=== PATIENT | male | born 1965 | race Caucasian/White ===

== ENCOUNTER → 2017-11-05 11:00 | Outpatient (CLI) | payer MEDICARE ==
[2014-05-14 07:51] VITALS: BMI 33.5
[~2017-11-05 11:00] MED LIST: ACETAMINOPHEN325 MG NG; ACETAMINOPHEN325 MG PO; ADIPEX-P37.5 MG PO; AMITRIPTYLINE100 MG PO; ASPIRIN325 MG PO; BAYER CHEWABLE81 MG PO; BENADRYL25 MG PO; CALAN120 MG PO; CELEXA20 MG PO; COLACE100 MG PO; DULCOLAX10 MG/SUPP RC; ELIQUIS2.5 MG PO; HYDROCODONE-APA1 TAB PO; K-TAB10 MEQ PO; LASIX40 MG PO; LOTENSIN20 MG PO; MIRALAX17 GM PO; NEURONTIN 300300 MG PO; NITROQUICK0.4 MG SL; NORVASC10 MG PO; OXYCONTIN10 MG PO; PERCOCET 10/3251 TA1 PO; PLAVIX75 MG PO; PRINIVIL20 MG PO; SENOKOT-S TABLE1 TAB PO; SEROQUEL200 MG PO; VALIUM5 MG PO; ZOFRAN4 MG PO; ZYPREXA20 MG PO
== END | disposition home or self-care (01) ==
LOC: D.US 11-01 11:30
DX: R10.9 Unspecified abdominal pain (principal)

== ENCOUNTER 2018-10-14 09:47 | Outpatient (CLI) | payer MEDICARE ==
[2014-05-14 07:51] VITALS: BMI 33.5
[2018-10-14] MEDS ORDERED: XARELTO10 MG PO (10:26)
[2018-10-14] MEDS ORDERED: BETAPACE 80 MG80 MG PO (10:26)
[2018-10-14] MEDS ORDERED: HYDROCHLOROTH12.5 M1 PO (10:26)
--- NOTE | 2018-10-14 10:33 | NUR ---
EKG SHOWS NORMAL SINUS RHYTHM. NOTIFIED DR. PHELPS. WANTS TO SEE HIM BACK IN THE OFFICE IN 1 MONTH. PATIENT AWARE. SAID HE WOULD CALL THE OFFICE TO SCHEDULE APPOINTMENT. PATIENT DRESSED. AMBULATED TO VEHICLE AND LEFT FACILITY WITH ALL PERSONAL BELONGINGS.
== END 2018-10-14 10:33 | disposition home or self-care (01) ==
LOC: D.CATH 09:47
PROVIDERS: ATTEND Internal Medicine Interventional Cardiology
DX: I48.91 Unspecified atrial fibrillation (principal)

== ENCOUNTER 2019-02-19 17:12 | Inpatient (IN) | payer MEDICARE ==
[~2019-02-19] VITALS: Ht 182.9 cm; Wt 89.1 kg
[~2019-02-19 17:12] MED LIST changes: +BETAPACE 80 MG80 MG PO; +HYDROCHLOROTH12.5 M1 PO; +XARELTO10 MG PO
--- NOTE | 2019-02-19 17:58 | NUR ---
SPOKE WITH MARIA DEL CARMEN @ [facility]ISON CONTR[facility], INFORMED TO GET ABG'S, 12 LOEAD, ASA AND TYLENOL LEVELS, WATCH FOR RESPATORY DEPRESSION MAY NEED TO INTUBATE, CAN CAUSE SEIZURES,PROLONG QRS,HTN, ARRYTHMIAS.
[2019-02-19 17:59] LABS: BASOPHILS 0.7 % (0-2); EOSINOPHILS 1.6 % (0-7); HEMOGLOBIN 16.9 g/dL (13.5-17.5); IMMATURE GRANULOCYTES 0.1 % (0-5); LYMPHOCYTES 24.8 % (15-50); MCH 34.3 pg (26.0-34.0); MCHC 35.2 g/dL (31.0-37.0); MCV 97.6 fL (80.0-100.0); MEAN PLATELET VOLUME 9.6 fL (7.4-10.4); MONOCYTES 13.9 % (2-11); NEUTROPHILS 58.9 % (40-80); PLATELET COUNT 203 10x3/uL (130-400); RBC 4.92 10x6/uL (4.20-6.10); RDW 12.5 % (11.5-14.5); WBC 8.2 10x3/uL (4.8-10.8)
[2019-02-19 18:10] LABS: ANION GAP 16.7 mmol/L (8-16); CALCIUM 9.1 mg/dL (8.5-10.1); CREATININE - SERUM 1.1 mg/dL (0.6-1.3); POTASSIUM - SERUM 3.7 mmol/L (3.5-5.1)
[2019-02-19 18:16] LABS: ALBUMIN 4.2 g/dL (3.4-5.0); BILIRUBIN - TOTAL 0.6 mg/dL (0.2-1.3); MAGNESIUM - SERUM 2.4 mg/dL (1.8-2.4); PROTEIN - SERUM 8.7 g/dL (6.4-8.2)
[2019-02-19 18:32] VITALS: BP 137/84
--- NOTE | 2019-02-19 19:10 | NUR ---
184 PT RESP LABORING, ANXIOUS, DR MEDELLIN HERE, RESP THERAPIST HERE 1848 ATIVAN 1 MG IV,SEE MAR, PER DIMPLE CAREY 1849 ETOMIDATE 20 MG 1849 IV SEE MAR PER RADHA CAREY 1850 SUCCINYLCHOLINE 100MG IV PER RADHA CAREY 1851 INTUBATED WUTH 7.5 TUBE , 25@ LOWER LIP, SECURED, PER DR MEDELLIN 1853 18F NGT TO RIGHT NARE PER RADHA CAREY, CLAMPED
[2019-02-19 19:18] VITALS: BP 152/94
--- NOTE | 2019-02-19 19:18 | NUR ---
REPORT GIVEN TO ANGELA CAREY TO ASSUME CARE
--- NOTE | 2019-02-19 19:22 | NUR ---
UNABLE TO PERFORM SUICIDE RISK ASSESSMENT DUE TO PT BEING INTUBATED. WILL CONTINUE TO MONITOR.
[2019-02-19 20:00] LABS: APPEARANCE CLEAR (CLEAR); BILIRUBIN NEGATIVE (NEGATIVE); COLOR STRAW (YELLOW); GLUCOSE NEGATIVE (NEGATIVE); KETONE NEGATIVE (NEGATIVE); NITRITE NEGATIVE (NEGATIVE); PROTEIN NEGATIVE (NEGATIVE); SPECIFIC GRAVITY 1.005 (1.005-1.020)
[2019-02-19 20:01] LABS: UDS - AMPHET NEGATIVE QUAL (NEGATIVE); UDS - BARB NEGATIVE QUAL (NEGATIVE); UDS - BENZO NEGATIVE QUAL (NEGATIVE); UDS - COCAINE NEGATIVE QUAL (NEGATIVE); UDS - OPIATE POSITIVE QUAL (NEGATIVE); UDS - PCP NEGATIVE QUAL (NEGATIVE); UDS - THC NEGATIVE QUAL (NEGATIVE)
--- NOTE | 2019-02-19 20:50 | NUR ---
PT ARRIVED TO ICU ACCOMPANIED BY ER STAFF. REPORT RECEIVED, PT SEDATED AND ON VENT. NGT IN PLACE, 7.5 ETT TO 26CM LIP LINE RIGHT. LITTLEJOHN IN PLACE DRAINING YELLOW URINE. PIV IN RIGHT WRIST INFUSING, PIV IN LEFT AC INFUSING, SEE IV FLOWSHEET. ASSESSMENT COMPLETED, SEE FLOWSHEET. WILL CONTINUE TO MONITOR.
[2019-02-19 21:00] VITALS: BP 173/101
--- NOTE | 2019-02-19 21:30 | NUR ---
PIV STARTED IN LEFT HAND, 20G TO SL.
--- NOTE | 2019-02-19 21:45 | NUR ---
PT FAMILY AT BEDSIDE, UPDATED ON STATUS. NO FURTHER QUESTIONS AT THIS TIME.
[2019-02-19 21:56] LABS: APPEARANCE CLEAR (CLEAR); BILIRUBIN NEGATIVE (NEGATIVE); COLOR YELLOW (YELLOW); GLUCOSE NEGATIVE (NEGATIVE); KETONE NEGATIVE (NEGATIVE); NITRITE NEGATIVE (NEGATIVE); PROTEIN TRACE mg/dL (NEGATIVE); SPECIFIC GRAVITY 1.005 (1.005-1.020); UROBILINOGEN NORMAL (NORMAL)
[2019-02-19 22:00] VITALS: BP 173/105
--- NOTE | 2019-02-19 22:00 | NUR ---
SOLOMON DANIELS APN UPDATED ON STATUS, NEW ORDERS RECEIVED.
[2019-02-19 22:01] LABS: BACTERIA FEW /hpf (NEGATIVE); EPITHELIAL CELLS NSEEN /hpf (0-5); RED CELLS - URINE 0-5 /hpf (0-5); WHITE CELLS - URINE 0-5 /hpf (NEGATIVE)
[2019-02-19 22:04] VITALS: BP 132/115; BMI 29.8
[2019-02-19 23:00] VITALS: BP 117/78
--- NOTE | 2019-02-19 23:00 | NUR ---
PT SEDATED, RESPONDS TO PAINFUL STIMULI. PT HAVING VERY FREQUENT DECORTICATE POSTURING SPASMOTIC EPISODES. WILL CONTINUE TO MONITOR.
[2019-02-20] VITALS (42 sets, daily range): BP systolic 112–210; BP diastolic 72–142; BMI 29.7
--- NOTE | 2019-02-20 01:00 | NUR ---
PT SEDATED, AROUSES TO PAINFUL STIMULI. PT MILDLY AGITATED, GIVEN ATIVAN PRN.
--- NOTE | 2019-02-20 03:00 | NUR ---
PT SEDATED, AROUSES TO PAINFUL STIMULI. PT STILL AGITATED, PRM MEDS ADMINISTERED
[2019-02-20 04:06] LABS: BASOPHILS 0.2 % (0-2); EOSINOPHILS 1.2 % (0-7); HEMATOCRIT 39.9 % (42.0-54.0); IMMATURE GRANULOCYTES 0.1 % (0-5); LYMPHOCYTES 17.3 % (15-50); MCH 34.6 pg (26.0-34.0); MCHC 35.1 g/dL (31.0-37.0); MCV 98.5 fL (80.0-100.0); MONOCYTES 9.4 % (2-11); NEUTROPHILS 71.8 % (40-80); RBC 4.05 10x6/uL (4.20-6.10); RDW 12.4 % (11.5-14.5); WBC 8.3 10x3/uL (4.8-10.8)
[2019-02-20 04:11] LABS: PLATELET COUNT 133 10x3/uL (130-400)
[2019-02-20 04:17] LABS: INR 1.36 (0.85-1.17); PROTIME 16.3 SECONDS (11.6-15.0)
[2019-02-20 04:40] LABS: ALKALINE PHOSPHATASE 82 U/L (46-116); BILIRUBIN - TOTAL 0.45 mg/dL (0.2-1.3); CALCIUM 7.5 mg/dL (8.5-10.1); CARBON DIOXIDE 32.7 mmol/L (21.0-32.0); CHLORIDE - SERUM 112 mmol/L (98-107); GLUCOSE 125 mg/dL (74-106); MAGNESIUM - SERUM 2.5 mg/dL (1.8-2.4); PRO BNP 374 pg/mL (0-125); SODIUM 152 mmol/L (136-145)
[2019-02-20 05:00] LABS: APTT < 20.0 SECONDS (22.8-39.4)
--- NOTE | 2019-02-20 05:00 | NUR ---
PT SEDATED, AROUSES TO PAINFUL STIMULI. FAMILY AT BEDSIDE, WILL CONTINUE TO MONITOR.
[2019-02-20 05:01] LABS: ALBUMIN 3.1 g/dL (3.4-5.0); ALT (SGPT) 70 U/L (10-68); CALC OSMOLALITY 300 mosm/kg (275-300); CREATININE - SERUM 0.8 mg/dL (0.6-1.3); POTASSIUM - SERUM 2.8 mmol/L (3.5-5.1); PROTEIN - SERUM 6.1 g/dL (6.4-8.2); UREA NITROGEN 7 mg/dL (7-18); eGFR NON AFRICAN AMERICAN > 90 mL/min (90-120)
[2019-02-20 05:02] LABS: PHOSPHOROUS 1.4 mg/dL (2.5-4.9)
--- NOTE | 2019-02-20 08:22 | NUR ---
PT SEDATED, INTUBATED, 40% FIO2, PEEP 5. VSS. ECHO IN PROGRESS. FAMILYT AT .
--- NOTE | 2019-02-20 08:23 | NUR ---
KCL AND PHOS REPLACEMENT PER ELECTROLYTE PROTOCOL.
--- NOTE | 2019-02-20 09:37 | NUR ---
PT MOVING ARMS AND LEGS AROUND CONTINUALLY. ATIVAN GIVEN.
--- NOTE | 2019-02-20 12:30 | NUR ---
PT REPORT RECEIVED FROM PURA CAREY. TAKING OVER CARE FOR PT. WILL CONTINUE TO MONITOR
--- NOTE | 2019-02-20 13:30 | NUR ---
STARTED CARDIZEM DRIP ON PT. WILL CONTINUE TO MONITOR BP AND HR.
--- NOTE | 2019-02-20 15:15 | NUR ---
[facility] CALLED WANTING UPDATE ON PT. UPDATE GIVEN. WANTED UPDATE ON EKG. TOLD TO CALL BACK IN 10 MINUTES.
--- NOTE | 2019-02-20 15:22 | NUR ---
JUSTINE FROM LAB CALLED ABOUT A CRITICAL LAB VALUE. POTASSIUM OF 2.9. RESULTS READ BACK AND DR FARIAS NOTIFIED.
--- NOTE | 2019-02-20 15:28 | NUR ---
ALLAN AT [facility] CALLED BACK REGARDING EKG. UPDATE GIVEN. DR FARIAS WANTED EKG RAN FOR PT. WILL CONTINUE TO MONITOR
--- NOTE | 2019-02-20 17:26 | NUR ---
SOLOMON CONNER CALLED ABOUT UA COLLECTION. WILL COLLECT URINE SPECIMINE AND TAKE TO LAB SOON POSSIBLE
--- NOTE | 2019-02-20 17:38 | NUR ---
URINE SPECIMEN OBTAINED. TAKEN OVER TO LAB
[2019-02-20 18:54] LABS: APPEARANCE CLEAR (CLEAR); BILIRUBIN NEGATIVE (NEGATIVE); COLOR YELLOW (YELLOW); GLUCOSE NEGATIVE (NEGATIVE); KETONE NEGATIVE (NEGATIVE); NITRITE NEGATIVE (NEGATIVE); PROTEIN NEGATIVE (NEGATIVE); UROBILINOGEN NORMAL (NORMAL)
--- NOTE | 2019-02-20 19:30 | NUR ---
PT SEDATED, ETT IN PLACE AND PATENT TO VENT, BILAT CRACKLES NOTED, PIV X3 INTACT WITH MULTI IVF INFUSING, NGT TO LIWS WITH BLACK OUTPUT NOTED, BILAT SWR IN USE, LITTLEJOHN PATENT TO BSD WITH STRAW URINE, SCD'S TO BILAT LOWER LEGS, VITALS STABLE, WILL CONT TO MONITOR
--- NOTE | 2019-02-20 21:15 | NUR ---
PT REMAINS SEDATED, RESTLESS AT TIMES, ATTEMPTS TO PULL AT TUBES, RESTRAINTS IN PLACE, WILL CONT TO MONITOR
[2019-02-20 23:09] LABS: CALC OSMOLALITY 276 mosm/kg (275-300); CALCIUM 7.6 mg/dL (8.5-10.1); CARBON DIOXIDE 24.8 mmol/L (21.0-32.0); CHLORIDE - SERUM 105 mmol/L (98-107); CREATININE - SERUM 0.7 mg/dL (0.6-1.3); GLUCOSE 119 mg/dL (74-106); POTASSIUM - SERUM 3.1 mmol/L (3.5-5.1); SODIUM 140 mmol/L (136-145); eGFR NON AFRICAN AMERICAN > 90 mL/min (90-120)
[2019-02-20 23:11] LABS: UREA NITROGEN 4 mg/dL (7-18)
--- NOTE | 2019-02-20 23:28 | NUR ---
PT RESTING QUIETLY AT THIS TIME, NGT REMAINS TO LIWS WITH DARK OUTPUT,NO DISTRESS NOTED
--- NOTE | 2019-02-20 23:45 | NUR ---
Received Pt from CHERRY Valdez. No acute changes noted at this time. No s/s of distress. Will continue to monitor.
[2019-02-21] VITALS (66 sets, daily range): BP systolic 99–231; BP diastolic 47–200
--- NOTE | 2019-02-21 01:00 | NUR ---
Pt is resting in bed intubated and sedated. Ocassionally pt will awaken and pull at anything he can reach. Pt also seen kicking legs in the air. No s/s of distress noted. Will continue to monitor.
--- NOTE | 2019-02-21 03:00 | NUR ---
Reassessment completed, see flowsheet for details. Pt is laying in bed with eyes closed at this time. Occassionally Pt will start pulling at lines or cords or anything within reach. Pt does have bilateral wrist restraints on at this time. No s/s of distress noted. Will continue to monitor.
[2019-02-21 04:35] LABS: ALKALINE PHOSPHATASE 80 U/L (46-116); ALT (SGPT) 59 U/L (10-68); CALC OSMOLALITY 273 mosm/kg (275-300); CALCIUM 7.6 mg/dL (8.5-10.1); CARBON DIOXIDE 22.8 mmol/L (21.0-32.0); CHLORIDE - SERUM 104 mmol/L (98-107); CREATININE - SERUM 0.5 mg/dL (0.6-1.3); GLUCOSE 121 mg/dL (74-106); MAGNESIUM - SERUM 2.6 mg/dL (1.8-2.4); PHOSPHOROUS 2.7 mg/dL (2.5-4.9); POTASSIUM - SERUM 4.2 mmol/L (3.5-5.1); SODIUM 138 mmol/L (136-145); UREA NITROGEN 3 mg/dL (7-18); eGFR NON AFRICAN AMERICAN > 90 mL/min (90-120)
--- NOTE | 2019-02-21 05:00 | NUR ---
Pt is laying in bed with eyes closed at this time. Pt is being calm and cooperative currently. No s/s of distress noted. Will continue to monitor.
[2019-02-21 06:57] LABS: BASOPHILS 0.1 % (0-2); EOSINOPHILS 0.1 % (0-7); HEMATOCRIT 41.4 % (42.0-54.0); HEMOGLOBIN 14.9 g/dL (13.5-17.5); IMMATURE GRANULOCYTES 0.2 % (0-5); LYMPHOCYTES 9.6 % (15-50); MCH 34.7 pg (26.0-34.0); MEAN PLATELET VOLUME 9.3 fL (7.4-10.4); MONOCYTES 10.3 % (2-11); NEUTROPHILS 79.7 % (40-80); PLATELET COUNT 135 10x3/uL (130-400); RBC 4.29 10x6/uL (4.20-6.10); RDW 12.5 % (11.5-14.5)
--- NOTE | 2019-02-21 07:00 | NUR ---
RECEIVED BEDSIDE REPORT ON PATIENT AND ASSUMED CARE. PATIENT RESTLESS, SIDEWAYS IN BED. DOES FOLLOW COMMANDS. PATIENT LINENS CHANGED AND REPOSITIONED IN BED. VSS. NG TUBE TO RIGHT NARE WITH GREEN BILIOUS DRAINAGE, NOTED, PLACEMENT CHECKED VIA ASCULTATION. IV 18 GA TO RIGHT WRIST WITH CARDENE INFUSING AT 7.5 MG/HR (37.5 CC/HR), IV 18 GA TO LEFT AC, NSL, IV 20 GA TO LEFT HAND INFUSING NS AT 100 CC/HR AND VERSED AT 7 MG/HR (7 CC/HR). NO S/S OF INFILTRATION. BBS - COARSE SPO2 94% ON VENTILATOR. VENT SETTINGS ARE TV 550, AC 16, PEEP 5, FIO2 - 40%. CM - SR RATE OF 90, NO ECTOPY NOTED. SCD'S IN PLACE. HEAD TO TOE ASSESSMENT COMPLETED.
[2019-02-21 07:01] LABS: MCV 96.5 fL (80.0-100.0); WBC 11.6 10x3/uL (4.8-10.8)
--- NOTE | 2019-02-21 08:13 | NUR ---
PATEINT SPO2 DECREASED TO 87%, BBS DIMINISHED ON THE RIGHT COMPARED TO LEFT AND EARLIER ASCULATION. ETT SUCTIONED WITH NO RESULTS. RESPIRATORY AT ROOM AND INCREASED FIO2 TO 60% WITH SPO2 - 94%.
--- NOTE | 2019-02-21 08:15 | NUR ---
PATIENTS MOTHER IN ROOM UPDATED AND QUESTIONS ANSWERED.
--- NOTE | 2019-02-21 09:00 | NUR ---
PATIENT TURNED AND REPOSITIONED IN BED. VSS.
--- NOTE | 2019-02-21 09:02 | NUR ---
DR. FARIAS AT ROOM AND EXAMINES PATIENT.
--- NOTE | 2019-02-21 09:31 | NUR ---
CARDENE GTT INCREASED TO 10 MG/HR BP 149/93 (104).
--- NOTE | 2019-02-21 09:56 | NUR ---
12 LEAD ECG COMPLETED. NSR, QT/QTc 374/482 MS.
--- NOTE | 2019-02-21 10:48 | NUR ---
REASSESSMENT COMPLETED. PATIENT WITH TEMP OF 102.4. RR - 30 BREATHING OVER THE VENT. RT AT ROOM. DR. FARIAS NOTIFIED. PATIENT TURNED AND REPOSITIONED.
--- NOTE | 2019-02-21 11:05 | NUR ---
SPOKE TO DR. FARIAS REGARDING PATIENT CONDITION, TEMP, ORDERS FENTANYL GTT, MAX RATE OF 100 MCG/H, ALSO TO OBTAIN SPUTUM CULTURE AND GRAM STAIN.
--- NOTE | 2019-02-21 11:11 | NUR ---
DR. ROACH AT ROOM UPDATED AND EXAMINES PATIENT.
--- NOTE | 2019-02-21 11:20 | NUR ---
DR. ROACH AT ROOM REFERENCE PATIENTS HR 114, RR 46, ORDERS ATIVAN 2 MG EVERY 15 MIN PRN. RT AT ROOM.
--- NOTE | 2019-02-21 11:47 | NUR ---
LAB AT ROOM TO DRAW BC.
--- NOTE | 2019-02-21 12:11 | NUR ---
SPOKE TO DR. ROACH REGARDING PATIENT HR BEING 122, STATES TO SWITCH FROM CARDENE GTT TO CARIZEM GTT AT 15 MG/HR. ORDER PLACED.
--- NOTE | 2019-02-21 12:50 | NUR ---
PATIENT TURNED AND REPOSITONED IN BED.
--- NOTE | 2019-02-21 13:11 | NUR ---
SPOKE TO DR. ROACH REGARDING PATIENTS TEMP 103.3, ADVISED TO GIVE ACETEMINOPHEN IV Q8H PRN FOR TEMP >102. ORDER PLACED.
--- NOTE | 2019-02-21 13:43 | NUR ---
NGT PLACEMENT CHECKED VIA ASCULTATION, PRN TYLENOL GIVEN FOR TEMP 13.3 AND NGT CLAMPED FOR 30 MINUTES.
--- NOTE | 2019-02-21 13:49 | NUR ---
PATIENT RESTING QUIETLY, HR - 102, RR - 21, SEDATED ON VENT. VSS. BP 139/75 (93).
--- NOTE | 2019-02-21 14:08 | NUR ---
TEMP POST TYLENOL IS 103.1, NGT UNCLAMPED AND TO LIWS.
--- NOTE | 2019-02-21 14:44 | NUR ---
DR. FARIAS AT ROOM UPDATED ON PATIENTS CONDITION.
--- NOTE | 2019-02-21 14:46 | NUR ---
PATEINTS TEMP 103.O ICE PACKS PLACED TO GROIN, ARM PITS AND NECK. TURNED AND REPOSITIONED IN BED.
--- NOTE | 2019-02-21 14:56 | NUR ---
REASSESSMENT COMPLETE. PATIENT TURNED AND REPOSITONED IN BED. TEMP 102.9, ICE PACKS TO GROIN, ARM PITS AND NECK. VSS. IVS INFUSING W/O DIFFICULTY OR S/S OF INFILTRATION. FENTANYL AT 100 MCG/HR, VERSED AT 7 MG/HR, NS AT 100 CC/HR AND CARDIZEM AT 10 MG/HR.
--- NOTE | 2019-02-21 15:53 | NUR ---
PATIENT RESTING QUIETLY, SEDATED ON VENT. VSS.
--- NOTE | 2019-02-21 16:15 | NUR ---
PATIENTS MOM AT ROOM UPDATED AND QUESTIONS ANSWERED. STATES SHE FOUND APPROXIMATELY 12-13 OF THE AMITRIPTYLIN PILLS IN THE DRIVE WAY.
--- NOTE | 2019-02-21 16:28 | NUR ---
PATIENTS SON'S AT BEDSIDE UPDATED AND QUESTIONS ANSWERED.
--- NOTE | 2019-02-21 17:47 | NUR ---
ICE PACKS PLACED BACK TO GROIN, ARMPITS AND NECK.
--- NOTE | 2019-02-21 19:32 | NUR ---
PT COUGHING AND AGITATED, ORAL CARE AND SUCTIONING PROVIDED. PT CONTINUES TO GAG AND ATTEMPT TO SIT UP. PRN ATIVAN 2MG ADMINISTERED VIA SIVP PER MD ORDER, WILL MONITOR FOR DESIRED EFFECT.
--- NOTE | 2019-02-21 21:12 | NUR ---
[facility] POISON CONTROL CALLED REGARDING PT, UPDATED, NOTHING FURTHER AT THIS TIME.
--- NOTE | 2019-02-21 23:40 | NUR ---
PT REPOSITIONED FOR COMFORT, ORAL CARE AND SUCTIONING PROVIDED, HR SR ON CM, CONT POC.
[2019-02-22] VITALS (23 sets, daily range): BP systolic 93–150; BP diastolic 54–97
--- NOTE | 2019-02-22 01:00 | NUR ---
RT AT BEDSIDE, SUCTIONING AND ORAL CARE PROVIDED, CONT TO MONITOR.
--- NOTE | 2019-02-22 03:10 | NUR ---
SHAFTING CLEANER AT BEDSIDE TO DRAW AM LAB, PT TOLERATED WITHOUT DIFFICULTY. VSS.
[2019-02-22 03:53] LABS: BASOPHILS 0.1 % (0-2); EOSINOPHILS 0.1 % (0-7); HEMATOCRIT 39.4 % (42.0-54.0); HEMOGLOBIN 13.9 g/dL (13.5-17.5); IMMATURE GRANULOCYTES 0.2 % (0-5); LYMPHOCYTES 13.2 % (15-50); MCH 34.3 pg (26.0-34.0); MCHC 35.3 g/dL (31.0-37.0); MCV 97.3 fL (80.0-100.0); MONOCYTES 6.4 % (2-11); PLATELET COUNT 128 10x3/uL (130-400); RBC 4.05 10x6/uL (4.20-6.10); RDW 12.3 % (11.5-14.5); WBC 8.9 10x3/uL (4.8-10.8)
[2019-02-22 04:17] LABS: ALBUMIN 2.4 g/dL (3.4-5.0); ALKALINE PHOSPHATASE 62 U/L (46-116); ALT (SGPT) 35 U/L (10-68); BILIRUBIN - TOTAL 1.64 mg/dL (0.2-1.3); CALC OSMOLALITY 275 mosm/kg (275-300); CALCIUM 7.7 mg/dL (8.5-10.1); CARBON DIOXIDE 23.1 mmol/L (21.0-32.0); CHLORIDE - SERUM 106 mmol/L (98-107); CREATININE - SERUM 0.7 mg/dL (0.6-1.3); GLUCOSE 97 mg/dL (74-106); MAGNESIUM - SERUM 2.4 mg/dL (1.8-2.4); POTASSIUM - SERUM 3.1 mmol/L (3.5-5.1); PROTEIN - SERUM 6.3 g/dL (6.4-8.2); SODIUM 139 mmol/L (136-145); UREA NITROGEN 7 mg/dL (7-18); eGFR NON AFRICAN AMERICAN > 90 mL/min (90-120)
--- NOTE | 2019-02-22 04:50 | NUR ---
ABG'S REVIEWED, PO2 NOTED, FIO2 INCREASED TO 100% PEEP OF 7.
--- NOTE | 2019-02-22 05:10 | NUR ---
ABG'S RESULTED FROM RE-CHECK, VENT SETTINGS REMAIN AT 100% AND PEEP 0F 7 PER RT. WILL MONITOR.
--- NOTE | 2019-02-22 07:15 | NUR ---
LYING IN BED ON VENT AT THIS TIME. VSS. NOTED PER DR FARIAS ORDER, CONSENTS OBTAINED FROM PTS FOR BRONCHOSCOPY. ALL QUESTIONS AND CONCERNS ADDRESSED. WILL CONTINUE PLAN OF CARE.
--- NOTE | 2019-02-22 08:06 | NUR ---
BRONCHOSCOPY COMPLETE, DR FARIAS HAS SPOKEN WITH PTS AND UPDATES PROVIDED. NO ACUTE DISTRESS NOTED. VSS. WILL CONTINUE PLAN OF CARE.
--- NOTE | 2019-02-22 10:32 | NUR ---
LYING IN BED ON VENT AT THIS TIME. VSS. NO ACUTE DISTRESS NOTED. TURNED Q2H. ORAL CARE PROVIDED Q2H. WILL CONTINUE PLAN OF CARE.
--- NOTE | 2019-02-22 12:11 | NUR ---
NO ACUTE DISTRESS NOTED. NO CHANGE. VSS. TURNED Q2H. ORAL CARE PROVIDED Q2H. WILL CONTINUE PLAN OF CARE.
[2019-02-22 13:02] LABS: MACROPHAGES BF 1 %; NEUT - BF 82 %
--- NOTE | 2019-02-22 14:41 | NUR ---
FAMILY AT BEDSIDE AT THIS TIME. VSS. NO ACUTE DISTRESS NOTED. PT TURNED Q2H. ORAL CARE PROVIDED Q2H. WILL CONTINUE PLAN OF CARE.
--- NOTE | 2019-02-22 15:35 | NUR ---
TEMP NOTED AT 102.6. ICE PACKS PLACED TO BILATERAL AXILLARIES AND GROIN. PHYSICIANS HAVE BEEN MADE AWARE OF ELEVATED TEMPERATURE, NO NEW ORDERS SUCH CULTURES NOTED. NO ACUTE DISTRESS NOTED. WILL CONTINUE PLAN OF CARE.
--- NOTE | 2019-02-22 17:52 | NUR ---
CHG BATH PROVIDED AT THIS TIME ALONG WITH TOTAL LINEN CHANGE. VSS. NO ACUTE DISTRESS NOTED. WILL CONTINUE PLAN OF CARE.
--- NOTE | 2019-02-22 19:00 | NUR ---
REPORT RECEIVED, SHIFT ASSESSMENT COMPLETE, PT IS SEDATED ON VENT, AROUSES TO VOICE, ALL PPP, VSS, WILL CON'T TO MONITOR
--- NOTE | 2019-02-22 20:55 | NUR ---
FAMILY AT BEDSIDE, UPDATE GIVEN
--- NOTE | 2019-02-22 23:22 | NUR ---
REASSESSMENT COMPLETE, NO CHANGES NOTED, PT REPOSITIONED FOR COMFORT, ORAL CARE PROVIDED
[2019-02-23] VITALS (25 sets, daily range): BP systolic 86–136; BP diastolic 59–89; Ht 182.9 cm; Wt 89.1 kg
--- NOTE | 2019-02-23 01:00 | NUR ---
REPOSITIONED FOR COMFORT, ORAL CARE PROVIDED
--- NOTE | 2019-02-23 03:15 | NUR ---
REASSESSMENT COMPLETE, NO CHANGES NOTED,
[2019-02-23 04:19] LABS: BASOPHILS 0.1 % (0-2); EOSINOPHILS 2.4 % (0-7); HEMATOCRIT 37.2 % (42.0-54.0); HEMOGLOBIN 12.9 g/dL (13.5-17.5); IMMATURE GRANULOCYTES 0.2 % (0-5); LYMPHOCYTES 8.3 % (15-50); MCH 34.5 pg (26.0-34.0); MCHC 34.7 g/dL (31.0-37.0); MEAN PLATELET VOLUME 10.3 fL (7.4-10.4); MONOCYTES 6.6 % (2-11); NEUTROPHILS 82.4 % (40-80); PLATELET COUNT 134 10x3/uL (130-400); RBC 3.74 10x6/uL (4.20-6.10); WBC 8.3 10x3/uL (4.8-10.8)
[2019-02-23 04:32] LABS: MCV 99.5 fL (80.0-100.0)
[2019-02-23 04:44] LABS: ALBUMIN 2.1 g/dL (3.4-5.0); ALKALINE PHOSPHATASE 64 U/L (46-116); BILIRUBIN - TOTAL 1.97 mg/dL (0.2-1.3); CALCIUM 7.8 mg/dL (8.5-10.1); CHLORIDE - SERUM 106 mmol/L (98-107); CREATININE - SERUM 0.8 mg/dL (0.6-1.3); GLUCOSE 87 mg/dL (74-106); MAGNESIUM - SERUM 2.7 mg/dL (1.8-2.4); PHOSPHOROUS 1.9 mg/dL (2.5-4.9); POTASSIUM - SERUM 3.6 mmol/L (3.5-5.1); PROTEIN - SERUM 6.1 g/dL (6.4-8.2); SODIUM 139 mmol/L (136-145); eGFR NON AFRICAN AMERICAN > 90 mL/min (90-120)
[2019-02-23 04:53] LABS: ALT (SGPT) 25 U/L (10-68); CALC OSMOLALITY 275 mosm/kg (275-300); UREA NITROGEN 9 mg/dL (7-18)
--- NOTE | 2019-02-23 05:15 | NUR ---
REPOSITIONED FOR COMFORT, ORAL CARE PROVIDED
--- NOTE | 2019-02-23 07:30 | NUR ---
patient report recieved. see assessment. see adl.
--- NOTE | 2019-02-23 09:22 | NUR ---
Nutrition follow-up: Intubated, sedated; ETOH withdrawals Labs reviewed Pt remains NPO Recommend starting Pulmocare @ 25 ml/hr with increase to goal rate of 60 ml/hr with 100 ml H2O flush Q 4 hours RDN following.
--- NOTE | 2019-02-23 11:06 | NUR ---
DR LOPEZ AT BEDSIDE. UPDATE GIVEN. CARDENE DRIP STILL INFUSING FROM BEFORE SHIFT AT 15 PER ORDER.
--- NOTE | 2019-02-23 12:03 | NUR ---
DR LENIN LARSON.
--- NOTE | 2019-02-23 12:26 | NUR ---
per linda give sotolal down ng tube then titrate diltiazam down as needed.
--- NOTE | 2019-02-23 13:00 | NUR ---
chest x ray at this time
--- NOTE | 2019-02-23 15:00 | NUR ---
ICE PACKS IN PLACE. LOW GRADE FEVER DURING THIS TIME.
--- NOTE | 2019-02-23 17:30 | NUR ---
FAMILY AT BEDSIDE. NO ACUTE DISTRESS. UPDATE GIVEN ON CHEST XRAY FROM THIS MORNING SEDATION CONTINUED FROM WHAT WAS GIVEN IN REPORT THIS MORNING.
--- NOTE | 2019-02-23 19:20 | NUR ---
REPORT RECEIVED, SHIFT ASSESMENT COMPLETE, PT IS SEDATED ON VENT, ALL PPP, VSS, WILL CON'T TO MONITOR
--- NOTE | 2019-02-23 21:10 | NUR ---
FAMILY AT BEDSIDE, UPDATE GIVEN
--- NOTE | 2019-02-23 23:14 | NUR ---
REASSESSMENT COMPLETE, NO CHANGES NOTED, WILL CON'T TO MONITOR
[2019-02-24] VITALS (24 sets, daily range): BP systolic 118–158; BP diastolic 80–109
--- NOTE | 2019-02-24 01:14 | NUR ---
COMPLETE BATH AND LINEN CHANGE, PT TOLERATED WELL
--- NOTE | 2019-02-24 03:09 | NUR ---
REASSESSMENT COMPLETE, NO CHANGES NOTED, VSS, CALL LIGHT IN REACH
[2019-02-24 03:56] LABS: BASOPHILS 0.1 % (0-2); EOSINOPHILS 1.7 % (0-7); HEMOGLOBIN 12.5 g/dL (13.5-17.5); IMMATURE GRANULOCYTES 0.5 % (0-5); LYMPHOCYTES 6.7 % (15-50); MCH 34.3 pg (26.0-34.0); MCHC 34.7 g/dL (31.0-37.0); MCV 98.9 fL (80.0-100.0); MEAN PLATELET VOLUME 10.4 fL (7.4-10.4); MONOCYTES 8.7 % (2-11); NEUTROPHILS 82.3 % (40-80); PLATELET COUNT 143 10x3/uL (130-400); RBC 3.64 10x6/uL (4.20-6.10); RDW 12.9 % (11.5-14.5); WBC 8.8 10x3/uL (4.8-10.8)
[2019-02-24 04:23] LABS: ALBUMIN 1.8 g/dL (3.4-5.0); ALKALINE PHOSPHATASE 70 U/L (46-116); ALT (SGPT) 22 U/L (10-68); BILIRUBIN - TOTAL 1.55 mg/dL (0.2-1.3); CALC OSMOLALITY 278 mosm/kg (275-300); CARBON DIOXIDE 25.3 mmol/L (21.0-32.0); CHLORIDE - SERUM 107 mmol/L (98-107); CREATININE - SERUM 0.7 mg/dL (0.6-1.3); GLUCOSE 92 mg/dL (74-106); MAGNESIUM - SERUM 2.5 mg/dL (1.8-2.4); POTASSIUM - SERUM 3.7 mmol/L (3.5-5.1); PROTEIN - SERUM 6.1 g/dL (6.4-8.2); SODIUM 141 mmol/L (136-145); UREA NITROGEN 8 mg/dL (7-18); eGFR NON AFRICAN AMERICAN > 90 mL/min (90-120)
--- NOTE | 2019-02-24 05:21 | NUR ---
REPOSITIONED FOR COMFORT, ORAL CARE PROVIDED
--- NOTE | 2019-02-24 07:30 | NUR ---
report recieved. see assessment. see adl's. no acute distress. will continue to monitor
--- NOTE | 2019-02-24 09:00 | NUR ---
no acute dsitress. vss. see assessment. see adl's. discussed with family regarding smell.
--- NOTE | 2019-02-24 11:00 | NUR ---
see reassessment. see adl's. no acute distress. meds given per mar. monitoring blood pressue. will continue to monitor
[2019-02-24 14:08] LABS: ACID FAST SMEAR Negative (()); AFB SPECIMEN PROCESSING Concentration (())
--- NOTE | 2019-02-24 15:30 | NUR ---
SEE ADL'S. SEE ASSESSMENT. LINES CHANGED PER STICKERS. ALL LINES AND CAPPED. NO ACUTE DISTRESS. WILL CONTINUE TO MONITOR
--- NOTE | 2019-02-24 16:27 | NUR ---
PATIENT NOW ON DROPLET PRECAUTIONS. KRISTINA BIGGS FOUND AND RULING OUR MRSA
--- NOTE | 2019-02-24 19:20 | NUR ---
REPORT RECIEVED, SHIFT ASSESSMENT COMPLETE, PT IS SEDATED ON VENT, ALL PPP, VSS, CALL LIGHT IN REACH
--- NOTE | 2019-02-24 21:00 | NUR ---
FAMILY AT BEDSIDE, UPDATE GIVEN
--- NOTE | 2019-02-24 23:00 | NUR ---
REASSESSMENT COMPLETE, NO CHANGES NOTED, PT RESTING AT THIS TIME, WILL CON'T TO MONITOR
[2019-02-25] VITALS (24 sets, daily range): BP systolic 125–154; BP diastolic 82–114
--- NOTE | 2019-02-25 01:16 | NUR ---
REPOSITIONED FOR COMFORT, ORAL CARE PROVIDED
--- NOTE | 2019-02-25 03:00 | NUR ---
REASSESSMENT COMPLETE, NO CHANGES NOTED, PT RESTING AT THIS TIME, VSS, CALL LIGHT IN REACH
[2019-02-25 04:46] LABS: CALC OSMOLALITY 282 mosm/kg (275-300); CARBON DIOXIDE 21.9 mmol/L (21.0-32.0); CHLORIDE - SERUM 110 mmol/L (98-107); CREATININE - SERUM 0.6 mg/dL (0.6-1.3); GLUCOSE 92 mg/dL (74-106); PHOSPHOROUS 1.8 mg/dL (2.5-4.9); POTASSIUM - SERUM 3.1 mmol/L (3.5-5.1); SODIUM 143 mmol/L (136-145); UREA NITROGEN 8 mg/dL (7-18); eGFR NON AFRICAN AMERICAN > 90 mL/min (90-120)
[2019-02-25 04:47] LABS: CALCIUM 6.5 mg/dL (8.5-10.1); MAGNESIUM - SERUM 4.4 mg/dL (1.8-2.4)
--- NOTE | 2019-02-25 05:11 | NUR ---
REPOSITIONED FOR COMFORT, ORAL CARE PROVIDED
--- NOTE | 2019-02-25 07:05 | NUR ---
PT TEMP 102.1 ICE PACKS PUT IN PLACE AND FA TURNED ON. PT POSITIONED FOR COMFORT WILL CONTINUE TO MONITOR.
--- NOTE | 2019-02-25 19:30 | NUR ---
SHIFT ASSESSMENT COMPLETED PT AFEBRILE AT THIS TIME SEE FLOWSHEET
--- NOTE | 2019-02-25 20:30 | NUR ---
HS MEDICATIONS RECEIVED
--- NOTE | 2019-02-25 23:15 | NUR ---
REASSESSMENT COMPLETED SEE FLOWSHEET
[2019-02-26] VITALS (24 sets, daily range): BP systolic 102–160; BP diastolic 59–106
--- NOTE | 2019-02-26 03:49 | NUR ---
REASSESSMENT COMPLETED SEE FLOWSHEET
--- NOTE | 2019-02-26 03:58 | NUR ---
PT ELEVATED TEMP AT THIS TIME REASSESSMENT COMPLETED SEE FLOWSHEET
--- NOTE | 2019-02-26 05:30 | NUR ---
PT RESTING COMFORTABLY
[2019-02-26 05:37] LABS: PHOSPHOROUS 2.2 mg/dL (2.5-4.9)
[2019-02-26 05:38] LABS: MAGNESIUM - SERUM 1.8 mg/dL (1.8-2.4)
--- NOTE | 2019-02-26 08:32 | NUR ---
Nutrition follow-up: Pt intubated, sedated Labs reviewed Pulmocare infusing @ 30 ml/hr with goal rate of 50 ml/hr 50 ml h2o flush q 2 hours Wt: 234# RDN following.
--- NOTE | 2019-02-26 18:49 | MORECARE ---
CASE MANAGEMENT DISCHARGE SUMMARY PATIENT: DIEGO LEON JR UNIT: [id number] ADM DATE: 02/19/19 AGE: 54 : 65 SEX: M ROOM/BED: D.2301 AUTHOR: MAC SOLIS PHYSICIAN: REFERRING PHYSICIAN: VLADIMIR ROACH MD DATE OF SERVICE: 02/26/19 Discharge Plan Patient Name: DIEGO LEON Facility: [facility]:[place] : 1965 Planned Disposition: Anticipated Discharge Date: Discharge Date: Expected LOS: Initial Reviewer: [email or web address] Initial Review Date: 02/23/2019 Generated: 02/26/19 7:49 pm Patient Name: DIEGO LEON Page [phone] at 1849 All edits/amendments must be made on the electronic document DICTATION DATE: 02/26/191848 FINISHED YARN EXAMINER: TAVIA 02/26/191848 RPT#: [id number] DC DATE: STATUS: ADM IN [facility] [address] [place] [address] END OF REPORT
--- NOTE | 2019-02-26 18:56 | MORECARE ---
CASE MANAGEMENT DISCHARGE SUMMARY PATIENT: DIEGO LEON JR UNIT: [id number] ADM DATE: 02/19/19 AGE: 54 : 65 SEX: M ROOM/BED: D.2301 AUTHOR: WILL,DOC PHYSICIAN: REFERRING PHYSICIAN: VLADIMIR ROACH MD DATE OF SERVICE: 02/26/19 Discharge Plan Patient Name: DIEGO LEON Facility: [facility]:[place] : 1965 Planned Disposition: Anticipated Discharge Date: Discharge Date: Expected LOS: Initial Reviewer: [email or web address] Initial Review Date: 02/23/2019 Generated: 02/26/19 7:55 pm Comments DCP- Discharge Planning Updated by [email or web address]: Altagracia Lou on 02/26/19 5:[address] LATE ENTRY 02/24/19 Patient Name: DIEGO LEON Admission Status: ER Accout number: [id number] Admission Date: 02-19-2019 : 1965 Admission Diagnosis: Attending: VLADIMIR ROACH Current LOS: 7 Anticipated DC Date: Planned Disposition: Primary Insurance: MEDICARE A & B Discharge Planning Comments: CM met with patient at bedside after explaining CM role and obtaining verbal consent. Patient lives at home with his mother where he is independent with his care and plans to return there upon discharge. Patient feels this would be a safe discharge. CM discussed availability / needs of home health and medical equipment. Patient denies any discharge needs at this time. Patient states he will have his family drive him home upon discharge. CM will continue to follow and assist as needed with discharge planning / needs. Golf Tournament Consultant: Altagracia Lou DCPIA - Discharge Planning Initial Assessment Updated by [email or web address]: Altagracia Lou on 02/26/19 6:50 pm * Is the patient Alert and Oriented? Yes * How many steps to enter\exit or inside your home? * PCP JAY JAY CHAN * Pharmacy [facility] * Preadmission Environment Home with Family * ADLs Independent * Equipment None * List name and contact numbers for known caregivers / representatives who currently or will assist patient after discharge: CHRIS LEON - MOTHER- [phone] * Verbal permission to speak to the caregivers and representatives has been obtained from the patient. Yes * Community resources currently utilized None * Additional services required to return to the preadmission environment? No * Can the patient safely return to the preadmission environment? Yes * Has this patient been hospitalized within the prior 30 days at any hospital? No Last DP export: 02/26/19 5:49 pm Patient Name: DIEGO LEON Page [phone] at 1856 All edits/amendments must be made on the electronic document DICTATION DATE: 02/26/191854 TREAD BUILDER: TAVIA 02/26/191854 RPT#: [id number] DC DATE: STATUS: ADM IN [facility] [address] [place] [address] END OF REPORT
[2019-02-27] VITALS (25 sets, daily range): BP systolic 111–156; BP diastolic 77–110
[2019-02-27 05:58] LABS: BASOPHILS 0.6 % (0-2); EOSINOPHILS 0.9 % (0-7); HEMATOCRIT 36.4 % (42.0-54.0); HEMOGLOBIN 12.3 g/dL (13.5-17.5); IMMATURE GRANULOCYTES 1.1 % (0-5); LYMPHOCYTES 11.4 % (15-50); MCH 33.3 pg (26.0-34.0); MCHC 33.8 g/dL (31.0-37.0); MCV 98.6 fL (80.0-100.0); MEAN PLATELET VOLUME 10.1 fL (7.4-10.4); MONOCYTES 6.8 % (2-11); NEUTROPHILS 79.2 % (40-80); PLATELET COUNT 238 10x3/uL (130-400); RBC 3.69 10x6/uL (4.20-6.10); RDW 13.1 % (11.5-14.5); WBC 10.5 10x3/uL (4.8-10.8)
[2019-02-27 06:38] LABS: ALBUMIN 1.5 g/dL (3.4-5.0); ALKALINE PHOSPHATASE 98 U/L (46-116); ALT (SGPT) 79 U/L (10-68); BILIRUBIN - TOTAL 1.01 mg/dL (0.2-1.3); CALC OSMOLALITY 275 mosm/kg (275-300); CALCIUM 7.9 mg/dL (8.5-10.1); CARBON DIOXIDE 24.6 mmol/L (21.0-32.0); CHLORIDE - SERUM 104 mmol/L (98-107); CREATININE - SERUM 0.5 mg/dL (0.6-1.3); GLUCOSE 114 mg/dL (74-106); LIPASE 495 U/L (73-393); MAGNESIUM - SERUM 2.2 mg/dL (1.8-2.4); POTASSIUM - SERUM 3.6 mmol/L (3.5-5.1); PROTEIN - SERUM 6.2 g/dL (6.4-8.2); SODIUM 138 mmol/L (136-145); UREA NITROGEN 9 mg/dL (7-18); VANCOMYCIN - TROUGH 15.5 ug/mL (10.0-20.0); eGFR NON AFRICAN AMERICAN > 90 mL/min (90-120)
--- NOTE | 2019-02-27 08:26 | NUR ---
Nutrition follow-up: chart reviewed Pt remains intubated, sedated Pulmocare infusing @ 30 ml/hr Dr. Aleman ordered goal rate of 45 ml/hr Nusing message for TF to increase 10 ml q 4 hours to goal rate of 45 ml/hr with 20 ml H2O flush q hour. RDN following.
[2019-02-27 11:09] LABS: FUNGUS STAIN Final report (())
[2019-02-27 14:09] LABS: ACID FAST SMEAR Negative (()); AFB SPECIMEN PROCESSING Concentration (())
--- NOTE | 2019-02-27 15:45 | NUR ---
PT BACK FROM CT UPON RETURN HAD A BM AND BATH WAS GIVEN WAS A TARRY BLACK STOOL SPECIMENT SENT TO LAB.
--- NOTE | 2019-02-27 19:15 | NUR ---
SHIFT ASSESSMENT COMPLETED, ORAL CARE PERFORMED REPOSITIONED FOR COMFORT AFIB RATE AT 128 NOTED AT THIS TIME, CARDIZEM GTT OFF. SEE FLOWSHEET FOR FULL ASSESSMENT
--- NOTE | 2019-02-27 20:40 | NUR ---
SPOKE WITH DR. LANGE AT THIS TIME REGARDING HIGH HEART RATE - NEW ORDERS RECEIVED
--- NOTE | 2019-02-27 23:00 | NUR ---
REASSESSMENT COMPLETED SEE FLOWSHEET
[2019-02-28] VITALS (22 sets, daily range): BP systolic 119–159; BP diastolic 77–115
--- NOTE | 2019-02-28 01:29 | NUR ---
PATIENT INTUBATED/SEDATED - ORAL CARE PERFORMED, REPOSITIONED FOR COMFORT VSS - CONTROLLED FIB HR 80-90 NOTED ON MONITOR, BP WNL CPOC
--- NOTE | 2019-02-28 03:00 | NUR ---
REASSESSMENT COMPLETED SEE FLOWSHEET
[2019-02-28 06:15] LABS: BASOPHILS 0.5 % (0-2); EOSINOPHILS 1.4 % (0-7); HEMOGLOBIN 14.5 g/dL (13.5-17.5); IMMATURE GRANULOCYTES 1.1 % (0-5); LYMPHOCYTES 10.1 % (15-50); MCH 33.6 pg (26.0-34.0); MCHC 33.7 g/dL (31.0-37.0); MCV 99.5 fL (80.0-100.0); MEAN PLATELET VOLUME 10.4 fL (7.4-10.4); MONOCYTES 4.9 % (2-11); PLATELET COUNT 206 10x3/uL (130-400); RBC 4.32 10x6/uL (4.20-6.10); WBC 9.2 10x3/uL (4.8-10.8)
[2019-02-28 06:29] LABS: ALBUMIN 1.5 g/dL (3.4-5.0); ALKALINE PHOSPHATASE 108 U/L (46-116); ALT (SGPT) 95 U/L (10-68); BILIRUBIN - TOTAL 0.73 mg/dL (0.2-1.3); CALC OSMOLALITY 278 mosm/kg (275-300); CALCIUM 7.7 mg/dL (8.5-10.1); CARBON DIOXIDE 26.6 mmol/L (21.0-32.0); CHLORIDE - SERUM 105 mmol/L (98-107); CREATININE - SERUM 0.5 mg/dL (0.6-1.3); GLUCOSE 123 mg/dL (74-106); MAGNESIUM - SERUM 2.2 mg/dL (1.8-2.4); PHOSPHOROUS 2.7 mg/dL (2.5-4.9); POTASSIUM - SERUM 3.4 mmol/L (3.5-5.1); SODIUM 140 mmol/L (136-145); UREA NITROGEN 10 mg/dL (7-18); eGFR NON AFRICAN AMERICAN > 90 mL/min (90-120)
[2019-02-28 06:34] LABS: LIPASE 758 U/L (73-393)
--- NOTE | 2019-02-28 07:00 | NUR ---
ETT SECURE TO VENT. HALF WAY OPENS EYES WHEN STIMULATED. MOVING EXTREMITITES SOME. DOES NOT OBEY COMMANDS. BILATERAL LUNG SOUNDS EQUAL. LEFT UPPER ARM PICC INFUSING WITH NS AT 100 ML HOUR, FENTANYL AT 75 MCG HOUR. PULMOCARE PER OG AT 45 ML HOUR WITH 20 ML FLUSH Q 1 HOUR. LITTLEJOHN CATH PATENT DRAINING MELO URINE. HEAD OF BED ELEVATED 30 DEGREES NO DISTRESS.
--- NOTE | 2019-02-28 09:00 | NUR ---
REPOSITIONED. OPENS EYES HALF WAY WHEN STIMULATED. NO DISTRESS. NO RESIDUAL FROM OG. CONTINUE AT 45 ML HOUR GOAL RATE. 1200 ML EMPTIED FROM LITTLEJOHN CATH. HAND ELEVATED ON PILLOW. HEELS BRIDGED ON PILLOW. SCD ON LOWER LEGS. ORAL CARE DONE. CLEAR SECRETIONS FROM MOUTH. SUCTION PER ETT SMALL AMOUNT WHITE SECRETIONS.
--- NOTE | 2019-02-28 11:00 | NUR ---
COMPLETED BED BATH GIVEN. DARK GREEN LIQUID STOOL. LEFT HEEL HAS LARGE FLAT BLISTER LOOKING AREA. SKIN INTACT.
--- NOTE | 2019-02-28 12:02 | NUR ---
PATIENT OPENED EYES DURING BATH FOLLOWED NURSE IN ROOM. GREAT COUGH REFLEX . NO SKIN BREAKDOWN NOTED. BRUSING ON ABD
--- NOTE | 2019-02-28 13:00 | NUR ---
DR. LOPEZ HERE TALKED WITH MOTHER OF PATIENT. PATINET WAKING UP EASIER, NODING HEAD TO YES AND NO QUESTIONS APPRIOPATELY. COUGHING AND GAGGING AT TIMES. FENTANYL AT 50 MCG
--- NOTE | 2019-02-28 14:25 | NUR ---
LARGE DARK GREEN LIQUID STOOL. RECTAL TUBE INSERTED TO MAINTAIN SKIN INTEGRITY. RASH NOTED ON BACK.
--- NOTE | 2019-02-28 14:39 | NUR ---
DR. LOPEZ NOTIFIED OF RASH ON BACK.
--- NOTE | 2019-02-28 20:38 | NUR ---
PT COUGHING AND GAGGING, PULLING AGAINST RESTRAINTS, ALL ATTEMPTS TO CALM ARE UNSUCCESSFUL. PRN ATIVAN 2MG ADMINISTERED VIA SIVP. WILL MONITOR.
--- NOTE | 2019-02-28 21:20 | NUR ---
PT MOTHER IN FOR VISITATION, UPDATE PROVIDED, ALL QUESTIONS ANSWERED.
[2019-03-01] VITALS (24 sets, daily range): BP systolic 109–159; BP diastolic 78–114
--- NOTE | 2019-03-01 01:20 | NUR ---
PT POSITIONED, ORAL CARE PROVIDED, CONT POC.
--- NOTE | 2019-03-01 02:19 | NUR ---
PT NOTED TO BE AGITATED, COUGHING AND GAGGING ON ETT. PRN ATIVAN 2MG ADMINISTERED PER MD ORDER.
[2019-03-01 04:58] LABS: ALBUMIN 1.5 g/dL (3.4-5.0); ALKALINE PHOSPHATASE 105 U/L (46-116); ALT (SGPT) 76 U/L (10-68); BILIRUBIN - TOTAL 0.59 mg/dL (0.2-1.3); CALC OSMOLALITY 279 mosm/kg (275-300); CALCIUM 7.9 mg/dL (8.5-10.1); CARBON DIOXIDE 27.9 mmol/L (21.0-32.0); CHLORIDE - SERUM 105 mmol/L (98-107); CREATININE - SERUM 0.6 mg/dL (0.6-1.3); GLUCOSE 124 mg/dL (74-106); LIPASE 592 U/L (73-393); MAGNESIUM - SERUM 2.2 mg/dL (1.8-2.4); PHOSPHOROUS 3.2 mg/dL (2.5-4.9); POTASSIUM - SERUM 3.4 mmol/L (3.5-5.1); PROTEIN - SERUM 6.4 g/dL (6.4-8.2); SODIUM 141 mmol/L (136-145); UREA NITROGEN 8 mg/dL (7-18); eGFR NON AFRICAN AMERICAN > 90 mL/min (90-120)
--- NOTE | 2019-03-01 05:40 | NUR ---
NO VISITORS PRESENT AT THIS TIME, VSS, CONT POC.
--- NOTE | 2019-03-01 07:00 | NUR ---
AWAKES EASILY TO VERBAL STIMULI, WITH REPEAT REQUEST PATIENT DID OBEY SOME COMMANDS. DOES MAKE EYE CONTACT AND FOLLOWS YOU WITH EYES. ETT SECURE TO VENT. NO DISTRESS. LEFT UPPER ARM PICC LINE INFUSING WITH FENTANYL AT 200 MCG/HOUR AND NS AT 100 ML HOUR. RECTAL TUBE IN PLACE DARK GREEN LIQUID. LITTLEJOHN CATH PATENT. MONITOR ATRIAL FIB. HEAD OF BED ELEVATED 30 DEGREE. BILATERAL LUNG SOUNDS EQUAL. RESTING COMFORTABLY
--- NOTE | 2019-03-01 09:00 | NUR ---
MOTHER HERE UPDATE GIVEN. PATIENT NODES HEAD TO YES AND NO QUESTIONS
--- NOTE | 2019-03-01 10:30 | NUR ---
FENTANYL TURNED DOWN TO 50 MCG/HOUR FOR CPAP TRAILS,
--- NOTE | 2019-03-01 12:00 | NUR ---
TOLERATING CPAP WELL. COOPERATIVE, BUT WILL REACH FOR ETT. MOTHER HERE UPDATE GIVEN. ALERT. REPOSITIONED. SUCTION WHITE SPUTUM FROM ETT SMALL AMOUNT. TOLERATING TUBE FEEDING 10 CC RESIDUAL.
--- NOTE | 2019-03-01 13:09 | NUR ---
DR. LOPEZ HERE TALKED WITH MOTHER AND PATIENT. ORDERS RECEIVED FOR BENADRYL FOR RASH WITH ITCHING. PATIENT RETURNED TO AC MODE ON VENT PER DR. LOPEZ.
--- NOTE | 2019-03-01 14:06 | NUR ---
FENTANYL TURNED UP TO 150 MCG/HOUR DUE TO RESP RATE UP IN 30'S. BENADRY GIVEN FOR ITCHING AND RASH
--- NOTE | 2019-03-01 15:00 | NUR ---
HIBCLENS BATH GIVEN WITH HAIR WASHING. PATIENT TOLERATED WELL. LEFT HEEL BRIDGE ON PILLOWS. BLISTER NOTED ON LEFT HEEL. NO SKIN BREAKDOWN NOTED. RECTAL TUBE DRAINING LIQUID DARK GREEN STOOL.
--- NOTE | 2019-03-01 16:00 | NUR ---
MOTHER HERE UPDATE GIVEN
[2019-03-01 16:08] LABS: AEROBE ID Final report (())
--- NOTE | 2019-03-01 18:00 | NUR ---
PATIENT GAGGING AND COUGHING FENTANYL TURNED UP TO 200 MCG/HOUR.
--- NOTE | 2019-03-01 19:00 | NUR ---
BEDSIDE REPORT AND SHIFT ASSESSMENT COMPLETE, SEE FLOWSHEET. VSS, NO SIGNS OF ACUTE DISTRESS NOTED. PT CALM AND COOPERATIVE, SEDATED AND FOLLOWS COMMANDS. UNCONTROLLED AFIB ON MONITOR, RATE OF 120'S. NGT WITH FEEDINGS @ 45. ORAL CARE AND SUCTIONING COMPLETE. WILL CONTINUE TO MONITOR.
--- NOTE | 2019-03-01 21:00 | NUR ---
MEDS GIVEN PER MAR. FAMILY AT BEDSIDE, UPDATE GIVEN.
--- NOTE | 2019-03-01 23:00 | NUR ---
REASSESSMENT COMPLETE, SEE FLOWSHEET. PT AGITATED, PULLING AT LINES AND TUBES. PRN ATIVAN GIVEN PER MAR. WILL CONTINUE TO MONITOR.
--- NOTE | 2019-03-01 23:30 | NUR ---
PT AGITATED, PULLING AT LINES. ORAL CARE AND SUCTIONING COMPLETE. PRN ATIVAN GIVEN PER APR. WILL CONTINUE TO MONITOR.
[2019-03-02] VITALS (24 sets, daily range): BP systolic 94–150; BP diastolic 55–114
--- NOTE | 2019-03-02 01:00 | NUR ---
FREQUENT PVC'S AND PAC'S NOTED ON MONITOR. MAG AND POTASSIUM LAB ORDERED.
[2019-03-02 01:42] LABS: MAGNESIUM - SERUM 2.2 mg/dL (1.8-2.4); POTASSIUM - SERUM 3.8 mmol/L (3.5-5.1)
--- NOTE | 2019-03-02 03:00 | NUR ---
REASSESSMENT COMPLETE, SEE FLOWSHEET. VSS, NO SIGNS OF ACUTE DISTRESS NOTED. WILL CONTINUE TO MONITOR.
--- NOTE | 2019-03-02 04:00 | NUR ---
AGITATED, PULLING AT LINES AND ATTEMPTING TO SIT UP IN BED. ATTEMPTED TO REORIENT. PRN ATIVAN GIVEN PER ORDERS.
[2019-03-02 04:31] LABS: BASOPHILS 0.2 % (0-2); EOSINOPHILS 2.3 % (0-7); HEMATOCRIT 36.7 % (42.0-54.0); HEMOGLOBIN 12.3 g/dL (13.5-17.5); IMMATURE GRANULOCYTES 0.4 % (0-5); LYMPHOCYTES 10.6 % (15-50); MCH 34.1 pg (26.0-34.0); MCHC 33.5 g/dL (31.0-37.0); MEAN PLATELET VOLUME 9.8 fL (7.4-10.4); MONOCYTES 4.3 % (2-11); NEUTROPHILS 82.2 % (40-80); RBC 3.61 10x6/uL (4.20-6.10); RDW 13.2 % (11.5-14.5); WBC 11.2 10x3/uL (4.8-10.8)
[2019-03-02 04:47] LABS: MCV 101.7 fL (80.0-100.0); PLATELET COUNT 377 10x3/uL (130-400)
[2019-03-02 04:58] LABS: ALBUMIN 1.8 g/dL (3.4-5.0); ALKALINE PHOSPHATASE 84 U/L (46-116); ALT (SGPT) 60 U/L (10-68); CALC OSMOLALITY 280 mosm/kg (275-300); CARBON DIOXIDE 29.9 mmol/L (21.0-32.0); CHLORIDE - SERUM 107 mmol/L (98-107); CREATININE - SERUM 0.6 mg/dL (0.6-1.3); GLUCOSE 108 mg/dL (74-106); POTASSIUM - SERUM 3.6 mmol/L (3.5-5.1); PROTEIN - SERUM 6.3 g/dL (6.4-8.2); SODIUM 141 mmol/L (136-145); UREA NITROGEN 9 mg/dL (7-18); eGFR NON AFRICAN AMERICAN > 90 mL/min (90-120)
--- NOTE | 2019-03-02 05:00 | NUR ---
PT SEDATED, OPENS EYES AND FOLLOWS COMMANDS. WILL CONTINUE TO MONITOR.
[2019-03-02 05:01] LABS: LIPASE 376 U/L (73-393)
--- NOTE | 2019-03-02 07:00 | NUR ---
PT RESTING IN BED, VSS AND WNL. PT SHAKES HEAD TO ANSWER YES AND NO QUESTIONS. ETT SECURED. PULMOCARE INFUSING AT 45ML/HR VIA NG TUBE. NO SIGNS OF DISTRESS NOTED AT THIS TIME, WILL CONT TO FOLLOW POC
--- NOTE | 2019-03-02 09:00 | NUR ---
HERE AND WANTS CAREDIZEM AT 30MG TID. ORDER CHANGED IN APR. HERE AND ORDERED NURSE TO CUT FENTANYL TO 100MCG/HR AND BEGIN TO WEAN FROM THERE. NO SIGN OF DISTRESS NOTED. WILL CONT TO FOLLOW POC
--- NOTE | 2019-03-02 09:40 | NUR ---
Nutrition follow-up: Remains intubated, sedated CPAP trials today Pulmocare infusing @ 45 ml/hr via OGT Labs reviewed Wt: 228# RDN following.
--- NOTE | 2019-03-02 11:00 | NUR ---
PT RESTING IN BED, ETT SECURED. PT TOLERATING CPAP TRIAL AT THIS TIME, BED ALARM ON. JASIEL WRIST RESTRAINTS IN PLACE. NO SIGNS OF DISTRESS NOTED. WILL CONT TO FOLLOW POC
--- NOTE | 2019-03-02 11:13 | EC ---
PATIENT:DIEGO LEON JR DATE OF SERVICE: 02/19/19 SEX: M MEDICAL RECORD: [id number] DATE OF : 65 LOCATION:[facility] AGE OF PATIENT: 54 ADMISSION DATE: 02/19/19 REFERRING PHYSICIAN: INTERPRETING PHYSICIAN: CORI RAY MD ECHOCARDIOGRAM REPORT ECHO CHARGES 4 ECHO COMPLETE Date: 02/20/19 CLINICAL DIAGNOSIS: HX OF CAD, EDEMA/ DRUG USE ASSESS FOR VEGATATION ECHOCARDIOGRAPHIC MEASUREMENTS (adult normal given) AC root (d.<3.7cm) 3.9 cm LV Septum d (<1.2 cm> 1.6 cm Valve Excursion 2.5 cm LV Septum (systole) 1.8 cm Left Atria (s.<4.0cm> 4.6 cm LVPW d(<1.2cm) 1.5 cm RV (d.<2.3cm) 3.8 cm LVPW (sytole) 1.8 cm LV diastole(<5.6CM) 5.9 cm MV E-F(>70mm/sec) cm LV systole 4.4 cm LVOT Diameter 2.0 cm MV exc.(>10mm) 2.4 cm Est.ejection fraction (50-75%) % DOPPLER: LVIT cm/sec A 107.0cm/sec E 83.0 cm/sec LA cm/sec RVSP 21 mmHg LVOT 93 cm/sec AOP1/2T m/s Asc. Ao 152 cm/sec RVOT 87 cm/sec RA cm/sec PA 132 cm/sec AV Gradient Peak 9.20 mmHg AV Mean 5.07 mmHg AV Area 1.9 cm MV Gradient Peak 3.59 mmHg MV Mean 1.67 mmHg MV Area cm COMMENTS: Home Restoration Service Cleaner: 2 BRANDY THOMPSON Patternmaker Helper: 1 Dr. Ray TAPE# PACS Pericardial Effusion N DATE OF SERVICE: FINDINGS: 1. Left ventricular chamber size is mildly dilated. Left ventricular systolic function is preserved at 55% to 60%. 2. Left atrium is enlarged at 4.6 cm. Right atrium and right ventricular chamber sizes are as well mildly dilated. 3. Valvular structures have normal structure and motion. 4. Doppler interrogation reveals [id number] mitral regurgitation, mild tricuspid regurgitation, no other valvular insufficiency or stenosis. Pulmonary ECHOCARDIOGRAM REPORT [id number] DIEGO LEON JR systolic pressure is estimated at 21 mmHg. 5. No evidence of pericardial effusion or left ventricular thrombus. TRANSINT:[id number] Voice Confirmation ID: [id number] DOCUMENT ID: [id number] CORI RAY MD at 1113 CC: [id number] DICTATION DATE: 02/23/19 1004 CUSTOMER SUPPORT ADVISOR: 02/23/19 1426 ADM IN [id number] [place] [address]
--- NOTE | 2019-03-02 12:45 | NUR ---
PT PULLED OUT NGT. PT IS ON CPAP MODE WITH VENT AND WILL POSSIBLY BE EXTUBATED TODAY, WILL WAIT TO PLACE ANOTHER NGT UNTIL THIS AFTERNOON
--- NOTE | 2019-03-02 13:31 | NUR ---
HERE AND TOLD NURSE TO STOP FENTANYL NOW AND POSSIBLE EXTUBATION IF PT TOLERATES. PT HAS BEEN ON CPAP AND IS DOING GOOD AT THIS TIME, VSS AND WNL. WILL CONT TO FOLLOW POC
--- NOTE | 2019-03-02 14:30 | NUR ---
PT EXTUBATED AND PLACED ON HIFLO NC. PT TOLERATING WELL. BED BATH AND FULL LINEN CHANGE PROVIDED. VSS AND WNL AT THIS TIME, NO SIGNS OF DISTRESS NOTED AT THIS TIME, WILL CONT TO FOLLOW POC
--- NOTE | 2019-03-02 15:00 | NUR ---
PT FECAL TUBE WAS SITTING IN HIS BED BETWEEN HIS LEGS. FULL LINEN CHANGE PROVIDED AND LUNA CARE PROVIDED. WILL CONT TO FOLLOW POC
--- NOTE | 2019-03-02 15:30 | NUR ---
PAGED AND LET HIM KNOW THAT PT IS NOT FOLLOWING COMMANDS, HE WILL NOT TAKE DEEP BREATHS AND COUGH. HE IS TACHYCARDIC AND NGT IS STILL OUT. NEW ORDER RECIEVED FOR METOPROLOL 2.5MG IVP NOW. SITTER AT BEDSIDE. BED ALARM ON. WILL CONT TO FOLLOW POC
--- NOTE | 2019-03-02 17:00 | NUR ---
MARCEL SOTO APRN HERE AND STATES TO HAVE SPEECH THERAPY EVAULUATE PT IN THE AM AND IF PT PASSES THEN START CLEAR LIQUID DIET. IF PT DOES NOT PASS THEN WILL RE-EVALUATE PUTTING NGT BACK DOWN AT THAT TIME.
--- NOTE | 2019-03-02 18:01 | NUR ---
HERE. NOTIFIED HIM OF PT ELEVATED BP. NEW ORDER RECIEVED FOR HYDRALAZINE 10MG NOW. IF BP DOES NOT COME DOWN AFTER 10-15MINS SECOND DOSE OF 10MG MAY BE GIVEN
--- NOTE | 2019-03-02 19:00 | NUR ---
BEDSIDE REPORT AND SHIFT ASSESSMENT COMPLETE, SEE FLOWSHEET. PT DISORIENTED TO PLACE, TIME AND SITUATION. CONFUSED AND AGITATED. SPEECH GARBLED AND SLURRED. REFUSED TO OPEN MOUTH TO LET ME CHECK HIS TEMP. T CHECKED AXILLARY, 99.9. FAN TURNED ON HIGH FACING PT. A FIB UNCONTROLLED ON MONITOR, RATE IN 140'S. CARDIZEM GTT @ 5. L UPPER ARM PICC PATENT, SEE IV FLOWSHEET. BILAT WRIST RESTRAINTS IN PLACE, SITTER AT BEDSIDE. WILL CONTINUE TO MONITOR.
--- NOTE | 2019-03-02 21:29 | NUR ---
UPDATE CALLED TO ALLYSON DANIELS APN, NO NEW ORDERS RECEIVED
--- NOTE | 2019-03-02 21:31 | NUR ---
UPDATE CALLED TO DR. GRIFFIN, NEW ORDERS RECEIVED,
--- NOTE | 2019-03-02 22:30 | NUR ---
PT VOMITED GREEN THIN BILE, PRN ZOFRAN ADMINISTERED. LARGE LIQUID BM NOTED. CHG BATH, LITTLEJOHN CARE AND LINEN CHANGE COMPLETE.
--- NOTE | 2019-03-02 23:00 | NUR ---
REASSESSMENT COMPLETE, SEE FLOWSHEET.
[2019-03-03] VITALS (25 sets, daily range): BP systolic 127–176; BP diastolic 69–111
--- NOTE | 2019-03-03 00:30 | NUR ---
LG LIQUID BM. CHG BATH AND PARTIAL LINEN CHANGE COMPLETE. RECTAL TUBE PLACED. REPOSITIONING COMPLETE.
--- NOTE | 2019-03-03 02:30 | NUR ---
PT VOMITING GREEN EMESIS. PRN ZOFRAN ADMINISTERED.
--- NOTE | 2019-03-03 03:00 | NUR ---
REASSESSMENT COMPLETE, SEE FLOWSHEET. VSS, NO SIGNS OF ACUTE DISTRESS NOTED. SITTER AT BEDSIDE. WILL CONTINUE TO MONITOR.
[2019-03-03 04:20] LABS: BASOPHILS 0.2 % (0-2); EOSINOPHILS 0.3 % (0-7); HEMATOCRIT 35.5 % (42.0-54.0); HEMOGLOBIN 11.9 g/dL (13.5-17.5); IMMATURE GRANULOCYTES 0.4 % (0-5); LYMPHOCYTES 10.6 % (15-50); MCH 33.7 pg (26.0-34.0); MCHC 33.5 g/dL (31.0-37.0); MCV 100.6 fL (80.0-100.0); MEAN PLATELET VOLUME 9.4 fL (7.4-10.4); MONOCYTES 4.8 % (2-11); NEUTROPHILS 83.7 % (40-80); RBC 3.53 10x6/uL (4.20-6.10); RDW 12.9 % (11.5-14.5); WBC 10.6 10x3/uL (4.8-10.8)
[2019-03-03 04:27] LABS: PLATELET COUNT 454 10x3/uL (130-400)
[2019-03-03 04:39] LABS: ALBUMIN 2.2 g/dL (3.4-5.0); ALKALINE PHOSPHATASE 87 U/L (46-116); ALT (SGPT) 65 U/L (10-68); BILIRUBIN - TOTAL 0.74 mg/dL (0.2-1.3); CALC OSMOLALITY 276 mosm/kg (275-300); CALCIUM 8.3 mg/dL (8.5-10.1); CARBON DIOXIDE 26.6 mmol/L (21.0-32.0); CHLORIDE - SERUM 105 mmol/L (98-107); CREATININE - SERUM 0.5 mg/dL (0.6-1.3); GLUCOSE 102 mg/dL (74-106); POTASSIUM - SERUM 3.5 mmol/L (3.5-5.1); SODIUM 140 mmol/L (136-145); UREA NITROGEN 7 mg/dL (7-18); eGFR NON AFRICAN AMERICAN > 90 mL/min (90-120)
--- NOTE | 2019-03-03 05:00 | NUR ---
PT SLEEPING. VSS, NO SIGNS OF ACUTE DISTRESS NOTED AT THIS TIME. SITTER AT BEDSIDE.
--- NOTE | 2019-03-03 07:00 | NUR ---
PT RESTING IN BED, VSS AND WNL. ETT SECURED. BED ALARM ON. NO SIGNS OF DISTRESS NOTED AT THIS TIME, WILL CONT TO FOLLOW POC
--- NOTE | 2019-03-03 07:20 | NUR ---
PT RESTING IN BED, SITTER AT BEDSIDE. VSS AND WNL. BED ALARM ON. DENIES ANY NEEDS AT THIS TIME, WILL CONT TO FOLLOW POC
--- NOTE | 2019-03-03 09:00 | NUR ---
PT RESTING IN BED, VSS AND WNL. ETT SECURED. LITTLEJOHN CATH DRAINING FREELY WITH NO LOOPS. BED ALARM ON. NO SIGNS OF DISTRESS NOTED AT THIS TIME, WILL CONT TO FOLLOW POC
--- NOTE | 2019-03-03 09:30 | NUR ---
PT RESTING IN BED, VSS AND WNL. SITTER AT DOORWAY. NO SIGNS OF DISTRESS NOTED. WILL CONT TO FOLLOW POC
--- NOTE | 2019-03-03 10:00 | NUR ---
NURSE IN PT ROOM PROVIDING PT CARE, PT LOOKED AT NURSE AND ASKED IF NURSE WOULD LIKE A KISS. DECLINED OFFER. NOTIFIED .
--- NOTE | 2019-03-03 10:26 | NUR ---
PT PASSED BEDSIDE SWALLOW EVAL. PER , GIVE PO MEDS THAT PT MISSED THIS AM. ONCE PT TAKES PO CARDIZEM, STOP CARDIZEM GTT 2 HRS AFTER PO CARDIZEM. VSS AND WNL, BED ALARM ON. WILL CONT TO FOLLOW POC
--- NOTE | 2019-03-03 11:00 | NUR ---
PT RESTING IN BED, VSS AND WNL, BED ALARM ON. ETT SECURED. NO SIGNS OF DISTRESS NOTED. WILL CONT TO FOLLOW POC
--- NOTE | 2019-03-03 11:30 | NUR ---
PT BEGAN THROWING UP. PRN ZOFRAN AND ATIVAN GIVEN. CHG BATH GIVEN AND FULL LINEN CHANGE PROVIDED. VSS AND WNL. MADE AWARE. WILL CONT TO FOLLOW POC
--- NOTE | 2019-03-03 12:30 | NUR ---
HERE, NOTIFIED OF ELEVATED BS. NEW ORDER RECIEVED TO ASK DIETARY TO ADD INSULIN TO TPN. PAGED BLACKING WHEEL TENDER.
--- NOTE | 2019-03-03 12:53 | NUR ---
HERE AND WANTS PT PLACED ON CPAP TRIAL AND WANTS FENTANYL MUD WORKER DROPPED TO 80MCG/HR. VSS AND WNL. BED ALARM ON, ETT SECURED. NO SIGNS OF DISTRESS NOTED AT THIS TIME, WILL CONT TO FOLLOW POC
--- NOTE | 2019-03-03 13:30 | NUR ---
PT RESTING IN BED, VSS AND WNL, BED ALARM ON. SITTER AT DOORWAY. NO SIGNS OF DISTRESS NOTED. WILL CONT TO FOLLOW POC
--- NOTE | 2019-03-03 15:43 | NUR ---
PAGED DUE TO PT BP RISING. NEW ORDER RECIEVED TO D/C NS AND START METOPROLOL 12.5MG BID. SITTER AT BEDSIDE, VSS. NO SIGNS OF DISTRESS NOTED. WILL CONT TO FOLLOW POC
[2019-03-03 15:57] LABS: APPEARANCE CLEAR (CLEAR); BILIRUBIN NEGATIVE (NEGATIVE); COLOR YELLOW (YELLOW); GLUCOSE NEGATIVE (NEGATIVE); KETONE MODERATE mg/dL (NEGATIVE); NITRITE NEGATIVE (NEGATIVE); PROTEIN NEGATIVE (NEGATIVE); RED CELLS - URINE 0-5 /hpf (0-5); UROBILINOGEN NORMAL (NORMAL); WHITE CELLS - URINE OCC /hpf (NEGATIVE)
--- NOTE | 2019-03-03 17:30 | NUR ---
PT RESTING IN BED, VSS AND WNL. BED ALARM ON. SITTER AT DOORWAY. NO SIGNS OF DISTRESS NOTED AT THIS TIME, WILL CONT TO FOLLOW POC
--- NOTE | 2019-03-03 19:00 | NUR ---
SHIFT ASSESSMENT COMPLETED. PT CARE ASSUMED. MONITORS ON AND WORKING, PT IN UNCONTROLLED A MD ALEXI AWARE, PT SPEECH IS GARBLED, PT CONFUSED AT THIS TIME, SITTER AT BEDSIDE, WILL CONTINUE TO OBSERVE.
--- NOTE | 2019-03-03 21:00 | NUR ---
PO MEDS GIVEN PER ORDERS, PT TOLERATED WELL. MONITORS ON AND WORKING, PT FACE FLUSHED, AFEBRILE. PT TURNED AND REPOSITIONED FOR COMFORT. WILL CONTINUE TO OBSERVE.
--- NOTE | 2019-03-03 23:00 | NUR ---
PT TURNED AND REPOSITIONED FOR COMFORT. MONITORS ON AND WORKING, PT LYING IN BED RESTING CALMLY. NO SIGNS/SYMPTOMS OF PAIN OR DISTRESS NOTED AT THIS TIME, SEE FLOW SHEET FOR FURTHER DETAILS. WILL CONTINUE TO OBSERVE.
[2019-03-04] VITALS (19 sets, daily range): BP systolic 130–158; BP diastolic 76–107
--- NOTE | 2019-03-04 01:00 | NUR ---
PT LYING IN BED RESTING. MONITORS ON AND WORKING, NO SIGNS/SYMPTOMS OF PAIN OR DISCOMFORT NOTED AT THIS TIME, WILL CONTINUE TO OBSERVE.
--- NOTE | 2019-03-04 03:00 | NUR ---
PT TURNED AND REPOSITIONED FOR COMFORT. MONITORS ON AND WORKING, VITALS STABLE, SEE FLOW SHEET FOR FURTHER DETAILS. WILL CONTINUE TO OBSERVE.
--- NOTE | 2019-03-04 05:00 | NUR ---
PT TURNED AND REPOSITIONED FOR COMFORT, MONITORS ON AND WORKING, PICC LINE DRESSING CHANGED, NO SIGNS/SYMPTOMS OF PAIN OR DISCOMFORT NOTED AT THIS TIME, WILL CONTINUE TO OBSERVE.
[2019-03-04 06:34] LABS: BASOPHILS 0.3 % (0-2); EOSINOPHILS 1.6 % (0-7); HEMATOCRIT 34.8 % (42.0-54.0); HEMOGLOBIN 11.5 g/dL (13.5-17.5); IMMATURE GRANULOCYTES 0.3 % (0-5); LYMPHOCYTES 10.2 % (15-50); MCH 33.5 pg (26.0-34.0); MCV 101.5 fL (80.0-100.0); MEAN PLATELET VOLUME 9.5 fL (7.4-10.4); MONOCYTES 8.4 % (2-11); NEUTROPHILS 79.2 % (40-80); PLATELET COUNT 502 10x3/uL (130-400); RBC 3.43 10x6/uL (4.20-6.10); WBC 8.8 10x3/uL (4.8-10.8)
[2019-03-04 06:58] LABS: ALBUMIN 2.4 g/dL (3.4-5.0); ALKALINE PHOSPHATASE 83 U/L (46-116); ALT (SGPT) 71 U/L (10-68); BILIRUBIN - TOTAL 0.63 mg/dL (0.2-1.3); CALC OSMOLALITY 284 mosm/kg (275-300); CALCIUM 8.5 mg/dL (8.5-10.1); CARBON DIOXIDE 26.5 mmol/L (21.0-32.0); CHLORIDE - SERUM 107 mmol/L (98-107); CREATININE - SERUM 0.5 mg/dL (0.6-1.3); GLUCOSE 111 mg/dL (74-106); LIPASE 715 U/L (73-393); POTASSIUM - SERUM 3.5 mmol/L (3.5-5.1); PROTEIN - SERUM 7.1 g/dL (6.4-8.2); SODIUM 143 mmol/L (136-145); eGFR NON AFRICAN AMERICAN > 90 mL/min (90-120)
--- NOTE | 2019-03-04 07:00 | NUR ---
PT RESTING IN BED. LITTLEJOHN CATHETER NOTED DRAINING MELO TINGED URINE FREELY VIA GRAVITY WITH NO LOOPS. RECTAL TUBE NOTED WITH LIQUID STOOL IN BAG. VSS. BED ALARM ON. SITTER AT DOORWAY. NO SIGNS OF DISTRESS NOTED AT THIS TIME, WILL CONT TO FOLLOW POC
[2019-03-04 07:01] LABS: UREA NITROGEN 11 mg/dL (7-18)
--- NOTE | 2019-03-04 08:00 | NUR ---
AM MEDICATIONS GIVEN ORDERED. PT IS CALM BUT CONFUSED. PT HANDS ARE WEAK AND CANNOT HOLD HIS DRINK. MEAL ASSISTANCE PROVIDED. PT ATE 100%. VSS AT THIS TIME, PAGED DUE TO ELEVATED BP. SITTER AT DOORWAY, BED ALARM ON. WILL CONT TO FOLLOW POC
--- NOTE | 2019-03-04 10:00 | NUR ---
AND BOTH OK WITH PT TRANSFERRING TO FLOOR. ORDERS ENTERED INTO COMP. PT RESTING IN BED. VSS AND WNL. SITTER AT DOORWAY. NO SIGNS OF DISTRESS NOTED. WILL CONT TO FOLLOW POC
--- NOTE | 2019-03-04 12:00 | NUR ---
PT ATE 100% OF LUNCH WITH ASSISTANCE FROM SITTER. VSS AND WNL. BED ALARM ON. LITTLEJOHN CATHETER DRAINING MELO TINGED URINE. NO SIGNS OF DISTRESS NOTED. WILL CONT TO FOLLOW POC
--- NOTE | 2019-03-04 12:56 | NUR ---
Nutrition follow-up: Diet advnaced to regular soft as tolerated per speech Labs reviewed Wt: 212# RDN following.
--- NOTE | 2019-03-04 14:14 | NUR ---
PT RESTING IN BED, VSS AND WNL. DENIES ANY NEEDS AT THIS TIME, SITTER AT BEDSIDE. WILL CONT TO FOLLOW POC
--- NOTE | 2019-03-04 15:38 | CN ---
PATIENT NAME:DIEGO LEON JR MEDICAL RECORD: [id number] : 65 LOCATION:[id number] ADMIT DATE: 02/19/19 ACCOUNT: [id number] CONSULTING PHYSICIAN: MOUSTAPHA JOHANSEN MD REFERRING PHYSICIAN: VLADIMIR ROACH MD DATE OF CONSULTATION: 03/03/2019 PSYCHIATRIC CONSULTATION IDENTIFYING DATA: The patient is 54 years old and he is admitted to the hospital secondary to an overdose. HISTORY OF PRESENT ILLNESS: The patient apparently quit drinking and subsequently took a full bottle of 100 mg amitriptyline tablets. The history is not entirely clear. The intent of the patient is unknown. Was he trying to kill himself or was he just simply confused and did not realize what he was doing because he had already started and alcohol withdrawal. At this point, it is unknown and currently although he is extubated, he is not able to provide me anything in the way of useful history. He is impaired seriously. ASSESSMENT: Delirium secondary to multiple factors. PLAN: The patient will be treated with scheduled dose of a benzodiazepine along with an antipsychotic. He is already receiving thiamine and folate. Long-term prognosis is guarded at this point and I would recommend he stay with a sitter until his intentions regarding the overdose can be reasonably established. TRANSINT:[id number] Voice Confirmation ID: [id number] DOCUMENT ID: [id number] MOUSTAPHA JOHANSEN MD at 1538 CC: [id number] DICTATION DATE: 03/03/19 1239 PAYROLL AND BENEFITS SPECIALIST: 03/03/19 1359 ADM IN [id number] [place] [address]
--- NOTE | 2019-03-04 16:00 | NUR ---
PT RESTING IN BED, VSS AND WNL, BED ALARM ON. LITTLEJOHN CATHETER AND RECTAL TUBE IN PLACE. SITTER AT BEDSIDE. WILL CONT TO FOLLOW POC
--- NOTE | 2019-03-04 16:13 | NUR ---
OT NOTE: PT COMPLETED BED MOB WITH MIN A. PT COMPLETED SIT TO STAND WITH MIN-MOD A. PT COMPLETED UE AROM AXS. PT COMPLETED FACE WASH WITH SET UP. PT TALKED ABOUT HIS SONS. PT UNABLE TO REMEMBER NAMES (SONS) AT THIS TIME. THANK YOU, YRN HERNANDEZ
--- NOTE | 2019-03-04 18:26 | NUR ---
PT RESTING IN BED, SITTER AT BEDSIDE, VSS. BED ALARM ON. DENIES ANY NEEDS AT THIS TIME, WILL CONT TO FOLLOW POC
--- NOTE | 2019-03-04 21:11 | NUR ---
PATIENT ARRIVED TO THE FLOOR VIA BED. THERE IS NO O2 NOTED. LEFT UPPER ARM PICC LINE IS CLEAN DRY AND INTACT. PATIENT IS PLACED WITH A SITTER. BED IS IN LOW POSITION AND CALL LIGHT IS IN REACH. PATIENT DENIES ANY PAIN OR ADDITIONAL NEEDS AT THIS TIME
[2019-03-05 04:00] VITALS: BP 155/72
--- NOTE | 2019-03-05 05:22 | NUR ---
STATE ARCHIVIST CAME OUT OF PATIENT'S ROOM AND STATED THAT THE PATIENT HAD DISCONNECTED PART OF HIS FOLLEY. ASSESED LITTLEJOHN AND FIX WHAT WAS NEED. NO OTHER NEEDS AT THIS TIME. CALL LIGHT WITHIN REACH AND SITTER IN DOORWAY.
--- NOTE | 2019-03-05 07:08 | NUR ---
REPORT RECEVIED FROM SOFT DRINK POWDER MIXER AND PATIENT CARE ASSUMED. PATIENT LAYING IN BED ON BACK WITH EYES CLOSED AND BREATHING EVENLY. WILL CONTINUE WITH PLAN OF CARE. SR UP X 2 BED IN LOW POSITION AND CALL LIGHT IN REACH.
[2019-03-05 08:27] VITALS: BP 147/86
--- NOTE | 2019-03-05 09:00 | NUR ---
RECEIVED VERBAL ORDER FROM UBALDO OLIVA TO DC LITTLEJOHN CATHETER AND RECTAL. BOTH DCDE WITHOUT DIFFICULTY AND PATIENT TOLERATED WELL. SR UP X 2 BED IN LOW POSITION AND CALL LIGHT INREACH.
--- NOTE | 2019-03-05 10:33 | NUR ---
PT SEEMS CONFUSED BUT HE DID DENY ANY SI. SITTER AT BEDSIDE.
[2019-03-05 11:11] VITALS: BP 135/84
--- NOTE | 2019-03-05 13:39 | NUR ---
PATIENT LAYING IN BED ON BACK AWAKE, ALERT AND ORIENTED X 4.N PATIENT DENIES ANY NEEDS OR PAIN. WILL CONTINUE TO MONITOR. SITTER IN ROOM FOR SUICIDE WATCH. WILL CONTINUE WITH PLAN OF CARE. SR UP X 2 BED IN LOW POSITION AND CALL LIGHT IN REACH.
[2019-03-05 15:06] VITALS: BP 155/102
--- NOTE | 2019-03-05 15:12 | PN ---
PATIENT:DIEGO LEON JR MEDICAL RECORD: [id number] [facility] ADMISSION DATE: 02/19/19 PROGRESS NOTE DATE OF SERVICE: 03/04/2019 SUBJECTIVE: The patient's case was discussed. He has no new complaint. OBJECTIVE: The patient is still confused and disorganized in a manner consistent with a delirium. He has tolerated the initial doses of Librium well. There is no evidence of objective alcohol withdrawal, so I am going to taper the dose slightly. He is also receiving antipsychotic medication. ASSESSMENT: Delirium. PLAN: Sitter is at the door and should remain there. At this point, is still not possible to determine the intention of his overdose given his current state. TRANSINT:[id number] Voice Confirmation ID: [id number] DOCUMENT ID: [id number] MOUSTAPHA JOHANSEN MD at 1512 CC: [id number] DICTATION DATE: 03/04/19 1602 EDITOR: 03/05/19 0147 ADM IN [id number] [place] [address]
--- NOTE | 2019-03-05 15:18 | NUR ---
OT NOTE: PT COMPLETED BED MOB WITH MOD A FOR SIDE ROLLING. PT COMPLETED UB HYGIENE TASKS WITH MOD A. . PT COMPLETED UE AROM AXS. [id number] THANK YOU, YRN HERNANDEZ
[2019-03-05 20:00] VITALS: BP 146/72
--- NOTE | 2019-03-05 22:48 | NUR ---
PT FELL WHILE TRYING TO GO TO THE RESTROOM. HE HAS A 1:1 SITTER, WHO STATES PT GOT UP AND SITTER REPORTS YELLING AT THE PT TO NOT GET UP BUT BEFORE SITTER COULD GET IN ROOM PT HAD ALREADY MADE IT OUT OF THE BED AND FELL ON HIS BOTTOM. EVERT MCGREGOR, EVERT PRINGLE AND MYSELF WERE IN THE ROOM ASSISTING PT AFTER THE FALL. ASSISTED HIM TO THE RESTROOM. HE HAD A BOWEL MOVEMENT. HE DENIES BEING INJURED, HITTING HIS HEAD OR ANY OTHER INJURIES OR PAIN. ASSISTED BACK TO BED. NO VISIBLE INJURIES NOTED. VSS. PUT A KALI BED ALARM UNDER PT AND PUT HIS BED ALARM ON. PUT A YELLOW GOWN ON PT AND A YELLOW STAR OUTSIDE OF HIS DOOR. SPOKE TO HIS MOTHER CHRIS AND INFORMED HER OF THE FALL. ALSO SPOKE TO SOLOMON MURILLO APN TO INFORM OF FALL. CHERRY GOYALFRAME AND SCRAP CRUSHER NURSE NOTIFIED CHERRY FRAUSTO SHIFT SUP. FALL DRILL DOWN AUDIT FORM TO BE COMPLETED. BED IS LOW. 2 BED RAILS UP AND CALL LIGHT WITHIN REACH.
[2019-03-05 23:00] VITALS: BP 148/73
[2019-03-06 04:00] VITALS: BP 133/68
--- NOTE | 2019-03-06 07:37 | NUR ---
REPORT RECEVED FROM EQUAL EMPLOYMENT OPPORTUNITY OFFICER AND PATIENT CARE ASSUMED. PATIENT LAYING IN BED ON BACK WITH EYES CLOSED AND BREATHING EVENLY. PATIENT IS STABLE AND VSS. PATIENT DENIES ANY NEEDS OR PAIN. WILL CONTINUE WITH PLAN OF CARE . SR UP X 2 BED IN LOW POSITION AND CALL LIGHT IN REACH.
[2019-03-06 11:55] LABS: BASOPHILS 0.9 % (0-2); EOSINOPHILS 0.9 % (0-7); HEMATOCRIT 38.6 % (42.0-54.0); HEMOGLOBIN 13.4 g/dL (13.5-17.5); IMMATURE GRANULOCYTES 1.1 % (0-5); LYMPHOCYTES 15.1 % (15-50); MCH 33.8 pg (26.0-34.0); MCHC 34.7 g/dL (31.0-37.0); MCV 97.2 fL (80.0-100.0); MEAN PLATELET VOLUME 9.6 fL (7.4-10.4); MONOCYTES 11.5 % (2-11); NEUTROPHILS 70.5 % (40-80); PLATELET COUNT 491 10x3/uL (130-400); RBC 3.97 10x6/uL (4.20-6.10); RDW 12.8 % (11.5-14.5); WBC 8.5 10x3/uL (4.8-10.8)
[2019-03-06 12:24] LABS: CALC OSMOLALITY 280 mosm/kg (275-300); CALCIUM 8.5 mg/dL (8.5-10.1); CARBON DIOXIDE 26.4 mmol/L (21.0-32.0); CHLORIDE - SERUM 106 mmol/L (98-107); CREATININE - SERUM 0.5 mg/dL (0.6-1.3); GLUCOSE 99 mg/dL (74-106); POTASSIUM - SERUM 3.9 mmol/L (3.5-5.1); SODIUM 142 mmol/L (136-145); UREA NITROGEN 8 mg/dL (7-18); eGFR NON AFRICAN AMERICAN > 90 mL/min (90-120)
--- NOTE | 2019-03-06 12:42 | NUR ---
OT NOTE: NURSING REPORTED THAT PT HAD A FALL LAST NIGHT.. WHEN ASKED, HE DID NOT KNOW WHAT HE WAS DOING WHEN HE FELL. PT DID REMEMBER THAT I WAS FROM THERAPY BUT UNABLE TO REMEMBER NAME, EVEN WITH EXTENSIVE CUES. (FOCUSED ON THIS DURING LAST TMT SESSION) . PHYSICALLY PT DOING BETTER.. BED MOB WITH MIN ASSIST; SIT TO STAND WITH USE OF WALKER AND MIN ASSIST; AMB APPROX 15 FT IN ROOM. EDUCATION ON WALKER MGMT. PT MUCH MORE SAFE WITH WALKER.. DISCUSSED THIS WITH PT ALSO. ABLE TO CRISSY GOWN WITH SET UP; MOD ASSIST WITH SOCKS; ABLE TO WASH FACE AND HANDS WITH CLOTH AND SET UP. CONT WITH MILD CONFUSION AND POOR INSIGHT INTO HIS DEFECITS, ALONG WITH DECREASED SAFETY AWARENESS. PT TOLERATING SITTING UP IN CHAIR. EDUCATION WITH PT AND HAIR BOILER REGARDING THE FACT THAT HE CAN AMBULATE WITH ASSIST AND WALKER MAY REMAIN IN ROOM. HE IS NOT TO ATTEMPT AMBULATION WITHOUT ASSIST. UNSURE IF PT WILL REMEMBER THIS, THEREFORE ALARM PAD PLACED IN CHAIR. [id number] ANSELMO WEISS, OTR/L
--- NOTE | 2019-03-06 13:05 | NUR ---
PATIENT SITTING UP IN BED WATCHING TV. PATIENT IS STABLE AND VSS. PATIENT DENIES ANY NEEDS OR PAIN. STEVE CONTINUE TO MONITOR. SR UP X 2 BED IN LOW POSITION AND CALL LIGHT IN REACH.
[2019-03-06 13:18] VITALS: BP 147/90
--- NOTE | 2019-03-06 14:24 | MORECARE ---
CASE MANAGEMENT DISCHARGE SUMMARY PATIENT: DIEGO LEON JR UNIT: [id number] ADM DATE: 02/19/19 AGE: 54 : 65 SEX: M ROOM/BED: D.2106 AUTHOR: WILL,DOC PHYSICIAN: REFERRING PHYSICIAN: VLADIMIR ROACH MD DATE OF SERVICE: 03/06/19 Discharge Plan Patient Name: DIEGO LEON [facility]:[place] : 1965 Planned Disposition: Anticipated Discharge Date: Discharge Date: Expected LOS: Initial Reviewer: [email or web address] Initial Review Date: 02/23/2019 Generated: 03/06/19 3:24 pm DCP- Discharge Planning Updated by [email or web address]: Altagracia Lou on 02/26/19 5:[address] LATE ENTRY 02/24/19 Patient Name: DIEGO LEON Admission Status: ER Accout number: [id number] Admission Date: 02-19-2019 : 1965 Admission Diagnosis: Attending: VLADIMIR ROACH Current LOS: 7 Anticipated DC Date: Planned Disposition: Primary Insurance: MEDICARE A & B Discharge Planning Comments: CM met with patient at bedside after explaining CM role and obtaining verbal consent. Patient lives at home with his mother where he is independent with his care and plans to return there upon discharge. Patient feels this would be a safe discharge. CM discussed availability / needs of home health and medical equipment. Patient denies any discharge needs at this time. Patient states he will have his family drive him home upon discharge. CM will continue to follow and assist as needed with discharge planning / needs. Radio Recorder: Altagracia Lou DCPIA - Discharge Planning Initial Assessment Updated by [email or web address]: Altagracia Lou on 02/26/19 6:50 pm * Is the patient Alert and Oriented? Yes * How many steps to enter\exit or inside your home? * PCP JAY JAY CHAN * Pharmacy [facility] * Preadmission Environment Home with Family * ADLs Independent * Equipment None * List name and contact numbers for known caregivers / representatives who currently or will assist patient after discharge: CHRIS LEON - MOTHER- [phone] * Verbal permission to speak to the caregivers and representatives has been obtained from the patient. Yes * Community resources currently utilized None * Additional services required to return to the preadmission environment? No * Can the patient safely return to the preadmission environment? Yes * Has this patient been hospitalized within the prior 30 days at any hospital? No External Providers External Provider: [facility] Next Contact Date: 03/06/2019 Service Request Date: Service Type: Resolution: Reviewer: Comments: Last DP export: 02/26/19 5:56 pm Patient Name: DIEGO LEON Page [phone] at 1424 All edits/amendments must be made on the electronic document DICTATION DATE: 03/06/19 142 [employer] COTTON MACHINE OPERATOR: TAVIA 03/06/19 1424 RPT#: [id number] DC DATE: STATUS: ADM IN [facility] [address] [place] [address] END OF REPORT
--- NOTE | 2019-03-06 14:33 | MORECARE ---
CASE MANAGEMENT DISCHARGE SUMMARY PATIENT: DIEGO LEON JR UNIT: [id number] ADM DATE: 02/19/19 AGE: 54 : 65 SEX: M ROOM/BED: D.2106 AUTHOR: WILL,DOC PHYSICIAN: REFERRING PHYSICIAN: VLADIMIR ROACH MD DATE OF SERVICE: 03/06/19 Discharge Plan Patient Name: DIEGO LEON Facility: [facility]:[place] : 1965 Planned Disposition: [facility] facility Anticipated Discharge Date: 03/06/19 Discharge Date: Expected LOS: 15 Initial Reviewer: [email or web address] Initial Review Date: 02/23/2019 Generated: 03/06/19 3:33 pm DCP- Discharge Planning Updated by [email or web address]: Altagracia Lou on 02/26/19 5:[address] LATE ENTRY 02/24/19 Patient Name: DIEGO LEON Admission Status: ER Accout number: [id number] Admission Date: 02-19-2019 : 1965 Admission Diagnosis: Attending: VLADIMIR ROACH Current LOS: 7 Anticipated DC Date: Planned Disposition: Primary Insurance: MEDICARE A & B Discharge Planning Comments: CM met with patient at bedside after explaining CM role and obtaining verbal consent. Patient lives at home with his mother where he is independent with his care and plans to return there upon discharge. Patient feels this would be a safe discharge. CM discussed availability / needs of home health and medical equipment. Patient denies any discharge needs at this time. Patient states he will have his family drive him home upon discharge. CM will continue to follow and assist as needed with discharge planning / needs. Measurement And Sensing Technician: Altagracia Lou DCPIA - Discharge Planning Initial Assessment Updated by [email or web address]: Altagracia Lou on 02/26/19 6:50 pm * Is the patient Alert and Oriented? Yes * How many steps to enter\exit or inside your home? * PCP JAY JAY CHAN * Pharmacy [facility] * Preadmission Environment Home with Family * ADLs Independent * Equipment None * List name and contact numbers for known caregivers / representatives who currently or will assist patient after discharge: CHRIS LEON - MOTHER- [phone] * Verbal permission to speak to the caregivers and representatives has been obtained from the patient. Yes * Community resources currently utilized None * Additional services required to return to the preadmission environment? No * Can the patient safely return to the preadmission environment? Yes * Has this patient been hospitalized within the prior 30 days at any hospital? No Last DP export: 03/06/19 1:24 p Patient Name: DIEGO LEON Page 34899 at 1433 All edits/amendments must be made on the electronic document DICTATION DATE: 03/06/19 143 ROAST MASTER: TAVIA 03/06/191432 RPT#: [id number] DC DATE: STATUS: ADM IN [facility] [address] [place] [address] END OF REPORT
--- NOTE | 2019-03-06 14:42 | MORECARE ---
CASE MANAGEMENT DISCHARGE SUMMARY PATIENT: DIEGO LEON JR UNIT: [id number] ADM DATE: 02/19/19 AGE: 54 : 65 SEX: M ROOM/BED: D.2106 AUTHOR: WILL,DOC PHYSICIAN: REFERRING PHYSICIAN: VLADIMIR ROACH MD DATE OF SERVICE: 03/06/19 Discharge Plan Patient Name: DIEGO LEON Facility: [facility]:[place] : 1965 Planned Disposition: Psych facility Anticipated Discharge Date: 03/06/19 Discharge Date: Expected LOS: 15 Initial Reviewer: [email or web address] Initial Review Date: 02/23/2019 Generated: 03/06/19 3:42 pm Comments DCP- Discharge Planning Updated by [email or web address]: Danilo Buck on 03/06/19 1:[address] Patient Name: DIEGO LEON Encounter No: [id number] : 1965 Primary Insurance: MEDICARE A & B Anticipated DC Date: 03-06-2019 Planned Disposition: Psych facility External Planned Provider: [facility] DCP follow-up note: CM MET WITH INTERDISCIPLINARY TEAM, NOTIFIED BY UBALDO GALARZA THAT PT IS STABLE FOR TRANSFER TO INPATIENT PSYCHIATRIC FACILITY. CM MET WITH PT WHO DOES NOT KNOW WHY HE TOOK DRUG OVERDOSE. PT'S MOTHER STATES THAT SHE FOUND THE EMPTY BOTTLE AND BROUGHT PT TO THE HOSPITAL AND REPORTS PT RECENTLY QUIT TAKING ALL OF HIS NARCOTIC MEDICATION PRIOR TO THE OVERDOSE. FAMILY AND PT IN AGREEMENT WITH TRANSFER TO PSYCHIATRIC FACILITY FOR EVALUATION. IMPORTANT MESSAGE FROM MED[employer] PROVIDED AND EXPLAINED. CM CALLED [facility], , SPOKE TO SHAMIKA AND PROVIDED REFERRAL INFORMATION. CM FAXED REFERRAL TO [facility] AT [phone]. CM WAITING TO SEE IF PT WILL BE ACCEPTED TO ANY INPATIENT PSYCHIATRIC FACILITY IN THE STATE. [facility] TO CONTACT MED 2 NURSE IF ONE IS FOUND. Danilo Buck CASE HENRY DCP- Discharge Planning Updated by [email or web address]: Altagracia Lou on 02/26/19 5:[address] LATE ENTRY 02/24/19 Patient Name: DIEGO LEON Admission Status: ER Accout number: [id number] Admission Date: 02-19-2019 : 1965 Admission Diagnosis: Attending: VLADIMIR ROACH Current LOS: 7 Anticipated DC Date: Planned Disposition: Primary Insurance: MEDICARE A & B Discharge Planning Comments: CM met with patient at bedside after explaining CM role and obtaining verbal consent. Patient lives at home with his mother where he is independent with his care and plans to return there upon discharge. Patient feels this would be a safe discharge. CM discussed availability / needs of home health and medical equipment. Patient denies any discharge needs at this time. Patient states he will have his family drive him home upon discharge. CM will continue to follow and assist as needed with discharge planning / needs. Construction Job Titles: Altagracia العراقيA - Discharge Planning Initial Assessment Updated by [email or web address]: Altagracia Lou on 02/26/19 6:50 pm * Is the patient Alert and Oriented? Yes * How many steps to enter\exit or inside your home? * PCP JAY JAY CHAN * Pharmacy [facility] * Preadmission Environment Home with Family * ADLs Independent * Equipment None * List name and contact numbers for known caregivers / representatives who currently or will assist patient after discharge: CHRIS LEON - MOTHER- [phone] * Verbal permission to speak to the caregivers and representatives has been obtained from the patient. Yes * Community resources currently utilized None * Additional services required to return to the preadmission environment? No * Can the patient safely return to the preadmission environment? Yes * Has this patient been hospitalized within the prior 30 days at any hospital? No Last DP export: 03/06/19 1:33 p Patient Name: DIEGO LEON Page 45987 at 1442 All edits/amendments must be made on the electronic document DICTATION DATE: 03/06/19 1442 BIAS MACHINE OPERATOR: TAVIA 03/06/19 1442 RPT#: [id number] DC DATE: STATUS: ADM IN [facility] [address] [place] [address] END OF REPORT
[2019-03-06 17:14] VITALS: BP 146/95
[2019-03-06 20:00] VITALS: BP 138/68
--- NOTE | 2019-03-06 20:44 | NUR ---
2ND PHONE CALL FROM KRISTIN AT [facility]. STATES THAT THE ONLY PLACE NOW PENDING REVIEW FOR POSSIBLE ADMIT IS [place]. ALL OTHER PLACES HAVE DENIED ADMIT.
--- NOTE | 2019-03-06 21:30 | NUR ---
LEEANNE FROM [facility] CALLED TO SAY THAT THEY WILL BE SIGNING OFF THE CASE AND NO LONGER FOLLOWING PATIENT SINCE HE IS NOW MEDICALLY STABLE. [facility] CAN BE RECALLED IF NEEDED.
[2019-03-07] VITALS (7 sets, daily range): BP systolic 120–171; BP diastolic 60–90
[2019-03-07 05:20] LABS: BASOPHILS 0.4 % (0-2); EOSINOPHILS 1.4 % (0-7); HEMOGLOBIN 13.3 g/dL (13.5-17.5); IMMATURE GRANULOCYTES 0.2 % (0-5); LYMPHOCYTES 15.4 % (15-50); MCH 33.6 pg (26.0-34.0); MCHC 34.1 g/dL (31.0-37.0); MCV 98.5 fL (80.0-100.0); MEAN PLATELET VOLUME 9.3 fL (7.4-10.4); MONOCYTES 10.1 % (2-11); NEUTROPHILS 72.5 % (40-80); PLATELET COUNT 421 10x3/uL (130-400); RBC 3.96 10x6/uL (4.20-6.10)
[2019-03-07 05:38] LABS: ALBUMIN 2.8 g/dL (3.4-5.0); ALKALINE PHOSPHATASE 181 U/L (46-116); ALT (SGPT) 257 U/L (10-68); BILIRUBIN - TOTAL 0.76 mg/dL (0.2-1.3); CALCIUM 8.6 mg/dL (8.5-10.1); CARBON DIOXIDE 25.8 mmol/L (21.0-32.0); CHLORIDE - SERUM 107 mmol/L (98-107); CREATININE - SERUM 0.5 mg/dL (0.6-1.3); GLUCOSE 104 mg/dL (74-106); PROTEIN - SERUM 7.2 g/dL (6.4-8.2); SODIUM 143 mmol/L (136-145); eGFR NON AFRICAN AMERICAN > 90 mL/min (90-120)
[2019-03-07 05:40] LABS: CALC OSMOLALITY 281 mosm/kg (275-300); POTASSIUM - SERUM 3.3 mmol/L (3.5-5.1); UREA NITROGEN 5 mg/dL (7-18)
--- NOTE | 2019-03-07 07:24 | NUR ---
REPORT RECEIVED FROM CLUB CAR ATTENDANT ANDPATIENT CARE ASSUMED. PATIENT LAYING IN BED ON BACK WITH EYES CLOSED AND BREATHING EVENLY. WILLL CONTINUE WITH PLAN OF CARE. SR UP X 2 BED IN LOW POSITION AND CALL LIGHT IN REACH.
--- NOTE | 2019-03-07 11:10 | NUR ---
PATIENT MOTHER CALLED. ANSWERED QUESTIONS TO SATISFACTION.
--- NOTE | 2019-03-07 11:12 | PN ---
PATIENT:DIEGO LEON JR MEDICAL RECORD: [id number] LOCATION:D.[facility].210 ADMISSION DATE: 02/19/19 PROGRESS NOTE DATE OF SERVICE: 03/06/2019 SUBJECTIVE: The patient's case was discussed with staff. OBJECTIVE: The patient is only partially oriented. He has evidence of significant confusion. He does not know the year and when asked if 2009 is correct, he said yes. He tells me that he has no recollection of why he is here that does seem sincere. ASSESSMENT: 1. Delirium, resolved or resolving. 2. Alcohol abuse. 3. Mental status changes of uncertain etiology. At this time, I am not able to make a determination as to whether or not the amitriptyline overdose that brought him to the hospital was deliberate or not. I am going to guess that given his current situation that may be a question that can never be answered. Clearly, he is not acutely dangerous now, but his cognitive changes are of grave concern. He is unable to care for himself. He is going to need a significant amount of supervision, perhaps even group home placement. It is uncertain exactly what may have transpired whether he had some sort of hypoxic injury or there are some other process toxic or metabolic that has happened or is ongoing, but the patient clearly is severely impaired in a manner that I am certain was not gradual in its development. 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 He was functional individual. He is in need of supervision and probably placement once medically stabilized. It does appear that whatever injury he has had is going to be permanent and other than supportive care I do not see any acute needs. TRANSINT:[id number] Voice Confirmation ID: [id number] DOCUMENT ID: [id number] MOUSTAPHA JOHANSEN MD at 1112 CC: [id number] DICTATION DATE: 03/06/191947 LEAD LOADER: 03/07/19 0124 ADM IN [facility] [address] [place] [id number]
--- NOTE | 2019-03-07 11:25 | NUR ---
PATIENT IS STABLE AND VSS. PATIENT ORIENTED X 4. PATIENT SITTING UP IN BS CHAIR. PATIENT DENIES ANY NEEDS OR PAIN. SITTER AT BS. WILL CONTINUE TO MONITOR. CALL LIGHT IN REACH.
--- NOTE | 2019-03-07 17:17 | NUR ---
PATIENT IS STABLE AND VSS. PATIENT SITTING UP IN BED EATING SUPPER. PATIENT DENIES ANY NEEDS OR PAIN. WILL CONTINUE TO MONITOR. SR UP X 2 BED IN LOW POSITION AND CALL LIGHT IN REACH.
--- NOTE | 2019-03-07 19:10 | NUR ---
BEDSIDE REPORT RECEIVED FROM DAY SHIFT, PT CARE ASSUMED. INTRODUCED SELF AND WROTE NAME ON BOARD. PT SITTING UP IN BED, WATCHING TV, AAOX4. DENIES PAIN OR ANY OTHER NEEDS AT THIS TIME. BED IN LOWEST POSITION, SR X2, CALL LIGHT WITHIN REACH, SITTER AT BEDSIDE, BED ALARM ON. WILL CONTINUE TO MONITOR.
[2019-03-08 04:36] VITALS: BP 151/90
[2019-03-08 06:53] LABS: BASOPHILS 0.7 % (0-2); EOSINOPHILS 1.6 % (0-7); HEMATOCRIT 39.4 % (42.0-54.0); HEMOGLOBIN 13.3 g/dL (13.5-17.5); IMMATURE GRANULOCYTES 0.3 % (0-5); LYMPHOCYTES 20.2 % (15-50); MCH 33.9 pg (26.0-34.0); MCHC 33.8 g/dL (31.0-37.0); MEAN PLATELET VOLUME 9.3 fL (7.4-10.4); MONOCYTES 11.1 % (2-11); NEUTROPHILS 66.1 % (40-80); PLATELET COUNT 367 10x3/uL (130-400); RBC 3.92 10x6/uL (4.20-6.10); RDW 13.5 % (11.5-14.5); WBC 7.6 10x3/uL (4.8-10.8)
[2019-03-08 06:59] LABS: MCV 100.5 fL (80.0-100.0)
[2019-03-08 07:32] LABS: ALBUMIN 2.7 g/dL (3.4-5.0); ALKALINE PHOSPHATASE 169 U/L (46-116); ALT (SGPT) 229 U/L (10-68); BILIRUBIN - TOTAL 0.79 mg/dL (0.2-1.3); CALC OSMOLALITY 279 mosm/kg (275-300); CALCIUM 8.5 mg/dL (8.5-10.1); CARBON DIOXIDE 27.2 mmol/L (21.0-32.0); CHLORIDE - SERUM 107 mmol/L (98-107); CREATININE - SERUM 0.6 mg/dL (0.6-1.3); GLUCOSE 108 mg/dL (74-106); PROTEIN - SERUM 7.5 g/dL (6.4-8.2); SODIUM 141 mmol/L (136-145); UREA NITROGEN 6 mg/dL (7-18); eGFR NON AFRICAN AMERICAN > 90 mL/min (90-120)
[2019-03-08 07:35] LABS: POTASSIUM - SERUM 3.8 mmol/L (3.5-5.1)
--- NOTE | 2019-03-08 07:59 | NUR ---
REPORT RECIEVED. PT LYING ON RIGHT SIDE. RR EVEN AND UNLABORED. PT HAS A L UPPER ARM PICC THAT IS SL. SITTER AT BEDSIDE. BED LOCKED AND IN LOWEST POSITION,CALL LIGHT WITHIN REACH. WILL CTM
[2019-03-08 08:00] VITALS: BP 127/74
--- NOTE | 2019-03-08 10:46 | PN ---
PATIENT:DIEGO LEON JR MEDICAL RECORD: [id number] [facility] ADMISSION DATE: 02/19/19 PROGRESS NOTE DATE OF SERVICE: 03/07/2019 SUBJECTIVE: The patient's case was discussed with staff. He has no new complaint. OBJECTIVE: The patient is in good behavioral control. He has poor insight about his situation. He is generally tolerating his medicines well. He continues to be poorly oriented for reasons that are not entirely clear. He does seem calmer with the addition of the Geodon and the Librium. At this point, it is unclear if he is going to improve cognitively and at this point he certainly is not capable of making reasonable informed consent decisions or caring for himself. Regarding the overdose, it is still not possible to tell his intent. He has no recollection of that. I would recommend he continue with the sitter and supportive medical treatments be provided. TRANSINT:[id number] Voice Confirmation ID: [id number] DOCUMENT ID: [id number] MOUSTAPHA JOHANSEN MD at 1046 CC: [id number] DICTATION DATE: 03/07/19 1157 HEEL SEAM RUBBER: 03/07/19 1442 ADM IN [facility] [address] [place] [id number]
[2019-03-08 12:00] VITALS: BP 158/95
[2019-03-08] MEDS ORDERED: BETAPACE 120 M120 MG NG (13:16)
[2019-03-08] MEDS ORDERED: CARDIZEM30 MG PO (13:16)
[2019-03-08] MEDS ORDERED: LISINOPRIL40 MG PO (13:20)
[2019-03-08] MEDS ORDERED: GEODON20 MG PO (13:20)
[2019-03-08 16:00] VITALS: BP 163/101
--- NOTE | 2019-03-08 17:39 | MORECARE ---
CASE MANAGEMENT DISCHARGE SUMMARY PATIENT: DIEGO LEON JR UNIT: [id number] ADM DATE: 02/19/19 AGE: 54 : 65 SEX: M ROOM/BED: D.2106 AUTHOR: WILL,DOC PHYSICIAN: REFERRING PHYSICIAN: VLADIMIR ROACH MD DATE OF SERVICE: 03/08/19 Discharge Plan Patient Name: DIEGO LEON Facility: [facility]:[place] : 1965 Planned Disposition: Psych facility Anticipated Discharge Date: 03/06/19 Discharge Date: Expected LOS: 15 Initial Reviewer: [email or web address] Initial Review Date: 02/23/2019 Generated: 03/08/19 6:38 pm DCP- Discharge Planning Updated by [email or web address]: Danilo Buck on 03/06/19 1:[address] Patient Name: DIEGO LEON Encounter No: [id number] : 1965 Primary Insurance: MEDICARE A & B Anticipated DC Date: 03-06-2019 Planned Disposition: Psych facility External Planned Provider: [facility] DCP follow-up note: CM MET WITH INTERDISCIPLINARY TEAM, NOTIFIED BY UBALDO GALARZA THAT PT IS STABLE FOR TRANSFER TO INPATIENT PSYCHIATRIC FACILITY. CM MET WITH PT WHO DOES NOT KNOW WHY HE TOOK DRUG OVERDOSE. PT'S MOTHER STATES THAT SHE FOUND THE EMPTY BOTTLE AND BROUGHT PT TO THE HOSPITAL AND REPORTS PT RECENTLY QUIT TAKING ALL OF HIS NARCOTIC MEDICATION PRIOR TO THE OVERDOSE. FAMILY AND PT IN AGREEMENT WITH TRANSFER TO PSYCHIATRIC FACILITY FOR EVALUATION. IMPORTANT MESSAGE FROM [employer] PROVIDED AND EXPLAINED. CM CALLED [facility], , SPOKE TO SHAMIKA AND PROVIDED REFERRAL INFORMATION. CM FAXED REFERRAL TO [facility] AT [phone]. CM WAITING TO SEE IF PT WILL BE ACCEPTED TO ANY INPATIENT PSYCHIATRIC FACILITY IN THE STATE. [facility] TO CONTACT MED 2 NURSE IF ONE IS FOUND. Danilo Buck CASE HENRY DCP- Discharge Planning Updated by [email or web address]: Altagracia Lou on 02/26/19 5:[address] LATE ENTRY 02/24/19 Patient Name: DIEGO LEON Admission Status: ER Accout number: [id number] Admission Date: 02-19-2019 : 1965 Admission Diagnosis: Attending: VLADIMIR ROACH Current LOS: 7 Anticipated DC Date: Planned Disposition: Primary Insurance: MEDICARE A & B Discharge Planning Comments: CM met with patient at bedside after explaining CM role and obtaining verbal consent. Patient lives at home with his mother where he is independent with his care and plans to return there upon discharge. Patient feels this would be a safe discharge. CM discussed availability / needs of home health and medical equipment. Patient denies any discharge needs at this time. Patient states he will have his family drive him home upon discharge. CM will continue to follow and assist as needed with discharge planning / needs. Sterilizer Machine Operator: Altagracia Lou DCPIA - Discharge Planning Initial Assessment Updated by [email or web address]: Altagracia Lou on 02/26/19 6:50 pm * Is the patient Alert and Oriented? Yes * How many steps to enter\exit or inside your home? * PCP JAY JAY CHAN * Pharmacy [facility] * Preadmission Environment Home with Family * ADLs Independent * Equipment None * List name and contact numbers for known caregivers / representatives who currently or will assist patient after discharge: CHRIS LEON - MOTHER- [phone] * Verbal permission to speak to the caregivers and representatives has been obtained from the patient. Yes * Community resources currently utilized None * Additional services required to return to the preadmission environment? No * Can the patient safely return to the preadmission environment? Yes * Has this patient been hospitalized within the prior 30 days at any hospital? No External Providers External Provider: [facility] Next Contact Date: 03/06/2019 Service Request Date: Service Type: Resolution: Reviewer: Comments: Last DP export: 03/06/19 1:42 p Patient Name: DIEGO LEON Page 00762 at 1739 All edits/amendments must be made on the electronic document DICTATION DATE: 03/08/191737 RIVER GUIDE: TAVIA 03/08/191737 RPT#: [id number] DC DATE: STATUS: ADM IN [facility] [address] [place] [address] END OF REPORT
--- NOTE | 2019-03-08 19:10 | NUR ---
PT AT REST WITH EYES CLOSED AND RESP EVEN AND UNLABORED SITTER SITTING WITH PT IN VEIEW BED LOW AND LOCKED DROPLET ISOLATION OBSERVED
[2019-03-08 20:30] VITALS: BP 154/95
[2019-03-09 04:30] VITALS: BP 143/79
--- NOTE | 2019-03-09 05:12 | NUR ---
I have reviewed this patient and I concur with the Shift Assessment completed by the Licensed Practical Nurse today this shift.
[2019-03-09 05:31] LABS: BASOPHILS 0.2 % (0-2); EOSINOPHILS 0.8 % (0-7); HEMATOCRIT 41.1 % (42.0-54.0); HEMOGLOBIN 13.8 g/dL (13.5-17.5); IMMATURE GRANULOCYTES 0.3 % (0-5); LYMPHOCYTES 10.7 % (15-50); MCH 33.3 pg (26.0-34.0); MCHC 33.6 g/dL (31.0-37.0); MCV 99.3 fL (80.0-100.0); MEAN PLATELET VOLUME 9.4 fL (7.4-10.4); MONOCYTES 8.7 % (2-11); NEUTROPHILS 79.3 % (40-80); PLATELET COUNT 407 10x3/uL (130-400); RBC 4.14 10x6/uL (4.20-6.10); RDW 13.4 % (11.5-14.5)
[2019-03-09 05:59] LABS: ALBUMIN 2.8 g/dL (3.4-5.0); ALKALINE PHOSPHATASE 198 U/L (46-116); ALT (SGPT) 265 U/L (10-68); BILIRUBIN - TOTAL 0.66 mg/dL (0.2-1.3); CALC OSMOLALITY 275 mosm/kg (275-300); CALCIUM 8.4 mg/dL (8.5-10.1); CHLORIDE - SERUM 104 mmol/L (98-107); CREATININE - SERUM 0.7 mg/dL (0.6-1.3); GLUCOSE 106 mg/dL (74-106); POTASSIUM - SERUM 3.1 mmol/L (3.5-5.1); PROTEIN - SERUM 7.4 g/dL (6.4-8.2); SODIUM 140 mmol/L (136-145); UREA NITROGEN 5 mg/dL (7-18); eGFR NON AFRICAN AMERICAN > 90 mL/min (90-120)
[2019-03-09 06:19] LABS: WBC 12.9 10x3/uL (4.8-10.8)
[2019-03-09 08:09] VITALS: BP 171/94
--- NOTE | 2019-03-09 09:57 | MORECARE ---
CASE MANAGEMENT DISCHARGE SUMMARY PATIENT: DIEGO LEON JR UNIT: [id number] ADM DATE: 02/19/19 AGE: 54 : 65 SEX: M ROOM/BED: D.2106 AUTHOR: WILL,DOC PHYSICIAN: REFERRING PHYSICIAN: VLADIMIR ROACH MD DATE OF SERVICE: 03/09/19 Discharge Plan Patient Name: DIEGO LEON Facility: [facility]:[place] : 1965 Planned Disposition: Psych facility Anticipated Discharge Date: 03/06/19 Discharge Date: Expected LOS: 15 Initial Reviewer: [email or web address] Initial Review Date: 02/23/2019 Generated: 03/09/19 10:56 am DCP- Discharge Planning Updated by [email or web address]: Danilo Buck on 03/06/19 1:[address] Patient Name: DIEGO LEON Encounter No: [id number] : 1965 Primary Insurance: MEDICARE A & B Anticipated DC Date: 03-06-2019 Planned Disposition: Psych facility External Planned Provider: [facility] DCP follow-up note: CM MET WITH INTERDISCIPLINARY TEAM, NOTIFIED BY UBALDO GALARZA THAT PT IS STABLE FOR TRANSFER TO INPATIENT PSYCHIATRIC FACILITY. CM MET WITH PT WHO DOES NOT KNOW WHY HE TOOK DRUG OVERDOSE. PT'S MOTHER STATES THAT SHE FOUND THE EMPTY BOTTLE AND BROUGHT PT TO THE HOSPITAL AND REPORTS PT RECENTLY QUIT TAKING ALL OF HIS NARCOTIC MEDICATION PRIOR TO THE OVERDOSE. FAMILY AND PT IN AGREEMENT WITH TRANSFER TO PSYCHIATRIC FACILITY FOR EVALUATION. IMPORTANT MESSAGE FROM [employer] PROVIDED AND EXPLAINED. CM CALLED [facility], , SPOKE TO SHAMIKA AND PROVIDED REFERRAL INFORMATION. CM FAXED REFERRAL TO [facility] AT [phone]. CM WAITING TO SEE IF PT WILL BE ACCEPTED TO ANY INPATIENT PSYCHIATRIC FACILITY IN THE STATE. [facility] TO CONTACT MED 2 NURSE IF ONE IS FOUND. Danilo Buck CASE HENRY DCP- Discharge Planning Updated by [email or web address]: Altagracia Lou on 02/26/19 5:[address] LATE ENTRY 02/24/19 Patient Name: DIEGO LEON Admission Status: ER Accout number: [id number] Admission Date: 02-19-2019 : 1965 Admission Diagnosis: Attending: VLADIMIR ROACH Current LOS: 7 Anticipated DC Date: Planned Disposition: Primary Insurance: MEDICARE A & B Discharge Planning Comments: CM met with patient at bedside after explaining CM role and obtaining verbal consent. Patient lives at home with his mother where he is independent with his care and plans to return there upon discharge. Patient feels this would be a safe discharge. CM discussed availability / needs of home health and medical equipment. Patient denies any discharge needs at this time. Patient states he will have his family drive him home upon discharge. CM will continue to follow and assist as needed with discharge planning / needs. Gm/Svp Global Publisher Business: Altagracia Lou DCPIA - Discharge Planning Initial Assessment Updated by [email or web address]: Altagracia Lou on 02/26/19 6:50 pm * Is the patient Alert and Oriented? Yes * How many steps to enter\exit or inside your home? * PCP JAY JAY CHAN * Pharmacy [facility] * Preadmission Environment Home with Family * ADLs Independent * Equipment None * List name and contact numbers for known caregivers / representatives who currently or will assist patient after discharge: CHRIS LEON - MOTHER- [phone] * Verbal permission to speak to the caregivers and representatives has been obtained from the patient. Yes * Community resources currently utilized None * Additional services required to return to the preadmission environment? No * Can the patient safely return to the preadmission environment? Yes * Has this patient been hospitalized within the prior 30 days at any hospital? No External Providers External Provider: [facility] Next Contact Date: 03/09/2019 Service Request Date: Service Type: Resolution: Reviewer: Comments: Last DP export: 03/08/19 4:39 p Patient Name: DIEGO LEON Page 77616 at 0957 All edits/amendments must be made on the electronic document DICTATION DATE: 03/09/19955 NAVY MATERIAL INSPECTOR: TAVIA 03/09/19955 RPT#: [id number] DC DATE: STATUS: ADM IN [facility] [address] [place] [address] END OF REPORT
[2019-03-09 11:32] VITALS: BP 135/83
--- NOTE | 2019-03-09 11:35 | MORECARE ---
CASE MANAGEMENT DISCHARGE SUMMARY PATIENT: DIEGO LEON JR UNIT: [id number] ADM DATE: 02/19/19 AGE: 54 : 65 SEX: M ROOM/BED: D.2106 AUTHOR: WILL,DOC PHYSICIAN: REFERRING PHYSICIAN: VLADIMIR ROACH MD DATE OF SERVICE: 03/09/19 Discharge Plan Patient Name: DIEGO LEON Facility: [facility]:[place] : 1965 Planned Disposition: Psych facility Anticipated Discharge Date: 03/09/19 Discharge Date: Expected LOS: 18 Initial Reviewer: [email or web address] Initial Review Date: 02/23/2019 Generated: 03/09/19 12:34 pm DCP- Discharge Planning Updated by [email or web address]: Danilo Buck on 03/06/19 1:[address] Patient Name: DIEGO LEON Encounter No: [id number] : 1965 Primary Insurance: MEDICARE A & B Anticipated DC Date: 03-06-2019 Planned Disposition: Psych facility External Planned Provider: [facility] DCP follow-up note: CM MET WITH INTERDISCIPLINARY TEAM, NOTIFIED BY UBALDO GALARZA THAT PT IS STABLE FOR TRANSFER TO INPATIENT PSYCHIATRIC FACILITY. CM MET WITH PT WHO DOES NOT KNOW WHY HE TOOK DRUG OVERDOSE. PT'S MOTHER STATES THAT SHE FOUND THE EMPTY BOTTLE AND BROUGHT PT TO THE HOSPITAL AND REPORTS PT RECENTLY QUIT TAKING ALL OF HIS NARCOTIC MEDICATION PRIOR TO THE OVERDOSE. FAMILY AND PT IN AGREEMENT WITH TRANSFER TO PSYCHIATRIC FACILITY FOR EVALUATION. IMPORTANT MESSAGE FROM [employer] PROVIDED AND EXPLAINED. CM CALLED [facility], , SPOKE TO SHAMIKA AND PROVIDED REFERRAL INFORMATION. CM FAXED REFERRAL TO [facility] AT [phone]. CM WAITING TO SEE IF PT WILL BE ACCEPTED TO ANY INPATIENT PSYCHIATRIC FACILITY IN THE STATE. [facility] TO CONTACT [facility] 2 NURSE IF ONE IS FOUND. Danilo Buck CASE HENRY DCP- Discharge Planning Updated by [id number]: Altagracia Lou on 02/26/19 5:[address] LATE ENTRY 02/24/19 Patient Name: DIEGO LEON Admission Status: ER Accout number: [id number] Admission Date: 02-19-2019 : 1965 Admission Diagnosis: Attending: VLADIMIR ROACH Current LOS: 7 Anticipated DC Date: Planned Disposition: Primary Insurance: MEDICARE A & B Discharge Planning Comments: CM met with patient at bedside after explaining CM role and obtaining verbal consent. Patient lives at home with his mother where he is independent with his care and plans to return there upon discharge. Patient feels this would be a safe discharge. CM discussed availability / needs of home health and medical equipment. Patient denies any discharge needs at this time. Patient states he will have his family drive him home upon discharge. CM will continue to follow and assist as needed with discharge planning / needs. Circus Supervisor: Altagracia Lou DCMARLEEA - Discharge Planning Initial Assessment Updated by [email or web address]: Altagracia Lou on 02/26/19 6:50 pm * Is the patient Alert and Oriented? Yes * How many steps to enter\exit or inside your home? * PCP JAY JAY CHAN * Pharm[facility] * Preadmission Environment Home with Family * ADLs Independent * Equipment None * List name and contact numbers for known caregivers / representatives who currently or will assist patient after discharge: CHRIS LEON - MOTHER- [phone] * Verbal permission to speak to the caregivers and representatives has been obtained from the patient. Yes * Community resources currently utilized None * Additional services required to return to the preadmission environment? No * Can the patient safely return to the preadmission environment? Yes * Has this patient been hospitalized within the prior 30 days at any hospital? No Coverage Notice Reviewer: [id number] Anisa Buck Notice Issued Date-Time: 03/09/2019 9:45 Notice Type: IM Discharge Notice Notice Delivered To: Patient Relationship to Patient: Table Games Dealer Name: Delivery Method: EXPR - Express Mail Erin Days: Prior Verbal Notification: Recipient Understood Notice: Yes Recipient Signature: Yes Med Rec Note Co-signed by Attending: Coverage Notice Comment: Reviewer: [email or web address] Anisa Buck Notice Issued Date-Time: 03/09/2019 9:45 Notice Type: Patient Choice Letter Notice Delivered To: Patient Relationship to Patient: Table Games Dealer Name: Delivery Method: HAND - Hand Delivered Erin Days: Prior Verbal Notification: Recipient Understood Notice: Yes Recipient Signature: Yes Med Rec Note Co-signed by Attending: Coverage Notice Comment: no preference for walker provider Last DP export: 03/09/19 8:57 a Patient Name: DIEGO LEON Page 69219 at 1135 All edits/amendments must be made on the electronic document DICTATION DATE: 03/09/191133 ROLL ON MAN: TAVIA 03/09/19 113 RPT#: [id number] DC DATE: STATUS: ADM IN [facility] [address] [place] [address] END OF REPORT
--- NOTE | 2019-03-09 11:42 | MORECARE ---
CASE MANAGEMENT DISCHARGE SUMMARY PATIENT: DIEGO LEON JR UNIT: [id number] ADM DATE: 02/19/19 AGE: 54 : 65 SEX: M ROOM/BED: D.2106 AUTHOR: WILL,DOC PHYSICIAN: REFERRING PHYSICIAN: VLADIMIR ROACH MD DATE OF SERVICE: 03/09/19 Discharge Plan Patient Name: DIEGO LEON Facility: [facility]:[place] : 1965 Planned Disposition: Psych facility Anticipated Discharge Date: 03/09/19 Discharge Date: Expected LOS: 18 Initial Reviewer: [email or web address] Initial Review Date: 02/23/2019 Generated: 03/09/19 12:41 pm Comments DCP- Discharge Planning Updated by [id number]: Danilo Buck on 03/09/19 10:[address] Patient Name: DIEGO LEON Encounter No: [id number] : 1965 Primary Insurance: MEDICARE A & B Anticipated DC Date: 03-09-2019 Planned Disposition: Psych facility External Planned Provider: [facility] DCP follow-up note: CM SPOKE TO PT IN ROOM WHO IS STILL WILLING FOR INPATIENT PSYCHIATRIC CARE. PT STILL DOES NO KNOW WHY HE TOOK OVERDOSE OF MEDICATIONS, REPORTS IT WILL NEVER HAPPEN AGAIN. PT DENIES SUIDCIDAL IDEATION AT THIS TIME. PT HAS NO PREFERENCE ON EQUIPMENT PROVIDER FOR WALKER, CHOICE SIGNED FOR NO PREFERENCE. IMPORTANT MESSAGE FROM MEDICARE PROVIDED AND EXPLAINED. CM FAXED WALKER REFERRAL TO [facility] AT [phone]. CM VERIFIED RECEIPT OF ORDER WITH ALHAJI OF [facility], , WALKER TO BE DELIVERED TO PT'S HOSPITAL ROOM TODAY. CM CALLED [facility] AT [phone], SPOKE TO [facility] AND PROVIDED UPDATE. FACILITIES ARE DENYING FOR LACK OF "SI", SUICIDAL INTENT. PT HAS BEEN DECLINED BY MOST FACILITIES [facility], SHAMIKA OF [facility] STILL SEEKING PLACEMENT. CM FAXED UPDATE TO [facility] AT [phone]. CM CONTINUES TO WAIT ACCEPTANCE BY ANY INPATIENT PSYCHIATRIC TREATMENT CENTER [facility]. [facility] TO DELIVER WALKER TO PT'S ROOM FOR DISCHARGE. Danilo Buck, CASE MANAGEMENT DCP- Discharge Planning Updated by [id number]: Danilo Buck on 03/06/19 1:[address] Patient Name: DIEGO LEON Encounter No: [id number] : 1965 Primary Insurance: MEDICARE A & B Anticipated DC Date: 03-06-2019 Planned Disposition: Psych facility External Planned Provider: [facility] DCP follow-up note: CM MET WITH INTERDISCIPLINARY TEAM, NOTIFIED BY UBALDO GALARZA THAT PT IS STABLE FOR TRANSFER TO INPATIENT PSYCHIATRIC FACILITY. CM MET WITH PT WHO DOES NOT KNOW WHY HE TOOK DRUG OVERDOSE. PT'S MOTHER STATES THAT SHE FOUND THE EMPTY BOTTLE AND BROUGHT PT TO THE HOSPITAL AND REPORTS PT RECENTLY QUIT TAKING ALL OF HIS NARCOTIC MEDICATION PRIOR TO THE OVERDOSE. FAMILY AND PT IN AGREEMENT WITH TRANSFER TO PSYCHIATRIC FACILITY FOR EVALUATION. IMPORTANT MESSAGE FROM [employer] PROVIDED AND EXPLAINED. CM CALLED [facility], , SPOKE TO SHAMIKA AND PROVIDED REFERRAL INFORMATION. CM FAXED REFERRAL TO [facility] AT [phone]. CM WAITING TO SEE IF PT WILL BE ACCEPTED TO ANY INPATIENT PSYCHIATRIC FACILITY IN THE [facility]. [facility] TO CONTACT [facility] 2 NURSE IF ONE IS FOUND. Danilo Buck, CASE MANAGEMENT DCP- Discharge Planning Updated by [id number]: Altagracia Lou on 02/26/19 5:[address] LATE ENTRY 02/24/19 Patient Name: DIEGO LEON Admission Status: ER Accout number: [id number] Admission Date: 02-19-2019 : 1965 Admission Diagnosis: Attending: VLADIIMR ROACH Current LOS: 7 Anticipated DC Date: Planned Disposition: Primary Insurance: MEDICARE A & B Discharge Planning Comments: CM met with patient at bedside after explaining CM role and obtaining verbal consent. Patient lives at home with his mother where he is independent with his care and plans to return there upon discharge. Patient feels this would be a safe discharge. CM discussed availability / needs of home health and medical equipment. Patient denies any discharge needs at this time. Patient states he will have his family drive him home upon discharge. CM will continue to follow and assist as needed with discharge planning / needs. Vending Machine Filler: Altagracia Lou DCPIA - Discharge Planning Initial Assessment Updated by [id number]: Altagracia Lou on 02/26/19 6:50 pm * Is the patient Alert and Oriented? Yes * How many steps to enter\\exit or inside your home? * PCP JAY JAY CHAN * Pharmacy [facility] * Preadmission Environment Home with Family * ADLs Independent * Equipment None * List name and contact numbers for known caregivers / representatives who currently or will assist patient after discharge: CHRIS LEON - MOTHER- [phone] * Verbal permission to speak to the caregivers and representatives has been obtained from the patient. Yes * Community resources currently utilized None * Additional services required to return to the preadmission environment? No * Can the patient safely return to the preadmission environment? Yes * Has this patient been hospitalized within the prior 30 days at any hospital? No Coverage Notice Reviewer: [email or web address] Buck Notice Issued Date-Time: 03/09/2019 9:45 Notice Type: IM Discharge Notice Notice Delivered To: Patient Relationship to Patient: Bead Wire Insulator Name: Delivery Method: EXPR - Express Mail Erin Days: Prior Verbal Notification: Recipient Understood Notice: Yes Recipient Signature: Yes Med Rec Note Co-signed by Attending: Coverage Notice Comment: Reviewer: ARMAND Buck Notice Issued Date-Time: 03/09/2019 9:45 Notice Type: Patient Choice Letter Notice Delivered To: Patient Relationship to Patient: Bead Wire Insulator Name: Delivery Method: HAND - Hand Delivered Erin Days: Prior Verbal Notification: Recipient Understood Notice: Yes Recipient Signature: Yes Med Rec Note Co-signed by Attending: Coverage Notice Comment: no preference for walker provider Last DP export: 03/09/19 10:35 a Patient Name: DIEGO LEON Page 10094 at 1142 All edits/amendments must be made on the electronic document DICTATION DATE: 03/09/19 1141 SLAUGHTERER RELIGIOUS RITUAL: TAVIA 03/09/19 1141 RPT#: [id number] DC DATE: STATUS: ADM IN [facility] [address] [place] [address] END OF REPORT
--- NOTE | 2019-03-09 13:59 | NUR ---
Pt has a healing stage 2 pressure injury on his left heel. Blister is intact and edges show signs of healing. 4cm x 4cm Recommended painting with betadine and covering with mepilex.
[2019-03-09 15:22] VITALS: BP 146/99
--- NOTE | 2019-03-09 15:50 | NUR ---
OT NOTE: PT COMPLETED BATHING TASKS WITH MOD A. PT COMPLETED CRISSY SOCKS WITH MIN A. PT COMPLETED CRISSY UNDERGARMENT WITH SET UP. PT COMPLETED ADL MOB WITH SPV/SBA. PT EXHIBITED MILD CONFUSION WITH MULTI STEP TASKS. PT MOTHER CONCERNED WITH HEEL PRESSURE ULCER. POOL REPORTED TO NURSING. [phone] THANK YOU, YRN HERNANDEZ
--- NOTE | 2019-03-09 16:21 | NUR ---
SITTER AT BEDSIDE FOR SUICIDE RISK. PT DENIES SI BUT HE DOES ADMIT TO ATTEMPTING TO KILL HIMSELF PRIOR TO COMING IN. PT CONTINUES TO BE ON DROPLET PRECAUTIONS.
[2019-03-09 20:16] VITALS: BP 149/91
[2019-03-09 22:56] VITALS: BP 138/89
--- NOTE | 2019-03-10 01:01 | NUR ---
SPOKE WITH MARGOT AT THE [facility]. HE WAS GIVEN ABG RESULTS.
--- NOTE | 2019-03-10 02:19 | NUR ---
I have reviewed this patient and I concur with the Shift Assessment completed by the Licensed Practical Nurse today this shift.
[2019-03-10 03:55] VITALS: BP 134/71
[2019-03-10 06:13] LABS: BASOPHILS 0.3 % (0-2); EOSINOPHILS 0.6 % (0-7); HEMATOCRIT 42.1 % (42.0-54.0); IMMATURE GRANULOCYTES 0.3 % (0-5); LYMPHOCYTES 14.6 % (15-50); MCH 33.6 pg (26.0-34.0); MCHC 33.3 g/dL (31.0-37.0); MEAN PLATELET VOLUME 9.7 fL (7.4-10.4); MONOCYTES 10.8 % (2-11); NEUTROPHILS 73.4 % (40-80); PLATELET COUNT 344 10x3/uL (130-400); RBC 4.17 10x6/uL (4.20-6.10); RDW 13.5 % (11.5-14.5); WBC 13.5 10x3/uL (4.8-10.8)
[2019-03-10 06:37] LABS: ALKALINE PHOSPHATASE 180 U/L (46-116); ALT (SGPT) 222 U/L (10-68); CALC OSMOLALITY 281 mosm/kg (275-300); CALCIUM 8.8 mg/dL (8.5-10.1); CARBON DIOXIDE 25.7 mmol/L (21.0-32.0); CHLORIDE - SERUM 106 mmol/L (98-107); CREATININE - SERUM 0.7 mg/dL (0.6-1.3); GLUCOSE 111 mg/dL (74-106); POTASSIUM - SERUM 3.5 mmol/L (3.5-5.1); PROTEIN - SERUM 7.7 g/dL (6.4-8.2); SODIUM 142 mmol/L (136-145); UREA NITROGEN 7 mg/dL (7-18); eGFR NON AFRICAN AMERICAN > 90 mL/min (90-120)
--- NOTE | 2019-03-10 07:20 | NUR ---
RECIEVE REPORT. RESTING IN BED WITH EYES CLOSED. NO SIGNS OF DISTRESS. SITTER AT BEDSIDE. CONTINUE PLAN OF CARE AND SAFETY PRECAUTIONS.
[2019-03-10 07:58] VITALS: BP 144/69
--- NOTE | 2019-03-10 08:24 | MORECARE ---
CASE MANAGEMENT DISCHARGE SUMMARY PATIENT: DIEGO LEON JR UNIT: [id number] ADM DATE: 02/19/19 AGE: 54 : 65 SEX: M ROOM/BED: D.2106 AUTHOR: WILL,DOC PHYSICIAN: REFERRING PHYSICIAN: VLADIMIR ROACH MD DATE OF SERVICE: 03/10/19 Discharge Plan Patient Name: DIEGO LEON Facility: [facility]:[place] : 1965 Planned Disposition: Psych facility Anticipated Discharge Date: 03/09/19 Discharge Date: Expected LOS: 18 Initial Reviewer: [id number] Initial Review Date: 02/23/2019 Generated: 03/10/19 9:23 am Comments DCP- Discharge Planning Updated by [id number]: Danilo Buck on 03/10/19 7:[address] Patient Name: DIEGO LEON Encounter No: [id number] : 1965 Primary Insurance: MEDICARE A & B Anticipated DC Date: 03-09-2019 Planned Disposition: Psych facility External Planned Provider: [facility] DCP follow-up note: CM FAXED UPDATE WITH YESTERDAYS PSYCHIATRIC FOLLOW UP NOTE TO [facility] AT [phone]. CM CONTINUES TO WAIT ACCEPTANCE BY ANY INPATIENT PSYCHIATRIC TREATMENT CENTER [facility]. Danilo Buck CASE MANAGEMENT DCP- Discharge Planning Updated by [email or web address]: Danilo Buck on 03/09/19 10:[address] Patient Name: DIEGO LEON Encounter No: [id number] : 1965 Primary Insurance: MEDICARE A & B Anticipated DC Date: 03-09-2019 Planned Disposition: Psych facility External Planned Provider: [facility] DCP follow-up note: CM SPOKE TO PT IN ROOM WHO IS STILL WILLING FOR INPATIENT PSYCHIATRIC CARE. PT STILL DOES NO KNOW WHY HE TOOK OVERDOSE OF MEDICATIONS, REPORTS IT WILL NEVER HAPPEN AGAIN. PT DENIES SUIDCIDAL IDEATION AT THIS TIME. PT HAS NO PREFERENCE ON EQUIPMENT PROVIDER FOR WALKER, CHOICE SIGNED FOR NO PREFERENCE. IMPORTANT MESSAGE FROM [employer] PROVIDED AND EXPLAINED. CM FAXED WALKER REFERRAL TO [facility] AT [phone]. CM VERIFIED RECEIPT OF ORDER WITH ALHAJI OF [facility], , WALKER TO BE DELIVERED TO PT'S HOSPITAL ROOM TODAY. CM CALLED [facility] AT [phone], SPOKE TO DENYS AND PROVIDED UPDATE. FACILITIES ARE DENYING FOR LACK OF "SI", SUICIDAL INTENT. PT HAS BEEN DECLINED BY MOST FACILITIES [facility], SHAMIKA OF [facility] STILL SEEKING PLACEMENT. CM FAXED UPDATE TO [facility] AT [phone]. CM CONTINUES TO WAIT ACCEPTANCE BY ANY INPATIENT PSYCHIATRIC TREATMENT CENTER [facility]. [facility] TO DELIVER WALKER TO PT'S ROOM FOR DISCHARGE. Danilo Buck CASE MANAGEMENT DCP- Discharge Planning Updated by [id number]: Danilo Buck on 03/06/19 1:[address] Patient Name: DIEGO LEON Encounter No: [id number] : 1965 Primary Insurance: MEDICARE A & B Anticipated DC Date: 03-06-2019 Planned Disposition: Psych facility External Planned Provider: [facility] DCP follow-up note: CM MET WITH INTERDISCIPLINARY TEAM, NOTIFIED BY UBALDO GALARZA THAT PT IS STABLE FOR TRANSFER TO INPATIENT PSYCHIATRIC FACILITY. CM MET WITH PT WHO DOES NOT KNOW WHY HE TOOK DRUG OVERDOSE. PT'S MOTHER STATES THAT SHE FOUND THE EMPTY BOTTLE AND BROUGHT PT TO THE HOSPITAL AND REPORTS PT RECENTLY QUIT TAKING ALL OF HIS NARCOTIC MEDICATION PRIOR TO THE OVERDOSE. FAMILY AND PT IN AGREEMENT WITH TRANSFER TO PSYCHIATRIC FACILITY FOR EVALUATION. IMPORTANT MESSAGE FROM [employer] PROVIDED AND EXPLAINED. CM CALLED [facility], , SPOKE TO SHAMIKA AND PROVIDED REFERRAL INFORMATION. CM FAXED REFERRAL TO [facility] AT [phone]. CM WAITING TO SEE IF PT WILL BE ACCEPTED TO ANY INPATIENT PSYCHIATRIC FACILITY IN THE STATE. [facility] TO CONTACT MED 2 NURSE IF ONE IS FOUND. Danilo Buck CASE MANAGEMENT DCP- Discharge Planning Updated by [email or web address]: Altagracia Lou on 02/26/19 5:[address] LATE ENTRY 02/24/19 Patient Name: DIEGO LEON Admission Status: ER Accout number: [id number] Admission Date: 02-19-2019 : 1965 Admission Diagnosis: Attending: VLADIMIR ROACH Current LOS: 7 Anticipated DC Date: Planned Disposition: Primary Insurance: MEDICARE A & B Discharge Planning Comments: CM met with patient at bedside after explaining CM role and obtaining verbal consent. Patient lives at home with his mother where he is independent with his care and plans to return there upon discharge. Patient feels this would be a safe discharge. CM discussed availability / needs of home health and medical equipment. Patient denies any discharge needs at this time. Patient states he will have his family drive him home upon discharge. CM will continue to follow and assist as needed with discharge planning / needs. Echocardiologist: Altagracia Lou DCMARLEEA - Discharge Planning Initial Assessment Updated by [id number]: Altagracia Lou on 02/26/19 6:50 pm * Is the patient Alert and Oriented? Yes * How many steps to enter\\exit or inside your home? * PCP JAY JAY CHAN * [facility] * Preadmission Environment Home with Family * ADLs Independent * Equipment None * List name and contact numbers for known caregivers / representatives who currently or will assist patient after discharge: CHRIS LEON - MOTHER- [phone] * Verbal permission to speak to the caregivers and representatives has been obtained from the patient. Yes * Community resources currently utilized None * Additional services required to return to the preadmission environment? No * Can the patient safely return to the preadmission environment? Yes * Has this patient been hospitalized within the prior 30 days at any hospital? No Coverage Notice Reviewer: [id number] Buck Notice Issued Date-Time: 03/09/2019 9:45 Notice Type: IM Discharge Notice Notice Delivered To: Patient Relationship to Patient: Spent Grain Dryer Name: Delivery Method: EXPR - Express Mail Erin Days: Prior Verbal Notification: Recipient Understood Notice: Yes Recipient Signature: Yes Med Rec Note Co-signed by Attending: Coverage Notice Comment: Reviewer: [id number] Buck Notice Issued Date-Time: 03/09/2019 9:45 Notice Type: Patient Choice Letter Notice Delivered To: Patient Relationship to Patient: Spent Grain Dryer Name: Delivery Method: HAND - Hand Delivered Erin Days: Prior Verbal Notification: Recipient Understood Notice: Yes Recipient Signature: Yes Med Rec Note Co-signed by Attending: Coverage Notice Comment: no preference for walker provider Last DP export: 03/09/19 10:42 a Patient Name: DIEGO LEON Page 32053 at 0824 All edits/amendments must be made on the electronic document DICTATION DATE: 03/10/19822 ASSISTANT PROPERTY MANAGER: TAVIA 03/10/19822 RPT#: [id number] DC DATE: STATUS: ADM IN [facility] [address] [place] [address] END OF REPORT
[2019-03-10 11:37] VITALS: BP 98/69
--- NOTE | 2019-03-10 15:00 | NUR ---
Nutrition Follow-up: Eating well. [employer] signed off. Diet: Regular, Mech Soft PO intake: 75-100% Wt: 206.1# (03/10) Last BM: 03/09 Labs noted: Glu 111, Alb 3.0, elev LFTs Meds reviewed -Continue current diet as tolerated. -Monitor wt; noted daily wts ordered. -RD following.
--- NOTE | 2019-03-10 15:20 | PN ---
PATIENT:DIEGO LEON JR MEDICAL RECORD: [id number] LOCATION:[facility], [place].210 ADMISSION DATE: 02/19/19 PROGRESS NOTE DATE OF SERVICE: 03/09/2019 SUBJECTIVE: The patient's case was discussed with staff and the patient's chart was reviewed. OBJECTIVE: The patient is calm and cooperative and I think perhaps slightly more organized today than he has been. He tells me that he has been depressed for a long time and he tells me that he did take the Elavil overdose deliberately with the intent to kill himself. He says he does not have any suicidal thoughts at this time. His mental status examination as I mentioned moment ago is perhaps slightly better, but still significantly and seriously impaired. ASSESSMENT: 1. Delirium, resolved. 2. Major depression. 3. Status post intentional overdose. PLAN: The patient is currently on droplet precautions. He should remain 1:1 with a sitter. Once medically stabilized, he should be transferred to inpatient psychiatric care. TRANSINT:[id number] Voice Confirmation ID: [id number] DOCUMENT ID: [id number] MOUSTAPHA JOHANSEN MD at 1520 CC: [id number] DICTATION DATE: 03/09/19 1623 NURSING TECH: 03/09/19 2312 ADM IN [facility] [address] [place] [address]
[2019-03-10 15:42] VITALS: BP 119/76
--- NOTE | 2019-03-10 16:11 | MORECARE ---
CASE MANAGEMENT DISCHARGE SUMMARY PATIENT: DIEGO LEON JR UNIT: [id number] ADM DATE: 02/19/19 AGE: 54 : [birth year] SEX: M ROOM/BED: D.2106 AUTHOR: WILL,DOC PHYSICIAN: REFERRING PHYSICIAN: VLADIMIR ROACH MD DATE OF SERVICE: 03/10/19 Discharge Plan Patient Name: DIEGO LEON Facility: [facility]:[place] : 1965 Planned Disposition: Psych facility Anticipated Discharge Date: 03/09/19 Discharge Date: Expected LOS: 18 Initial Reviewer: [id number] Initial Review Date: 02/23/2019 Generated: 03/10/19 5:11 pm Comments DCP- Discharge Planning Updated by [id number]: Danilo Buck on 03/10/19 7:[address] Patient Name: DIEGO LEON Encounter No: [id number] : 1965 Primary Insurance: MEDICARE A & B Anticipated DC Date: 03-09-2019 Planned Disposition: Psych facility External Planned Provider: [facility] DCP follow-up note: CM FAXED UPDATE WITH YESTERDAYS PSYCHIATRIC FOLLOW UP NOTE TO [facility] AT [phone]. CM CONTINUES TO WAIT ACCEPTANCE BY ANY INPATIENT PSYCHIATRIC TREATMENT CENTER [facility]. Danilo Buck CASE MANAGEMENT DCP- Discharge Planning Updated by [id number]: Danilo Buck on 03/09/19 10:[address] Patient Name: DIEGO LEON Encounter No: [id number] : 1965 Primary Insurance: MEDICARE A & B Anticipated DC Date: 03-09-2019 Planned Disposition: Psych facility External Planned Provider: [facility] DCP follow-up note: CM SPOKE TO PT IN ROOM WHO IS STILL WILLING FOR INPATIENT PSYCHIATRIC CARE. PT STILL DOES NO KNOW WHY HE TOOK OVERDOSE OF MEDICATIONS, REPORTS IT WILL NEVER HAPPEN AGAIN. PT DENIES SUIDCIDAL IDEATION AT THIS TIME. PT HAS NO PREFERENCE ON EQUIPMENT PROVIDER FOR WALKER, CHOICE SIGNED FOR NO PREFERENCE. IMPORTANT MESSAGE FROM MED[employer] PROVIDED AND EXPLAINED. CM FAXED WALKER REFERRAL TO [facility] AT [phone]. CM VERIFIED RECEIPT OF ORDER WITH ALHAJI OF [facility], , WALKER TO BE DELIVERED TO PT'S HOSPITAL ROOM TODAY. CM CALLED [facility] AT [phone], SPOKE TO DENYS AND PROVIDED UPDATE. FACILITIES ARE DENYING FOR LACK OF "SI", SUICIDAL INTENT. PT HAS BEEN DECLINED BY MOST FACILITIES [facility], SHAMIKA OF [facility] STILL SEEKING PLACEMENT. CM FAXED UPDATE TO [facility] AT [phone]. CM CONTINUES TO WAIT ACCEPTANCE BY ANY INPATIENT PSYCHIATRIC TREATMENT CENTER [facility]. [facility] TO DELIVER WALKER TO PT'S ROOM FOR DISCHARGE. Danilo Buck CASE MANAGEMENT DCP- Discharge Planning Updated by [id number]: Danilo Buck on 03/06/19 1:[address] Patient Name: DIEGO LEON Encounter No: [id number] : 1965 Primary Insurance: MEDICARE A & B Anticipated DC Date: 03-06-2019 Planned Disposition: Psych facility External Planned Provider: [facility] DCP follow-up note: CM MET WITH INTERDISCIPLINARY TEAM, NOTIFIED BY UBALDO GALARZA THAT PT IS STABLE FOR TRANSFER TO INPATIENT PSYCHIATRIC FACILITY. CM MET WITH PT WHO DOES NOT KNOW WHY HE TOOK DRUG OVERDOSE. PT'S MOTHER STATES THAT SHE FOUND THE EMPTY BOTTLE AND BROUGHT PT TO THE HOSPITAL AND REPORTS PT RECENTLY QUIT TAKING ALL OF HIS NARCOTIC MEDICATION PRIOR TO THE OVERDOSE. FAMILY AND PT IN AGREEMENT WITH TRANSFER TO PSYCHIATRIC FACILITY FOR EVALUATION. IMPORTANT MESSAGE FROM [employer] PROVIDED AND EXPLAINED. CM CALLED [facility], , SPOKE TO SHAMIKA AND PROVIDED REFERRAL INFORMATION. CM FAXED REFERRAL TO [facility] AT [phone]. CM WAITING TO SEE IF PT WILL BE ACCEPTED TO ANY INPATIENT PSYCHIATRIC FACILITY IN THE STATE. [facility] TO CONTACT MED 2 NURSE IF ONE IS FOUND. Danilo Buck CASE MANAGEMENT DCP- Discharge Planning Updated by [id number]: Altagracia Lou on 02/26/19 5:[address] LATE ENTRY 02/24/19 Patient Name: DIEGO LEON Admission Status: ER Accout number: [id number] Admission Date: 02-19-2019 : 1965 Admission Diagnosis: Attending: VLADIMIR ROACH Current LOS: 7 Anticipated DC Date: Planned Disposition: Primary Insurance: MEDICARE A & B Discharge Planning Comments: CM met with patient at bedside after explaining CM role and obtaining verbal consent. Patient lives at home with his mother where he is independent with his care and plans to return there upon discharge. Patient feels this would be a safe discharge. CM discussed availability / needs of home health and medical equipment. Patient denies any discharge needs at this time. Patient states he will have his family drive him home upon discharge. CM will continue to follow and assist as needed with discharge planning / needs. Medical Radiation Dosimetrist: Altagracia Lou DCMARLEEA - Discharge Planning Initial Assessment Updated by [id number]: Altagracia Lou on 02/26/19 6:50 pm * Is the patient Alert and Oriented? Yes * How many steps to enter\\exit or inside your home? * PCP JAY JAY CHAN * [facility] * Preadmission Environment Home with Family * ADLs Independent * Equipment None * List name and contact numbers for known caregivers / representatives who currently or will assist patient after discharge: CHRIS LEON - MOTHER- [phone] * Verbal permission to speak to the caregivers and representatives has been obtained from the patient. Yes * Community resources currently utilized None * Additional services required to return to the preadmission environment? No * Can the patient safely return to the preadmission environment? Yes * Has this patient been hospitalized within the prior 30 days at any hospital? No External Providers External Provider: OTHER-OTHER Next Contact Date: 03/10/2019 Service Request Date: Service Type: Resolution: Reviewer: Comments: Coverage Notice Reviewer: [id number] Anisa Buck Notice Issued Date-Time: 03/09/2019 9:45 Notice Type: IM Discharge Notice Notice Delivered To: Patient Relationship to Patient: Plan Manager Name: Delivery Method: EXPR - Express Mail Erin Days: Prior Verbal Notification: Recipient Understood Notice: Yes Recipient Signature: Yes Med Rec Note Co-signed by Attending: Coverage Notice Comment: Reviewer: [id number] Anisa Buck Notice Issued Date-Time: 03/09/2019 9:45 Notice Type: Patient Choice Letter Notice Delivered To: Patient Relationship to Patient: Plan Manager Name: Delivery Method: HAND - Hand Delivered Erin Days: Prior Verbal Notification: Recipient Understood Notice: Yes Recipient Signature: Yes Med Rec Note Co-signed by Attending: Coverage Notice Comment: no preference for walker provider Last DP export: 03/10/19 7:24 a Patient Name: DIEGO LEON Page [phone] at 1611 All edits/amendments must be made on the electronic document DICTATION DATE: 03/10/191610 PRETZEL TWISTING MACHINE OPERATOR: TAVIA 03/10/191610 RPT#: [id number] DC DATE: STATUS: ADM IN [facility] [address] [place] [address] END OF REPORT
--- NOTE | 2019-03-10 16:45 | NUR ---
OT NOTE: PT COMPLETED SELF FEEDING TASKS WITH MIN A. PT REQUIRED EXTENSIVE CUES FOR TASK CONTINUATION AND INITIATION. PT COMPLETED SIMPLE FACE WASH WITH SET UP. PT COMPLETED BUE AROM EXS. [phone] THANK YOU, YRN HERNANDEZ
--- NOTE | 2019-03-10 19:41 | NUR ---
SITTER IS PRESENT WITH PT PT IS CALM AND DENIES NEEDS BED LOW AND LOCKED AND CALL LIGHT WITH PT BED ALARM IN PLACE
[2019-03-10 20:27] VITALS: BP 131/71
[2019-03-11 00:56] VITALS: BP 134/70
[2019-03-11 05:19] VITALS: BP 132/74
[2019-03-11 06:08] LABS: BASOPHILS 0.3 % (0-2); EOSINOPHILS 0.4 % (0-7); HEMATOCRIT 40.7 % (42.0-54.0); HEMOGLOBIN 13.6 g/dL (13.5-17.5); IMMATURE GRANULOCYTES 0.3 % (0-5); LYMPHOCYTES 9.8 % (15-50); MCH 33.6 pg (26.0-34.0); MCHC 33.4 g/dL (31.0-37.0); MCV 100.5 fL (80.0-100.0); MEAN PLATELET VOLUME 9.8 fL (7.4-10.4); MONOCYTES 8.3 % (2-11); NEUTROPHILS 80.9 % (40-80); PLATELET COUNT 295 10x3/uL (130-400); RBC 4.05 10x6/uL (4.20-6.10); RDW 13.4 % (11.5-14.5)
[2019-03-11 06:43] LABS: ALBUMIN 2.7 g/dL (3.4-5.0); ALKALINE PHOSPHATASE 271 U/L (46-116); CALC OSMOLALITY 276 mosm/kg (275-300); CALCIUM 8.3 mg/dL (8.5-10.1); CARBON DIOXIDE 23.4 mmol/L (21.0-32.0); CHLORIDE - SERUM 103 mmol/L (98-107); CREATININE - SERUM 0.7 mg/dL (0.6-1.3); GLUCOSE 149 mg/dL (74-106); POTASSIUM - SERUM 3.3 mmol/L (3.5-5.1); PROTEIN - SERUM 7.6 g/dL (6.4-8.2); SODIUM 138 mmol/L (136-145); UREA NITROGEN 7 mg/dL (7-18); eGFR NON AFRICAN AMERICAN > 90 mL/min (90-120)
[2019-03-11 06:45] LABS: ALT (SGPT) 353 U/L (10-68)
--- NOTE | 2019-03-11 08:51 | NUR ---
PT DID ADMIT TO THIS NURSE THAT HE HAD TRIED TO KILL HIMSELF WITH "TAKING TOO MANY PILLS". HE DENIES SI AT THIS TIME. SITTER AT BEDSIDE FOR SUICIDE RISK MONITORING.
[2019-03-11 10:38] VITALS: BP 129/95
[2019-03-11 15:26] VITALS: BP 133/78
[2019-03-11 18:25] VITALS: BP 159/76
[2019-03-11 20:07] VITALS: BP 141/88
[2019-03-12 01:49] VITALS: BP 105/69
[2019-03-12 04:00] VITALS: BP 121/947
--- NOTE | 2019-03-12 04:05 | NUR ---
I have reviewed this patient and I concur with the Shift Assessment completed by the Licensed Practical Nurse today this shift.
--- NOTE | 2019-03-12 07:59 | NUR ---
PATIENT IS AWAKE AND ALERT. HE HAS A SITTER OUTSIDE HIS ROOM. HE HAS BEEN UP TO THE BATHROOM AND HAS STAND BY ASSIST. DENIES ANY NEEDS AT THIS TIME.
[2019-03-12 09:48] VITALS: BP 114/79
[2019-03-12 13:44] VITALS: BP 107/84
--- NOTE | 2019-03-12 15:26 | NUR ---
SHAMIKA WITH [facility]SF[facility] CALLED AND ASKED IF THE [facility] SWAB HAD BEEN PROCESSED. IT WILL NO SHOW RESULTS UNTIL TOMORROW. HE WILL CHECK BACK TOMORROW. HE SAID THAT ALL FACILITIES DENY THE PATIENT BECAUSE HE IS ON ISOLATION.
--- NOTE | 2019-03-12 15:55 | PN ---
PATIENT:DIEGO LEON JR MEDICAL RECORD: [id number] [facility] AD[facility] DATE: 02/19/19 PROGRESS NOTE DATE OF SERVICE: 03/11/2019 SUBJECTIVE: The patient's case was discussed and his lab was reviewed. OBJECTIVE: The patient is still poorly oriented with very limited insight about his situation. He also repeats what he told me 2 days ago that he did try to kill himself by taking an overdose. ASSESSMENT: Major depression. PLAN: The patient still has cognitive impairment for reasons that are unclear. I do think he needs a sitter and once he is medically stabilized he is certainly not able to living alone even independent of this suicidal activity. I would recommend inpatient psychiatric hospitalization. TRANSINT:[id number] Voice Confirmation ID: [id number] DOCUMENT ID: [id number] MOUSTAPHA JOHANSEN MD at 1555 CC: [id number] DICTATION DATE: 03/11/19 1609 PRODUCT MANAGEMENT INTERNSHIP: 03/12/[address] [facility] [address] [place] [address]
--- NOTE | 2019-03-12 17:02 | NUR ---
ANABEL AT THE [facility] CALLED TO SEE IF THE [facility] RESULTS ARE UP YET. SHE WAS INFORMED THAT THE RESULTS WILL SHOW TOMORROW.
[2019-03-12 17:09] VITALS: BP 106/73
--- NOTE | 2019-03-12 19:43 | NUR ---
OT NOTE: PT COMPLETED BED MOB SUPINE TO SIT WITH CGA. PT COMPLETED SIT TO STAND WITH SBA/SPV. PT COMPLETED HAIR GROOMING WITH SET UP AT E[facility]. PT COMPLETED BUE AROM EXS AT EOB. [phone] THANK YOU, YRN HERNANDEZ
[2019-03-12 20:00] VITALS: BP 113/76
--- NOTE | 2019-03-12 21:48 | NUR ---
ENCOURAGED PT TO PROVIDE SPUTUM SAMPLE AND REDRESSED LEFT FOOT
[2019-03-13 04:00] VITALS: BP 109/79
--- NOTE | 2019-03-13 04:29 | NUR ---
I have reviewed this patient and I concur with the Shift Assessment completed by the Licensed Practical Nurse today this shift.
[2019-03-13 09:46] VITALS: BP 106/72
--- NOTE | 2019-03-13 11:39 | NUR ---
Nutrition Follow-up: Pt reports that his appetite is not very good; PO intake record indicates PO intake 10-100%. Sitter reports that pt drinks a lot of Coke. Agreed to try Ensure at lunch today. Diet: Regular, Mech Soft Wt: 201# (03/13); 206.1# (03/10); 219.3# (02/19) Last BM: 03/11 per chart Labs reviewed Meds reviewed -Encourage PO intake and discussed possibility of Coke affecting appetite; pt v/u. -Ensure with lunch today for pt to try. -Noted wt change since admit (bedscale wts); will monitor and may need to get a standing wt. -RD following.
--- NOTE | 2019-03-13 13:12 | NUR ---
PT DID NOT TALK MUCH THIS MORNING ONLY TO ASK WHEN HE COULD GO HOME. REVIEWED TX PLAN AND DISCHARGE PLANS WITH PT. SITTER AT BEDSIDE. PT DENIES SI BUT DID STATE, "I HAVE LEARNED MY LESSON."
--- NOTE | 2019-03-13 14:20 | PN ---
PATIENT:DIEGO LOEN JR MEDICAL RECORD: [id number] [facility] AD[facility] DATE: 02/19/19 PROGRESS NOTE DATE OF SERVICE: 03/12/2019 SUBJECTIVE: The patient's case was discussed with staff. He has no new complaint. OBJECTIVE: The patient is in good behavioral control. He has limited insight about his situation. He denies any current thoughts of wanting to harm himself, but still has a significantly depressed mood. ASSESSMENT: Major depression. PLAN: In my view, the patient is still in need of inpatient psychiatric care. His long-term prognosis is guarded. TRANSINT:[id number] Voice Confirmation ID: [id number] DOCUMENT ID: [id number] MOUSTAPHA JOHANSEN MD at 1420 CC: [id number] DICTATION DATE: 03/12/19 1734 PRINT DESIGNER: 03/12/19 2112 ADM IN [facility] [address] [place] [address]
[2019-03-13 14:56] VITALS: BP 117/99
[2019-03-13 16:00] VITALS: BP 120/97
--- NOTE | 2019-03-13 19:30 | NUR ---
REPORT RECEIVED, WILL CONTINUE POC. PATIENT IS AAOX, LYING IN SEMI-FOWLERS POSITION. NO S/S OF DISTRESS OBSERVED, RR EVEN AND UNLABORED ON ROOM AIR. PICC LINE TO LT UPPER ARM, SL. PATIENT DENIES NEEDS AT THIS TIME. SITTER OUTSIDE OF ROOM. DROPLET PRECAUTIONS MAINTAINED AND FOLLOWED. CL IN REACH, BED LOCKED AND LOWERED. WILL CTM.
[2019-03-13 20:00] VITALS: BP 119/75
--- NOTE | 2019-03-13 20:06 | NUR ---
I have reviewed this patient and I concur with the Shift Assessment completed by the Licensed Practical Nurse today this shift.
--- NOTE | 2019-03-13 21:12 | NUR ---
PT C/O FOOT PAIN, ADMINISTERED PRN MORPHINE PER ORDERS.
[2019-03-14 04:00] VITALS: BP 113/73
--- NOTE | 2019-03-14 07:05 | NUR ---
I have reviewed this patient and I concur with the Shift Assessment completed by the Licensed Practical Nurse today this shift.
[2019-03-14 08:54] VITALS: BP 111/78
--- NOTE | 2019-03-14 08:55 | NUR ---
SITTING TO CHAIR AT BEDSIDE. NO DISTRESS. ONE ON ONE SITTER.
--- NOTE | 2019-03-14 10:30 | PN ---
PATIENT:DIEGO LEON JR MEDICAL RECORD: [id number] [facility] AD[facility] DATE: 02/19/19 PROGRESS NOTE DATE OF SERVICE: 03/13/2019 SUBJECTIVE: The patient's case was discussed with staff. He has no new complaint. OBJECTIVE: The patient is in good behavioral control, but quite confused. He denies that he would seek to harm himself today. ASSESSMENT: Major depression. PLAN: The patient is tolerating his medicines well. He has limited insight about his situation. I think it is appropriate for him to be transferred to inpatient psychiatric care once medically stabilized. TRANSINT:[id number] Voice Confirmation ID: [id number] DOCUMENT ID: [id number] MOUSTAPHA JOHANSEN MD at 1030 CC: [id number] DICTATION DATE: 03/13/19 1623 STRIPER: 03/14/19 0015 ADM IN [facility] [address] [place] [address]
[2019-03-14 12:00] VITALS: BP 112/80
--- NOTE | 2019-03-14 14:07 | NUR ---
RESTING IN BED. NO DISTRESS. CALL LIGHT WITHIN REACH. PATIENT REMAINS WITH ONE ON ONE SITTER FOR SUICIDAL IDEATION.
--- NOTE | 2019-03-14 14:55 | NUR ---
MEDICATED FOR PAIN AT THIS TIME. NO DISTRESS.
--- NOTE | 2019-03-14 15:25 | NUR ---
[facility] CALLED TO SEE IF THERE ARE ANY NEW CULTURES FOR PATIENT TO SHOW THAT HIS MRSA HAS CLEARED. NO RESULTS AT THIS TIME TO INDICATED PATIENT DOES NOT HAVE MRSA. [facility] WILL KEEP PATIENT ON HOLD UNTIL CLEAR.
[2019-03-14 16:00] VITALS: BP 137/59
--- NOTE | 2019-03-14 18:10 | NUR ---
PATIENT ASKS WHEN HE IS GOING TO LEAVE FOR [place] FOR A COUPLE OF DAYS? HE DENIES ANY [facility] PLANS. REVIEWED POC AND DISCHARGE WITH PATIENT.
--- NOTE | 2019-03-14 18:49 | NUR ---
[facility] CALLED AGAIN WANTING TO CLOSE THIS TRANSFER UNTIL THE PATIENT IS BETTER. ASKED THEM TO WAIT UNTIL CASE IS DISCUSSED WITH MD IN AM. PATIENT NEEDS TO BE RECULTURED IN AM. [facility] WILL CALL BACK IN AM .
--- NOTE | 2019-03-14 19:20 | NUR ---
REPORT RECEIVED. PT IN BED RR EVEN AN UNLABORED. NO S/SX OF DISTRESS OBSERVED. PT HAS ONE ON ONE SITTER PRESENT. NO NEEDS EXPRESSED. CALL LIGHT IN REACH, WILL CTM.
[2019-03-14 19:55] VITALS: BP 111/81
[2019-03-14 23:40] VITALS: BP 96/63
[2019-03-15 02:59] VITALS: BP 115/68
--- NOTE | 2019-03-15 08:18 | NUR ---
SPOKE WITH KANE CONNER ABOUT [facility] CALLING AND WANTING TO KNOW IF THE TRANSFER SHOULD BE PLACED ON HOLD UNTIL THE MRSA IS CLEAR AND SHE SAID DO NOT PUT THE TRANSFER ON HOLD, CASE MANAGEMENT WILL HAVE TO ASSIST WITH THIS BECAUSE THE PATIENT IS BEING TREATED AND THIS CASE WILL BE DISCUSSED IN IDT IN THE AM.
[2019-03-15 10:48] VITALS: BP 93/52
--- NOTE | 2019-03-15 10:55 | NUR ---
REMAINS LYING IN BED, NO DISTRESS. ONE ON ONE SITTER PROVIDED. CALL LIGHT WITHIN REACH. DENIES NEEDS.
--- NOTE | 2019-03-15 11:20 | NUR ---
[facility] CALLED AND INFORMED THEM OF THE CONVERSATION THAT THIS ENAMEL BURNER HAD WITH THE ATTENDING PROVIDER AND THE PATIENT IS NOT TO BE TAKEN OFF OF THE TRANSFER LIST AND THE PATIENT WILL HAVE A MEETING IN THE MORNING WITH THE INTERDICIPLINARY TEAM TO FURTHER DISCUSS HIS CARES REGARDING HAVING MRSA IN THE NARES AND IS CURRENTLY BEING TREATED. [facility] STATED THEY WOULD MAKE NOTE OF THAT IN THE NOTES.
[2019-03-15 14:25] VITALS: BP 113/77
--- NOTE | 2019-03-15 14:31 | NUR ---
RESTING IN BED, NO DISTRESS, CALL LIGHT WITHIN REACH.
--- NOTE | 2019-03-15 15:03 | NUR ---
NARES SWABED FOR MRSA CULTURE SCREEN AT THIS TIME.
[2019-03-15 18:27] VITALS: BP 98/60
--- NOTE | 2019-03-15 18:37 | NUR ---
RESTING IN BED. LEFT HEEL ELEVATED. DTI TO LEFT HEEL INTACT. NO DISTRESS.
--- NOTE | 2019-03-15 19:15 | NUR ---
REPORT RECEIVED. BEDISDE SHIFT REPORT COMPLETE. PT IN BED RR EVEN AND UNLABORED. 1:1 SITTER PRESENT. LEFT HEEL ELEVATED, NO FURHTER NEEDS EXPRESSED AT THIS TIME. CALL LIGHT IN REACH. WILL CTM.
[2019-03-15 20:00] VITALS: BP 118/65
[2019-03-16] VITALS: BP 91/52
[2019-03-16 04:00] VITALS: BP 115/62
[2019-03-16 11:12] LABS: BASOPHILS 0.7 % (0-2); EOSINOPHILS 3.5 % (0-7); HEMATOCRIT 41.1 % (42.0-54.0); HEMOGLOBIN 13.7 g/dL (13.5-17.5); IMMATURE GRANULOCYTES 0.1 % (0-5); LYMPHOCYTES 19.3 % (15-50); MCH 33.8 pg (26.0-34.0); MCHC 33.3 g/dL (31.0-37.0); MCV 101.5 fL (80.0-100.0); MEAN PLATELET VOLUME 9.7 fL (7.4-10.4); MONOCYTES 9.3 % (2-11); NEUTROPHILS 67.1 % (40-80); RBC 4.05 10x6/uL (4.20-6.10); WBC 6.9 10x3/uL (4.8-10.8)
[2019-03-16 11:13] LABS: PLATELET COUNT 226 10x3/uL (130-400)
[2019-03-16 11:28] LABS: CALC OSMOLALITY 272 mosm/kg (275-300); CALCIUM 8.5 mg/dL (8.5-10.1); CARBON DIOXIDE 30.1 mmol/L (21.0-32.0); CHLORIDE - SERUM 101 mmol/L (98-107); CREATININE - SERUM 0.7 mg/dL (0.6-1.3); POTASSIUM - SERUM 3.8 mmol/L (3.5-5.1); SODIUM 137 mmol/L (136-145); UREA NITROGEN 9 mg/dL (7-18); eGFR NON AFRICAN AMERICAN > 90 mL/min (90-120)
[2019-03-16 11:30] LABS: GLUCOSE 101 mg/dL (74-106)
--- NOTE | 2019-03-16 12:19 | NUR ---
PATIENT IS LYING IN BED. HE HAS NOT EATEN ANY LUNCH. THE [place] SREENING WAS DONE AND PATIENT DENIES ANY SUICIDAL THOUGHTS. WILL CONTINUE TO SIT AT BEDSIDE.
--- NOTE | 2019-03-16 13:00 | NUR ---
DR. VÁZQUEZ HERE AND STATES PTS SMEAR CAM BACK CLEAR AND ISOLATION CAN BE DC'D. DRESSING TO LEFT HEEL CHANGED BY WOUND CARE NURSE.
--- NOTE | 2019-03-16 14:36 | NUR ---
Wound care reassessment: Left heel stage 2 pressure injury is improving. The blister is drying and the skin has remained intact. Recommend continuing using betadine and mepilex border heel dressings.
--- NOTE | 2019-03-16 15:54 | NUR ---
I have reviewed this patient and I concur with the Shift Assessment completed by the Licensed Practical Nurse today this shift.
[2019-03-16 16:00] VITALS: BP 103/72
--- NOTE | 2019-03-16 16:13 | NUR ---
PT REQUESTING PAIN MED AND MORPHINE HAS FALLEN OFF LIST. ORDER RECEIVED PER Hollie GALARZA TO RESTART MED AND DONE.
--- NOTE | 2019-03-16 16:54 | MORECARE ---
CASE MANAGEMENT DISCHARGE SUMMARY PATIENT: DIEGO LEON JR UNIT: [id number] ADM DATE: 02/19/19 AGE: 54 : [birth year] SEX: M ROOM/BED: D.2106 AUTHOR: WILL,DOC PHYSICIAN: REFERRING PHYSICIAN: VLADIMIR ROACH MD DATE OF SERVICE: 03/16/19 Discharge Plan Patient Name: DIEGO LEON Facility: [facility]:[place] : 1965 Planned Disposition: Psych facility Anticipated Discharge Date: 03/09/19 Discharge Date: Expected LOS: 18 Initial Reviewer: [email or web address] Initial Review Date: 02/23/2019 Generated: 03/16/19 5:53 pm DCP- Discharge Planning Updated by [id number]: Danilo Buck on 03/10/19 7:[address] Patient Name: DIEGO LEON Encounter No: [id number] : 1965 Primary Insurance: MEDICARE A & B Anticipated DC Date: 03-09-2019 Planned Disposition: Psych facility External Planned Provider: [facility] DCP follow-up note: CM FAXED UPDATE WITH YESTERDAYS PSYCHIATRIC FOLLOW UP NOTE TO [facility] AT [phone]. CM CONTINUES TO WAIT ACCEPTANCE BY ANY INPATIENT PSYCHIATRIC TREATMENT CENTER [facility]. Danilo Buck CASE MANAGEMENT DCP- Discharge Planning Updated by [id number]: Danilo Buck on 03/09/19 10:[address] Patient Name: DIEGO LEON Encounter No: [id number] : 1965 Primary Insurance: MEDICARE A & B Anticipated DC Date: 03-09-2019 Planned Disposition: Psych facility External Planned Provider: [facility] DCP follow-up note: CM SPOKE TO PT IN ROOM WHO IS STILL WILLING FOR INPATIENT PSYCHIATRIC CARE. PT STILL DOES NO KNOW WHY HE TOOK OVERDOSE OF MEDICATIONS, REPORTS IT WILL NEVER HAPPEN AGAIN. PT DENIES SUIDCIDAL IDEATION AT THIS TIME. PT HAS NO PREFERENCE ON EQUIPMENT PROVIDER FOR WALKER, CHOICE SIGNED FOR NO PREFERENCE. IMPORTANT MESSAGE FROM [employer] PROVIDED AND EXPLAINED. CM FAXED WALKER REFERRAL TO [facility] AT [phone]. CM VERIFIED RECEIPT OF ORDER WITH ALHAJI OF [facility], , WALKER TO BE DELIVERED TO PT'S HOSPITAL ROOM TODAY. CM CALLED [facility] AT [phone], SPOKE TO DENYS AND PROVIDED UPDATE. FACILITIES ARE DENYING FOR LACK OF "SI", SUICIDAL INTENT. PT HAS BEEN DECLINED BY MOST FACILITIES [facility], SHAMIKA OF [facility] STILL SEEKING PLACEMENT. CM FAXED UPDATE TO [facility] AT [phone]. CM CONTINUES TO WAIT ACCEPTANCE BY ANY INPATIENT PSYCHIATRIC TREATMENT CENTER [facility]. [facility] TO DELIVER WALKER TO PT'S ROOM FOR DISCHARGE. Danilo Buck CASE MANAGEMENT DCP- Discharge Planning Updated by [id number]: Danilo Buck on 03/06/19 1:[address] Patient Name: DIEGO LEON Encounter No: [id number] : 1965 Primary Insurance: MEDICARE A & B Anticipated DC Date: 03-06-2019 Planned Disposition: Psych facility External Planned Provider: [facility] DCP follow-up note: CM MET WITH INTERDISCIPLINARY TEAM, NOTIFIED BY UBALDO GALARZA THAT PT IS STABLE FOR TRANSFER TO INPATIENT PSYCHIATRIC FACILITY. CM MET WITH PT WHO DOES NOT KNOW WHY HE TOOK DRUG OVERDOSE. PT'S MOTHER STATES THAT SHE FOUND THE EMPTY BOTTLE AND BROUGHT PT TO THE HOSPITAL AND REPORTS PT RECENTLY QUIT TAKING ALL OF HIS NARCOTIC MEDICATION PRIOR TO THE OVERDOSE. FAMILY AND PT IN AGREEMENT WITH TRANSFER TO PSYCHIATRIC FACILITY FOR EVALUATION. IMPORTANT MESSAGE FROM [employer] PROVIDED AND EXPLAINED. CM CALLED [facility], , SPOKE TO SHAMIKA AND PROVIDED REFERRAL INFORMATION. CM FAXED REFERRAL TO [facility] AT [phone]. CM WAITING TO SEE IF PT WILL BE ACCEPTED TO ANY INPATIENT PSYCHIATRIC FACILITY IN THE STATE. [facility] TO CONTACT MED 2 NURSE IF ONE IS FOUND. Danilo Buck CASE MANAGEMENT DCP- Discharge Planning Updated by [id number]: Altagracia Lou on 02/26/19 5:[address] LATE ENTRY 02/24/19 Patient Name: DIEGO LEON Admission Status: ER Accout number: [id number] Admission Date: 02-19-2019 : 1965 Admission Diagnosis: Attending: VLADIMIR ROACH Current LOS: 7 Anticipated DC Date: Planned Disposition: Primary Insurance: MEDICARE A & B Discharge Planning Comments: CM met with patient at bedside after explaining CM role and obtaining verbal consent. Patient lives at home with his mother where he is independent with his care and plans to return there upon discharge. Patient feels this would be a safe discharge. CM discussed availability / needs of home health and medical equipment. Patient denies any discharge needs at this time. Patient states he will have his family drive him home upon discharge. CM will continue to follow and assist as needed with discharge planning / needs. Hand Expansion Envelope Maker: Altagracia OGLESBY - Discharge Planning Initial Assessment Updated by [id number]: Altagracia Lou on 02/26/19 6:50 pm * Is the patient Alert and Oriented? Yes * How many steps to enter\\exit or inside your home? * PCP JAY JAY CHAN * [facility] * Preadmission Environment Home with Family * ADLs Independent * Equipment None * List name and contact numbers for known caregivers / representatives who currently or will assist patient after discharge: CHRIS LEON - MOTHER- [phone] * Verbal permission to speak to the caregivers and representatives has been obtained from the patient. Yes * Community resources currently utilized None * Additional services required to return to the preadmission environment? No * Can the patient safely return to the preadmission environment? Yes * Has this patient been hospitalized within the prior 30 days at any hospital? No External Providers External Provider: [facility] Next Contact Date: 03/06/2019 Service Request Date: Service Type: Resolution: Reviewer: Comments: Coverage Notice Reviewer: [email or web address] Anisa Buck Notice Issued Date-Time: 03/09/2019 9:45 Notice Type: IM Discharge Notice Notice Delivered To: Patient Relationship to Patient: Medicare Coordinator Name: Delivery Method: EXPR - Express Mail Erin Days: Prior Verbal Notification: Recipient Understood Notice: Yes Recipient Signature: Yes Med Rec Note Co-signed by Attending: Coverage Notice Comment: Reviewer: [id number] Anisa Buck Notice Issued Date-Time: 03/09/2019 9:45 Notice Type: Patient Choice Letter Notice Delivered To: Patient Relationship to Patient: Medicare Coordinator Name: Delivery Method: HAND - Hand Delivered Erin Days: Prior Verbal Notification: Recipient Understood Notice: Yes Recipient Signature: Yes Med Rec Note Co-signed by Attending: Coverage Notice Comment: no preference for walker provider Last DP export: 03/10/19 3:11 p Patient Name: DIEGO LEON Page [id number] at 1654 All edits/amendments must be made on the electronic document DICTATION DATE: 03/16/191652 BOTTOM POLISHER: TAVIA 03/16/191652 RPT#: [id number] DC DATE: STATUS: ADM IN [facility] [address] [place] [address] END OF REPORT
--- NOTE | 2019-03-16 17:01 | MORECARE ---
CASE MANAGEMENT DISCHARGE SUMMARY PATIENT: DIEGO LEON JR UNIT: [id number] ADM DATE: 02/19/19 AGE: 54 : 65 SEX: M ROOM/BED: D.2106 AUTHOR: WILL,DOC PHYSICIAN: REFERRING PHYSICIAN: VLADIMIR ROACH MD DATE OF SERVICE: 03/16/19 Discharge Plan Patient Name: DIEGO LEON Facility: [facility]:[place] : 1965 Planned Disposition: Psych facility Anticipated Discharge Date: 03/09/19 Discharge Date: Expected LOS: 18 Initial Reviewer: [id number] Initial Review Date: 02/23/2019 Generated: 03/16/19 6:01 pm DCP- Discharge Planning Updated by [id number]: Danilo Buck on 03/16/19 3:[address] Patient Name: DIEGO LEON Encounter No: [id number] : 1965 Primary Insurance: MEDICARE A & B Anticipated DC Date: 03-09-2019 Planned Disposition: Psych facility External Planned Provider: [facility] DCP follow-up note: CM SPOKE TO SHAMIKA AT [facility], , PROVIDED UPDATE AND NOTIFIE PT IS NOT ON ISOLATION. MARYAN ASKED FOR ENTIRE NEW PACKET. CM FAXED UPDATED PACKET TO [facility] AT [phone]. CM CONTINUES TO WAIT ACCEPTANCE BY ANY INPATIENT PSYCHIATRIC TREATMENT CENTER [facility]. VIOLETTE Saenz DCP- Discharge Planning Updated by [id number]: Danilo Buck on 03/10/19 7:[address] Patient Name: DIGEO LEON Encounter No: [id number] : 1965 Primary Insurance: MEDICARE A & B Anticipated DC Date: 03-09-2019 Planned Disposition: Psych facility External Planned Provider: [facility] DCP follow-up note: CM FAXED UPDATE WITH YESTERDAYS PSYCHIATRIC FOLLOW UP NOTE TO [facility] AT [phone]. CM CONTINUES TO WAIT ACCEPTANCE BY ANY INPATIENT PSYCHIATRIC TREATMENT CENTER [facility]. VIOLETTE Saenz DCP- Discharge Planning Updated by [email or web address]: Danilo Buck on 03/09/19 10:[address] Patient Name: DIEGO LEON Encounter No: [id number] : 1965 Primary Insurance: MEDICARE A & B Anticipated DC Date: 03-09-2019 Planned Disposition: Psych facility External Planned Provider: [facility] DCP follow-up note: CM SPOKE TO PT IN ROOM WHO IS STILL WILLING FOR INPATIENT PSYCHIATRIC CARE. PT STILL DOES NO KNOW WHY HE TOOK OVERDOSE OF MEDICATIONS, REPORTS IT WILL NEVER HAPPEN AGAIN. PT DENIES SUIDCIDAL IDEATION AT THIS TIME. PT HAS NO PREFERENCE ON EQUIPMENT PROVIDER FOR WALKER, CHOICE SIGNED FOR NO PREFERENCE. IMPORTANT MESSAGE FROM [employer] PROVIDED AND EXPLAINED. CM FAXED WALKER REFERRAL TO [facility] AT [phone]. CM VERIFIED RECEIPT OF ORDER WITH ALHAJI OF [facility], , WALKER TO BE DELIVERED TO PT'S HOSPITAL ROOM TODAY. CM CALLED [facility] AT [phone], SPOKE TO DENYS AND PROVIDED UPDATE. FACILITIES ARE DENYING FOR LACK OF "SI", SUICIDAL INTENT. PT HAS BEEN DECLINED BY MOST FACILITIES [facility], SHAMIKA OF [facility] STILL SEEKING PLACEMENT. CM FAXED UPDATE TO [facility] AT [phone]. CM CONTINUES TO WAIT ACCEPTANCE BY ANY INPATIENT PSYCHIATRIC TREATMENT CENTER [facility]. [facility] TO DELIVER WALKER TO PT'S ROOM FOR DISCHARGE. Danilo Buck, CASE MANAGEMENT DCP- Discharge Planning Updated by [id number]: Danilo Buck on 03/06/19 1:[address] Patient Name: DIEGO LEON Encounter No: [id number] : 1965 Primary Insurance: MEDICARE A & B Anticipated DC Date: 03-06-2019 Planned Disposition: Psych facility External Planned Provider: [facility] DCP follow-up note: CM MET WITH INTERDISCIPLINARY TEAM, NOTIFIED BY UBALDO GALARZA THAT PT IS STABLE FOR TRANSFER TO INPATIENT PSYCHIATRIC FACILITY. CM MET WITH PT WHO DOES NOT KNOW WHY HE TOOK DRUG OVERDOSE. PT'S MOTHER STATES THAT SHE FOUND THE EMPTY BOTTLE AND BROUGHT PT TO THE HOSPITAL AND REPORTS PT RECENTLY QUIT TAKING ALL OF HIS NARCOTIC MEDICATION PRIOR TO THE OVERDOSE. FAMILY AND PT IN AGREEMENT WITH TRANSFER TO PSYCHIATRIC FACILITY FOR EVALUATION. IMPORTANT MESSAGE FROM [employer] PROVIDED AND EXPLAINED. CM CALLED [facility], , SPOKE TO SHAMIKA AND PROVIDED REFERRAL INFORMATION. CM FAXED REFERRAL TO [facility] AT [phone]. CM WAITING TO SEE IF PT WILL BE ACCEPTED TO ANY INPATIENT PSYCHIATRIC FACILITY IN THE STATE. [facility] TO [facility]CT [facility] 2 NURSE IF ONE IS FOUND. Danilo Buck, CASE MANAGEMENT DCP- Discharge Planning Updated by [email or web address]: Altagracia Lou on 02/26/19 5:[address] LATE ENTRY 02/24/19 Patient Name: DIEGO LEON Admission Status: ER Accout number: [id number] Admission Date: 02-19-2019 : 1965 Admission Diagnosis: Attending: VLADIMIR ROACH Current LOS: 7 Anticipated DC Date: Planned Disposition: Primary Insurance: MEDICARE A & B Discharge Planning Comments: CM met with patient at bedside after explaining CM role and obtaining verbal consent. Patient lives at home with his mother where he is independent with his care and plans to return there upon discharge. Patient feels this would be a safe discharge. CM discussed availability / needs of home health and medical equipment. Patient denies any discharge needs at this time. Patient states he will have his family drive him home upon discharge. CM will continue to follow and assist as needed with discharge planning / needs. Plumbing Contractor: Altagracia Lou DCPIA - Discharge Planning Initial Assessment Updated by [id number]: Altagracia Lou on 02/26/19 6:50 pm * Is the patient Alert and Oriented? Yes * How many steps to enter\\exit or inside your home? * PCP JAY JAY CHAN * Pharmacy [facility] * Preadmission Environment Home with Family * ADLs Independent * Equipment None * List name and contact numbers for known caregivers / representatives who currently or will assist patient after discharge: CHRIS LEON - MOTHER- [phone] * Verbal permission to speak to the caregivers and representatives has been obtained from the patient. Yes * Community resources currently utilized None * Additional services required to return to the preadmission environment? No * Can the patient safely return to the preadmission environment? Yes * Has this patient been hospitalized within the prior 30 days at any hospital? No Coverage Notice Reviewer: [id number] - Danilo Buck Notice Issued Date-Time: 03/09/2019 9:45 Notice Type: IM Discharge Notice Notice Delivered To: Patient Relationship to Patient: Psychology Lecturer Name: Delivery Method: EXPR - Express Mail Erin Days: Prior Verbal Notification: Recipient Understood Notice: Yes Recipient Signature: Yes Med Rec Note Co-signed by Attending: Coverage Notice Comment: Reviewer: [id number] - Danilo Buck Notice Issued Date-Time: 03/09/2019 9:45 Notice Type: Patient Choice Letter Notice Delivered To: Patient Relationship to Patient: Psychology Lecturer Name: Delivery Method: HAND - Hand Delivered Erin Days: Prior Verbal Notification: Recipient Understood Notice: Yes Recipient Signature: Yes Med Rec Note Co-signed by Attending: Coverage Notice Comment: no preference for walker provider Last DP export: 03/16/19 3:54 p Patient Name: DIEGO LEON Page 62794 at 1701 All edits/amendments must be made on the electronic document DICTATION DATE: 03/16/191700 PROFESSOR OF PSYCHOLOGY: TAVIA 03/16/191700 RPT#: [id number] DC DATE: STATUS: ADM IN [facility] [address] [place] [address] END OF REPORT
--- NOTE | 2019-03-16 20:00 | NUR ---
OT NOTE: PT COMPLETED LB DRESSING WITH SBA. PT COMPLETED SIT TO STAND WITH SBA. PT COMPLETED ADL MOB WITH SPV. PT COMPLETED BUE AROM EXS AT EOB. [phone] THANK YOU,YNR HERNANDEZ
--- NOTE | 2019-03-16 20:04 | NUR ---
EVENING ROUNDS COMPLETE, PT SITTING UP IN BED. AAOX4. SITTING AT DOOR. PT DENIES ANY PAIN AT THIS TIME. REQUEST FOR A SODA, PROVIDED. PT DENIES ANY OTHER NEEDS AT THIS TIME. CL IN REACH, BED IN LOWEST POSITION.
[2019-03-16 20:16] VITALS: BP 106/65
[2019-03-17 00:28] VITALS: BP 115/59
[2019-03-17 04:51] LABS: BASOPHILS 0.9 % (0-2); EOSINOPHILS 5.9 % (0-7); HEMATOCRIT 42.7 % (42.0-54.0); HEMOGLOBIN 14.3 g/dL (13.5-17.5); IMMATURE GRANULOCYTES 0.3 % (0-5); LYMPHOCYTES 24.7 % (15-50); MCH 33.6 pg (26.0-34.0); MCHC 33.5 g/dL (31.0-37.0); MCV 100.5 fL (80.0-100.0); MEAN PLATELET VOLUME 9.9 fL (7.4-10.4); MONOCYTES 10.5 % (2-11); NEUTROPHILS 57.7 % (40-80); PLATELET COUNT 214 10x3/uL (130-400); RBC 4.25 10x6/uL (4.20-6.10); RDW 12.9 % (11.5-14.5); WBC 6.8 10x3/uL (4.8-10.8)
[2019-03-17 05:12] LABS: CALC OSMOLALITY 276 mosm/kg (275-300); CALCIUM 8.4 mg/dL (8.5-10.1); CARBON DIOXIDE 31.8 mmol/L (21.0-32.0); CHLORIDE - SERUM 103 mmol/L (98-107); CREATININE - SERUM 0.7 mg/dL (0.6-1.3); GLUCOSE 92 mg/dL (74-106); POTASSIUM - SERUM 3.8 mmol/L (3.5-5.1); SODIUM 140 mmol/L (136-145); UREA NITROGEN 7 mg/dL (7-18); eGFR NON AFRICAN AMERICAN > 90 mL/min (90-120)
[2019-03-17 05:30] VITALS: BP 119/58
--- NOTE | 2019-03-17 09:32 | MORECARE ---
CASE MANAGEMENT DISCHARGE SUMMARY PATIENT: DIEGO LEON JR UNIT: [id number] ADM DATE: 02/19/19 AGE: 54 : 65 SEX: M ROOM/BED: D.2106 AUTHOR: WILL,DOC PHYSICIAN: REFERRING PHYSICIAN: VLADIMIR ROACH MD DATE OF SERVICE: 03/17/19 Discharge Plan Patient Name: DIEGO LEON Facility: [facility]:[place] : 1965 Planned Disposition: Psych facility Anticipated Discharge Date: 03/17/19 Discharge Date: Expected LOS: 26 Initial Reviewer: [id number] Initial Review Date: 02/23/2019 Generated: 03/17/19 10:31 am DCP- Discharge Planning Updated by [id number]: Danilo Buck on 03/16/19 3:[address] Patient Name: DIEGO LEON Encounter No: [id number] : 1965 Primary Insurance: MEDICARE A & B Anticipated DC Date: 03-09-2019 Planned Disposition: Psych facility External Planned Provider: [facility] DCP follow-up note: CM SPOKE TO SHAMIKA AT [facility], , PROVIDED UPDATE AND NOTIFIE PT IS NOT ON ISOLATION. MARYAN ASKED FOR ENTIRE NEW PACKET. CM FAXED UPDATED PACKET TO [facility] AT [phone]. CM CONTINUES TO WAIT ACCEPTANCE BY ANY INPATIENT PSYCHIATRIC TREATMENT CENTER [facility]. VIOLETTE Saenz DCP- Discharge Planning Updated by [id number]: Danilo Buck on 03/10/19 7:[address] Patient Name: DIEGO LEON Encounter No: [id number] : 1965 Primary Insurance: MEDICARE A & B Anticipated DC Date: 03-09-2019 Planned Disposition: Psych facility External Planned Provider: [facility] DCP follow-up note: CM FAXED UPDATE WITH YESTERDAYS PSYCHIATRIC FOLLOW UP NOTE TO [facility] AT [phone]. CM CONTINUES TO WAIT ACCEPTANCE BY ANY INPATIENT PSYCHIATRIC TREATMENT CENTER [facility]. VIOLETTE Saenz DCP- Discharge Planning Updated by [id number]: Danilo Buck on 03/09/19 10:[address] Patient Name: DIEGO LEON Encounter No: [id number] : 1965 Primary Insurance: MEDICARE A & B Anticipated DC Date: 03-09-2019 Planned Disposition: Psych facility External Planned Provider: [facility] DCP follow-up note: CM SPOKE TO PT IN ROOM WHO IS STILL WILLING FOR INPATIENT PSYCHIATRIC CARE. PT STILL DOES NO KNOW WHY HE TOOK OVERDOSE OF MEDICATIONS, REPORTS IT WILL NEVER HAPPEN AGAIN. PT DENIES SUIDCIDAL IDEATION AT THIS TIME. PT HAS NO PREFERENCE ON EQUIPMENT PROVIDER FOR WALKER, CHOICE SIGNED FOR NO PREFERENCE. IMPORTANT MESSAGE FROM [employer] PROVIDED AND EXPLAINED. CM FAXED WALKER REFERRAL TO [facility] AT [phone]. CM VERIFIED RECEIPT OF ORDER WITH ALHAJI OF [facility], , WALKER TO BE DELIVERED TO PT'S HOSPITAL ROOM TODAY. CM CALLED [facility] AT [phone], SPOKE TO DENYS AND PROVIDED UPDATE. FACILITIES ARE DENYING FOR LACK OF "SI", SUICIDAL INTENT. PT HAS BEEN DECLINED BY MOST FACILITIES [facility], SHAMIKA OF [facility] STILL SEEKING PLACEMENT. CM FAXED UPDATE TO [facility] AT [phone]. CM CONTINUES TO WAIT ACCEPTANCE BY ANY INPATIENT PSYCHIATRIC TREATMENT CENTER [facility]. [facility] TO DELIVER WALKER TO PT'S ROOM FOR DISCHARGE. Danilo Buck, CASE MANAGEMENT DCP- Discharge Planning Updated by [id number]: Danilo Buck on 03/06/19 1:[address] Patient Name: DIEGO LEON Encounter No: [id number] : 1965 Primary Insurance: MEDICARE A & B Anticipated DC Date: 03-06-2019 Planned Disposition: Psych facility External Planned Provider: [facility] DCP follow-up note: CM MET WITH INTERDISCIPLINARY TEAM, NOTIFIED BY UBALDO GALARZA THAT PT IS STABLE FOR TRANSFER TO INPATIENT PSYCHIATRIC FACILITY. CM MET WITH PT WHO DOES NOT KNOW WHY HE TOOK DRUG OVERDOSE. PT'S MOTHER STATES THAT SHE FOUND THE EMPTY BOTTLE AND BROUGHT PT TO THE HOSPITAL AND REPORTS PT RECENTLY QUIT TAKING ALL OF HIS NARCOTIC MEDICATION PRIOR TO THE OVERDOSE. FAMILY AND PT IN AGREEMENT WITH TRANSFER TO PSYCHIATRIC FACILITY FOR EVALUATION. IMPORTANT MESSAGE FROM [employer] PROVIDED AND EXPLAINED. CM CALLED [facility], , SPOKE TO SHAMIKA AND PROVIDED REFERRAL INFORMATION. CM FAXED REFERRAL TO [facility] AT [phone]. CM WAITING TO SEE IF PT WILL BE ACCEPTED TO ANY INPATIENT PSYCHIATRIC FACILITY IN THE STATE. [facility] TO CONTACT [facility] 2 NURSE IF ONE IS FOUND. Danilo Buck, CASE MANAGEMENT DCP- Discharge Planning Updated by [id number]: Altagracia Lou on 02/26/19 5:[address] LATE ENTRY 02/24/19 Patient Name: DIEGO LEON Admission Status: ER Accout number: [id number] Admission Date: 02-19-2019 : 1965 Admission Diagnosis: Attending: VLADIMIR ROACH Current LOS: 7 Anticipated DC Date: Planned Disposition: Primary Insurance: MEDICARE A & B Discharge Planning Comments: CM met with patient at bedside after explaining CM role and obtaining verbal consent. Patient lives at home with his mother where he is independent with his care and plans to return there upon discharge. Patient feels this would be a safe discharge. CM discussed availability / needs of home health and medical equipment. Patient denies any discharge needs at this time. Patient states he will have his family drive him home upon discharge. CM will continue to follow and assist as needed with discharge planning / needs. Investment Director: Altagracia Lou DCPIA - Discharge Planning Initial Assessment Updated by [email or web address]: Altagracia Lou on 02/26/19 6:50 pm * Is the patient Alert and Oriented? Yes * How many steps to enter\\exit or inside your home? * PCP JAY JAY CHAN * Pharmacy [facility] * Preadmission Environment Home with Family * ADLs Independent * Equipment None * List name and contact numbers for known caregivers / representatives who currently or will assist patient after discharge: CHRIS LEON - MOTHER- [phone] * Verbal permission to speak to the caregivers and representatives has been obtained from the patient. Yes * Community resources currently utilized None * Additional services required to return to the preadmission environment? No * Can the patient safely return to the preadmission environment? Yes * Has this patient been hospitalized within the prior 30 days at any hospital? No Coverage Notice Reviewer: [id number] - Danilo Buck Notice Issued Date-Time: 03/09/2019 9:45 Notice Type: IM Discharge Notice Notice Delivered To: Patient Relationship to Patient: Flame Brazing Machine Operator Name: Delivery Method: EXPR - Express Mail Erin Days: Prior Verbal Notification: Recipient Understood Notice: Yes Recipient Signature: Yes Med Rec Note Co-signed by Attending: Coverage Notice Comment: Reviewer: [id number] - Danilo Buck Notice Issued Date-Time: 03/09/2019 9:45 Notice Type: Patient Choice Letter Notice Delivered To: Patient Relationship to Patient: Flame Brazing Machine Operator Name: Delivery Method: HAND - Hand Delivered Erin Days: Prior Verbal Notification: Recipient Understood Notice: Yes Recipient Signature: Yes Med Rec Note Co-signed by Attending: Coverage Notice Comment: no preference for walker provider Last DP export: 03/16/19 4:01 p Patient Name: DIEGO LEON Page 03402 at 0932 All edits/amendments must be made on the electronic document DICTATION DATE: 03/17/19930 INDUSTRIAL RELATIONS SPECIALIST: TAVIA 03/17/19930 RPT#: [id number] DC DATE: STATUS: ADM IN [facility] [address] [place] [address] END OF REPORT
--- NOTE | 2019-03-17 09:38 | MORECARE ---
CASE MANAGEMENT DISCHARGE SUMMARY PATIENT: DIEGO LEON JR UNIT: [id number] ADM DATE: 02/19/19 AGE: 54 : 65 SEX: M ROOM/BED: D.2106 AUTHOR: WILL,DOC PHYSICIAN: REFERRING PHYSICIAN: VLADIMIR ROACH MD DATE OF SERVICE: 03/17/19 Discharge Plan Patient Name: DIEGO LEON Facility: [facility]:[place] : 1965 Planned Disposition: Psych facility Anticipated Discharge Date: 03/17/19 Discharge Date: Expected LOS: 26 Initial Reviewer: [id number] Initial Review Date: 02/23/2019 Generated: 03/17/19 10:38 am Comments DCP- Discharge Planning Updated by [email or web address]: Danilo Buck on 03/17/19 8:[address] Patient Name: DIEGO LEON Encounter No: [id number] : 1965 Primary Insurance: MEDICARE A & B Anticipated DC Date: 03-17-2019 Planned Disposition: Psych facility External Planned Provider: [facility] DCP follow-up note: CM FAXED REFERRAL UPDATE TO [facility] AT [phone]. CM SPOKE TO PT IN ROOM WHO IS STILL WILLING FOR INPATIENT PSYCHIATRIC FACILITY TO CLEAR HIM TO GO HOME HE REPORTS HE IS NOT SUICIDAL. PT'S MOTHER REPORTS THAT SHE PLANS TO TAKE PT HOME AFTER PSYCHIATRIC TREATMENT ONCE HIS MEDICATIONS ARE "RIGHT AGAIN". PT'S MOTHER STATES THE LAST TIME PT WENT TO A HOSPITAL WAS 5 YEARS AGO AND PT HAD BEEN FINE AT HER HOME UNTIL THIS INCIDENT. CM PROVIDED UPDATE ON PLACEMENT. CM CONTINUES TO WAIT ACCEPTANCE BY ANY INPATIENT PSYCHIATRIC TREATMENT CENTER [facility]. Danilo Buck, CASE MANAGEMENT DCP- Discharge Planning Updated by [id number]: Danilo Buck on 03/16/19 3:[address] Patient Name: DIEGO LEON Encounter No: [id number] : 1965 Primary Insurance: MEDICARE A & B Anticipated DC Date: 03-09-2019 Planned Disposition: Psych facility External Planned Provider: [facility] DCP follow-up note: MIRELA SPOKE TO SHAMIKA AT [facility], , PROVIDED UPDATE AND NOTIFIE PT IS NOT ON ISOLATION. MARYAN ASKED FOR ENTIRE NEW PACKET. CM FAXED UPDATED PACKET TO [facility] AT [phone]. CM CONTINUES TO WAIT ACCEPTANCE BY ANY INPATIENT PSYCHIATRIC TREATMENT CENTER [facility]. VIOLETTE Saenz MANAGEMENT DCP- Discharge Planning Updated by [id number]: Danilo Buck on 03/10/19 7:[address] Patient Name: DIEGO LEON Encounter No: [id number] : 1965 Primary Insurance: MEDICARE A & B Anticipated DC Date: 03-09-2019 Planned Disposition: Psych facility External Planned Provider: [facility] DCP follow-up note: CM FAXED UPDATE WITH YESTERDAYS PSYCHIATRIC FOLLOW UP NOTE TO [facility] AT [phone]. CM CONTINUES TO WAIT ACCEPTANCE BY ANY INPATIENT PSYCHIATRIC TREATMENT CENTER [facility]. VIOLETTE Saenz DCP- Discharge Planning Updated by [id number]: Danilo Buck on 03/09/19 10:[address] Patient Name: DIEGO LEON Encounter No: [id number] : 1965 Primary Insurance: MEDICARE A & B Anticipated DC Date: 03-09-2019 Planned Disposition: Psych facility External Planned Provider: [facility] DCP follow-up note: CM SPOKE TO PT IN ROOM WHO IS STILL WILLING FOR INPATIENT PSYCHIATRIC CARE. PT STILL DOES NO KNOW WHY HE TOOK OVERDOSE OF MEDICATIONS, REPORTS IT WILL NEVER HAPPEN AGAIN. PT DENIES SUIDCIDAL IDEATION AT THIS TIME. PT HAS NO PREFERENCE ON EQUIPMENT PROVIDER FOR WALKER, CHOICE SIGNED FOR NO PREFERENCE. IMPORTANT MESSAGE FROM [employer] PROVIDED AND EXPLAINED. CM FAXED WALKER REFERRAL TO [facility] AT [phone]. CM VERIFIED RECEIPT OF ORDER WITH ALHAJI OF [facility], , WALKER TO BE DELIVERED TO PT'S HOSPITAL ROOM TODAY. CM CALLED [facility] AT [phone], SPOKE TO DENYS AND PROVIDED UPDATE. FACILITIES ARE DENYING FOR LACK OF "SI", SUICIDAL INTENT. PT HAS BEEN DECLINED BY MOST FACILITIES [facility], SHAMIKA OF [facility] STILL SEEKING PLACEMENT. MIRELA FAXED UPDATE TO [facility] AT [phone]. CM CONTINUES TO WAIT ACCEPTANCE BY ANY INPATIENT PSYCHIATRIC TREATMENT CENTER [facility]. [facility] TO DELIVER WALKER TO PT'S ROOM FOR DISCHARGE. VIOLETTE Saenz DCP- Discharge Planning Updated by [id number]: Danilo Buck on 03/06/19 1:[address] Patient Name: DIEGO LEON Encounter No: [id number] : 1965 Primary Insurance: MEDICARE A & B Anticipated DC Date: 03-06-2019 Planned Disposition: Psych facility External Planned Provider: [facility] DCP follow-up note: CM MET WITH INTERDISCIPLINARY TEAM, NOTIFIED BY UBALDO GALARZA THAT PT IS STABLE FOR TRANSFER TO INPATIENT PSYCHIATRIC FACILITY. CM MET WITH PT WHO DOES NOT KNOW WHY HE TOOK DRUG OVERDOSE. PT'S MOTHER STATES THAT SHE FOUND THE EMPTY BOTTLE AND BROUGHT PT TO THE HOSPITAL AND REPORTS PT RECENTLY QUIT TAKING ALL OF HIS NARCOTIC MEDICATION PRIOR TO THE OVERDOSE. FAMILY AND PT IN AGREEMENT WITH TRANSFER TO PSYCHIATRIC FACILITY FOR EVALUATION. IMPORTANT MESSAGE FROM [employer] PROVIDED AND EXPLAINED. CM CALLED [facility], , SPOKE TO SHAMIKA AND PROVIDED REFERRAL INFORMATION. CM FAXED REFERRAL TO [facility] AT [phone]. CM WAITING TO SEE IF PT WILL BE ACCEPTED TO ANY INPATIENT PSYCHIATRIC FACILITY IN THE [facility]. [facility] TO CONTACT [facility] 2 NURSE IF ONE IS FOUND. VIOLETTE Saenz DCP- Discharge Planning Updated by [id number]: Altagracia Lou on 02/26/19 5:[address] LATE ENTRY 02/24/19 Patient Name: DIEGO LEON Admission Status: ER Accout number: [id number] Admission Date: 02-19-2019 : 1965 Admission Diagnosis: Attending: VLADIMIR ROACH Current LOS: 7 Anticipated DC Date: Planned Disposition: Primary Insurance: MEDICARE A & B Discharge Planning Comments: CM met with patient at bedside after explaining CM role and obtaining verbal consent. Patient lives at home with his mother where he is independent with his care and plans to return there upon discharge. Patient feels this would be a safe discharge. CM discussed availability / needs of home health and medical equipment. Patient denies any discharge needs at this time. Patient states he will have his family drive him home upon discharge. CM will continue to follow and assist as needed with discharge planning / needs. Virtual Reality Specialist: Altagracia Lou DCPIA - Discharge Planning Initial Assessment Updated by [email or web address]: Altagracia Lou on 02/26/19 6:50 pm * Is the patient Alert and Oriented? Yes * How many steps to enter\\exit or inside your home? * PCP JAY JAY CHAN * Pharmacy [facility] * Preadmission Environment Home with Family * ADLs Independent * Equipment None * List name and contact numbers for known caregivers / representatives who currently or will assist patient after discharge: CHRIS LEON - [facility]- [phone] * Verbal permission to speak to the caregivers and representatives has been obtained from the patient. Yes * Community resources currently utilized None * Additional services required to return to the preadmission environment? No * Can the patient safely return to the preadmission environment? Yes * Has this patient been hospitalized within the prior 30 days at any hospital? No Coverage Notice Reviewer: ARMAND Buck Notice Issued Date-Time: 03/09/2019 9:45 Notice Type: IM Discharge Notice Notice Delivered To: Patient Relationship to Patient: Health Consultant Name: Delivery Method: EXPR - Express Mail Erin Days: Prior Verbal Notification: Recipient Understood Notice: Yes Recipient Signature: Yes Med Rec Note Co-signed by Attending: Coverage Notice Comment: Reviewer: ARMAND Buck Notice Issued Date-Time: 03/09/2019 9:45 Notice Type: Patient Choice Letter Notice Delivered To: Patient Relationship to Patient: Health Consultant Name: Delivery Method: HAND - Hand Delivered Erin Days: Prior Verbal Notification: Recipient Understood Notice: Yes Recipient Signature: Yes Med Rec Note Co-signed by Attending: Coverage Notice Comment: no preference for walker provider Last DP export: 03/17/19 8:32 a Patient Name: DIEGO LEON Page 94510 at 0938 All edits/amendments must be made on the electronic document DICTATION DATE: 03/17/19937 PERINATOLOGY PHYSICIAN: TAVIA 03/17/19937 RPT#: [id number] DC DATE: STATUS: ADM IN [facility] [address] [place] [address] END OF REPORT
[2019-03-17 10:47] VITALS: BP 130/83
--- NOTE | 2019-03-17 12:23 | NUR ---
Nutrition Follow-up: Pt reports that he is not eating very well. Denies N/V. Will drink Ensure. [facility] intake: 63% avg x 6 meals Wt: 197.3# (03/17); 201# (03/13) Last BM: 3-4 days ago per pt Labs reviewed Meds reviewed -+Ensure with meals. -May consider appetite stimulant. -Monitor wt; noted daily wts ordered.
[2019-03-17 12:41] VITALS: BP 128/74
[2019-03-17 16:00] VITALS: BP 93/64
--- NOTE | 2019-03-17 18:16 | NUR ---
I have reviewed this patient and I concur with the Shift Assessment completed by the Licensed Practical Nurse today this shift.
--- NOTE | 2019-03-17 19:31 | NUR ---
EVENING ROUNDS COMPLETE, PT LAYING IN BED. AAOX4. NO SIGNS OF DISTRESS. PT DENIES ANY PAIN OR NEEDS AT THIS TIME. CL IN REACH, BED IN LOWEST POSITION.
[2019-03-17 21:20] VITALS: BP 126/81
[2019-03-18] VITALS: BP 109/72
[2019-03-18 05:01] VITALS: BP 103/64
[2019-03-18 06:20] LABS: BASOPHILS 0.7 % (0-2); EOSINOPHILS 6.2 % (0-7); HEMATOCRIT 41.4 % (42.0-54.0); HEMOGLOBIN 13.8 g/dL (13.5-17.5); IMMATURE GRANULOCYTES 0.1 % (0-5); LYMPHOCYTES 18.7 % (15-50); MCH 33.2 pg (26.0-34.0); MCHC 33.3 g/dL (31.0-37.0); MCV 99.5 fL (80.0-100.0); MEAN PLATELET VOLUME 9.9 fL (7.4-10.4); MONOCYTES 11.1 % (2-11); NEUTROPHILS 63.2 % (40-80); PLATELET COUNT 218 10x3/uL (130-400); RBC 4.16 10x6/uL (4.20-6.10)
[2019-03-18 06:39] LABS: CALC OSMOLALITY 280 mosm/kg (275-300); CARBON DIOXIDE 29.9 mmol/L (21.0-32.0); CHLORIDE - SERUM 104 mmol/L (98-107); CREATININE - SERUM 0.7 mg/dL (0.6-1.3); GLUCOSE 115 mg/dL (74-106); POTASSIUM - SERUM 3.5 mmol/L (3.5-5.1); SODIUM 141 mmol/L (136-145); eGFR NON AFRICAN AMERICAN > 90 mL/min (90-120)
[2019-03-18 06:43] LABS: UREA NITROGEN 9 mg/dL (7-18)
--- NOTE | 2019-03-18 07:59 | NUR ---
PT RESTING IN BED WITH EYES CLOSED. VSS. RR EVEN AND UNLABORED. BED LOW CALL LIGHT WITHIN REACH. NO S/S OF DISTRESS. BED LOW CALL LIGHT WITHIN REACH. WILL CONTINUE TO MONITOR.
--- NOTE | 2019-03-18 09:32 | NUR ---
PT DOES ADMIT TO PREVIOUS ATTEMPT AT SUICIDE CAUSING HIM TO BE ADMITTED TO THE HOSPITAL. PT IS WITHDRAWN WITH A FLAT AFFECT. SITTER AT BEDSIDE. PT DENIES SI AT THIS TIME.
--- NOTE | 2019-03-18 09:55 | MORECARE ---
CASE MANAGEMENT DISCHARGE SUMMARY PATIENT: DIEGO LEON JR UNIT: [id number] ADM DATE: 02/19/19 AGE: 54 : 65 SEX: M ROOM/BED: D.2106 AUTHOR: WILL,DOC PHYSICIAN: REFERRING PHYSICIAN: VLADIMIR ROACH MD DATE OF SERVICE: 03/18/19 Discharge Plan Patient Name: DIEGO LEON Facility: [facility]:[place] : 1965 Planned Disposition: Psych facility Anticipated Discharge Date: 03/17/19 Discharge Date: Expected LOS: 26 Initial Reviewer: [id number] Initial Review Date: 02/23/2019 Generated: 03/18/19 10:54 am Comments DCP- Discharge Planning Updated by [email or web address]: Danilo Buck on 03/17/19 8:[address] Patient Name: DIEGO LEON Encounter No: [id number] : 1965 Primary Insurance: MEDICARE A & B Anticipated DC Date: 03-17-2019 Planned Disposition: Psych facility External Planned Provider: [facility] DCP follow-up note: CM FAXED REFERRAL UPDATE TO [facility] AT [phone]. CM SPOKE TO PT IN ROOM WHO IS STILL WILLING FOR INPATIENT PSYCHIATRIC FACILITY TO CLEAR HIM TO GO HOME HE REPORTS HE IS NOT SUICIDAL. IMPORANT MESSAGE FROM MEDICARE PROVIDED AND EXPLAINED. PT'S MOTHER REPORTS THAT SHE PLANS TO TAKE PT HOME AFTER PSYCHIATRIC TREATMENT ONCE HIS MEDICATIONS ARE "RIGHT AGAIN". PT'S MOTHER STATES THE LAST TIME PT WENT TO A HOSPITAL WAS 5 YEARS AGO AND PT HAD BEEN FINE AT HER HOME UNTIL THIS INCIDENT. CM PROVIDED UPDATE ON PLACEMENT. CM CONTINUES TO WAIT ACCEPTANCE BY ANY INPATIENT PSYCHIATRIC TREATMENT CENTER [facility]. Danilo Buck, CASE MANAGEMENT DCP- Discharge Planning Updated by [id number]: Danilo Buck on 03/16/19 3:[address] Patient Name: DIEGO LEON Encounter No: [id number] : 1965 Primary Insurance: MEDICARE A & B Anticipated DC Date: 03-09-2019 Planned Disposition: Psych facility External Planned Provider: [facility] DCP follow-up note: CM SPOKE TO SHAMIKA AT [facility], , PROVIDED UPDATE AND NOTIFIE PT IS NOT ON ISOLATION. MARYAN ASKED FOR ENTIRE NEW PACKET. CM FAXED UPDATED PACKET TO [facility] AT [phone]. CM CONTINUES TO WAIT ACCEPTANCE BY ANY INPATIENT PSYCHIATRIC TREATMENT CENTER [facility]. Danilo Buck CASE MANAGEMENT DCP- Discharge Planning Updated by [id number]: Danilo Buck on 03/10/19 7:[address] Patient Name: DIEGO LEON Encounter No: [id number] : 1965 Primary Insurance: MEDICARE A & B Anticipated DC Date: 03-09-2019 Planned Disposition: Psych facility External Planned Provider: [facility] DCP follow-up note: CM FAXED UPDATE WITH YESTERDAYS PSYCHIATRIC FOLLOW UP NOTE TO [facility] AT [phone]. CM CONTINUES TO WAIT ACCEPTANCE BY ANY INPATIENT PSYCHIATRIC TREATMENT CENTER [facility]. Danilo Buck CASE HENRY DCP- Discharge Planning Updated by [email or web address]: Danilo Buck on 03/09/19 10:[address] Patient Name: DIEGO LEON Encounter No: [id number] : 1965 Primary Insurance: MEDICARE A & B Anticipated DC Date: 03-09-2019 Planned Disposition: Psych facility External Planned Provider: [facility] DCP follow-up note: CM SPOKE TO PT IN ROOM WHO IS STILL WILLING FOR INPATIENT PSYCHIATRIC CARE. PT STILL DOES NO KNOW WHY HE TOOK OVERDOSE OF MEDICATIONS, REPORTS IT WILL NEVER HAPPEN AGAIN. PT DENIES SUIDCIDAL IDEATION AT THIS TIME. PT HAS NO PREFERENCE ON EQUIPMENT PROVIDER FOR WALKER, CHOICE SIGNED FOR NO PREFERENCE. IMPORTANT MESSAGE FROM MEDICARE PROVIDED AND EXPLAINED. CM FAXED WALKER REFERRAL TO [facility] AT [phone]. CM VERIFIED RECEIPT OF ORDER WITH ALHAJI OF [facility], , WALKER TO BE DELIVERED TO PT'S HOSPITAL ROOM TODAY. CM CALLED [facility] AT [phone], SPOKE TO DENYS AND PROVIDED UPDATE. FACILITIES ARE DENYING FOR LACK OF "SI", SUICIDAL INTENT. PT HAS BEEN DECLINED BY MOST FACILITIES [facility], SHAMIKA OF [facility] STILL SEEKING PLACEMENT. CM FAXED UPDATE TO [facility] AT [phone]. CM CONTINUES TO WAIT ACCEPTANCE BY ANY INPATIENT PSYCHIATRIC TREATMENT CENTER [facility]. [facility] TO DELIVER WALKER TO PT'S ROOM FOR DISCHARGE. VIOLETTE Saenz DCP- Discharge Planning Updated by [id number]: Danilo Buck on 03/06/19 1:[address] Patient Name: DIEGO LEON Encounter No: [id number] : 1965 Primary Insurance: MEDICARE A & B Anticipated DC Date: 03-06-2019 Planned Disposition: Psych facility External Planned Provider: [facility] DCP follow-up note: CM MET WITH INTERDISCIPLINARY TEAM, NOTIFIED BY UBALOD GALARZA THAT PT IS STABLE FOR TRANSFER TO INPATIENT PSYCHIATRIC FACILITY. CM MET WITH PT WHO DOES NOT KNOW WHY HE TOOK DRUG OVERDOSE. PT'S MOTHER STATES THAT SHE FOUND THE EMPTY BOTTLE AND BROUGHT PT TO THE HOSPITAL AND REPORTS PT RECENTLY QUIT TAKING ALL OF HIS NARCOTIC MEDICATION PRIOR TO THE OVERDOSE. FAMILY AND PT IN AGREEMENT WITH TRANSFER TO PSYCHIATRIC FACILITY FOR EVALUATION. IMPORTANT MESSAGE FROM [employer] PROVIDED AND EXPLAINED. CM CALLED [facility], , SPOKE TO SHAMIKA AND PROVIDED REFERRAL INFORMATION. CM FAXED REFERRAL TO [facility] AT [phone]. CM WAITING TO SEE IF PT WILL BE ACCEPTED TO ANY INPATIENT PSYCHIATRIC FACILITY IN THE [facility]. [facility] TO CONTACT [facility] 2 NURSE IF ONE IS FOUND. VIOLETTE Saenz DCP- Discharge Planning Updated by [email or web address]: Altagracia Lou on 02/26/19 5:[address] LATE ENTRY 02/24/19 Patient Name: DIEGO LEON Admission Status: ER Accout number: [id number] Admission Date: 02-19-2019 : 1965 Admission Diagnosis: Attending: VLADIMIR ROACH Current LOS: 7 Anticipated DC Date: Planned Disposition: Primary Insurance: MEDICARE A & B Discharge Planning Comments: CM met with patient at bedside after explaining CM role and obtaining verbal consent. Patient lives at home with his mother where he is independent with his care and plans to return there upon discharge. Patient feels this would be a safe discharge. CM discussed availability / needs of home health and medical equipment. Patient denies any discharge needs at this time. Patient states he will have his family drive him home upon discharge. CM will continue to follow and assist as needed with discharge planning / needs. Cae Engineer: Altagracia Lou DCPIA - Discharge Planning Initial Assessment Updated by [email or web address]: Altagracia Lou on 02/26/19 6:50 pm * Is the patient Alert and Oriented? Yes * How many steps to enter\\exit or inside your home? * PCP JAY JAY CHAN * Pharmacy [facility] * Preadmission Environment Home with Family * ADLs Independent * Equipment None * List name and contact numbers for known caregivers / representatives who currently or will assist patient after discharge: CHRIS LEON - MOTHER- [phone] * Verbal permission to speak to the caregivers and representatives has been obtained from the patient. Yes * Community resources currently utilized None * Additional services required to return to the preadmission environment? No * Can the patient safely return to the preadmission environment? Yes * Has this patient been hospitalized within the prior 30 days at any hospital? No External Providers External Provider: [facility] Next Contact Date: 03/18/2019 Service Request Date: Service Type: Resolution: Reviewer: Comments: Coverage Notice Reviewer: [id number] Buck Notice Issued Date-Time: 03/09/2019 9:45 Notice Type: IM Discharge Notice Notice Delivered To: Patient Relationship to Patient: Safety And Health Manager Name: Delivery Method: EXPR - Express Mail Erin Days: Prior Verbal Notification: Recipient Understood Notice: Yes Recipient Signature: Yes Med Rec Note Co-signed by Attending: Coverage Notice Comment: Reviewer: ARMAND Buck Notice Issued Date-Time: 03/09/2019 9:45 Notice Type: Patient Choice Letter Notice Delivered To: Patient Relationship to Patient: Safety And Health Manager Name: Delivery Method: HAND - Hand Delivered Erin Days: Prior Verbal Notification: Recipient Understood Notice: Yes Recipient Signature: Yes Med Rec Note Co-signed by Attending: Coverage Notice Comment: no preference for walker provider Reviewer: [id number] Buck Notice Issued Date-Time: 03/17/2019 9:20 Notice Type: IM Discharge Notice Notice Delivered To: Patient Relationship to Patient: Safety And Health Manager Name: Delivery Method: HAND - Hand Delivered Erin Days: Prior Verbal Notification: Recipient Understood Notice: Yes Recipient Signature: Yes Med Rec Note Co-signed by Attending: Coverage Notice Comment: Last DP export: 03/17/19 8:38 a Patient Name: DIEGO LEON Page 00512 at 0955 All edits/amendments must be made on the electronic document DICTATION DATE: 03/18/19953 ROAD MAKER: TAVIA 03/18/19953 RPT#: [id number] DC DATE: STATUS: ADM IN [facility] [address] [place] [address] END OF REPORT
[2019-03-18 10:22] VITALS: BP 127/78
--- NOTE | 2019-03-18 11:06 | MORECARE ---
CASE MANAGEMENT DISCHARGE SUMMARY PATIENT: DIEGO LEON JR UNIT: [id number] ADM DATE: 02/19/19 AGE: 54 : 65 SEX: M ROOM/BED: D.2106 AUTHOR: WILL,DOC PHYSICIAN: REFERRING PHYSICIAN: VLADIMIR ROACH MD DATE OF SERVICE: 03/18/19 Discharge Plan Patient Name: DIEGO LEON Facility: [facility]:[place] : 1965 Planned Disposition: Psych facility Anticipated Discharge Date: 03/18/19 Discharge Date: Expected LOS: 27 Initial Reviewer: [id number] Initial Review Date: 02/23/2019 Generated: 03/18/19 12:05 pm Comments DCP- Discharge Planning Updated by [id number]: Danilo Buck on 03/18/19 10:[address] Patient Name: DIEGO LEON Encounter No: [id number] : 1965 Primary Insurance: MEDICARE A & B Anticipated DC Date: 03-18-2019 Planned Disposition: Psych facility External Planned Provider: [facility] DCP follow-up note: CM FAXED REFERRAL UPDATE TO [facility] AT [phone]. CM CALLED [facility] CALL [facility]ENTER, , SPOKE TO TY AND REQUESTED INPATIENT PSYCHIATRIC PLACEMENT. TY ASKED IF PT WAS STILL INTUBATED. CM EXPLAINED PT'S SITUATION AND IS NOW OFF VENT, OUT OF ICU, EATING, UP IN ROOM INDEPENDENTLLY ON ROOM AIR. TY WILL SCREEN FOR ADMISSION. CM FAXED UPDATE TO [facility] AT [phone]. CM CONTINUES TO WAIT ACCEPTANCE BY ANY INPATIENT PSYCHIATRIC TREATMENT CENTER [facility]. Danilo Buck, CASE MANAGEMENT DCP- Discharge Planning Updated by [email or web address]: Danilo Buck on 03/17/19 8:[address] Patient Name: DIEGO LEON Encounter No: [id number] : 1965 Primary Insurance: MEDICARE A & B Anticipated DC Date: 03-17-2019 Planned Disposition: Psych facility External Planned Provider: [facility] DCP follow-up note: CM FAXED REFERRAL UPDATE TO [facility] AT [phone]. CM SPOKE TO PT IN ROOM WHO IS STILL WILLING FOR INPATIENT PSYCHIATRIC FACILITY TO CLEAR HIM TO GO HOME HE REPORTS HE IS NOT SUICIDAL. IMPORANT MESSAGE FROM MEDICARE PROVIDED AND EXPLAINED. PT'S MOTHER REPORTS THAT SHE PLANS TO TAKE PT HOME AFTER PSYCHIATRIC TREATMENT ONCE HIS MEDICATIONS ARE "RIGHT AGAIN". PT'S MOTHER STATES THE LAST TIME PT WENT TO A HOSPITAL WAS 5 YEARS AGO AND PT HAD BEEN FINE AT HER HOME UNTIL THIS INCIDENT. CM PROVIDED UPDATE ON PLACEMENT. CM CONTINUES TO WAIT ACCEPTANCE BY ANY INPATIENT PSYCHIATRIC TREATMENT CENTER [facility]. Danilo Buck CASE MANAGEMENT DCP- Discharge Planning Updated by [id number]: Danilo Buck on 03/16/19 3:[address] Patient Name: DIEGO LEON Encounter No: [id number] : 1965 Primary Insurance: MEDICARE A & B Anticipated DC Date: 03-09-2019 Planned Disposition: Psych facility External Planned Provider: [facility] DCP follow-up note: CM SPOKE TO SHAMIKA AT [facility], , PROVIDED UPDATE AND NOTIFIE PT IS NOT ON ISOLATION. MARYAN ASKED FOR ENTIRE NEW PACKET. CM FAXED UPDATED PACKET TO [facility] AT [phone]. CM CONTINUES TO WAIT ACCEPTANCE BY ANY INPATIENT PSYCHIATRIC TREATMENT CENTER [facility]. VIOLETTE Saenz DCP- Discharge Planning Updated by [id number]: Danilo Buck on 03/10/19 7:[address] Patient Name: DIEGO LEON Encounter No: [id number] : 1965 Primary Insurance: MEDICARE A & B Anticipated DC Date: 03-09-2019 Planned Disposition: Psych facility External Planned Provider: [facility] DCP follow-up note: CM FAXED UPDATE WITH YESTERDAYS PSYCHIATRIC FOLLOW UP NOTE TO [facility] AT [phone]. CM CONTINUES TO WAIT ACCEPTANCE BY ANY INPATIENT PSYCHIATRIC TREATMENT CENTER [facility]. VIOLETTE Saenz DCP- Discharge Planning Updated by [email or web address]: Danilo Buck on 03/09/19 10:[address] Patient Name: DIEGO LEON Encounter No: [id number] : 1965 Primary Insurance: MEDICARE A & B Anticipated DC Date: 03-09-2019 Planned Disposition: Psych facility External Planned Provider: [facility] DCP follow-up note: CM SPOKE TO PT IN ROOM WHO IS STILL WILLING FOR INPATIENT PSYCHIATRIC CARE. PT STILL DOES NO KNOW WHY HE TOOK OVERDOSE OF MEDICATIONS, REPORTS IT WILL NEVER HAPPEN AGAIN. PT DENIES SUIDCIDAL IDEATION AT THIS TIME. PT HAS NO PREFERENCE ON EQUIPMENT PROVIDER FOR WALKER, CHOICE SIGNED FOR NO PREFERENCE. IMPORTANT MESSAGE FROM [employer] PROVIDED AND EXPLAINED. CM FAXED WALKER REFERRAL TO [facility] AT [phone]. CM VERIFIED RECEIPT OF ORDER WITH ALHAJI OF [facility], , WALKER TO BE DELIVERED TO PT'S HOSPITAL ROOM TODAY. CM CALLED [facility] AT [phone], SPOKE TO DENYS AND PROVIDED UPDATE. FACILITIES ARE DENYING FOR LACK OF "SI", SUICIDAL INTENT. PT HAS BEEN DECLINED BY MOST FACILITIES [facility], SHAMIKA OF [facility] STILL SEEKING PLACEMENT. CM FAXED UPDATE TO [facility] AT [phone]. CM CONTINUES TO WAIT ACCEPTANCE BY ANY INPATIENT PSYCHIATRIC TREATMENT CENTER [facility]. [facility] TO DELIVER WALKER TO PT'S ROOM FOR DISCHARGE. Danilo Buck, CASE MANAGEMENT DCP- Discharge Planning Updated by [id number]: Danilo Buck on 03/06/19 1:[address] Patient Name: DIEGO LEON Encounter No: [id number] : 1965 Primary Insurance: MEDICARE A & B Anticipated DC Date: 03-06-2019 Planned Disposition: Psych facility External Planned Provider: [facility] DCP follow-up note: CM MET WITH INTERDISCIPLINARY TEAM, NOTIFIED BY UBALDO GALARZA THAT PT IS STABLE FOR TRANSFER TO INPATIENT PSYCHIATRIC FACILITY. CM MET WITH PT WHO DOES NOT KNOW WHY HE TOOK DRUG OVERDOSE. PT'S MOTHER STATES THAT SHE FOUND THE EMPTY BOTTLE AND BROUGHT PT TO THE HOSPITAL AND REPORTS PT RECENTLY QUIT TAKING ALL OF HIS NARCOTIC MEDICATION PRIOR TO THE OVERDOSE. FAMILY AND PT IN AGREEMENT WITH TRANSFER TO PSYCHIATRIC FACILITY FOR EVALUATION. IMPORTANT MESSAGE FROM [employer] PROVIDED AND EXPLAINED. CM CALLED [facility], , SPOKE TO SHAMIKA AND PROVIDED REFERRAL INFORMATION. CM FAXED REFERRAL TO [facility] AT [phone]. CM WAITING TO SEE IF PT WILL BE ACCEPTED TO ANY INPATIENT PSYCHIATRIC FACILITY IN THE STATE. [facility] TO CONTACT MED 2 NURSE IF ONE IS FOUND. Danilo Buck, CASE MANAGEMENT DCP- Discharge Planning Updated by [email or web address]: Altagracia Lou on 02/26/19 5:[address] LATE ENTRY 02/24/19 Patient Name: DIEGO LEON Admission Status: ER Accout number: [id number] Admission Date: 02-19-2019 : 1965 Admission Diagnosis: Attending: VLADIMIR ROACH Current LOS: 7 Anticipated DC Date: Planned Disposition: Primary Insurance: MEDICARE A & B Discharge Planning Comments: CM met with patient at bedside after explaining CM role and obtaining verbal consent. Patient lives at home with his mother where he is independent with his care and plans to return there upon discharge. Patient feels this would be a safe discharge. CM discussed availability / needs of home health and medical equipment. Patient denies any discharge needs at this time. Patient states he will have his family drive him home upon discharge. CM will continue to follow and assist as needed with discharge planning / needs. Merchandising Specialist: Altagracia العراقيA - Discharge Planning Initial Assessment Updated by [email or web address]: Altagracia Lou on 02/26/19 6:50 pm * Is the patient Alert and Oriented? Yes * How many steps to enter\\exit or inside your home? * PCP JAY JAY CHAN * Pharmacy [facility] * Preadmission Environment Home with Family * ADLs Independent * Equipment None * List name and contact numbers for known caregivers / representatives who currently or will assist patient after discharge: CHRIS LEON - MOTHER- [phone] * Verbal permission to speak to the caregivers and representatives has been obtained from the patient. Yes * Community resources currently utilized None * Additional services required to return to the preadmission environment? No * Can the patient safely return to the preadmission environment? Yes * Has this patient been hospitalized within the prior 30 days at any hospital? No Coverage Notice Reviewer: [id number] Buck Notice Issued Date-Time: 03/09/2019 9:45 Notice Type: IM Discharge Notice Notice Delivered To: Patient Relationship to Patient: Liability Claims Adjuster Name: Delivery Method: EXPR - Express Mail Erin Days: Prior Verbal Notification: Recipient Understood Notice: Yes Recipient Signature: Yes Med Rec Note Co-signed by Attending: Coverage Notice Comment: Reviewer: [id number] Buck Notice Issued Date-Time: 03/09/2019 9:45 Notice Type: Patient Choice Letter Notice Delivered To: Patient Relationship to Patient: Liability Claims Adjuster Name: Delivery Method: HAND - Hand Delivered Erin Days: Prior Verbal Notification: Recipient Understood Notice: Yes Recipient Signature: Yes Med Rec Note Co-signed by Attending: Coverage Notice Comment: no preference for walker provider Reviewer: [id number] Anisa Buck Notice Issued Date-Time: 03/17/2019 9:20 Notice Type: IM Discharge Notice Notice Delivered To: Patient Relationship to Patient: Liability Claims Adjuster Name: Delivery Method: HAND - Hand Delivered Erin Days: Prior Verbal Notification: Recipient Understood Notice: Yes Recipient Signature: Yes Med Rec Note Co-signed by Attending: Coverage Notice Comment: Last DP export: 03/18/19 8:55 a Patient Name: DIEGO LEON Page [id number] at 1106 All edits/amendments must be made on the electronic document DICTATION DATE: 03/18/19 1105 PAINT PREPARER: TAVIA 03/18/19 1105 RPT#: [id number] DC DATE: STATUS: ADM IN [facility] [address] [place] [address] END OF REPORT
--- NOTE | 2019-03-18 13:15 | NUR ---
I have reviewed this patient and I concur with the Shift Assessment completed by the Licensed Practical Nurse today this shift.
[2019-03-18 13:53] VITALS: BP 124/72
--- NOTE | 2019-03-18 15:42 | NUR ---
PT RESTING COMFORTABLY IN BED. RR EVEN AND UNLABORED. NO S/S OF DISTRESS. BED LOW CALL LIGHT WITHIN REACH. WILL CONTINUE TO MONITOR.
--- NOTE | 2019-03-18 16:13 | MORECARE ---
CASE MANAGEMENT DISCHARGE SUMMARY PATIENT: DIEGO LEON JR UNIT: [id number] ADM DATE: 02/19/19 AGE: 54 : 65 SEX: M ROOM/BED: D.2106 AUTHOR: WILL,DOC PHYSICIAN: REFERRING PHYSICIAN: VLADIMIR ROACH MD DATE OF SERVICE: 03/18/19 Discharge Plan Patient Name: DIEGO LEON Facility: [facility]:[place] : 1965 Planned Disposition: Psych facility Anticipated Discharge Date: 03/18/19 Discharge Date: Expected LOS: 27 Initial Reviewer: [id number] Initial Review Date: 02/23/2019 Generated: 03/18/19 5:13 pm DCP- Discharge Planning Updated by [email or web address]: Danilo Buck on 03/18/19 10:[address] Patient Name: DIEGO LEON Encounter No: [id number] : 1965 Primary Insurance: MEDICARE A & B Anticipated DC Date: 03-18-2019 Planned Disposition: Psych facility External Planned Provider: [facility] DCP follow-up note: CM FAXED REFERRAL UPDATE TO [facility]SF[facility] C[facility] AT [phone]. CM CALLED [facility] CALL CENTER, , SPOKE TO TY AND REQUESTED INPATIENT PSYCHIATRIC PLACEMENT. TY ASKED IF PT WAS STILL INTUBATED. CM EXPLAINED PT'S SITUATION AND IS NOW OFF VENT, OUT OF ICU, EATING, UP IN ROOM INDEPENDENTLLY ON ROOM AIR. TY WILL SCREEN FOR ADMISSION. CM FAXED UPDATE TO [facility] AT [phone]. CM CONTINUES TO WAIT ACCEPTANCE BY ANY INPATIENT PSYCHIATRIC TREATMENT CENTER [facility]. Danilo Buck CASE HENRY DCP- Discharge Planning Updated by [id number]: Danilo Buck on 03/17/19 8:[address] Patient Name: DIEGO LEON Encounter No: [id number] : 1965 Primary Insurance: MEDICARE A & B Anticipated DC Date: 03-17-2019 Planned Disposition: Psych facility External Planned Provider: [facility] DCP follow-up note: CM FAXED REFERRAL UPDATE TO [facility] C[facility] AT [phone]. CM SPOKE TO PT IN ROOM WHO IS STILL WILLING FOR INPATIENT PSYCHIATRIC FACILITY TO CLEAR HIM TO GO HOME HE REPORTS HE IS NOT SUICIDAL. IMPORANT MESSAGE FROM MEDICARE PROVIDED AND EXPLAINED. PT'S MOTHER REPORTS THAT SHE PLANS TO TAKE PT HOME AFTER PSYCHIATRIC TREATMENT ONCE HIS MEDICATIONS ARE "RIGHT AGAIN". PT'S MOTHER STATES THE LAST TIME PT WENT TO A HOSPITAL WAS 5 YEARS AGO AND PT HAD BEEN FINE AT HER HOME UNTIL THIS INCIDENT. CM PROVIDED UPDATE ON PLACEMENT. CM CONTINUES TO WAIT ACCEPTANCE BY ANY INPATIENT PSYCHIATRIC TREATMENT CENTER [facility]. Danilo Buck CASE MANAGEMENT DCP- Discharge Planning Updated by [id number]: Danilo Buck on 03/16/19 3:[address] Patient Name: DIEGO LEON Encounter No: [id number] : 1965 Primary Insurance: MEDICARE A & B Anticipated DC Date: 03-09-2019 Planned Disposition: Psych facility External Planned Provider: [facility] DCP follow-up note: CM SPOKE TO SHAMIKA AT TRANSFER CENTER, , PROVIDED UPDATE AND NOTIFIE PT IS NOT ON ISOLATION. MARYAN ASKED FOR ENTIRE NEW PACKET. CM FAXED UPDATED PACKET TO TRANSFER CENTER AT [phone]. CM CONTINUES TO WAIT ACCEPTANCE BY ANY INPATIENT PSYCHIATRIC TREATMENT CENTER [facility]. VIOLETTE Saenz DCP- Discharge Planning Updated by [id number]: Danilo Buck on 03/10/19 7:[address] Patient Name: DIEGO LEON Encounter No: [id number] : 1965 Primary Insurance: MEDICARE A & B Anticipated DC Date: 03-09-2019 Planned Disposition: Psych facility External Planned Provider: [facility] DCP follow-up note: CM FAXED UPDATE WITH YESTERDAYS PSYCHIATRIC FOLLOW UP NOTE TO TRANSFER CENTER AT [phone]. CM CONTINUES TO WAIT ACCEPTANCE BY ANY INPATIENT PSYCHIATRIC TREATMENT CENTER [facility]. VIOLETTE Saenz DCP- Discharge Planning Updated by [id number]: Danilo Buck on 03/09/19 10:[address] Patient Name: DIEGO LEON Encounter No: [id number] : 1965 Primary Insurance: MEDICARE A & B Anticipated DC Date: 03-09-2019 Planned Disposition: Psych facility External Planned Provider: [facility] DCP follow-up note: CM SPOKE TO PT IN ROOM WHO IS STILL WILLING FOR INPATIENT PSYCHIATRIC CARE. PT STILL DOES NO KNOW WHY HE TOOK OVERDOSE OF MEDICATIONS, REPORTS IT WILL NEVER HAPPEN AGAIN. PT DENIES SUIDCIDAL IDEATION AT THIS TIME. PT HAS NO PREFERENCE ON EQUIPMENT PROVIDER FOR WALKER, CHOICE SIGNED FOR NO PREFERENCE. IMPORTANT MESSAGE FROM MEDICARE PROVIDED AND EXPLAINED. CM FAXED WALKER REFERRAL TO [facility] AT [phone]. CM VERIFIED RECEIPT OF ORDER WITH ALHAJI OF [facility], , WALKER TO BE DELIVERED TO PT'S HOSPITAL ROOM TODAY. CM CALLED [facility] C[facility] AT [phone], SPOKE TO DENYS AND PROVIDED UPDATE. FACILITIES ARE DENYING FOR LACK OF "SI", SUICIDAL INTENT. PT HAS BEEN DECLINED BY MOST FACILITIES [facility], SHAMIKA OF [facility] C[facility] STILL SEEKING PLACEMENT. CM FAXED UPDATE TO [facility] AT [phone]. CM CONTINUES TO WAIT ACCEPTANCE BY ANY INPATIENT PSYCHIATRIC TREATMENT CENTER [facility]. [facility] TO DELIVER WALKER TO PT'S ROOM FOR DISCHARGE. Danilo Buck, CASE MANAGEMENT DCP- Discharge Planning Updated by [id number]: Danilo Buck on 03/06/19 1:[address] Patient Name: DIEGO LEON Encounter No: [id number] : 1965 Primary Insurance: MEDICARE A & B Anticipated DC Date: 03-06-2019 Planned Disposition: Psych facility External Planned Provider: [facility] DCP follow-up note: CM MET WITH INTERDISCIPLINARY TEAM, NOTIFIED BY UBALDO GALARZA THAT PT IS STABLE FOR TRANSFER TO INPATIENT PSYCHIATRIC FACILITY. CM MET WITH PT WHO DOES NOT KNOW WHY HE TOOK DRUG OVERDOSE. PT'S MOTHER STATES THAT SHE FOUND THE EMPTY BOTTLE AND BROUGHT PT TO THE HOSPITAL AND REPORTS PT RECENTLY QUIT TAKING ALL OF HIS NARCOTIC MEDICATION PRIOR TO THE OVERDOSE. FAMILY AND PT IN AGREEMENT WITH TRANSFER TO PSYCHIATRIC FACILITY FOR EVALUATION. IMPORTANT MESSAGE FROM MEDICARE PROVIDED AND EXPLAINED. CM CALLED TRANSFER CENTER, , SPOKE TO SHAMIKA AND PROVIDED REFERRAL INFORMATION. CM FAXED REFERRAL TO [facility] C[facility] AT [phone]. CM WAITING TO SEE IF PT WILL BE ACCEPTED TO ANY INPATIENT PSYCHIATRIC FACILITY IN THE STATE. [facility] TO CONTACT MED 2 NURSE IF ONE IS FOUND. Danilo Buck, CASE MANAGEMENT DCP- Discharge Planning Updated by [id number]: Altagracia Lou on 02/26/19 5:[address] LATE ENTRY 02/24/19 Patient Name: DIEGO LEON Admission Status: ER Accout number: [id number] Admission Date: 02-19-2019 : 1965 Admission Diagnosis: Attending: VLADIMIR ROACH Current LOS: 7 Anticipated DC Date: Planned Disposition: Primary Insurance: MEDICARE A & B Discharge Planning Comments: CM met with patient at bedside after explaining CM role and obtaining verbal consent. Patient lives at home with his mother where he is independent with his care and plans to return there upon discharge. Patient feels this would be a safe discharge. CM discussed availability / needs of home health and medical equipment. Patient denies any discharge needs at this time. Patient states he will have his family drive him home upon discharge. CM will continue to follow and assist as needed with discharge planning / needs. Derrickman Helper: Altagracia Lou DCPIA - Discharge Planning Initial Assessment Updated by [id number]: Altagraica Lou on 02/26/19 6:50 pm * Is the patient Alert and Oriented? Yes * How many steps to enter\\exit or inside your home? * PCP JAY JAY CHAN * Pharmacy [facility] * Preadmission Environment Home with Family * ADLs Independent * Equipment None * List name and contact numbers for known caregivers / representatives who currently or will assist patient after discharge: CHRIS LEON - MOTHER- [phone] * Verbal permission to speak to the caregivers and representatives has been obtained from the patient. Yes * Community resources currently utilized None * Additional services required to return to the preadmission environment? No * Can the patient safely return to the preadmission environment? Yes * Has this patient been hospitalized within the prior 30 days at any hospital? No External Providers External Provider: OTHER-OTHER Next Contact Date: 03/18/2019 Service Request Date: Service Type: Resolution: Reviewer: Comments: Coverage Notice Reviewer: [id number] Anisa Buck Notice Issued Date-Time: 03/09/2019 9:45 Notice Type: IM Discharge Notice Notice Delivered To: Patient Relationship to Patient: Hair Assistant Name: Delivery Method: EXPR - Express Mail Erin Days: Prior Verbal Notification: Recipient Understood Notice: Yes Recipient Signature: Yes Med Rec Note Co-signed by Attending: Coverage Notice Comment: Reviewer: [email or web address] Buck Notice Issued Date-Time: 03/09/2019 9:45 Notice Type: Patient Choice Letter Notice Delivered To: Patient Relationship to Patient: Hair Assistant Name: Delivery Method: HAND - Hand Delivered Erin Days: Prior Verbal Notification: Recipient Understood Notice: Yes Recipient Signature: Yes Med Rec Note Co-signed by Attending: Coverage Notice Comment: no preference for walker provider Reviewer: [id number] Anisa Buck Notice Issued Date-Time: 03/17/2019 9:20 Notice Type: IM Discharge Notice Notice Delivered To: Patient Relationship to Patient: Hair Assistant Name: Delivery Method: HAND - Hand Delivered Erin Days: Prior Verbal Notification: Recipient Understood Notice: Yes Recipient Signature: Yes Med Rec Note Co-signed by Attending: Coverage Notice Comment: Last DP export: 03/18/19 10:06 a Patient Name: DIEGO LEON Page [id number] at 1613 All edits/amendments must be made on the electronic document DICTATION DATE: 03/18/191612 MIDDLEWARE DEVELOPER: TAVIA 03/18/191612 RPT#: [id number] DC DATE: STATUS: ADM IN [facility] [address] [place] [address] END OF REPORT
--- NOTE | 2019-03-18 16:30 | MORECARE ---
CASE MANAGEMENT DISCHARGE SUMMARY PATIENT: DIEGO LEON JR UNIT: [id number] ADM DATE: 02/19/19 AGE: 54 : 65 SEX: M ROOM/BED: D.2106 AUTHOR: WILL,DOC PHYSICIAN: REFERRING PHYSICIAN: VLADIMIR ROACH MD DATE OF SERVICE: 03/18/19 Discharge Plan Patient Name: DIEGO LEON Facility: [facility]:[place] : 1965 Planned Disposition: Psych facility Anticipated Discharge Date: 03/18/19 Discharge Date: Expected LOS: 27 Initial Reviewer: [id number] Initial Review Date: 02/23/2019 Generated: 03/18/19 5:29 pm Comments DCP- Discharge Planning Updated by [id number]: Danilo Buck on 03/18/19 3:[address] Patient Name: DIEGO LEON Encounter No: [id number] : 1965 Primary Insurance: MEDICARE A & B Anticipated DC Date: 03-18-2019 Planned Disposition: Psych facility External Planned Provider: [facility], [place] DCP follow-up note: CM FAXED REFERRAL UPDATE TO [facility]SF[facility] C[facility] AT [phone]. CM RECEIVED CALL FROM [facility]IK[facility], , WHO INFORMED THAT [facility] IS RE REVIEWING PT FOR ADMISSION BUT THEY ARE NOT HOPEFUL OF ACCEPTANCE. SHAMIKA REPORTS WE NEED NEW PSYCHIATRIC EVALUATION NOTE AND THE PROBLEM NOW IS THAT PT HAS NO ACUTE NEED OF INPATIENT PSYCHIATRIC STABALIZATION AND THAT THE DOCTORS HAVE NOTED THAT PT NEEDS [facility], THAT PT'S MOTHER IS NOT ABLE TO CARE FOR PT AT HOME. CM EXPLAINED THAT PT IS NO LONGER USING THE WALKER FOR AMBULATION AND THAT PT'S MOTHER PLANS TO TAKE PT BACK HOME ONCE STABLIZED AND MEDICATIONS ARE FIGURED OUT. SHAMIKA REPORTS THAT [facility] GERIATR[facility] PSYCH PLANS TO INTERVIEW PT TOMORROW TO CONSIDER FOR ADMISSION. CM CALLED [facility], , SPOKE TO ASA WHO REPORTS PT SOUNDS FAMILAIR BUT THEY CAN RESCREEN FOR ADMISSION. CM FAXED REFERRAL TO [facility] AT [phone]. CM RECEIVED CALL FROM [facility] TRANSF[facility] ASKING TO SPEAK TO DR. VÁZQUEZ THE DOCTOR AT [facility] WANTS TO SPEAK TO DR. VÁZQUEZ REGARDING PT. CM PROVIDED CELL NUMBER FOR DR. VÁZQUEZ TO TRANSFER C[facility], NOTIFIED UBALDO GALARZA THAT [facility] IS CALLING DR. VÁZQUEZ. CM WAITING ADMISSION DETERMINATION FROM [facility] INPATIENT PSYCHIATRIC UNIT AND [facility] INPATIENT PSYCHIATRIC UNIT. [facility] FROM [place] PLANS TO SCREEN PT TOMORROW, 03-19-19. CM CONTINUES TO WAIT ACCEPTANCE BY ANY INPATIENT PSYCHIATRIC TREATMENT CENTER [facility]. VIOLETTE Saenz MANAGEMENT. DCP- Discharge Planning Updated by [id number]: Danilo Buck on 03/18/19 10:[address] Patient Name: DIEGO LEON Encounter No: [id number] : 1965 Primary Insurance: MEDICARE A & B Anticipated DC Date: 03-18-2019 Planned Disposition: Psych facility External Planned Provider: [facility] DCP follow-up note: CM FAXED REFERRAL UPDATE TO [facility] AT [phone]. CM CALLED [facility] CALL CENTER, , SPOKE TO TY AND REQUESTED INPATIENT PSYCHIATRIC PLACEMENT. TY ASKED IF PT WAS STILL INTUBATED. CM EXPLAINED PT'S SITUATION AND IS NOW OFF VENT, OUT OF ICU, EATING, UP IN ROOM INDEPENDENTLLY ON ROOM AIR. TY WILL SCREEN FOR ADMISSION. CM FAXED UPDATE TO [facility] CALL [facility]ENTER AT [phone]. CM CONTINUES TO WAIT ACCEPTANCE BY ANY INPATIENT PSYCHIATRIC TREATMENT CENTER [facility]. VIOLETTE Saenz DCP- Discharge Planning Updated by [id number]: Dainlo Buck on 03/17/19 8:[address] Patient Name: DIEGO LEON Encounter No: [id number] : 1965 Primary Insurance: MEDICARE A & B Anticipated DC Date: 03-17-2019 Planned Disposition: Psych facility External Planned Provider: [facility] DCP follow-up note: CM FAXED REFERRAL UPDATE TO [facility] AT [phone]. CM SPOKE TO PT IN ROOM WHO IS STILL WILLING FOR INPATIENT PSYCHIATRIC FACILITY TO CLEAR HIM TO GO HOME HE REPORTS HE IS NOT SUICIDAL. IMPORANT MESSAGE FROM MEDICARE PROVIDED AND EXPLAINED. PT'S MOTHER REPORTS THAT SHE PLANS TO TAKE PT HOME AFTER PSYCHIATRIC TREATMENT ONCE HIS MEDICATIONS ARE "RIGHT AGAIN". PT'S MOTHER STATES THE LAST TIME PT WENT TO A HOSPITAL WAS 5 YEARS AGO AND PT HAD BEEN FINE AT HER HOME UNTIL THIS INCIDENT. CM PROVIDED UPDATE ON PLACEMENT. CM CONTINUES TO WAIT ACCEPTANCE BY ANY INPATIENT PSYCHIATRIC TREATMENT CENTER [facility]. Danilo Buck CASE MANAGEMENT DCP- Discharge Planning Updated by [id number]: Danilo Buck on 03/16/19 3:[address] Patient Name: DIEGO LEON Encounter No: [id number] : 1965 Primary Insurance: MEDICARE A & B Anticipated DC Date: 03-09-2019 Planned Disposition: Psych facility External Planned Provider: [facility] DCP follow-up note: CM SPOKE TO SHAMIKA AT [facility], , PROVIDED UPDATE AND NOTIFIE PT IS NOT ON ISOLATION. MARYAN ASKED FOR ENTIRE NEW PACKET. CM FAXED UPDATED PACKET TO [facility] C[facility] AT [phone]. CM CONTINUES TO WAIT ACCEPTANCE BY ANY INPATIENT PSYCHIATRIC TREATMENT CENTER [facility]. Danilo Buck CASE MANAGEMENT DCP- Discharge Planning Updated by [id number]: Danilo Buck on 03/10/19 7:[address] Patient Name: DIEGO LEON Encounter No: [id number] : 1965 Primary Insurance: MEDICARE A & B Anticipated DC Date: 03-09-2019 Planned Disposition: Psych facility External Planned Provider: [facility] DCP follow-up note: CM FAXED UPDATE WITH YESTERDAYS PSYCHIATRIC FOLLOW UP NOTE TO [facility] AT [phone]. CM CONTINUES TO WAIT ACCEPTANCE BY ANY INPATIENT PSYCHIATRIC TREATMENT CENTER [facility]. Danilo Buck CASE MANAGEMENT DCP- Discharge Planning Updated by [id number]: Danilo Buck on 03/09/19 10:[address] Patient Name: DIEGO LEON Encounter No: [id number] : 1965 Primary Insurance: MEDICARE A & B Anticipated DC Date: 03-09-2019 Planned Disposition: Psych facility External Planned Provider: [facility] DCP follow-up note: CM SPOKE TO PT IN ROOM WHO IS STILL WILLING FOR INPATIENT PSYCHIATRIC CARE. PT STILL DOES NO KNOW WHY HE TOOK OVERDOSE OF MEDICATIONS, REPORTS IT WILL NEVER HAPPEN AGAIN. PT DENIES SUIDCIDAL IDEATION AT THIS TIME. PT HAS NO PREFERENCE ON EQUIPMENT PROVIDER FOR JUAN ANTONIO CHOICE SIGNED FOR NO PREFERENCE. IMPORTANT MESSAGE FROM MEDICARE PROVIDED AND EXPLAINED. CM FAXED WALKER REFERRAL TO [facility] AT [phone]. CM VERIFIED RECEIPT OF ORDER WITH ALHAJI OF [facility], , WALKER TO BE DELIVERED TO PT'S HOSPITAL ROOM TODAY. CM CALLED [facility] AT [phone], SPOKE TO DENYS AND PROVIDED UPDATE. FACILITIES ARE DENYING FOR LACK OF "SI", SUICIDAL INTENT. PT HAS BEEN DECLINED BY MOST FACILITIES [facility], [facility]AMIKA OF [facility] STILL SEEKING PLACEMENT. CM FAXED UPDATE TO [facility] AT [phone]. CM CONTINUES TO WAIT ACCEPTANCE BY ANY INPATIENT PSYCHIATRIC TREATMENT CENTER [facility]. [facility] TO DELIVER WALKER TO PT'S ROOM FOR DISCHARGE. Danilo Buck, CASE MANAGEMENT DCP- Discharge Planning Updated by [id number]: Danilo Buck on 03/06/19 1:[address] Patient Name: DIEGO LEON Encounter No: [id number] : 1965 Primary Insurance: MEDICARE A & B Anticipated DC Date: 03-06-2019 Planned Disposition: Psych facility External Planned Provider: [facility] DCP follow-up note: CM MET WITH INTERDISCIPLINARY TEAM, NOTIFIED BY UBALDO GALARZA THAT PT IS STABLE FOR TRANSFER TO INPATIENT PSYCHIATRIC FACILITY. CM MET WITH PT WHO DOES NOT KNOW WHY HE TOOK DRUG OVERDOSE. PT'S MOTHER STATES THAT SHE FOUND THE EMPTY BOTTLE AND BROUGHT PT TO THE HOSPITAL AND REPORTS PT RECENTLY QUIT TAKING ALL OF HIS NARCOTIC MEDICATION PRIOR TO THE OVERDOSE. FAMILY AND PT IN AGREEMENT WITH TRANSFER TO PSYCHIATRIC FACILITY FOR EVALUATION. IMPORTANT MESSAGE FROM [employer] PROVIDED AND EXPLAINED. CM CALLED TRANSF[facility] C[facility], , SPOKE TO SHAMIKA AND PROVIDED REFERRAL INFORMATION. CM FAXED REFERRAL TO [facility] C[facility] AT [phone]. CM WAITING TO SEE IF PT WILL BE ACCEPTED TO ANY INPATIENT PSYCHIATRIC FACILITY IN THE STATE. [facility] TO CONTACT MED 2 NURSE IF ONE IS FOUND. Danilo Buck, CASE MANAGEMENT DCP- Discharge Planning Updated by [id number]: Altagracia Lou on 02/26/19 5:[address] LATE ENTRY 02/24/19 Patient Name: DIEGO LEON Admission Status: ER Accout number: [id number] Admission Date: 02-19-2019 : 1965 Admission Diagnosis: Attending: VLADIMIR ROACH Current LOS: 7 Anticipated DC Date: Planned Disposition: Primary Insurance: MEDICARE A & B Discharge Planning Comments: CM met with patient at bedside after explaining CM role and obtaining verbal consent. Patient lives at home with his mother where he is independent with his care and plans to return there upon discharge. Patient feels this would be a safe discharge. CM discussed availability / needs of home health and medical equipment. Patient denies any discharge needs at this time. Patient states he will have his family drive him home upon discharge. CM will continue to follow and assist as needed with discharge planning / needs. Abstract Searcher: Altagracia Lou DCPIA - Discharge Planning Initial Assessment Updated by [id number]: Altagracia Lou on 02/26/19 6:50 pm * Is the patient Alert and Oriented? Yes * How many steps to enter\\exit or inside your home? * PCP JAY JAY CHAN * Pharmacy [facility] * Preadmission Environment Home with Family * ADLs Independent * Equipment None * List name and contact numbers for known caregivers / representatives who currently or will assist patient after discharge: CHRIS LEON - MOTHER- [phone] * Verbal permission to speak to the caregivers and representatives has been obtained from the patient. Yes * Community resources currently utilized None * Additional services required to return to the preadmission environment? No * Can the patient safely return to the preadmission environment? Yes * Has this patient been hospitalized within the prior 30 days at any hospital? No Coverage Notice Reviewer: ARMAND Buck Notice Issued Date-Time: 03/09/2019 9:45 Notice Type: IM Discharge Notice Notice Delivered To: Patient Relationship to Patient: Lawn Sprinkler Installer Name: Delivery Method: EXPR - Express Mail Erin Days: Prior Verbal Notification: Recipient Understood Notice: Yes Recipient Signature: Yes Med Rec Note Co-signed by Attending: Coverage Notice Comment: Reviewer: ARMAND Buck Notice Issued Date-Time: 03/09/2019 9:45 Notice Type: Patient Choice Letter Notice Delivered To: Patient Relationship to Patient: Lawn Sprinkler Installer Name: Delivery Method: HAND - Hand Delivered Erin Days: Prior Verbal Notification: Recipient Understood Notice: Yes Recipient Signature: Yes Med Rec Note Co-signed by Attending: Coverage Notice Comment: no preference for walker provider Reviewer: ARMAND Buck Notice Issued Date-Time: 03/17/2019 9:20 Notice Type: IM Discharge Notice Notice Delivered To: Patient Relationship to Patient: Lawn Sprinkler Installer Name: Delivery Method: HAND - Hand Delivered Erin Days: Prior Verbal Notification: Recipient Understood Notice: Yes Recipient Signature: Yes Med Rec Note Co-signed by Attending: Coverage Notice Comment: Last DP export: 03/18/19 3:13 p Patient Name: DIEGO LEON Page [id number] at 1630 All edits/amendments must be made on the electronic document DICTATION DATE: 03/18/19 162 UTILITY LOCATOR: TAVIA 03/18/19 1629 RPT#: [id number] DC DATE: STATUS: ADM IN [facility] [address] [place] [address] END OF REPORT
--- NOTE | 2019-03-18 16:33 | NUR ---
OT NOTE: PT COMPLETED SUPINE TO SIT WITH SBA. PT COMPLETED STANDING BALANCE WITH SPV. PT COMLETED FACE WASH WITH SET UP AT [facility]OB. PT COMPLETED BUE AROM EXS. PT IS ANTICIPATING DISCHARGE AND "PUT THIS BEHIND HIM." [phone] THANK YOU, YRN HERNANDEZ
[2019-03-18 16:57] VITALS: BP 115/71
--- NOTE | 2019-03-18 19:49 | NUR ---
EVENING ROUNDS COMPLETE. PT LAYING IN BED. AAOX4. PT DENIES ANY NEEDS AT THIS TIME. SITTER PRESENT AT DOOR. NO SIGNS OF DISTRESS. CL IN REACH, BED IN LOWEST POSITION.
[2019-03-18 20:00] VITALS: BP 124/71
[2019-03-19] VITALS: BP 110/54
[2019-03-19 04:00] VITALS: BP 111/78
[2019-03-19 08:48] VITALS: BP 128/85
--- NOTE | 2019-03-19 09:38 | MORECARE ---
CASE MANAGEMENT DISCHARGE SUMMARY PATIENT: DIEGO LEON JR UNIT: [id number] ADM DATE: 02/19/19 AGE: 54 : 65 SEX: M ROOM/BED: D.2106 AUTHOR: WILL,DOC PHYSICIAN: REFERRING PHYSICIAN: VLADIMIR ROACH MD DATE OF SERVICE: 03/19/19 Discharge Plan Patient Name: DIEGO LEON Facility: [facility]:[place] : 1965 Planned Disposition: Psych facility Anticipated Discharge Date: 03/18/19 Discharge Date: Expected LOS: 27 Initial Reviewer: [id number] Initial Review Date: 02/23/2019 Generated: 03/19/19 10:38 am Comments DCP- Discharge Planning Updated by [id number]: Danilo Buck on 03/19/19 8:[address] Patient Name: DIEGO LEON Encounter No: [id number] : 1965 Primary Insurance: MEDICARE A & B Anticipated DC Date: 03-18-2019 Planned Disposition: Psych facility External Planned Provider: [facility] C[facility], [place] OR [facility] DCP follow-up note: CM FAXED REFERRAL UPDATE TO [facility] AT [phone]. CM RECEIVED CALL FROM [facility], , WHO INFORMED CM THAT [facility] AND [facility]YCH PLANS TO INTERVIEW PT TODAY TO CONSIDER FOR ADMISSION. CM RECEIVED TELEPHONE MESSAGE FROM ESTHER FROM 03-18-19 AT ABOUT 1749 HOURS ASKING IF PT HAS A PEG OR IS STILL USING WALKER. CALLED [facility], , SPOKE TO ALFREDO WHO INFORMED CM THAT DO IS NOT IN TODAY AND SHE KNOWS NOTHING OF THE REFERRAL AND ASKED FOR CM TO REFAX IT. CM INFORMED ALFREDO THAT PT DOES NOT HAVE A PEG TUBE AND IS UP INDEPENDENTLY IN ROOM WITHOUT ASSISTANCE OR DEVICE. CM RE FAXED REFERRAL WITH TODAYS UPDATE TO [facility] AT [phone]. CM WAITING ADMISSION DETERMINATION FROM [facility]PAT[facility]ATRIC UNIT, [facility] INPATIENT PSYCHIATRIC UNIT AND [facility] FROM [place]. [facility] AND [facility] PLAN TO SCREEN PT TODAY. CM CONTINUES TO WAIT ACCEPTANCE BY ANY INPATIENT PSYCHIATRIC TREATMENT CENTER [facility]. Danilo Buck, CASE MANAGEMENT DCP- Discharge Planning Updated by [id number]: Danilo Buck on 03/18/19 3:[address] Patient Name: DIEGO LEON Encounter No: [id number] : 1965 Primary Insurance: MEDICARE A & B Anticipated DC Date: 03-18-2019 Planned Disposition: Psych facility External Planned Provider: [facility], [place] DCP follow-up note: CM FAXED REFERRAL UPDATE TO [facility] AT [phone]. CM RECEIVED CALL FROM [facility], , WHO INFORMED CM THAT [facility] IS RE REVIEWING PT FOR ADMISSION BUT THEY ARE NOT HOPEFUL OF ACCEPTANCE. SHAMIKA REPORTS WE NEED NEW PSYCHIATRIC EVALUATION NOTE AND THE PROBLEM NOW IS THAT PT HAS NO ACUTE NEED OF INPATIENT PSYCHIATRIC STABALIZATION AND THAT THE DOCTORS HAVE NOTED THAT PT NEEDS USP CARE, THAT PT'S MOTHER IS NOT ABLE TO CARE FOR PT AT HOME. CM EXPLAINED THAT PT IS NO LONGER USING THE WALKER FOR AMBULATION AND THAT PT'S MOTHER PLANS TO TAKE PT BACK HOME ONCE STABLIZED AND MEDICATIONS ARE FIGURED OUT. SHAMIKA REPORTS THAT [facility] PLANS TO INTERVIEW PT TOMORROW TO CONSIDER FOR ADMISSION. CM CALLED [facility], , SPOKE TO ASA WHO REPORTS PT SOUNDS FAMILAIR BUT THEY CAN RESCREEN FOR ADMISSION. CM FAXED REFERRAL TO [facility] AT [phone]. CM RECEIVED CALL FROM [facility] ASKING TO SPEAK TO DR. VÁZQUEZ THE DOCTOR AT [facility] WANTS TO SPEAK TO DR. VÁZQUEZ REGARDING PT. CM PROVIDED CELL NUMBER FOR DR. VÁZQUEZ TO [facility]SFER [facility], NOTIFIED UBALDO GALARZA THAT [facility] IS CALLING DR. VÁZQUEZ. CM WAITING ADMISSION DETERMINATION FROM [facility]PATIENT [facility]IATRIC UNIT AND [facility] INPATIENT [facility]RIC UNIT. [facility] FROM [place] PLANS TO SCREEN PT TOMORROW, 03-19-19. CM CONTINUES TO WAIT ACCEPTANCE BY ANY INPATIENT PSYCHIATRIC TREATMENT CENTER [facility]. Danilo Buck CASE MANAGEMENT. DCP- Discharge Planning Updated by [id number]: Danilo Buck on 03/18/19 10:[address] Patient Name: DIEGO LEON Encounter No: [id number] : 1965 Primary Insurance: MEDICARE A & B Anticipated DC Date: 03-18-2019 Planned Disposition: Psych facility External Planned Provider: [facility] DCP follow-up note: CM FAXED REFERRAL UPDATE TO [facility] AT [phone]. CM CALLED [facility], , SPOKE TO TY AND REQUESTED INPATIENT PSYCHIATRIC PLACEMENT. TY ASKED IF PT WAS STILL INTUBATED. CM EXPLAINED PT'S SITUATION AND IS NOW OFF VENT, OUT OF ICU, EATING, UP IN ROOM INDEPENDENTLLY ON ROOM AIR. TY WILL SCREEN FOR ADMISSION. CM FAXED UPDATE TO [facility] AT [phone]. CM CONTINUES TO WAIT ACCEPTANCE BY ANY INPATIENT PSYCHIATRIC TREATMENT CENTER [facility]. Danilo Buck, CASE MANAGEMENT DCP- Discharge Planning Updated by [id number]: Danilo Buck on 03/17/19 8:[address] Patient Name: DIEGO LEON Encounter No: [id number] : 1965 Primary Insurance: MEDICARE A & B Anticipated DC Date: 03-17-2019 Planned Disposition: Psych facility External Planned Provider: [facility] DCP follow-up note: CM FAXED REFERRAL UPDATE TO [facility] AT [phone]. CM SPOKE TO PT IN ROOM WHO IS STILL WILLING FOR INPATIENT PSYCHIATRIC FACILITY TO CLEAR HIM TO GO HOME HE REPORTS HE IS NOT SUICIDAL. IMPORANT MESSAGE FROM MEDICARE PROVIDED AND EXPLAINED. PT'S MOTHER REPORTS THAT SHE PLANS TO TAKE PT HOME AFTER PSYCHIATRIC TREATMENT ONCE HIS MEDICATIONS ARE "RIGHT AGAIN". PT'S MOTHER STATES THE LAST TIME PT WENT TO A HOSPITAL WAS 5 YEARS AGO AND PT HAD BEEN FINE AT HER HOME UNTIL THIS INCIDENT. CM PROVIDED UPDATE ON PLACEMENT. CM CONTINUES TO WAIT ACCEPTANCE BY ANY INPATIENT PSYCHIATRIC TREATMENT CENTER [facility]. Danilo Buck, CASE MANAGEMENT DCP- Discharge Planning Updated by [id number]: Danilo Buck on 03/16/19 3:[address] Patient Name: DIEGO LEON Encounter No: [id number] : 1965 Primary Insurance: MEDICARE A & B Anticipated DC Date: 03-09-2019 Planned Disposition: Psych facility External Planned Provider: [facility] DCP follow-up note: CM SPOKE TO SHAMIKA AT [facility], , PROVIDED UPDATE AND NOTIFIE PT IS NOT ON ISOLATION. MARYAN ASKED FOR ENTIRE NEW PACKET. CM FAXED UPDATED PACKET TO [facility] AT [phone]. CM CONTINUES TO WAIT ACCEPTANCE BY ANY INPATIENT PSYCHIATRIC TREATMENT CENTER [facility]. Danilo Buck CASE MANAGEMENT DCP- Discharge Planning Updated by [id number]: Danilo Buck on 03/10/19 7:[address] Patient Name: DIEGO LEON Encounter No: [id number] : 1965 Primary Insurance: MEDICARE A & B Anticipated DC Date: 03-09-2019 Planned Disposition: Psych facility External Planned Provider: [facility] DCP follow-up note: CM FAXED UPDATE WITH YESTERDAYS PSYCHIATRIC FOLLOW UP NOTE TO [facility] AT [phone]. CM CONTINUES TO WAIT ACCEPTANCE BY ANY INPATIENT PSYCHIATRIC TREATMENT CENTER [facility]. Danilo Buck CASE HENRY DCP- Discharge Planning Updated by [id number]: Danilo Bcuk on 03/09/19 10:[address] Patient Name: DIEGO LEON Encounter No: [id number] : 1965 Primary Insurance: MEDICARE A & B Anticipated DC Date: 03-09-2019 Planned Disposition: Psych facility External Planned Provider: [facility] DCP follow-up note: CM SPOKE TO PT IN ROOM WHO IS STILL WILLING FOR INPATIENT PSYCHIATRIC CARE. PT STILL DOES NO KNOW WHY HE TOOK OVERDOSE OF MEDICATIONS, REPORTS IT WILL NEVER HAPPEN AGAIN. PT DENIES SUIDCIDAL IDEATION AT THIS TIME. PT HAS NO PREFERENCE ON EQUIPMENT PROVIDER FOR WALKER, CHOICE SIGNED FOR NO PREFERENCE. IMPORTANT MESSAGE FROM MEDICARE PROVIDED AND EXPLAINED. CM FAXED WALKER REFERRAL TO [facility] AT [phone]. CM VERIFIED RECEIPT OF ORDER WITH ALHAJI OF [facility], , WALKER TO BE DELIVERED TO PT'S HOSPITAL ROOM TODAY. CM CALLED [facility] AT [phone], SPOKE TO DENYS AND PROVIDED UPDATE. FACILITIES ARE DENYING FOR LACK OF "SI", SUICIDAL INTENT. PT HAS BEEN DECLINED BY MOST FACILITIES [facility], SHAMIKA OF [facility] STILL SEEKING PLACEMENT. CM FAXED UPDATE TO [facility] AT [phone]. CM CONTINUES TO WAIT ACCEPTANCE BY ANY INPATIENT PSYCHIATRIC TREATMENT CENTER [facility]. [facility] TO DELIVER WALKER TO PT'S ROOM FOR DISCHARGE. VIOLETTE Saenz DCP- Discharge Planning Updated by [id number]: Danilo Buck on 03/06/19 1:[address] Patient Name: DIEGO LEON Encounter No: [id number] : 1965 Primary Insurance: MEDICARE A & B Anticipated DC Date: 03-06-2019 Planned Disposition: Psych facility External [facility] DCP follow-up note: CM MET WITH INTERDISCIPLINARY TEAM, NOTIFIED BY UBALDO GALARZA THAT PT IS STABLE FOR TRANSFER TO INPATIENT PSYCHIATRIC FACILITY. CM MET WITH PT WHO DOES NOT KNOW WHY HE TOOK DRUG OVERDOSE. PT'S MOTHER STATES THAT SHE FOUND THE EMPTY BOTTLE AND BROUGHT PT TO THE HOSPITAL AND REPORTS PT RECENTLY QUIT TAKING ALL OF HIS NARCOTIC MEDICATION PRIOR TO THE OVERDOSE. FAMILY AND PT IN AGREEMENT WITH TRANSFER TO PSYCHIATRIC FACILITY FOR EVALUATION. IMPORTANT MESSAGE FROM [employer] PROVIDED AND EXPLAINED. CM CALLED [facility], , SPOKE TO SHAMIKA AND PROVIDED REFERRAL INFORMATION. CM FAXED REFERRAL TO [facility] AT [phone]. CM WAITING TO SEE IF PT WILL BE ACCEPTED TO ANY INPATIENT PSYCHIATRIC FACILITY IN THE STATE. [facility] TO CONTACT [facility] 2 NURSE IF ONE IS FOUND. VIOLETTE Saenz DCP- Discharge Planning Updated by [id number]: Do Lou on 02/26/19 5:[address] LATE ENTRY 02/24/19 Patient Name: DIEGO LEON Admission Status: ER Accout number: [id number] Admission Date: 02-19-2019 : 1965 Admission Diagnosis: Attending: VLADIMIR ROACH Current LOS: 7 Anticipated DC Date: Planned Disposition: Primary Insurance: MEDICARE A & B Discharge Planning Comments: CM met with patient at bedside after explaining CM role and obtaining verbal consent. Patient lives at home with his mother where he is independent with his care and plans to return there upon discharge. Patient feels this would be a safe discharge. CM discussed availability / needs of home health and medical equipment. Patient denies any discharge needs at this time. Patient states he will have his family drive him home upon discharge. CM will continue to follow and assist as needed with discharge planning / needs. Coordinator Skill Training Program: Do Lou DCPIA - Discharge Planning Initial Assessment Updated by [id number]: Do Mendozar on 02/26/19 6:50 pm * Is the patient Alert and Oriented? Yes * How many steps to enter\\exit or inside your home? * PCP JAY JAY CHAN * Pharmacy [place] * Preadmission Environment Home with Family * ADLs Independent * Equipment None * List name and contact numbers for known caregivers / representatives who currently or will assist patient after discharge: CHRIS LEON - [facility]- [phone] * Verbal permission to speak to the caregivers and representatives has been obtained from the patient. Yes * Community resources currently utilized None * Additional services required to return to the preadmission environment? No * Can the patient safely return to the preadmission environment? Yes * Has this patient been hospitalized within the prior 30 days at any hospital? No Coverage Notice Reviewer: ARMAND Buck Notice Issued Date-Time: 03/09/2019 9:45 Notice Type: IM Discharge Notice Notice Delivered To: Patient Relationship to Patient: Customer Success Specialist Name: Delivery Method: EXPR - Express Mail Erin Days: Prior Verbal Notification: Recipient Understood Notice: Yes Recipient Signature: Yes Med Rec Note Co-signed by Attending: Coverage Notice Comment: Reviewer: ARMAND Buck Notice Issued Date-Time: 03/09/2019 9:45 Notice Type: Patient Choice Letter Notice Delivered To: Patient Relationship to Patient: Customer Success Specialist Name: Delivery Method: HAND - Hand Delivered Erin Days: Prior Verbal Notification: Recipient Understood Notice: Yes Recipient Signature: Yes Med Rec Note Co-signed by Attending: Coverage Notice Comment: no preference for walker provider Reviewer: ARMAND Buck Notice Issued Date-Time: 03/17/2019 9:20 Notice Type: IM Discharge Notice Notice Delivered To: Patient Relationship to Patient: Customer Success Specialist Name: Delivery Method: HAND - Hand Delivered Erin Days: Prior Verbal Notification: Recipient Understood Notice: Yes Recipient Signature: Yes Med Rec Note Co-signed by Attending: Coverage Notice Comment: Reviewer: ARMAND Buck Notice Issued Date-Time: 03/19/2019 9:00 Notice Type: IM Discharge Notice Notice Delivered To: Patient Relationship to Patient: Customer Success Specialist Name: Delivery Method: HAND - Hand Delivered Erin Days: Prior Verbal Notification: Recipient Understood Notice: Yes Recipient Signature: Yes Med Rec Note Co-signed by Attending: Coverage Notice Comment: Last DP export: 03/18/19 3:29 p Patient Name: DIEGO LEON Page [id number] at 0938 All edits/amendments must be made on the electronic document DICTATION DATE: 03/19/19937 MANAGER PRIMARY CARE: TAVIA 03/19/19937 RPT#: [id number] DC DATE: STATUS: ADM IN [facility] [address] [place] [address] END OF REPORT
[2019-03-19 11:13] LABS: BASOPHILS 0.6 % (0-2); EOSINOPHILS 5.7 % (0-7); HEMATOCRIT 42.1 % (42.0-54.0); HEMOGLOBIN 14.1 g/dL (13.5-17.5); IMMATURE GRANULOCYTES 0.3 % (0-5); LYMPHOCYTES 18.2 % (15-50); MCH 33.4 pg (26.0-34.0); MCHC 33.5 g/dL (31.0-37.0); MCV 99.8 fL (80.0-100.0); MEAN PLATELET VOLUME 9.9 fL (7.4-10.4); MONOCYTES 8.7 % (2-11); NEUTROPHILS 66.5 % (40-80); PLATELET COUNT 206 10x3/uL (130-400); RBC 4.22 10x6/uL (4.20-6.10); RDW 13.1 % (11.5-14.5); WBC 6.5 10x3/uL (4.8-10.8)
[2019-03-19 11:17] LABS: CALC OSMOLALITY 280 mosm/kg (275-300); CALCIUM 8.8 mg/dL (8.5-10.1); CARBON DIOXIDE 29.4 mmol/L (21.0-32.0); CHLORIDE - SERUM 104 mmol/L (98-107); CREATININE - SERUM 0.8 mg/dL (0.6-1.3); GLUCOSE 139 mg/dL (74-106); POTASSIUM - SERUM 3.7 mmol/L (3.5-5.1); SODIUM 141 mmol/L (136-145); UREA NITROGEN 8 mg/dL (7-18); eGFR NON AFRICAN AMERICAN > 90 mL/min (90-120)
--- NOTE | 2019-03-19 11:24 | NUR ---
PT A/O X4. RESTING IN BED WATCHING TV. PT VSS. DENIES ANY PAIN OR FURTHER NEEDS AT THIS TIME. PT HAS SITTER. BED LOW CALL LIGHT WITHIN REACH. WILL CONTINUE TO MONITOR.
--- NOTE | 2019-03-19 12:45 | MORECARE ---
CASE MANAGEMENT DISCHARGE SUMMARY PATIENT: DIEGO LEON JR UNIT: [id number] ADM DATE: 02/19/19 AGE: 54 : 65 SEX: M ROOM/BED: D.2106 AUTHOR: WILL,DOC PHYSICIAN: REFERRING PHYSICIAN: VLADIMIR ROACH MD DATE OF SERVICE: 03/19/19 Discharge Plan Patient Name: DIEGO LEON Facility: [facility]:[place] : 1965 Planned Disposition: Psych facility Anticipated Discharge Date: 03/18/19 Discharge Date: Expected LOS: 27 Initial Reviewer: [id number] Initial Review Date: 02/23/2019 Generated: 03/19/19 1:45 pm Comments DCP- Discharge Planning Updated by [id number]: Jaja Wheeler on 03/19/19 11:[address] Patient Name: DIEGO LEON Encounter No: [id number] : 1965 Primary Insurance: MEDICARE A & B Anticipated DC Date: 03-18-2019 Planned Disposition: Psych facility External Planned Provider: [facility] INPATIENT [facility]RIC CARE, [place] [facility] DCP follow-up note: CM FAXED REFERRAL UPDATE TO [facility] AT [phone]. CM RECEIVED CALL FROM SHAMIKA [facility], , WHO INFORMED CM THAT [facility] AND [facility] GERIATRIC PSYCH PLANS TO INTERVIEW PT TODAY TO CONSIDER FOR ADMISSION. CM RECEIVED TELEPHONE MESSAGE FROM ESTHER FROM 03-18-19 AT ABOUT 1749 HOURS ASKING IF PT HAS A PEG OR IS STILL USING WALKER. CALLED [facility], , SPOKE TO ALFREDO WHO INFORMED CM THAT DO IS NOT IN TODAY AND SHE KNOWS NOTHING OF THE REFERRAL AND ASKED FOR CM TO REFAX IT. CM INFORMED ALFREDO THAT PT DOES NOT HAVE A PEG TUBE AND IS UP INDEPENDENTLY IN ROOM WITHOUT ASSISTANCE OR DEVICE. CM RE FAXED REFERRAL WITH TODAYS UPDATE TO [facility] AT [phone]. CM WAITING ADMISSION DETERMINATION FROM [facility] INPATIENT PSYCHIATRIC UNIT, [facility] INPATIENT PSYCHIATRIC UNIT AND [facility] FROM [place]. [facility] AND [facility] PLAN TO SCREEN PT TODAY. CM CONTINUES TO WAIT ACCEPTANCE BY ANY INPATIENT PSYCHIATRIC TREATMENT CENTER [facility]. Jaja Wheeler, CASE MANAGEMENT Appended by Jaja Wheeler on 03/19/2019 12:43 FINISHER DENTURE: CM RECEIVED CALL FROM ALFREDO OF [facility] WHO INFORMED CM THAT PT IS NOT APPROPRIATE FOR INPATIENT PSYCHIATRIC CARE HE IS NOT ACTIVELY SUICIDAL AND ANY NEEDED MEDICATION ADJUSTMENTS COULD BE DONE OUTPATIENT. CM RECEIVED CALL FROM LALI OF [facility] WHO INFORMED CM THAT DR. ARRIAZA WILL NOT ACCEPT PT PT IS "INAPPROPRIATE" FOR TRANSFER. CM ASKED FOR RECONSIDERATION, LALI WILL PROVIDE DR. DE OLIVEIRA PHONE NUMBER TO DR. DR. ARRIAZA AND ASK DR. ARRIAZA TO CALL. PT HAS BEEN DECLINED BY [facility] AND [facility]; PER SHAMIKA AT [facility], HE HAS TRIED [facility] TO GET PT INTO INPATIENT PSYCHIATRIC TREATMENT BUT HAS BEEN UNABLE DUE TO LACK OF ACTIVE SUICIDAL IDEATIONS. CM WAITING ADMISSION DETERMINATION FROM [facility] WHO PLANS TO SCREEN PT TODAY. JAJA WHEELER, CASE MANAGEMENT DCP- Discharge Planning Updated by [id number]: Jaja Wheeler on 03/18/19 3:[address] Patient Name: DIEGO LEON Encounter No: [id number] : 1965 Primary Insurance: MEDICARE A & B Anticipated DC Date: 03-18-2019 Planned Disposition: Psych facility External Planned Provider: [facility] INPATIENT PS[facility]CHIATRIC CARE, [place] DCP follow-up note: CM FAXED REFERRAL UPDATE TO [facility] AT [phone]. MIRELA RECEIVED CALL FROM [facility], , WHO INFORMED CM THAT [facility] IS RE REVIEWING PT FOR ADMISSION BUT THEY ARE NOT HOPEFUL OF ACCEPTANCE. SHAMIKA REPORTS WE NEED NEW PSYCHIATRIC EVALUATION NOTE AND THE PROBLEM NOW IS THAT PT HAS NO ACUTE NEED OF INPATIENT PSYCHIATRIC STABALIZATION AND THAT THE DOCTORS HAVE NOTED THAT PT NEEDS RETIREMENT CARE, THAT PT'S MOTHER IS NOT ABLE TO CARE FOR PT AT HOME. MIRELA EXPLAINED THAT PT IS NO LONGER USING THE WALKER FOR AMBULATION AND THAT PT'S MOTHER PLANS TO TAKE PT BACK HOME ONCE STABLIZED AND MEDICATIONS ARE FIGURED OUT. SHAMIKA REPORTS THAT [facility] G[facility] PLANS TO INTERVIEW PT TOMORROW TO CONSIDER FOR ADMISSION. CM CALLED [facility], , SPOKE TO ASA WHO REPORTS PT SOUNDS FAMILAIR BUT THEY CAN RESCREEN FOR ADMISSION. CM FAXED REFERRAL TO [facility] AT [phone]. CM RECEIVED CALL FROM [facility] TRANSFER CENTER ASKING TO SPEAK TO DR. VÁZQUEZ THE DOCTOR AT [facility] WANTS TO SPEAK TO DR. VÁZQUEZ REGARDING PT. CM PROVIDED CELL NUMBER FOR DR. VÁZQUEZ TO TRANSFER CENTER, NOTIFIED UBALDO GALARZA THAT [facility] IS CALLING DR. VÁZQUEZ. CM WAITING ADMISSION DETERMINATION FROM [facility] INPATIENT PSYCHIATRIC UNIT AND [facility] INPATIENT PSYCHIATRIC UNIT. [facility] FROM [place] PLANS TO SCREEN PT TOMORROW, 03-19-19. CM CONTINUES TO WAIT ACCEPTANCE BY ANY INPATIENT PSYCHIATRIC TREATMENT CENTER [facility]. Jaja Wheeler CASE MANAGEMENT. DCP- Discharge Planning Updated by [id number]: Jaja Wheeler on 03/18/19 10:[address] Patient Name: DIEGO LEON Encounter No: [id number] : 1965 Primary Insurance: MEDICARE A & B Anticipated DC Date: 03-18-2019 Planned Disposition: Psych facility External Planned Provider: [facility] DCP follow-up note: MIRELA FAXED REFERRAL UPDATE TO TRANSFER CENTER AT [phone]. CM CALLED [facility] CALL CENTER, , SPOKE TO TY AND REQUESTED INPATIENT PSYCHIATRIC PLACEMENT. TY ASKED IF PT WAS STILL INTUBATED. MIRELA EXPLAINED PT'S SITUATION AND IS NOW OFF VENT, OUT OF ICU, EATING, UP IN ROOM INDEPENDENTLLY ON ROOM AIR. TY WILL SCREEN FOR ADMISSION. CM FAXED UPDATE TO [facility] CALL [facility]ENTER AT [phone]. CM CONTINUES TO WAIT ACCEPTANCE BY ANY INPATIENT PSYCHIATRIC TREATMENT CENTER [facility]. VIOLETTE Saenz MANAGEMENT DCP- Discharge Planning Updated by [id number]: Jaja Wheeler on 03/17/19 8:[address] Patient Name: DIEGO LEON Encounter No: [id number] : 1965 Primary Insurance: MEDICARE A & B Anticipated DC Date: 03-17-2019 Planned Disposition: Psych facility External Planned Provider: [facility] DCP follow-up note: CM FAXED REFERRAL UPDATE TO TRANSFER CENTER AT [phone]. CM SPOKE TO PT IN ROOM WHO IS STILL WILLING FOR INPATIENT PSYCHIATRIC FACILITY TO CLEAR HIM TO GO HOME HE REPORTS HE IS NOT SUICIDAL. IMPORANT MESSAGE FROM MEDICARE PROVIDED AND EXPLAINED. PT'S MOTHER REPORTS THAT SHE PLANS TO TAKE PT HOME AFTER PSYCHIATRIC TREATMENT ONCE HIS MEDICATIONS ARE "RIGHT AGAIN". PT'S MOTHER STATES THE LAST TIME PT WENT TO A HOSPITAL WAS 5 YEARS AGO AND PT HAD BEEN FINE AT HER HOME UNTIL THIS INCIDENT. CM PROVIDED UPDATE ON PLACEMENT. CM CONTINUES TO WAIT ACCEPTANCE BY ANY INPATIENT PSYCHIATRIC TREATMENT CENTER [facility]. Jaja Wheeler CASE MANAGEMENT DCP- Discharge Planning Updated by [id number]: Jaja Wheeler on 03/16/19 3:[address] Patient Name: DIEGO LEON Encounter No: [id number] : 1965 Primary Insurance: MEDICARE A & B Anticipated DC Date: 03-09-2019 Planned Disposition: Psych facility External Planned Provider: [facility] DCP follow-up note: CM SPOKE TO SHAMIKA AT TRANSFER C[facility], , PROVIDED UPDATE AND NOTIFIE PT IS NOT ON ISOLATION. MARYAN ASKED FOR ENTIRE NEW PACKET. CM FAXED UPDATED PACKET TO TRANSFER CENTER AT [phone]. CM CONTINUES TO WAIT ACCEPTANCE BY ANY INPATIENT PSYCHIATRIC TREATMENT CENTER [facility]. Jaja Wheeler CASE MANAGEMENT DCP- Discharge Planning Updated by [id number]: Jaja Wheeler on 03/10/19 7:[address] Patient Name: DIEGO LEON Encounter No: [id number] : 1965 Primary Insurance: MEDICARE A & B Anticipated DC Date: 03-09-2019 Planned Disposition: Psych facility External Planned Provider: [facility] DCP follow-up note: CM FAXED UPDATE WITH YESTERDAYS PSYCHIATRIC FOLLOW UP NOTE TO TRANSFER C[facility] AT [phone]. CM CONTINUES TO WAIT ACCEPTANCE BY ANY INPATIENT PSYCHIATRIC TREATMENT CENTER [facility]. Jaja Wheeler CASE MANAGEMENT DCP- Discharge Planning Updated by [id number]: Jaja Wheeler on 03/09/19 10:[address] Patient Name: DIEGO LEON Encounter No: [id number] : 1965 Primary Insurance: MEDICARE A & B Anticipated DC Date: 03-09-2019 Planned Disposition: Psych facility External Planned Provider: [facility] DCP follow-up note: CM SPOKE TO PT IN ROOM WHO IS STILL WILLING FOR INPATIENT PSYCHIATRIC CARE. PT STILL DOES NO KNOW WHY HE TOOK OVERDOSE OF MEDICATIONS, REPORTS IT WILL NEVER HAPPEN AGAIN. PT DENIES SUIDCIDAL IDEATION AT THIS TIME. PT HAS NO PREFERENCE ON EQUIPMENT PROVIDER FOR WALKER, CHOICE SIGNED FOR NO PREFERENCE. IMPORTANT MESSAGE FROM MEDICARE PROVIDED AND EXPLAINED. CM FAXED WALKER REFERRAL TO [facility] AT [phone]. CM VERIFIED RECEIPT OF ORDER WITH ALHAJI OF [facility], , WALKER TO BE DELIVERED TO PT'S HOSPITAL ROOM TODAY. CM CALLED [facility] AT [phone], SPOKE TO DENYS AND PROVIDED UPDATE. FACILITIES ARE DENYING FOR LACK OF "SI", SUICIDAL INTENT. PT HAS BEEN DECLINED BY MOST FACILITIES [facility], SHAMIKA OF [facility] STILL SEEKING PLACEMENT. CM FAXED UPDATE TO [facility] C[facility] AT [phone]. CM CONTINUES TO WAIT ACCEPTANCE BY ANY INPATIENT PSYCHIATRIC TREATMENT CENTER [facility]. [facility] TO DELIVER WALKER TO PT'S ROOM FOR DISCHARGE. Jaja Wheeler, CASE MANAGEMENT DCP- Discharge Planning Updated by [id number]: Jaja Wheeler on 03/06/19 1:[address] Patient Name: DIEGO LEON Encounter No: [id number] : 1965 Primary Insurance: MEDICARE A & B Anticipated DC Date: 03-06-2019 Planned Disposition: Psych facility External [facility] DCP follow-up note: CM MET WITH INTERDISCIPLINARY TEAM, NOTIFIED BY UBALDO GALARZA THAT PT IS STABLE FOR TRANSFER TO INPATIENT PSYCHIATRIC FACILITY. CM MET WITH PT WHO DOES NOT KNOW WHY HE TOOK DRUG OVERDOSE. PT'S MOTHER STATES THAT SHE FOUND THE EMPTY BOTTLE AND BROUGHT PT TO THE HOSPITAL AND REPORTS PT RECENTLY QUIT TAKING ALL OF HIS NARCOTIC MEDICATION PRIOR TO THE OVERDOSE. FAMILY AND PT IN AGREEMENT WITH TRANSFER TO PSYCHIATRIC FACILITY FOR EVALUATION. IMPORTANT MESSAGE FROM [employer] PROVIDED AND EXPLAINED. CM CALLED TRANSFER CENTER, , SPOKE TO SHAMIKA AND PROVIDED REFERRAL INFORMATION. CM FAXED REFERRAL TO TRANSFER CENTER AT [phone]. CM WAITING TO SEE IF PT WILL BE ACCEPTED TO ANY INPATIENT PSYCHIATRIC FACILITY IN THE [place]. [facility] TO CONTACT MED 2 NURSE IF ONE IS FOUND. Jaja Wheeler, CASE MANAGEMENT DCP- Discharge Planning Updated by [id number]: Do Lou on 02/26/19 5:[address] LATE ENTRY 02/24/19 Patient Name: DIEGO LEON Admission Status: ER Accout number: [id number] Admission Date: 02-19-2019 : 1965 Admission Diagnosis: Attending: VLADIMIR ROACH Current LOS: 7 Anticipated DC Date: Planned Disposition: Primary Insurance: MEDICARE A & B Discharge Planning Comments: CM met with patient at bedside after explaining CM role and obtaining verbal consent. Patient lives at home with his mother where he is independent with his care and plans to return there upon discharge. Patient feels this would be a safe discharge. CM discussed availability / needs of home health and medical equipment. Patient denies any discharge needs at this time. Patient states he will have his family drive him home upon discharge. CM will continue to follow and assist as needed with discharge planning / needs. Pick Remover: Do OGLESBY - Discharge Planning Initial Assessment Updated by [id number]: Do Lou on 02/26/19 6:50 pm * Is the patient Alert and Oriented? Yes * How many steps to enter\\exit or inside your home? * PCP JAY JAY CHAN * Pharmacy [facility] * Preadmission Environment Home with Family * ADLs Independent * Equipment None * List name and contact numbers for known caregivers / representatives who currently or will assist patient after discharge: CHRIS LEON - MOTHER- [phone] * Verbal permission to speak to the caregivers and representatives has been obtained from the patient. Yes * Community resources currently utilized None * Additional services required to return to the preadmission environment? No * Can the patient safely return to the preadmission environment? Yes * Has this patient been hospitalized within the prior 30 days at any hospital? No Coverage Notice Reviewer: [id number] Wheeler Notice Issued Date-Time: 03/09/2019 9:45 Notice Type: IM Discharge Notice Notice Delivered To: Patient Relationship to Patient: Bat Carrier Name: Delivery Method: EXPR - Express Mail Erin Days: Prior Verbal Notification: Recipient Understood Notice: Yes Recipient Signature: Yes Med Rec Note Co-signed by Attending: Coverage Notice Comment: Reviewer: [id number] Wheeler Notice Issued Date-Time: 03/09/2019 9:45 Notice Type: Patient Choice Letter Notice Delivered To: Patient Relationship to Patient: Bat Carrier Name: Delivery Method: HAND - Hand Delivered Erin Days: Prior Verbal Notification: Recipient Understood Notice: Yes Recipient Signature: Yes Med Rec Note Co-signed by Attending: Coverage Notice Comment: no preference for walker provider Reviewer: [id number] Anisa Wheeler Notice Issued Date-Time: 03/17/2019 9:20 Notice Type: IM Discharge Notice Notice Delivered To: Patient Relationship to Patient: Bat Carrier Name: Delivery Method: HAND - Hand Delivered Erin Days: Prior Verbal Notification: Recipient Understood Notice: Yes Recipient Signature: Yes Med Rec Note Co-signed by Attending: Coverage Notice Comment: Reviewer: [id number] Wheeler Notice Issued Date-Time: 03/19/2019 9:00 Notice Type: IM Discharge Notice Notice Delivered To: Patient Relationship to Patient: Bat Carrier Name: Delivery Method: HAND - Hand Delivered Erin Days: Prior Verbal Notification: Recipient Understood Notice: Yes Recipient Signature: Yes Med Rec Note Co-signed by Attending: Coverage Notice Comment: Last DP export: 03/19/19 8:38 a Patient Name: DIEGO LEON Page [id number] at 1245 All edits/amendments must be made on the electronic document DICTATION DATE: 03/19/19 1245 FILTER TIP CATCHER: TAVIA 03/19/19 1245 RPT#: [id number] DC DATE: STATUS: ADM IN [facility] [address] [place] [address] END OF REPORT
[2019-03-19 13:45] VITALS: BP 139/87
--- NOTE | 2019-03-19 14:50 | MORECARE ---
CASE MANAGEMENT DISCHARGE SUMMARY PATIENT: DIEGO LEON JR UNIT: [id number] ADM DATE: 02/19/19 AGE: 54 : 65 SEX: M ROOM/BED: D.2106 AUTHOR: WILL,DOC PHYSICIAN: REFERRING PHYSICIAN: VLADIMIR ROACH MD DATE OF SERVICE: 03/19/19 Discharge Plan Patient Name: DIEGO LEON Facility: [facility]:[place] : 1965 Planned Disposition: Psych facility Anticipated Discharge Date: 03/18/19 Discharge Date: Expected LOS: 27 Initial Reviewer: [id number] Initial Review Date: 02/23/2019 Generated: 03/19/19 3:49 pm Comments DCP- Discharge Planning Updated by [id number]: Jaja Wheeler on 03/19/19 1:[address] Patient Name: DIEGO LEON Encounter No: [id number] : 1965 Primary Insurance: MEDICARE A & B Anticipated DC Date: 03-18-2019 Planned Disposition: Psych facility External Planned Provider: [facility], [place] OR [facility] DCP follow-up note: CM FAXED REFERRAL UPDATE TO [facility] AT [phone]. CM RECEIVED CALL FROM [facility], , WHO INFORMED CM THAT [facility] AND [facility] GERI[facility]RIC PSYCH PLANS TO INTERVIEW PT TODAY TO CONSIDER FOR ADMISSION. CM RECEIVED TELEPHONE MESSAGE FROM ESTHER FROM 03-18-19 AT ABOUT 1749 HOURS ASKING IF PT HAS A PEG OR IS STILL USING WALKER. CALLED [facility], , SPOKE TO ALFREDO WHO INFORMED CM THAT DO IS NOT IN TODAY AND SHE KNOWS NOTHING OF THE REFERRAL AND ASKED FOR CM TO REFAX IT. CM INFORMED ALFREDO THAT PT DOES NOT HAVE A PEG TUBE AND IS UP INDEPENDENTLY IN ROOM WITHOUT ASSISTANCE OR DEVICE. CM RE FAXED REFERRAL WITH TODAYS UPDATE TO [facility] AT [phone]. CM WAITING ADMISSION DETERMINATION FROM [facility] INPATIENT [facility]IC UNIT, [facility] INPAT[facility]RIC UNIT AND [facility] FROM [place]. [facility] AND [facility] PLAN TO SCREEN PT TODAY. CM CONTINUES TO WAIT ACCEPTANCE BY ANY INPATIENT PSYCHIATRIC TREATMENT CENTER [facility]. Jaja Wheeler, CASE MANAGEMENT Appended by Jaja Wheeler on 03/19/2019 12:43 MARKETING PROFESSOR: CM RECEIVED CALL FROM ALFREDO OF [facility] WHO INFORMED CM THAT PT IS NOT APPROPRIATE FOR INPATIENT PSYCHIATRIC CARE HE IS NOT ACTIVELY SUICIDAL AND ANY NEEDED MEDICATION ADJUSTMENTS COULD BE DONE OUTPATIENT. CM RECEIVED CALL FROM LALI OF [facility] WHO INFORMED CM THAT DR. ARRIAZA WILL NOT ACCEPT PT PT IS "INAPPROPRIATE" FOR TRANSFER. CM ASKED FOR RECONSIDERATION, LALI WILL PROVIDE DR. DE OLIVEIRA PHONE NUMBER TO DR. DR. ARRIAZA AND ASK DR. ARRIAZA TO CALL. PT HAS BEEN DECLINED BY [facility] AND [facility]; PER SHAMIKA AT [facility], HE HAS TRIED [facility] TO GET PT INTO INPATIENT PSYCHIATRIC TREATMENT BUT HAS BEEN UNABLE DUE TO LACK OF ACTIVE SUICIDAL IDEATIONS. CM WAITING ADMISSION DETERMINATION FROM [facility] WHO PLANS TO SCREEN PT TODAY. JAJA WHEELER, CASE MANAGEMENT Appended by Jaja Wheeler on 03/19/2019 14:40 MARKETING PROFESSOR: CM CALLED [facility], SPOKE TO REGINO CAREY, WHO IS FAMILIAR WITH PT AND REFERRAL, DR. LOPEZ WILL NOT ACCEPT PT. CM SPOKE TO SHAMIKA AT [facility], HE HAS BEEN UNABLE TO FIND ANY PSYCHIATRIC FACILITY [facility] THAT WILL ACCEPT PT AND THE ONLY ONE THAT HAS NOT DECLINED IS [facility]. [facility] WILL CALL AND FIND OUT IF AND WHEN THEY WILL BE CONTACTING PT FOR ASSESSMENT. CM SPOKE TO DR. VÁZQUEZ WHO MAY DISCHARGE PT WITH OUTPATIENT PSYCHIATRIC FOLLOW UP. CM PROVIDED PT WITH [facility] INFORMATION FOR WALK IN CLINIC FOLLOWUP. PT STATES UNDERSTANDING AND AGREEMENT WITH PLAN. PT PLANS TO DISCHARGE HOME TO HIS MOTHER'S HOME. CM TO CONTACT PT'S MOTHER TO ENSURE THIS PLAN IS ACCEPTABLE TO FAMILY. Carlo HENNING ASE MANAGEMENT DCP- Discharge Planning Updated by [id number]: Jaja Wheeler on 03/18/19 3:[address] Patient Name: DIEGO LEON Encounter No: [id number] : 1965 Primary Insurance: MEDICARE A & B Anticipated DC Date: 03-18-2019 Planned Disposition: Psych facility External Planned Provider: [facility] INPAT[facility], [place] DCP follow-up note: CM FAXED REFERRAL UPDATE TO [facility] AT [phone]. CM RECEIVED CALL FROM [facility], , WHO INFORMED CM THAT [facility] IS RE REVIEWING PT FOR ADMISSION BUT THEY ARE NOT HOPEFUL OF ACCEPTANCE. [facility] REPORTS WE NEED NEW PSYCHIATRIC EVALUATION NOTE AND THE PROBLEM NOW IS THAT PT HAS NO ACUTE NEED OF INPATIENT PSYCHIATRIC STABALIZATION AND THAT THE DOCTORS HAVE NOTED THAT PT NEEDS ASSISTED CARE, THAT PT'S MOTHER IS NOT ABLE TO CARE FOR PT AT HOME. CM EXPLAINED THAT PT IS NO LONGER USING THE WALKER FOR AMBULATION AND THAT PT'S MOTHER PLANS TO TAKE PT BACK HOME ONCE STABLIZED AND MEDICATIONS ARE FIGURED OUT. [facility] REPORTS THAT [facility] GERIATRIC PSYCH PLANS TO INTERVIEW PT TOMORROW TO CONSIDER FOR ADMISSION. CM CALLED [facility], , SPOKE TO ASA WHO REPORTS PT SOUNDS FAMILAIR BUT THEY CAN RESCREEN FOR ADMISSION. CM FAXED REFERRAL TO [facility] AT [phone]. CM RECEIVED CALL FROM [facility] ASKING TO SPEAK TO DR. VÁZQUEZ THE DOCTOR AT [facility] WANTS TO SPEAK TO DR. VÁZQUEZ REGARDING PT. CM PROVIDED CELL NUMBER FOR DR. VÁZQUEZ TO [facility]ER [facility], NOTIFIED UBALDO GALAR[facility] THAT [facility] IS CALLING DR. VÁZQUEZ. CM WAITING ADMISSION DETERMINATION FROM [facility]PATIENT PS[facility]CHI[facility]RIC UNIT AND [facility] INPATIENT PS[facility]CHIATRIC UNIT. [facility] FROM [place] PLANS TO SCREEN PT TOMORROW, 03-19-19. CM CONTINUES TO WAIT ACCEPTANCE BY ANY INPATIENT PSYCHIATRIC TREATMENT CENTER [facility]. Jaja Wheeler, CASE MANAGEMENT. DCP- Discharge Planning Updated by [id number]: Jaja Wheeler on 03/18/19 10:[address] Patient Name: DIEGO LEON Encounter No: [id number] : 1965 Primary Insurance: MEDICARE A & B Anticipated DC Date: 03-18-2019 Planned Disposition: Psych facility External [facility] DCP follow-up note: CM FAXED REFERRAL UPDATE TO [facility]ER [facility] AT [phone]. CM CALLED [facility] CALL CENTER, , SPOKE TO TY AND REQUESTED INPATIENT PSYCHIATRIC PLACEMENT. TY ASKED IF PT WAS STILL INTUBATED. CM EXPLAINED PT'S SITUATION AND IS NOW OFF VENT, OUT OF ICU, EATING, UP IN ROOM INDEPENDENTLLY ON ROOM AIR. TY WILL SCREEN FOR ADMISSION. CM FAXED UPDATE TO [facility] AT [phone]. CM CONTINUES TO WAIT ACCEPTANCE BY ANY INPATIENT PSYCHIATRIC TREATMENT CENTER [facility]. VIOLETTE Henning DCP- Discharge Planning Updated by [id number]: Jaja Wheeler on 03/17/19 8:[address] Patient Name: DIEGO LEON Encounter No: [id number] : 1965 Primary Insurance: MEDICARE A & B Anticipated DC Date: 03-17-2019 Planned Disposition: Psych facility External Planned Provider: [facility] DCP follow-up note: CM FAXED REFERRAL UPDATE TO [facility] AT [phone]. CM SPOKE TO PT IN ROOM WHO IS STILL WILLING FOR INPATIENT PSYCHIATRIC FACILITY TO CLEAR HIM TO GO HOME HE REPORTS HE IS NOT SUICIDAL. IMPORANT MESSAGE FROM MEDICARE PROVIDED AND EXPLAINED. PT'S MOTHER REPORTS THAT SHE PLANS TO TAKE PT HOME AFTER PSYCHIATRIC TREATMENT ONCE HIS MEDICATIONS ARE "RIGHT AGAIN". PT'S MOTHER STATES THE LAST TIME PT WENT TO A HOSPITAL WAS 5 YEARS AGO AND PT HAD BEEN FINE AT HER HOME UNTIL THIS INCIDENT. CM PROVIDED UPDATE ON PLACEMENT. CM CONTINUES TO WAIT ACCEPTANCE BY ANY INPATIENT PSYCHIATRIC TREATMENT CENTER [facility]. VIOLETTE Henning DCP- Discharge Planning Updated by [id number]: Jaja Wheeler on 03/16/19 3:[address] Patient Name: DIEGO LEON Encounter No: [id number] : 1965 Primary Insurance: MEDICARE A & B Anticipated DC Date: 03-09-2019 Planned Disposition: Psych facility External Planned Provider: [facility] DCP follow-up note: MIRELA SPOKE TO [facility] AT [facility], , PROVIDED UPDATE AND NOTIFIE PT IS NOT ON ISOLATION. MARYAN ASKED FOR ENTIRE NEW PACKET. CM FAXED UPDATED PACKET TO [facility] AT [phone]. CM CONTINUES TO WAIT ACCEPTANCE BY ANY INPATIENT PSYCHIATRIC TREATMENT CENTER [facility]. VIOLETTE Henning DCP- Discharge Planning Updated by [id number]: Jaja Wheeler on 03/10/19 7:[address] Patient Name: DIEGO LEON Encounter No: [id number] : 1965 Primary Insurance: MEDICARE A & B Anticipated DC Date: 03-09-2019 Planned Disposition: Psych facility External Planned Provider: [facility] DCP follow-up note: CM FAXED UPDATE WITH YESTERDAYS PSYCHIATRIC FOLLOW UP NOTE TO [facility] AT [phone]. CM CONTINUES TO WAIT ACCEPTANCE BY ANY INPATIENT PSYCHIATRIC TREATMENT CENTER [facility]. VIOLETTE Henning MANAGEMENT DCP- Discharge Planning Updated by [id number]: Jaja Wheeler on 03/09/19 10:[address] Patient Name: DIEGO LEON Encounter No: [id number] : 1965 Primary Insurance: MEDICARE A & B Anticipated DC Date: 03-09-2019 Planned Disposition: Psych facility External Planned Provider: [facility] DCP follow-up note: CM SPOKE TO PT IN ROOM WHO IS STILL WILLING FOR INPATIENT PSYCHIATRIC CARE. PT STILL DOES NO KNOW WHY HE TOOK OVERDOSE OF MEDICATIONS, REPORTS IT WILL NEVER HAPPEN AGAIN. PT DENIES SUIDCIDAL IDEATION AT THIS TIME. PT HAS NO PREFERENCE ON EQUIPMENT PROVIDER FOR WALKER, CHOICE SIGNED FOR NO PREFERENCE. IMPORTANT MESSAGE FROM MEDICARE PROVIDED AND EXPLAINED. CM FAXED WALKER REFERRAL TO [facility] AT [phone]. CM VERIFIED RECEIPT OF ORDER WITH ALHAJI OF [facility], , WALKER TO BE DELIVERED TO PT'S HOSPITAL ROOM TODAY. CM CALLED [facility] AT [phone], SPOKE TO DENYS AND PROVIDED UPDATE. FACILITIES ARE DENYING FOR LACK OF "SI", SUICIDAL INTENT. PT HAS BEEN DECLINED BY MOST FACILITIES [facility], SHAMIKA OF [facility] STILL SEEKING PLACEMENT. CM FAXED UPDATE TO [facility] AT [phone]. CM CONTINUES TO WAIT ACCEPTANCE BY ANY INPATIENT PSYCHIATRIC TREATMENT CENTER [facility]. [facility] TO DELIVER WALKER TO PT'S ROOM FOR DISCHARGE. VIOLETTE Henning MANAGEMENT DCP- Discharge Planning Updated by [id number]: Jaja Wheeler on 03/06/19 1:[address] Patient Name: DIEGO LEON Encounter No: [id number] : 1965 Primary Insurance: MEDICARE A & B Anticipated DC Date: 03-06-2019 Planned Disposition: Psych facility External Planned Provider: [facility] DCP follow-up note: CM MET WITH INTERDISCIPLINARY TEAM, NOTIFIED BY UBALDO GALARZA THAT PT IS STABLE FOR TRANSFER TO INPATIENT PSYCHIATRIC FACILITY. CM MET WITH PT WHO DOES NOT KNOW WHY HE TOOK DRUG OVERDOSE. PT'S MOTHER STATES THAT SHE FOUND THE EMPTY BOTTLE AND BROUGHT PT TO THE HOSPITAL AND REPORTS PT RECENTLY QUIT TAKING ALL OF HIS NARCOTIC MEDICATION PRIOR TO THE OVERDOSE. FAMILY AND PT IN AGREEMENT WITH TRANSFER TO PSYCHIATRIC FACILITY FOR EVALUATION. IMPORTANT MESSAGE FROM [employer] PROVIDED AND EXPLAINED. CM CALLED [facility] C[facility], , SPOKE TO SHAMIKA AND PROVIDED REFERRAL INFORMATION. CM FAXED REFERRAL TO [facility] C[facility] AT [phone]. CM WAITING TO SEE IF PT WILL BE ACCEPTED TO ANY INPATIENT PSYCHIATRIC FACILITY IN THE STATE. [facility] TO CONTACT [employer] 2 NURSE IF ONE IS FOUND. Jaja Wheeler, CASE MANAGEMENT DCP- Discharge Planning Updated by [id number]: Do Lou on 02/26/19 5:[address] LATE ENTRY 02/24/19 Patient Name: DIEGO LEON Admission Status: ER Accout number: [id number] Admission Date: 02-19-2019 : 1965 Admission Diagnosis: Attending: VLADIMIR ROACH Current LOS: 7 Anticipated DC Date: Planned Disposition: Primary Insurance: MEDICARE A & B Discharge Planning Comments: CM met with patient at bedside after explaining CM role and obtaining verbal consent. Patient lives at home with his mother where he is independent with his care and plans to return there upon discharge. Patient feels this would be a safe discharge. CM discussed availability / needs of home health and medical equipment. Patient denies any discharge needs at this time. Patient states he will have his family drive him home upon discharge. CM will continue to follow and assist as needed with discharge planning / needs. Campaign Management Senior Manager: Do Lou DCPIA - Discharge Planning Initial Assessment Updated by [id number]: Do Lou on 02/26/19 6:50 pm * Is the patient Alert and Oriented? Yes * How many steps to enter\\exit or inside your home? * PCP JAY JAY CHAN * [facility] * Preadmission Environment Home with Family * ADLs Independent * Equipment None * List name and contact numbers for known caregivers / representatives who currently or will assist patient after discharge: CHRIS LEON - MOTHER- [phone] * Verbal permission to speak to the caregivers and representatives has been obtained from the patient. Yes * Community resources currently utilized None * Additional services required to return to the preadmission environment? No * Can the patient safely return to the preadmission environment? Yes * Has this patient been hospitalized within the prior 30 days at any hospital? No Coverage Notice Reviewer: ARMAND Wheeler Notice Issued Date-Time: 03/09/2019 9:45 Notice Type: IM Discharge Notice Notice Delivered To: Patient Relationship to Patient: Addictions Recovery Specialist Name: Delivery Method: EXPR - Express Mail Erin Days: Prior Verbal Notification: Recipient Understood Notice: Yes Recipient Signature: Yes Med Rec Note Co-signed by Attending: Coverage Notice Comment: Reviewer: ARMAND Wheeler Notice Issued Date-Time: 03/09/2019 9:45 Notice Type: Patient Choice Letter Notice Delivered To: Patient Relationship to Patient: Addictions Recovery Specialist Name: Delivery Method: HAND - Hand Delivered Erin Days: Prior Verbal Notification: Recipient Understood Notice: Yes Recipient Signature: Yes Med Rec Note Co-signed by Attending: Coverage Notice Comment: no preference for walker provider Reviewer: ARMAND Wheeler Notice Issued Date-Time: 03/17/2019 9:20 Notice Type: IM Discharge Notice Notice Delivered To: Patient Relationship to Patient: Addictions Recovery Specialist Name: Delivery Method: HAND - Hand Delivered Erin Days: Prior Verbal Notification: Recipient Understood Notice: Yes Recipient Signature: Yes Med Rec Note Co-signed by Attending: Coverage Notice Comment: Reviewer: ARMAND Wheeler Notice Issued Date-Time: 03/19/2019 9:00 Notice Type: IM Discharge Notice Notice Delivered To: Patient Relationship to Patient: Addictions Recovery Specialist Name: Delivery Method: HAND - Hand Delivered Erin Days: Prior Verbal Notification: Recipient Understood Notice: Yes Recipient Signature: Yes Med Rec Note Co-signed by Attending: Coverage Notice Comment: Last DP export: 03/19/19 11:45 a Patient Name: DIEGO LEON Page [id number] at 1450 All edits/amendments must be made on the electronic document DICTATION DATE: 03/19/19 144 PRINTING MACHINIST: TAVIA 03/19/19 1449 RPT#: [id number] DC DATE: STATUS: ADM IN [facility] [address] [place] [address] END OF REPORT
--- NOTE | 2019-03-19 15:09 | MORECARE ---
CASE MANAGEMENT DISCHARGE SUMMARY PATIENT: DIEGO LEON JR UNIT: [id number] ADM DATE: 02/19/19 AGE: 54 : 65 SEX: M ROOM/BED: D.2106 AUTHOR: WILL,DOC PHYSICIAN: REFERRING PHYSICIAN: VLADIMIR ROACH MD DATE OF SERVICE: 03/19/19 Discharge Plan Patient Name: DIEGO LEON Facility: [facility]:[place] : 1965 Planned Disposition: Psych facility Anticipated Discharge Date: 03/18/19 Discharge Date: Expected LOS: 27 Initial Reviewer: [id number] Initial Review Date: 02/23/2019 Generated: 03/19/19 4:08 pm Comments DCP- Discharge Planning Updated by [id number]: Jaja Wheeler on 03/19/19 2:[address] Patient Name: DIEGO LEON Encounter No: [id number] : 1965 Primary Insurance: MEDICARE A & B Anticipated DC Date: 03-18-2019 Planned Disposition: Psych facility External Planned Provider: [facility]PAT[facility], [place] OR [facility] DCP follow-up note: CM FAXED REFERRAL UPDATE TO [facility] AT [phone]. CM RECEIVED CALL FROM [facility]IK[facility], , WHO INFORMED CM THAT [facility] AND [facility] GERIATRIC PSYCH PLANS TO INTERVIEW PT TODAY TO CONSIDER FOR ADMISSION. CM RECEIVED TELEPHONE MESSAGE FROM ESTHER FROM 03-18-19 AT ABOUT 1749 HOURS ASKING IF PT HAS A PEG OR IS STILL USING WALKER. CALLED [facility], , SPOKE TO ALFREDO WHO INFORMED CM THAT DO IS NOT IN TODAY AND SHE KNOWS NOTHING OF THE REFERRAL AND ASKED FOR CM TO REFAX IT. CM INFORMED ALFREDO THAT PT DOES NOT HAVE A PEG TUBE AND IS UP INDEPENDENTLY IN ROOM WITHOUT ASSISTANCE OR DEVICE. CM RE FAXED REFERRAL WITH TODAYS UPDATE TO [facility] AT [phone]. CM WAITING ADMISSION DETERMINATION FROM [facility] INPATIENT PS[facility]IATRIC UNIT, [facility] INPATIENT PS[facility]RIC UNIT AND [facility] FROM HEATH. [facility] AND [facility] PLAN TO SCREEN PT TODAY. CM CONTINUES TO WAIT ACCEPTANCE BY ANY INPATIENT PSYCHIATRIC TREATMENT CENTER [facility]. Jaja Wheeler, CASE MANAGEMENT Appended by Jaja Wheeler on 03/19/2019 12:43 QUILT STUFFER: CM RECEIVED CALL FROM ALFREDO OF [facility] WHO INFORMED CM THAT PT IS NOT APPROPRIATE FOR INPATIENT PSYCHIATRIC CARE HE IS NOT ACTIVELY SUICIDAL AND ANY NEEDED MEDICATION ADJUSTMENTS COULD BE DONE OUTPATIENT. CM RECEIVED CALL FROM LALI OF [facility] WHO INFORMED CM THAT DR. ARRIAZA WILL NOT ACCEPT PT PT IS "INAPPROPRIATE" FOR TRANSFER. CM ASKED FOR RECONSIDERATION, LALI WILL PROVIDE DR. DE OLIVEIRA PHONE NUMBER TO DR. DR. ARRIAZA AND ASK DR. ARRIAZA TO CALL. PT HAS BEEN DECLINED BY [facility] AND [facility]; PER SHAMIKA AT [facility], HE HAS TRIED [facility] TO GET PT INTO INPATIENT PSYCHIATRIC TREATMENT BUT HAS BEEN UNABLE DUE TO LACK OF ACTIVE SUICIDAL IDEATIONS. CM WAITING ADMISSION DETERMINATION FROM [facility] WHO PLANS TO SCREEN PT TODAY. JAJA WHEELER CASE MANAGEMENT Appended by Jaja Wheeler on 03/19/2019 14:40 QUILT STUFFER: CM CALLED [facility], SPOKE TO REGINO CAREY, WHO IS FAMILIAR WITH PT AND REFERRAL, DR. LOPEZ WILL NOT ACCEPT PT. CM SPOKE TO SHAMIKA AT [facility], HE HAS BEEN UNABLE TO FIND ANY PSYCHIATRIC FACILITY [facility] THAT WILL ACCEPT PT AND THE ONLY ONE THAT HAS NOT DECLINED IS [facility]. SHAMIKA WILL CALL AND FIND OUT IF AND WHEN THEY WILL BE CONTACTING PT FOR ASSESSMENT. MIRELA SPOKE TO DR. VÁZQUEZ WHO MAY DISCHARGE PT WITH OUTPATIENT PSYCHIATRIC FOLLOW UP. CM PROVIDED PT WITH [facility] INFORMATION FOR WALK IN CLINIC FOLLOWUP. PT STATES UNDERSTANDING AND AGREEMENT WITH PLAN. PT PLANS TO DISCHARGE HOME TO HIS MOTHER'S HOME. CM TO CONTACT PT'S MOTHER TO ENSURE THIS PLAN IS ACCEPTABLE TO FAMILY. JAJA WHEELER,CASE MANAGEMENT Appended by Jaja Wheeler on 03/19/2019 15:06 QUILT STUFFER: MIRELA SPOKE TO PT'S MOTHER WHO REPORTS THAT PT SEEMS TO BE BACK TO HIS OLD SELF AND SHE WILL TAKE HIM HOME AND CAN MANAGE HIS MEDICATIONS UNTIL PT IS ABLE TO AGAIN HIMSELF. CM DISCUSSED FOLLOW UP WITH [facility], SHE KNOWS WHERE THE CLINIC IS AT AND PT WAS A PATIENT THERE ABOUT 5 YEARS AGO. SHE CAN TRANSPORT PT TO THE CLINIC FOR OUTPATIENT APPOINTMENTS. MIRELA WAITING ADMISSION DETERMINATION FROM [facility] WHO PLANS TO SCREEN PT TODAY. JAJA SUMMER, CASE MANAGEMENT DCP- Discharge Planning Updated by [id number]: Jaja Wheeler on 03/18/19 3:[address] Patient Name: DIEGO LEON Encounter No: [id number] : 1965 Primary Insurance: MEDICARE A & B Anticipated DC Date: 03-18-2019 Planned Disposition: Psych facility External Planned Provider: [facility] INPATIENT [facility], [place] DCP follow-up note: CM FAXED REFERRAL UPDATE TO TRANSFER CENTER AT [phone]. CM RECEIVED CALL FROM [facility], , WHO INFORMED CM THAT [facility] IS RE REVIEWING PT FOR ADMISSION BUT THEY ARE NOT HOPEFUL OF ACCEPTANCE. SHAMIKA REPORTS WE NEED NEW PSYCHIATRIC EVALUATION NOTE AND THE PROBLEM NOW IS THAT PT HAS NO ACUTE NEED OF INPATIENT PSYCHIATRIC STABALIZATION AND THAT THE DOCTORS HAVE NOTED THAT PT NEEDS ASSISTED CARE, THAT PT'S MOTHER IS NOT ABLE TO CARE FOR PT AT HOME. CM EXPLAINED THAT PT IS NO LONGER USING THE WALKER FOR AMBULATION AND THAT PT'S MOTHER PLANS TO TAKE PT BACK HOME ONCE STABLIZED AND MEDICATIONS ARE FIGURED OUT. SHAMIKA REPORTS THAT [facility] PLANS TO INTERVIEW PT TOMORROW TO CONSIDER FOR ADMISSION. CM CALLED [facility], , SPOKE TO ASA WHO REPORTS PT SOUNDS FAMILAIR BUT THEY CAN RESCREEN FOR ADMISSION. CM FAXED REFERRAL TO [facility] AT [phone]. CM RECEIVED CALL FROM [facility] ASKING TO SPEAK TO DR. VÁZQUEZ THE DOCTOR AT [facility] WANTS TO SPEAK TO DR. VÁZQUEZ REGARDING PT. CM PROVIDED CELL NUMBER FOR DR. VÁZQUEZ TO TRANSFER CENTER, NOTIFIED UBALDO GALARZA THAT [facility] IS CALLING DR. VÁZQUEZ. CM WAITING ADMISSION DETERMINATION FROM [facility]PATIENT [facility]AT[facility]IC UNIT AND [facility]PATIENT [facility]ATRIC UNIT. [facility] FROM [place] PLANS TO SCREEN PT TOMORROW, 03-19-19. CM CONTINUES TO WAIT ACCEPTANCE BY ANY INPATIENT PSYCHIATRIC TREATMENT CENTER [facility]. Jaja Wheeler, CASE MANAGEMENT. DCP- Discharge Planning Updated by [id number]: Jaja Wheeler on 03/18/19 10:[address] Patient Name: DIEGO LEON Encounter No: [id number] : 1965 Primary Insurance: MEDICARE A & B Anticipated DC Date: 03-18-2019 Planned Disposition: Psych facility External Planned Provider: [facility] PS[facility]IATRIC [facility] DCP follow-up note: CM FAXED REFERRAL UPDATE TO TRANSFER CENTER AT [phone]. CM CALLED [facility] CALL [facility], , SPOKE TO TY AND REQUESTED INPATIENT PSYCHIATRIC PLACEMENT. TY ASKED IF PT WAS STILL INTUBATED. CM EXPLAINED PT'S SITUATION AND IS NOW OFF VENT, OUT OF ICU, EATING, UP IN ROOM INDEPENDENTLLY ON ROOM AIR. TY WILL SCREEN FOR ADMISSION. CM FAXED UPDATE TO [facility] AT [phone]. CM CONTINUES TO WAIT ACCEPTANCE BY ANY INPATIENT PSYCHIATRIC TREATMENT CENTER [facility]. Jaja Wheeler CASE MANAGEMENT DCP- Discharge Planning Updated by [id number]: Jaja Wheeler on 03/17/19 8:[address] Patient Name: DIEGO LEON Encounter No: [id number] : 1965 Primary Insurance: MEDICARE A & B Anticipated DC Date: 03-17-2019 Planned Disposition: Psych facility External Planned Provider: [facility] PS[facility]ATRIC [facility] DCP follow-up note: CM FAXED REFERRAL UPDATE TO TRANSFER CENTER AT [phone]. CM SPOKE TO PT IN ROOM WHO IS STILL WILLING FOR INPATIENT PSYCHIATRIC FACILITY TO CLEAR HIM TO GO HOME HE REPORTS HE IS NOT SUICIDAL. IMPORANT MESSAGE FROM [employer] PROVIDED AND EXPLAINED. PT'S MOTHER REPORTS THAT SHE PLANS TO TAKE PT HOME AFTER PSYCHIATRIC TREATMENT ONCE HIS MEDICATIONS ARE "RIGHT AGAIN". PT'S MOTHER STATES THE LAST TIME PT WENT TO A HOSPITAL WAS 5 YEARS AGO AND PT HAD BEEN FINE AT HER HOME UNTIL THIS INCIDENT. CM PROVIDED UPDATE ON PLACEMENT. CM CONTINUES TO WAIT ACCEPTANCE BY ANY INPATIENT PSYCHIATRIC TREATMENT CENTER [facility]. Jaja Wheeler CASE MANAGEMENT DCP- Discharge Planning Updated by [id number]: Jaaj Wheeler on 03/16/19 3:[address] Patient Name: DIEGO LEON Encounter No: [id number] : 1965 Primary Insurance: MEDICARE A & B Anticipated DC Date: 03-09-2019 Planned Disposition: Psych facility External Planned Provider: [facility]AT[facility]IC FACILITY DCP follow-up note: MIRELA SPOKE TO SHAMIKA AT TRANSFER CENTER, , PROVIDED UPDATE AND NOTIFIE PT IS NOT ON ISOLATION. MARYAN ASKED FOR ENTIRE NEW PACKET. CM FAXED UPDATED PACKET TO TRANSFER CENTER AT [phone]. CM CONTINUES TO WAIT ACCEPTANCE BY ANY INPATIENT PSYCHIATRIC TREATMENT CENTER [facility]. VIOLETTE Saenz DCP- Discharge Planning Updated by [id number]: Jaja Wheeler on 03/10/19 7:[address] Patient Name: DIEGO LEON Encounter No: [id number] : 1965 Primary Insurance: MEDICARE A & B Anticipated DC Date: 03-09-2019 Planned Disposition: Psych facility External Planned Provider: [facility] PS[facility]CHIATRIC FACILITY DCP follow-up note: CM FAXED UPDATE WITH YESTERDAYS PSYCHIATRIC FOLLOW UP NOTE TO TRANSFER CENTER AT [phone]. CM CONTINUES TO WAIT ACCEPTANCE BY ANY INPATIENT PSYCHIATRIC TREATMENT CENTER [facility]. VIOLETTE Saenz DCP- Discharge Planning Updated by [id number]: Jaja Wheeler on 03/09/19 10:[address] Patient Name: DIEGO LEON Encounter No: [id number] : 1965 Primary Insurance: MEDICARE A & B Anticipated DC Date: 03-09-2019 Planned Disposition: Psych facility External Planned Provider: [facility] FAC[facility] DCP follow-up note: CM SPOKE TO PT IN ROOM WHO IS STILL WILLING FOR INPATIENT PSYCHIATRIC CARE. PT STILL DOES NO KNOW WHY HE TOOK OVERDOSE OF MEDICATIONS, REPORTS IT WILL NEVER HAPPEN AGAIN. PT DENIES SUIDCIDAL IDEATION AT THIS TIME. PT HAS NO PREFERENCE ON EQUIPMENT PROVIDER FOR WALKER, CHOICE SIGNED FOR NO PREFERENCE. IMPORTANT MESSAGE FROM [employer] PROVIDED AND EXPLAINED. CM FAXED WALKER REFERRAL TO [facility] AT [phone]. CM VERIFIED RECEIPT OF ORDER WITH ALHAJI OF [facility], , WALKER TO BE DELIVERED TO PT'S HOSPITAL ROOM TODAY. CM CALLED TRANSFER CENTER AT [phone], SPOKE TO DENYS AND PROVIDED UPDATE. FACILITIES ARE DENYING FOR LACK OF "SI", SUICIDAL INTENT. PT HAS BEEN DECLINED BY MOST FACILITIES [facility], SHAMIKA OF [facility]SFER CENTER STILL SEEKING PLACEMENT. CM FAXED UPDATE TO TRANSFER CENTER AT [phone]. CM CONTINUES TO WAIT ACCEPTANCE BY ANY INPATIENT PSYCHIATRIC TREATMENT CENTER [facility]. [facility] TO DELIVER WALKER TO PT'S ROOM FOR DISCHARGE. Jaja Palmyra, CASE MANAGEMENT DCP- Discharge Planning Updated by [id number]: Jaja Wheeler on 03/06/19 1:[address] Patient Name: DIEGO LEON Encounter No: [id number] : 1965 Primary Insurance: MEDICARE A & B Anticipated DC Date: 03-06-2019 Planned Disposition: Psych facility External Planned Provider: [facility] DCP follow-up note: CM MET WITH INTERDISCIPLINARY TEAM, NOTIFIED BY UBALDO GALARZA THAT PT IS STABLE FOR TRANSFER TO INPATIENT PSYCHIATRIC FACILITY. CM MET WITH PT WHO DOES NOT KNOW WHY HE TOOK DRUG OVERDOSE. PT'S MOTHER STATES THAT SHE FOUND THE EMPTY BOTTLE AND BROUGHT PT TO THE HOSPITAL AND REPORTS PT RECENTLY QUIT TAKING ALL OF HIS NARCOTIC MEDICATION PRIOR TO THE OVERDOSE. FAMILY AND PT IN AGREEMENT WITH TRANSFER TO PSYCHIATRIC FACILITY FOR EVALUATION. IMPORTANT MESSAGE FROM [employer] PROVIDED AND EXPLAINED. CM CALLED TRANSFER CENTER, , SPOKE TO SHAMIKA AND PROVIDED REFERRAL INFORMATION. CM FAXED REFERRAL TO TRANSFER CENTER AT [phone]. CM WAITING TO SEE IF PT WILL BE ACCEPTED TO ANY INPATIENT PSYCHIATRIC FACILITY IN THE [facility]. [facility] TO CONTACT [facility] 2 NURSE IF ONE IS FOUND. VIOLETTE Saenz DCP- Discharge Planning Updated by [id number]: Do Lou on 02/26/19 5:[address] LATE ENTRY 02/24/19 Patient Name: DIEGO LEON Admission Status: ER Accout number: [id number] Admission Date: 02-19-2019 : 1965 Admission Diagnosis: Attending: VLADIMIR ROACH Current LOS: 7 Anticipated DC Date: Planned Disposition: Primary Insurance: MEDICARE A & B Discharge Planning Comments: CM met with patient at bedside after explaining CM role and obtaining verbal consent. Patient lives at home with his mother where he is independent with his care and plans to return there upon discharge. Patient feels this would be a safe discharge. CM discussed availability / needs of home health and medical equipment. Patient denies any discharge needs at this time. Patient states he will have his family drive him home upon discharge. CM will continue to follow and assist as needed with discharge planning / needs. Drier Operator Helper: Do Lou DCPIA - Discharge Planning Initial Assessment Updated by [id number]: Do Lou on 02/26/19 6:50 pm * Is the patient Alert and Oriented? Yes * How many steps to enter\\exit or inside your home? * PCP JAY JAY CHAN * Pharmacy [facility] * Preadmission Environment Home with Family * ADLs Independent * Equipment None * List name and contact numbers for known caregivers / representatives who currently or will assist patient after discharge: CHRIS LEON - - [phone] * Verbal permission to speak to the caregivers and representatives has been obtained from the patient. Yes * Community resources currently utilized None * Additional services required to return to the preadmission environment? No * Can the patient safely return to the preadmission environment? Yes * Has this patient been hospitalized within the prior 30 days at any hospital? No Coverage Notice Reviewer: ARMAND Wheeler Notice Issued Date-Time: 03/09/2019 9:45 Notice Type: IM Discharge Notice Notice Delivered To: Patient Relationship to Patient: Cork Compounder Name: Delivery Method: EXPR - Express Mail Erin Days: Prior Verbal Notification: Recipient Understood Notice: Yes Recipient Signature: Yes Med Rec Note Co-signed by Attending: Coverage Notice Comment: Reviewer: ARMAND Wheeler Notice Issued Date-Time: 03/09/2019 9:45 Notice Type: Patient Choice Letter Notice Delivered To: Patient Relationship to Patient: Cork Compounder Name: Delivery Method: HAND - Hand Delivered Erin Days: Prior Verbal Notification: Recipient Understood Notice: Yes Recipient Signature: Yes Med Rec Note Co-signed by Attending: Coverage Notice Comment: no preference for walker provider Reviewer: ARMAND Wheeler Notice Issued Date-Time: 03/17/2019 9:20 Notice Type: IM Discharge Notice Notice Delivered To: Patient Relationship to Patient: Cork Compounder Name: Delivery Method: HAND - Hand Delivered Erin Days: Prior Verbal Notification: Recipient Understood Notice: Yes Recipient Signature: Yes Med Rec Note Co-signed by Attending: Coverage Notice Comment: Reviewer: ARMAND Wheeler Notice Issued Date-Time: 03/19/2019 9:00 Notice Type: IM Discharge Notice Notice Delivered To: Patient Relationship to Patient: Cork Compounder Name: Delivery Method: HAND - Hand Delivered Erin Days: Prior Verbal Notification: Recipient Understood Notice: Yes Recipient Signature: Yes Med Rec Note Co-signed by Attending: Coverage Notice Comment: Last DP export: 03/19/19 1:50 p Patient Name: DIEGO LEON Page [id number] at 1509 All edits/amendments must be made on the electronic document DICTATION DATE: 03/19/191507 INFECTIOUS WASTE TECHNICIAN: TAVIA 03/19/191507 RPT#: [id number] DC DATE: STATUS: ADM IN [facility] [address] [place] [address] END OF REPORT
--- NOTE | 2019-03-19 15:20 | NUR ---
RFA 20G IV ESTABLISHED. SWAB CAB IN USE.
--- NOTE | 2019-03-19 15:45 | NUR ---
PICC LINE REMOVED PER ORDERS. USING STERILE TECHNIQUE, LEFT UPPER ARM PICC REMOVED. IT WAS VERIFIED IN LENGHT BY MYSELF AND GARRICK GREENWOOD LPN TO BE 50 CM. SITE COVERED WITH ANTIMICROBIAL BUTTON AND OPSITE. DATED. INSTRCUTED TO LAY FLAT X 15 MIN.
--- NOTE | 2019-03-19 16:07 | MORECARE ---
CASE MANAGEMENT DISCHARGE SUMMARY PATIENT: DIEGO LEON JR UNIT: [id number] ADM DATE: 02/19/19 AGE: 54 : 65 SEX: M ROOM/BED: D.2106 AUTHOR: WILL,DOC PHYSICIAN: REFERRING PHYSICIAN: VLADIMIR ROACH MD DATE OF SERVICE: 03/19/19 Discharge Plan Patient Name: DIEGO LEON Facility: [facility]:[place] : 1965 Planned Disposition: Outpatient clinics\\services (Programs) Anticipated Discharge Date: 03/20/19 Discharge Date: Expected LOS: 29 Initial Reviewer: [id number] Initial Review Date: 02/23/2019 Generated: 03/19/19 5:06 pm Comments DCP- Discharge Planning Updated by [id number]: Jaja Wheeler on 03/19/19 2:[address] Patient Name: DIEGO LEON Encounter No: [id number] : 1965 Primary Insurance: MEDICARE A & B Anticipated DC Date: 03-18-2019 Planned Disposition: Psych facility External Planned Provider: [facility] INPATIENT PSYCHIATRIC CARE, [place] [facility] DCP follow-up note: CM FAXED REFERRAL UPDATE TO [facility] AT [phone]. CM RECEIVED CALL FROM [facility], , WHO INFORMED CM THAT [facility] AND [facility] GERIATRIC PSYCH PLANS TO INTERVIEW PT TODAY TO CONSIDER FOR ADMISSION. CM RECEIVED TELEPHONE MESSAGE FROM ESTHER FROM 03-18-19 AT ABOUT 1749 HOURS ASKING IF PT HAS A PEG OR IS STILL USING WALKER. CALLED [facility], , SPOKE TO ALFREDO WHO INFORMED CM THAT DO IS NOT IN TODAY AND SHE KNOWS NOTHING OF THE REFERRAL AND ASKED FOR CM TO REFAX IT. CM INFORMED ALFREDO THAT PT DOES NOT HAVE A PEG TUBE AND IS UP INDEPENDENTLY IN ROOM WITHOUT ASSISTANCE OR DEVICE. CM RE FAXED REFERRAL WITH TODAYS UPDATE TO [facility] AT [phone]. CM WAITING ADMISSION DETERMINATION FROM [facility] INPATIENT PSYCHIATRIC UNIT, [facility] INPATIENT PSYCHIATRIC UNIT AND [facility] FROM HEATH. [facility] AND [facility] PLAN TO SCREEN PT TODAY. CM CONTINUES TO WAIT ACCEPTANCE BY ANY INPATIENT PSYCHIATRIC TREATMENT CENTER [facility]. Jaja Wheeler, CASE MANAGEMENT Appended by Jaja Wheeler on 03/19/2019 12:43 MEDIA SPECIALIST: CM RECEIVED CALL FROM ALFREDO OF [facility] WHO INFORMED CM THAT PT IS NOT APPROPRIATE FOR INPATIENT PSYCHIATRIC CARE HE IS NOT ACTIVELY SUICIDAL AND ANY NEEDED MEDICATION ADJUSTMENTS COULD BE DONE OUTPATIENT. CM RECEIVED CALL FROM LALI OF [facility] WHO INFORMED CM THAT DR. ARRIAZA WILL NOT ACCEPT PT PT IS "INAPPROPRIATE" FOR TRANSFER. CM ASKED FOR RECONSIDERATION, LALI WILL PROVIDE DR. DE OLIVEIRA PHONE NUMBER TO DR. DR. ARRIAZA AND ASK DR. ARRIAZA TO CALL. PT HAS BEEN DECLINED BY [facility] AND [facility]; PER SHAMIKA AT [facility], HE HAS TRIED [facility] TO GET PT INTO INPATIENT PSYCHIATRIC TREATMENT BUT HAS BEEN UNABLE DUE TO LACK OF ACTIVE SUICIDAL IDEATIONS. CM WAITING ADMISSION DETERMINATION FROM [facility] WHO PLANS TO SCREEN PT TODAY. VIOLETTE HENNING MANAGEMENT Appended by Jaja Wheeler on 03/19/2019 14:40 MEDIA SPECIALIST: CM CALLED [facility], SPOKE TO REGINO CAREY, WHO IS FAMILIAR WITH PT AND REFERRAL, DR. LOPEZ WILL NOT ACCEPT PT. CM SPOKE TO SHAMIKA AT [facility], HE HAS BEEN UNABLE TO FIND ANY PSYCHIATRIC FACILITY [facility] THAT WILL ACCEPT PT AND THE ONLY ONE THAT HAS NOT DECLINED IS [facility]. SHAMIKA WILL CALL AND FIND OUT IF AND WHEN THEY WILL BE CONTACTING PT FOR ASSESSMENT. MIRELA SPOKE TO DR. VÁZQUEZ WHO MAY DISCHARGE PT WITH OUTPATIENT PSYCHIATRIC FOLLOW UP. CM PROVIDED PT WITH [facility] INFORMATION FOR WALK IN CLINIC FOLLOWUP. PT STATES UNDERSTANDING AND AGREEMENT WITH PLAN. PT PLANS TO DISCHARGE HOME TO HIS MOTHER'S HOME. CM TO CONTACT PT'S MOTHER TO ENSURE THIS PLAN IS ACCEPTABLE TO FAMILY. JAJA WHEELER,CASE MANAGEMENT Appended by Jaja Wheeler on 03/19/2019 15:06 MEDIA SPECIALIST: MIRELA SPOKE TO PT'S MOTHER WHO REPORTS THAT PT SEEMS TO BE BACK TO HIS OLD SELF AND SHE WILL TAKE HIM HOME AND CAN MANAGE HIS MEDICATIONS UNTIL PT IS ABLE TO AGAIN HIMSELF. CM DISCUSSED FOLLOW UP WITH [facility]IC, SHE KNOWS WHERE THE CLINIC IS AT AND PT WAS A PATIENT THERE ABOUT 5 YEARS AGO. SHE CAN TRANSPORT PT TO THE CLINIC FOR OUTPATIENT APPOINTMENTS. MIRELA WAITING ADMISSION DETERMINATION FROM [facility] WHO PLANS TO SCREEN PT TODAY. JAJA SUMMER, CASE MANAGEMENT DCP- Discharge Planning Updated by [id number]: Jaja Wheeler on 03/18/19 3:[address] Patient Name: DIEGO LEON Encounter No: [id number] : 1965 Primary Insurance: MEDICARE A & B Anticipated DC Date: 03-18-2019 Planned Disposition: Psych facility External Planned Provider: [facility] INPATIENT PSYCHIATRIC CARE, [place] DCP follow-up note: CM FAXED REFERRAL UPDATE TO TRANSFER C[facility] AT [phone]. CM RECEIVED CALL FROM [facility], , WHO INFORMED CM THAT [facility] IS RE REVIEWING PT FOR ADMISSION BUT THEY ARE NOT HOPEFUL OF ACCEPTANCE. SHAMIKA REPORTS WE NEED NEW PSYCHIATRIC EVALUATION NOTE AND THE PROBLEM NOW IS THAT PT HAS NO ACUTE NEED OF INPATIENT PSYCHIATRIC STABALIZATION AND THAT THE DOCTORS HAVE NOTED THAT PT NEEDS SENIOR CARE CARE, THAT PT'S MOTHER IS NOT ABLE TO CARE FOR PT AT HOME. CM EXPLAINED THAT PT IS NO LONGER USING THE WALKER FOR AMBULATION AND THAT PT'S MOTHER PLANS TO TAKE PT BACK HOME ONCE STABLIZED AND MEDICATIONS ARE FIGURED OUT. SH[facility]A REPORTS THAT [facility] PLANS TO INTERVIEW PT TOMORROW TO CONSIDER FOR ADMISSION. CM CALLED [facility], , SPOKE TO ASA WHO REPORTS PT SOUNDS FAMILAIR BUT THEY CAN RESCREEN FOR ADMISSION. CM FAXED REFERRAL TO [facility] AT [phone]. CM RECEIVED CALL FROM [facility] TRANSF[facility] ASKING TO SPEAK TO DR. VÁZQUEZ THE DOCTOR AT [facility] WANTS TO SPEAK TO DR. VÁZQUEZ REGARDING PT. CM PROVIDED CELL NUMBER FOR DR. VÁZQUEZ TO TRANSFER CENTER, NOTIFIED UBALDO GALARZA THAT [facility] IS CALLING DR. VÁZQUEZ. CM WAITING ADMISSION DETERMINATION FROM [facility] INPATIENT PSYCHIATRIC UNIT AND [facility] INPATIENT PSYCHIATRIC UNIT. [facility] FROM [place] PLANS TO SCREEN PT TOMORROW, 03-19-19. CM CONTINUES TO WAIT ACCEPTANCE BY ANY INPATIENT PSYCHIATRIC TREATMENT CENTER [facility]. Jaja Wheeler CASE MANAGEMENT. DCP- Discharge Planning Updated by [id number]: Jaja Wheeler on 03/18/19 10:[address] Patient Name: DIEGO LEON Encounter No: [id number] : 1965 Primary Insurance: MEDICARE A & B Anticipated DC Date: 03-18-2019 Planned Disposition: Psych facility External Planned Provider: [facility] DCP follow-up note: CM FAXED REFERRAL UPDATE TO TRANSFER CENTER AT [phone]. CM CALLED [facility] CALL [facility], , SPOKE TO TY AND REQUESTED INPATIENT PSYCHIATRIC PLACEMENT. TY ASKED IF PT WAS STILL INTUBATED. CM EXPLAINED PT'S SITUATION AND IS NOW OFF VENT, OUT OF ICU, EATING, UP IN ROOM INDEPENDENTLLY ON ROOM AIR. TY WILL SCREEN FOR ADMISSION. CM FAXED UPDATE TO [facility] AT [phone]. CM CONTINUES TO WAIT ACCEPTANCE BY ANY INPATIENT PSYCHIATRIC TREATMENT CENTER [facility]. Jaja Wheeler CASE MANAGEMENT DCP- Discharge Planning Updated by [id number]: Jaja Wheeler on 03/17/19 8:[address] Patient Name: DIEGO LEON Encounter No: [id number] : 1965 Primary Insurance: MEDICARE A & B Anticipated DC Date: 03-17-2019 Planned Disposition: Psych facility External Planned Provider: [facility] DCP follow-up note: CM FAXED REFERRAL UPDATE TO TRANSFER CENTER AT [phone]. CM SPOKE TO PT IN ROOM WHO IS STILL WILLING FOR INPATIENT PSYCHIATRIC FACILITY TO CLEAR HIM TO GO HOME HE REPORTS HE IS NOT SUICIDAL. IMPORANT MESSAGE FROM MEDICARE PROVIDED AND EXPLAINED. PT'S MOTHER REPORTS THAT SHE PLANS TO TAKE PT HOME AFTER PSYCHIATRIC TREATMENT ONCE HIS MEDICATIONS ARE "RIGHT AGAIN". PT'S MOTHER STATES THE LAST TIME PT WENT TO A HOSPITAL WAS 5 YEARS AGO AND PT HAD BEEN FINE AT HER HOME UNTIL THIS INCIDENT. CM PROVIDED UPDATE ON PLACEMENT. CM CONTINUES TO WAIT ACCEPTANCE BY ANY INPATIENT PSYCHIATRIC TREATMENT CENTER [facility]. Jaja Wheeler CASE MANAGEMENT DCP- Discharge Planning Updated by [id number]: Jaja Wheeler on 03/16/19 3:[address] Patient Name: DIEGO LEON Encounter No: [id number] : 1965 Primary Insurance: MEDICARE A & B Anticipated DC Date: 03-09-2019 Planned Disposition: Psych facility External Planned Provider: [facility] DCP follow-up note: CM SPOKE TO SHAMIKA AT TRANSFER CENTER, , PROVIDED UPDATE AND NOTIFIE PT IS NOT ON ISOLATION. MARYAN ASKED FOR ENTIRE NEW PACKET. CM FAXED UPDATED PACKET TO TRANSFER CENTER AT [phone]. CM CONTINUES TO WAIT ACCEPTANCE BY ANY INPATIENT PSYCHIATRIC TREATMENT CENTER [facility]. VIOLETTE Henning DCP- Discharge Planning Updated by [id number]: Jaja Wheeler on 03/10/19 7:[address] Patient Name: DIEGO LEON Encounter No: [id number] : 1965 Primary Insurance: MEDICARE A & B Anticipated DC Date: 03-09-2019 Planned Disposition: Psych facility External Planned Provider: [facility] DCP follow-up note: CM FAXED UPDATE WITH YESTERDAYS PSYCHIATRIC FOLLOW UP NOTE TO TRANSFER CENTER AT [phone]. CM CONTINUES TO WAIT ACCEPTANCE BY ANY INPATIENT PSYCHIATRIC TREATMENT CENTER [facility]. VIOLETTE Henning DCP- Discharge Planning Updated by [id number]: Jaja Wheeler on 03/09/19 10:[address] Patient Name: DIEGO LEON Encounter No: [id number] : 1965 Primary Insurance: MEDICARE A & B Anticipated DC Date: 03-09-2019 Planned Disposition: Psych facility External Planned Provider: [facility] DCP follow-up note: CM SPOKE TO PT IN ROOM WHO IS STILL WILLING FOR INPATIENT PSYCHIATRIC CARE. PT STILL DOES NO KNOW WHY HE TOOK OVERDOSE OF MEDICATIONS, REPORTS IT WILL NEVER HAPPEN AGAIN. PT DENIES SUIDCIDAL IDEATION AT THIS TIME. PT HAS NO PREFERENCE ON EQUIPMENT PROVIDER FOR WALKER, CHOICE SIGNED FOR NO PREFERENCE. IMPORTANT MESSAGE FROM MEDICARE PROVIDED AND EXPLAINED. CM FAXED WALKER REFERRAL TO [facility] AT [phone]. CM VERIFIED RECEIPT OF ORDER WITH ALHAJI OF [facility], , WALKER TO BE DELIVERED TO PT'S HOSPITAL ROOM TODAY. CM CALLED TRANSFER CENTER AT [phone], SPOKE TO EDNYS AND PROVIDED UPDATE. FACILITIES ARE DENYING FOR LACK OF "SI", SUICIDAL INTENT. PT HAS BEEN DECLINED BY MOST FACILITIES [facility], SHAMIKA OF TRANSFER CENTER STILL SEEKING PLACEMENT. CM FAXED UPDATE TO TRANSFER CENTER AT [phone]. CM CONTINUES TO WAIT ACCEPTANCE BY ANY INPATIENT PSYCHIATRIC TREATMENT CENTER [facility]. [facility] TO DELIVER WALKER TO PT'S ROOM FOR DISCHARGE. VIOLETTE Henning DCP- Discharge Planning Updated by [id number]: Jaja Wheeler on 03/06/19 1:[address] Patient Name: DIEGO LEON Encounter No: [id number] : 1965 Primary Insurance: MEDICARE A & B Anticipated DC Date: 03-06-2019 Planned Disposition: Psych facility External Planned Provider: [facility] DCP follow-up note: CM MET WITH INTERDISCIPLINARY TEAM, NOTIFIED BY UBALDO GALARZA THAT PT IS STABLE FOR TRANSFER TO INPATIENT PSYCHIATRIC FACILITY. CM MET WITH PT WHO DOES NOT KNOW WHY HE TOOK DRUG OVERDOSE. PT'S MOTHER STATES THAT SHE FOUND THE EMPTY BOTTLE AND BROUGHT PT TO THE HOSPITAL AND REPORTS PT RECENTLY QUIT TAKING ALL OF HIS NARCOTIC MEDICATION PRIOR TO THE OVERDOSE. FAMILY AND PT IN AGREEMENT WITH TRANSFER TO PSYCHIATRIC FACILITY FOR EVALUATION. IMPORTANT MESSAGE FROM [employer] PROVIDED AND EXPLAINED. CM CALLED TRANSFER CENTER, , SPOKE TO SHAMIKA AND PROVIDED REFERRAL INFORMATION. CM FAXED REFERRAL TO TRANSFER CENTER AT [phone]. CM WAITING TO SEE IF PT WILL BE ACCEPTED TO ANY INPATIENT PSYCHIATRIC FACILITY IN THE STATE. TRANSFER CENTER TO CONTACT [facility] NURSE IF ONE IS FOUND. VIOLETTE Henning DCP- Discharge Planning Updated by [id number]: Do Lou on 02/26/19 5:[address] LATE ENTRY 02/24/19 Patient Name: DIEGO LEON Admission Status: ER Accout number: [id number] Admission Date: 02-19-2019 : 1965 Admission Diagnosis: Attending: VLADIMIR ROACH Current LOS: 7 Anticipated DC Date: Planned Disposition: Primary Insurance: MEDICARE A & B Discharge Planning Comments: CM met with patient at bedside after explaining CM role and obtaining verbal consent. Patient lives at home with his mother where he is independent with his care and plans to return there upon discharge. Patient feels this would be a safe discharge. CM discussed availability / needs of home health and medical equipment. Patient denies any discharge needs at this time. Patient states he will have his family drive him home upon discharge. CM will continue to follow and assist as needed with discharge planning / needs. Wire Spring Relay Adjuster: Do Lou DCPIA - Discharge Planning Initial Assessment Updated by [id number]: Do Lou on 02/26/19 6:50 pm * Is the patient Alert and Oriented? Yes * How many steps to enter\\exit or inside your home? * PCP JAY JAY CHAN * Pharmacy [facility] * Preadmission Environment Home with Family * ADLs Independent * Equipment None * List name and contact numbers for known caregivers / representatives who currently or will assist patient after discharge: CHRIS LEON - [facility]- [phone] * Verbal permission to speak to the caregivers and representatives has been obtained from the patient. Yes * Community resources currently utilized None * Additional services required to return to the preadmission environment? No * Can the patient safely return to the preadmission environment? Yes * Has this patient been hospitalized within the prior 30 days at any hospital? No Coverage Notice Reviewer: ARMAND Wheeler Notice Issued Date-Time: 03/09/2019 9:45 Notice Type: IM Discharge Notice Notice Delivered To: Patient Relationship to Patient: Pump Servicer Supervisor Name: Delivery Method: EXPR - Express Mail Erin Days: Prior Verbal Notification: Recipient Understood Notice: Yes Recipient Signature: Yes Med Rec Note Co-signed by Attending: Coverage Notice Comment: Reviewer: ARMAND Wheeler Notice Issued Date-Time: 03/09/2019 9:45 Notice Type: Patient Choice Letter Notice Delivered To: Patient Relationship to Patient: Pump Servicer Supervisor Name: Delivery Method: HAND - Hand Delivered Erin Days: Prior Verbal Notification: Recipient Understood Notice: Yes Recipient Signature: Yes Med Rec Note Co-signed by Attending: Coverage Notice Comment: no preference for walker provider Reviewer: ARMAND Wheeler Notice Issued Date-Time: 03/17/2019 9:20 Notice Type: IM Discharge Notice Notice Delivered To: Patient Relationship to Patient: Pump Servicer Supervisor Name: Delivery Method: HAND - Hand Delivered Erin Days: Prior Verbal Notification: Recipient Understood Notice: Yes Recipient Signature: Yes Med Rec Note Co-signed by Attending: Coverage Notice Comment: Reviewer: ARMAND Wheeler Notice Issued Date-Time: 03/19/2019 9:00 Notice Type: IM Discharge Notice Notice Delivered To: Patient Relationship to Patient: Pump Servicer Supervisor Name: Delivery Method: HAND - Hand Delivered Erin Days: Prior Verbal Notification: Recipient Understood Notice: Yes Recipient Signature: Yes Med Rec Note Co-signed by Attending: Coverage Notice Comment: Last DP export: 03/19/19 2:09 p Patient Name: DIEGO LEON Page [id number] at 1607 All edits/amendments must be made on the electronic document DICTATION DATE: 03/19/191605 RN PSYCHIATRIC: TAVIA 03/19/191605 RPT#: [id number] DC DATE: STATUS: ADM IN [facility] [address] [place] [address] END OF REPORT
--- NOTE | 2019-03-19 17:53 | NUR ---
RESTS IN BED WITHOUT NEEDS VOICED. CALL LIGHT IN REACH. WILL MONITOR.
[2019-03-19 18:27] VITALS: BP 135/82
--- NOTE | 2019-03-19 19:26 | NUR ---
EVENING ROUNDS COMPLETE. PT LAYING IN BED. AAOX4. SITTER PRESENT. NO SIGNS OF DISTRESS. PT DENIES ANY PAIN AT THIS TIME. REQUEST FOR COKE AND ICE, PROVIDED. CL IN REACH, BED IN LOWEST POSITION.
[2019-03-19 20:00] VITALS: BP 132/74
[2019-03-20 00:30] VITALS: BP 119/78
[2019-03-20 04:22] LABS: BASOPHILS 0.9 % (0-2); EOSINOPHILS 4.9 % (0-7); HEMATOCRIT 42.6 % (42.0-54.0); HEMOGLOBIN 14.6 g/dL (13.5-17.5); IMMATURE GRANULOCYTES 0.3 % (0-5); LYMPHOCYTES 30.2 % (15-50); MCH 34.1 pg (26.0-34.0); MCHC 34.3 g/dL (31.0-37.0); MCV 99.5 fL (80.0-100.0); MEAN PLATELET VOLUME 9.6 fL (7.4-10.4); MONOCYTES 10.7 % (2-11); PLATELET COUNT 202 10x3/uL (130-400); RBC 4.28 10x6/uL (4.20-6.10)
[2019-03-20 04:30] LABS: CALC OSMOLALITY 278 mosm/kg (275-300); CALCIUM 8.9 mg/dL (8.5-10.1); CARBON DIOXIDE 30.2 mmol/L (21.0-32.0); CHLORIDE - SERUM 103 mmol/L (98-107); CREATININE - SERUM 0.7 mg/dL (0.6-1.3); GLUCOSE 102 mg/dL (74-106); SODIUM 141 mmol/L (136-145); UREA NITROGEN 8 mg/dL (7-18); eGFR NON AFRICAN AMERICAN > 90 mL/min (90-120)
[2019-03-20 04:42] VITALS: BP 126/72
[2019-03-20 12:01] VITALS: BP 123/76
--- NOTE | 2019-03-20 13:19 | NUR ---
Nutrition Follow-up: Continues to report poor appetite but drinking Ensure; reports drinking 3 yesterday. Diet: Regular, Mech Soft, Ensure TID Wt: 196# (03/18) Last BM: 03/19 Labs reviewed Meds reviewed -Encourage PO intake; may consider appetite stimulant. -Need new wt; noted daily wts ordered. -RD following.
[2019-03-20 14:18] VITALS: BP 131/88
--- NOTE | 2019-03-20 14:37 | PN ---
PATIENT:DIEGO LEON JR MEDICAL RECORD: [id number] LOCATION:[facility].210 ADMISSION DATE: 02/19/19 PROGRESS NOTE DATE OF SERVICE: 03/19/2019 SUBJECTIVE: The patient's case was discussed with staff and his chart was reviewed. He has no new complaint. OBJECTIVE: The patient is awake, alert, and oriented to person and somewhat to situation. He cannot recall the year, even after being given a fairly obvious prompt. He does understand and relates back to me that he was admitted to the hospital after trying to commit suicide. He tells me that he wanted to commit suicide because of family and financial pressures. 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 He is also on disability for mental health reasons and has a long psychiatric history. He has a history of substance abuse and also was having some significant marital difficulties. He says that all of the problems that caused him to try to kill himself and so nearly successfully doing so are the same or worse, but he does not want to kill himself now. He has a depressed mood. He is cognitively impaired. He has no psychotic symptoms. ASSESSMENT: Major depression. PLAN: The patient is in need of inpatient psychiatric care and evaluation. He needs assessments that go beyond my ability to complete on a medical, surgical unit. He clearly has impairment cognitively that I presume and virtually certain is new and severe and related to his tricyclic overdose the day after [place]. He is unable to make reasonable decisions. He is reporting that the stressors that precipitated this event are the same or worse. This was a very serious suicide attempt, even though almost a month ago. He has not had adequate psychiatric assessment even though he has been here, it is again something that is operationally difficult to complete and nonbehavioral unit setting. ASSESSMENT: It is my opinion that he is potentially at risk and is in need of an inpatient observation and treatment. Furthermore, it is my opinion that he needs a comprehensive psychosocial services to determine his living environment and what his optimum level of functioning will be on an outpatient basis. I continue to hold to the opinion that he is acutely at risk based on the overall global circumstances and level of stressors and that an inpatient confinement for evaluation and treatment is necessary. I would recommend that he be continued with the sitter until placement is arranged. TRANSINT:[id number] Voice Confirmation ID: [id number] DOCUMENT ID: [id number] PROGRESS NOTE [id number] DIEGO LEON JR, PETER MD at 1437 CC: [id number] DICTATION DATE: 03/19/19 144 SUPERVISOR [employer]: 03/19/192042 ADM IN [place] [address] [place] [address]
--- NOTE | 2019-03-20 15:43 | MORECARE ---
CASE MANAGEMENT DISCHARGE SUMMARY PATIENT: DIEGO LEON JR UNIT: [id number] ADM DATE: 02/19/19 AGE: 54 : 65 SEX: M ROOM/BED: D.2106 AUTHOR: WILL,DOC PHYSICIAN: REFERRING PHYSICIAN: VLADIMIR ROACH MD DATE OF SERVICE: 03/20/19 Discharge Plan Patient Name: DIEGO LEON Facility: [facility]:[place] : 1965 Planned Disposition: Outpatient clinics\\services (Programs) Anticipated Discharge Date: 03/20/19 Discharge Date: Expected LOS: 29 Initial Reviewer: [id number] Initial Review Date: 02/23/2019 Generated: 03/20/19 4:42 pm Comments DCP- Discharge Planning Updated by [id number]: Jaja Wheeler on 03/19/19 2:[address] Patient Name: DIEGO LEON Encounter No: [id number] : 1965 Primary Insurance: MEDICARE A & B Anticipated DC Date: 03-18-2019 Planned Disposition: Psych facility External Planned Provider: [facility] INPATIENT [facility]RIC CARE, [place] [facility] DCP follow-up note: CM FAXED REFERRAL UPDATE TO TRANSFER [facility] AT [phone]. CM RECEIVED CALL FROM SHAMIKA [facility], , WHO INFORMED CM THAT [facility] AND [facility] GERIATRIC PSYCH PLANS TO INTERVIEW PT TODAY TO CONSIDER FOR ADMISSION. CM RECEIVED TELEPHONE MESSAGE FROM ESTHER FROM 03-18-19 AT ABOUT 1749 HOURS ASKING IF PT HAS A PEG OR IS STILL USING WALKER. CALLED [facility], , SPOKE TO ALFREDO WHO INFORMED CM THAT DO IS NOT IN TODAY AND SHE KNOWS NOTHING OF THE REFERRAL AND ASKED FOR CM TO REFAX IT. CM INFORMED ALFREDO THAT PT DOES NOT HAVE A PEG TUBE AND IS UP INDEPENDENTLY IN ROOM WITHOUT ASSISTANCE OR DEVICE. CM RE FAXED REFERRAL WITH TODAYS UPDATE TO [facility] AT [phone]. CM WAITING ADMISSION DETERMINATION FROM [facility] INPATIENT PSYCHIATRIC UNIT, [facility] INPATIENT PSYCHIATRIC UNIT AND [facility] FROM HEATH. [facility] AND [facility] PLAN TO SCREEN PT TODAY. CM CONTINUES TO WAIT ACCEPTANCE BY ANY INPATIENT PSYCHIATRIC TREATMENT CENTER [facility]. Jaja Wheeler, CASE MANAGEMENT Appended by Jaja Wheeler on 03/19/2019 12:43 CLINICAL UNIT EDUCATOR: CM RECEIVED CALL FROM ALFREDO OF [facility] WHO INFORMED CM THAT PT IS NOT APPROPRIATE FOR INPATIENT PSYCHIATRIC CARE HE IS NOT ACTIVELY SUICIDAL AND ANY NEEDED MEDICATION ADJUSTMENTS COULD BE DONE OUTPATIENT. CM RECEIVED CALL FROM LALI OF [facility] WHO INFORMED CM THAT DR. ARRIAZA WILL NOT ACCEPT PT PT IS "INAPPROPRIATE" FOR TRANSFER. CM ASKED FOR RECONSIDERATION, LALI WILL PROVIDE DR. DE OLIVEIRA PHONE NUMBER TO DR. DR. ARRIAZA AND ASK DR. ARRIAZA TO CALL. PT HAS BEEN DECLINED BY [facility] AND [facility]; PER SHAMIKA AT [facility], HE HAS TRIED [facility] TO GET PT INTO INPATIENT PSYCHIATRIC TREATMENT BUT HAS BEEN UNABLE DUE TO LACK OF ACTIVE SUICIDAL IDEATIONS. CM WAITING ADMISSION DETERMINATION FROM [facility] WHO PLANS TO SCREEN PT TODAY. VIOLETTE HENNING MANAGEMENT Appended by Jaja Wheeler on 03/19/2019 14:40 CLINICAL UNIT EDUCATOR: CM CALLED [facility], SPOKE TO REGINO CAREY, WHO IS FAMILIAR WITH PT AND REFERRAL, DR. LOPEZ WILL NOT ACCEPT PT. CM SPOKE TO SHAMIKA AT [facility], HE HAS BEEN UNABLE TO FIND ANY PSYCHIATRIC FACILITY [facility] THAT WILL ACCEPT PT AND THE ONLY ONE THAT HAS NOT DECLINED IS [facility]. SHAMIKA WILL CALL AND FIND OUT IF AND WHEN THEY WILL BE CONTACTING PT FOR ASSESSMENT. MIRELA SPOKE TO DR. VÁZQUEZ WHO MAY DISCHARGE PT WITH OUTPATIENT PSYCHIATRIC FOLLOW UP. CM PROVIDED PT WITH [facility] INFORMATION FOR WALK IN CLINIC FOLLOWUP. PT STATES UNDERSTANDING AND AGREEMENT WITH PLAN. PT PLANS TO DISCHARGE HOME TO HIS MOTHER'S HOME. CM TO CONTACT PT'S MOTHER TO ENSURE THIS PLAN IS ACCEPTABLE TO FAMILY. JAJA WHEELER,CASE MANAGEMENT Appended by Jaja Wheeler on 03/19/2019 15:06 CLINICAL UNIT EDUCATOR: MIRELA SPOKE TO PT'S MOTHER WHO REPORTS THAT PT SEEMS TO BE BACK TO HIS OLD SELF AND SHE WILL TAKE HIM HOME AND CAN MANAGE HIS MEDICATIONS UNTIL PT IS ABLE TO AGAIN HIMSELF. CM DISCUSSED FOLLOW UP WITH [facility], SHE KNOWS WHERE THE CLINIC IS AT AND PT WAS A PATIENT THERE ABOUT 5 YEARS AGO. SHE CAN TRANSPORT PT TO THE CLINIC FOR OUTPATIENT APPOINTMENTS. MIRELA WAITING ADMISSION DETERMINATION FROM [facility] WHO PLANS TO SCREEN PT TODAY. JAJA SUMMER, CASE MANAGEMENT DCP- Discharge Planning Updated by [id number]: Jaja Wheeler on 03/18/19 3:[address] Patient Name: DIEGO LEON Encounter No: [id number] : 1965 Primary Insurance: MEDICARE A & B Anticipated DC Date: 03-18-2019 Planned Disposition: Psych facility External Planned Provider: [facility] INPATIENT PS[facility]ATRIC CARE, [place] DCP follow-up note: CM FAXED REFERRAL UPDATE TO TRANSFER CENTER AT [phone]. CM RECEIVED CALL FROM SHAMIK[facility], , WHO INFORMED CM THAT [facility] IS RE REVIEWING PT FOR ADMISSION BUT THEY ARE NOT HOPEFUL OF ACCEPTANCE. SHAMIKA REPORTS WE NEED NEW PSYCHIATRIC EVALUATION NOTE AND THE PROBLEM NOW IS THAT PT HAS NO ACUTE NEED OF INPATIENT PSYCHIATRIC STABALIZATION AND THAT THE DOCTORS HAVE NOTED THAT PT NEEDS FPC CARE, THAT PT'S MOTHER IS NOT ABLE TO CARE FOR PT AT HOME. CM EXPLAINED THAT PT IS NO LONGER USING THE WALKER FOR AMBULATION AND THAT PT'S MOTHER PLANS TO TAKE PT BACK HOME ONCE STABLIZED AND MEDICATIONS ARE FIGURED OUT. SHAMIKA REPORTS THAT [facility]ERI[facility]RIC PSYCH PLANS TO INTERVIEW PT TOMORROW TO CONSIDER FOR ADMISSION. CM CALLED [facility], , SPOKE TO ASA WHO REPORTS PT SOUNDS FAMILAIR BUT THEY CAN RESCREEN FOR ADMISSION. CM FAXED REFERRAL TO [facility] AT [phone]. CM RECEIVED CALL FROM [facility] TRANSFER C[facility] ASKING TO SPEAK TO DR. VÁZQUEZ THE DOCTOR AT [facility] WANTS TO SPEAK TO DR. VÁZQUEZ REGARDING PT. CM PROVIDED CELL NUMBER FOR DR. VÁZQUEZ TO TRANSFER CENTER, NOTIFIED UBALDO GALARZA THAT [facility] IS CALLING DR. VÁZQUEZ. CM WAITING ADMISSION DETERMINATION FROM [facility] INPATIENT PSYCHIATRIC UNIT AND [facility] INPATIENT PSYCHIATRIC UNIT. [facility] FROM [place] PLANS TO SCREEN PT TOMORROW, 03-19-19. CM CONTINUES TO WAIT ACCEPTANCE BY ANY INPATIENT PSYCHIATRIC TREATMENT CENTER [facility]. Jaja Wheeler CASE MANAGEMENT. DCP- Discharge Planning Updated by [id number]: Jaja Wheeler on 03/18/19 10:[address] Patient Name: DIEGO LEON Encounter No: [id number] : 1965 Primary Insurance: MEDICARE A & B Anticipated DC Date: 03-18-2019 Planned Disposition: Psych facility External Planned Provider: [facility] DCP follow-up note: CM FAXED REFERRAL UPDATE TO TRANSFER CENTER AT [phone]. CM CALLED [facility] CALL CENTER, , SPOKE TO TY AND REQUESTED INPATIENT PSYCHIATRIC PLACEMENT. TY ASKED IF PT WAS STILL INTUBATED. CM EXPLAINED PT'S SITUATION AND IS NOW OFF VENT, OUT OF ICU, EATING, UP IN ROOM INDEPENDENTLLY ON ROOM AIR. TY WILL SCREEN FOR ADMISSION. CM FAXED UPDATE TO [facility] AT [phone]. CM CONTINUES TO WAIT ACCEPTANCE BY ANY INPATIENT PSYCHIATRIC TREATMENT CENTER [facility]. Jaja Wheeler CASE MANAGEMENT DCP- Discharge Planning Updated by [id number]: Jaja Wheeler on 03/17/19 8:[address] Patient Name: DIEGO LEON Encounter No: [id number] : 1965 Primary Insurance: MEDICARE A & B Anticipated DC Date: 03-17-2019 Planned Disposition: Psych facility External Planned Provider: [facility] DCP follow-up note: CM FAXED REFERRAL UPDATE TO TRANSFER CENTER AT [phone]. CM SPOKE TO PT IN ROOM WHO IS STILL WILLING FOR INPATIENT PSYCHIATRIC FACILITY TO CLEAR HIM TO GO HOME HE REPORTS HE IS NOT SUICIDAL. IMPORANT MESSAGE FROM MEDICARE PROVIDED AND EXPLAINED. PT'S MOTHER REPORTS THAT SHE PLANS TO TAKE PT HOME AFTER PSYCHIATRIC TREATMENT ONCE HIS MEDICATIONS ARE "RIGHT AGAIN". PT'S MOTHER STATES THE LAST TIME PT WENT TO A HOSPITAL WAS 5 YEARS AGO AND PT HAD BEEN FINE AT HER HOME UNTIL THIS INCIDENT. CM PROVIDED UPDATE ON PLACEMENT. CM CONTINUES TO WAIT ACCEPTANCE BY ANY INPATIENT PSYCHIATRIC TREATMENT CENTER [facility]. Jaja Wheeler CASE MANAGEMENT DCP- Discharge Planning Updated by [id number]: Jaja Wheeler on 03/16/19 3:[address] Patient Name: DIEGO LEON Encounter No: [id number] : 1965 Primary Insurance: MEDICARE A & B Anticipated DC Date: 03-09-2019 Planned Disposition: Psych facility External Planned Provider: [facility] DCP follow-up note: CM SPOKE TO SHAMIKA AT TRANSFER CENTER, , PROVIDED UPDATE AND NOTIFIE PT IS NOT ON ISOLATION. MARYAN ASKED FOR ENTIRE NEW PACKET. CM FAXED UPDATED PACKET TO TRANSFER CENTER AT [phone]. CM CONTINUES TO WAIT ACCEPTANCE BY ANY INPATIENT PSYCHIATRIC TREATMENT CENTER [facility]. VIOLETTE Henning DCP- Discharge Planning Updated by [id number]: Jaja Wheeler on 03/10/19 7:[address] Patient Name: DIEGO LEON Encounter No: [id number] : 1965 Primary Insurance: MEDICARE A & B Anticipated DC Date: 03-09-2019 Planned Disposition: Psych facility External Planned Provider: [facility] DCP follow-up note: CM FAXED UPDATE WITH YESTERDAYS PSYCHIATRIC FOLLOW UP NOTE TO TRANSFER CENTER AT [phone]. CM CONTINUES TO WAIT ACCEPTANCE BY ANY INPATIENT PSYCHIATRIC TREATMENT CENTER [facility]. VIOLETTE Henning DCP- Discharge Planning Updated by [id number]: Jaja Wheeler on 03/09/19 10:[address] Patient Name: DIEGO LEON Encounter No: [id number] : 1965 Primary Insurance: MEDICARE A & B Anticipated DC Date: 03-09-2019 Planned Disposition: Psych facility External Planned Provider: [facility] DCP follow-up note: CM SPOKE TO PT IN ROOM WHO IS STILL WILLING FOR INPATIENT PSYCHIATRIC CARE. PT STILL DOES NO KNOW WHY HE TOOK OVERDOSE OF MEDICATIONS, REPORTS IT WILL NEVER HAPPEN AGAIN. PT DENIES SUIDCIDAL IDEATION AT THIS TIME. PT HAS NO PREFERENCE ON EQUIPMENT PROVIDER FOR WALKER, CHOICE SIGNED FOR NO PREFERENCE. IMPORTANT MESSAGE FROM MED[employer] PROVIDED AND EXPLAINED. CM FAXED WALKER REFERRAL TO [facility] AT [phone]. CM VERIFIED RECEIPT OF ORDER WITH ALHAJI OF [facility], , WALKER TO BE DELIVERED TO PT'S HOSPITAL ROOM TODAY. CM CALLED TRANSFER CENTER AT [phone], SPOKE TO DENYS AND PROVIDED UPDATE. FACILITIES ARE DENYING FOR LACK OF "SI", SUICIDAL INTENT. PT HAS BEEN DECLINED BY MOST FACILITIES [facility], SHAMIKA OF TRANSFER CENTER STILL SEEKING PLACEMENT. CM FAXED UPDATE TO TRANSFER CENTER AT [phone]. CM CONTINUES TO WAIT ACCEPTANCE BY ANY INPATIENT PSYCHIATRIC TREATMENT CENTER [facility]. [facility] TO DELIVER WALKER TO PT'S ROOM FOR DISCHARGE. VIOLETTE Henning DCP- Discharge Planning Updated by [id number]: Jaja Wheeler on 03/06/19 1:[address] Patient Name: DIEGO LEON Encounter No: [id number] : 1965 Primary Insurance: MEDICARE A & B Anticipated DC Date: 03-06-2019 Planned Disposition: Psych facility External Planned Provider: [facility] DCP follow-up note: CM MET WITH INTERDISCIPLINARY TEAM, NOTIFIED BY UBALDO GALARZA THAT PT IS STABLE FOR TRANSFER TO INPATIENT PSYCHIATRIC FACILITY. CM MET WITH PT WHO DOES NOT KNOW WHY HE TOOK DRUG OVERDOSE. PT'S MOTHER STATES THAT SHE FOUND THE EMPTY BOTTLE AND BROUGHT PT TO THE HOSPITAL AND REPORTS PT RECENTLY QUIT TAKING ALL OF HIS NARCOTIC MEDICATION PRIOR TO THE OVERDOSE. FAMILY AND PT IN AGREEMENT WITH TRANSFER TO PSYCHIATRIC FACILITY FOR EVALUATION. IMPORTANT MESSAGE FROM [employer] PROVIDED AND EXPLAINED. CM CALLED TRANSFER CENTER, , SPOKE TO SHAMIKA AND PROVIDED REFERRAL INFORMATION. CM FAXED REFERRAL TO TRANSFER CENTER AT [phone]. CM WAITING TO SEE IF PT WILL BE ACCEPTED TO ANY INPATIENT PSYCHIATRIC FACILITY IN THE [place]. TRANSFER CENTER TO CONTACT [facility] NURSE IF ONE IS FOUND. VIOLETTE Henning DCP- Discharge Planning Updated by [id number]: Do Lou on 02/26/19 5:[address] LATE ENTRY 02/24/19 Patient Name: DIEGO LEON Admission Status: ER Accout number: [id number] Admission Date: 02-19-2019 : 1965 Admission Diagnosis: Attending: VLADIMIR ROACH Current LOS: 7 Anticipated DC Date: Planned Disposition: Primary Insurance: MEDICARE A & B Discharge Planning Comments: CM met with patient at bedside after explaining CM role and obtaining verbal consent. Patient lives at home with his mother where he is independent with his care and plans to return there upon discharge. Patient feels this would be a safe discharge. CM discussed availability / needs of home health and medical equipment. Patient denies any discharge needs at this time. Patient states he will have his family drive him home upon discharge. CM will continue to follow and assist as needed with discharge planning / needs. Gymnasium Teacher: Do Lou DCPIA - Discharge Planning Initial Assessment Updated by [id number]: Do Lou on 02/26/19 6:50 pm * Is the patient Alert and Oriented? Yes * How many steps to enter\\exit or inside your home? * PCP JAY JAY CHAN * Pharmacy [facility] * Preadmission Environment Home with Family * ADLs Independent * Equipment None * List name and contact numbers for known caregivers / representatives who currently or will assist patient after discharge: CHRIS LEON - [facility], [facility]- [phone] * Verbal permission to speak to the caregivers and representatives has been obtained from the patient. Yes * Community resources currently utilized None * Additional services required to return to the preadmission environment? No * Can the patient safely return to the preadmission environment? Yes * Has this patient been hospitalized within the prior 30 days at any hospital? No Coverage Notice Reviewer: ARMAND Wheeler Notice Issued Date-Time: 03/09/2019 9:45 Notice Type: IM Discharge Notice Notice Delivered To: Patient Relationship to Patient: Fireworks Assembly Supervisor Name: Delivery Method: EXPR - Express Mail Erin Days: Prior Verbal Notification: Recipient Understood Notice: Yes Recipient Signature: Yes Med Rec Note Co-signed by Attending: Coverage Notice Comment: Reviewer: ARMAND Wheeler Notice Issued Date-Time: 03/09/2019 9:45 Notice Type: Patient Choice Letter Notice Delivered To: Patient Relationship to Patient: Fireworks Assembly Supervisor Name: Delivery Method: HAND - Hand Delivered Erni Days: Prior Verbal Notification: Recipient Understood Notice: Yes Recipient Signature: Yes Med Rec Note Co-signed by Attending: Coverage Notice Comment: no preference for walker provider Reviewer: ARMAND Wheeler Notice Issued Date-Time: 03/17/2019 9:20 Notice Type: IM Discharge Notice Notice Delivered To: Patient Relationship to Patient: Fireworks Assembly Supervisor Name: Delivery Method: HAND - Hand Delivered Erin Days: Prior Verbal Notification: Recipient Understood Notice: Yes Recipient Signature: Yes Med Rec Note Co-signed by Attending: Coverage Notice Comment: Reviewer: ARMAND Wheeler Notice Issued Date-Time: 03/19/2019 9:00 Notice Type: IM Discharge Notice Notice Delivered To: Patient Relationship to Patient: Fireworks Assembly Supervisor Name: Delivery Method: HAND - Hand Delivered Erin Days: Prior Verbal Notification: Recipient Understood Notice: Yes Recipient Signature: Yes Med Rec Note Co-signed by Attending: Coverage Notice Comment: Last DP export: 03/19/19 3:07 p Patient Name: DIEGO LEON Page [id number] at 1543 All edits/amendments must be made on the electronic document DICTATION DATE: 03/20/191541 SUGAR REFINERY SUPERVISOR: TAVIA 03/20/191541 RPT#: [id number] DC DATE: STATUS: ADM IN [facility] [address] [place] [address] END OF REPORT
--- NOTE | 2019-03-20 15:48 | NUR ---
UPON ADMIT, PATIENT HAS NOT HAD A FLU SHOT. WHEN QUESTIONED IN FRONT OF FAMILY MEMBER, HE REFUSED ONE AT DISCHARGE.
--- NOTE | 2019-03-20 15:53 | MORECARE ---
CASE MANAGEMENT DISCHARGE SUMMARY PATIENT: DIEGO LEON JR UNIT: [id number] ADM DATE: 02/19/19 AGE: 54 : 65 SEX: M ROOM/BED: D.2106 AUTHOR: WILL,DOC PHYSICIAN: REFERRING PHYSICIAN: VLADIMIR ROACH MD DATE OF SERVICE: 03/20/19 Discharge Plan Patient Name: DIEGO LEON Facility: [facility]:[place] : 1965 Planned Disposition: Outpatient clinics\\services (Programs) Anticipated Discharge Date: 03/20/19 Discharge Date: Expected LOS: 29 Initial Reviewer: [id number] Initial Review Date: 02/23/2019 Generated: 03/20/19 4:53 pm Comments DCP- Discharge Planning Updated by [id number]: Jaja Wheeler on 03/20/19 2:[address] Patient Name: DIEGO LEON Encounter No: [id number] : 1965 Primary Insurance: MEDICARE A & B Anticipated DC Date: 03-20-2019 Planned Disposition: Outpatient clinics\\services (Programs) External Planned Provider: [facility] DCP follow-up note: CM CALLED DANYELLE OF [facility], , NEVER RECEIVED RETURN CALL. DANYELLE HAS NOT COME TO EVALUATE PT TODAY. DANYELLE HAD NOTIFIED CM THAT HIS DOCTOR HAS DECLINED PT AND DANYELLE WAS HOPING TO TALK HIS DOCTOR INTO CONSIDERING ADMITTING PT. CM CALLED AND SPOKE TO SHAMIKA OF [facility], SHAMIKA HAS NOT HEARD FROM [facility] TODAY BUT UNDERSTOOD YESTERDAY THAT PT HAD BEEN DECLINED. SHAMIKA WILKINS HAS BEEN UNABLE TO LOCATE ANY FACILITY [facility] PT IS DOCUMENTED NOT HAVING ANY SUICIDAL IDEATIONS. CM SPOKE TO PT AND HIS MOTHER IN ROOM, BOTH IN AGREEMENT WITH PLAN FOR PT TO DISCHARGE TO MOTHER'S HOME, MOTHER WILL MANAGE PT'S MEDICATIONS AND PROVIDE TRANSPORTATION TO OUTPATIENT COUNSELING FOLLOW UP. PT HAS INFORMATION ON [facility] PROVIDED TO HIM BY MIRELA PREVIOUSLY. PT'S MOTHER WILL NOT SIGN DISCHARGE PAPERS AND PT WILL HAVE TO SIGN THEM HIMSELF. PT IN AGREEMENT WITH PLAN. PT'S MOTHER WANTS PT TO HAVE A SHOWER BEFORE DISCHARGE. MIRELA NOTIFED WELDER TECH MAINOR. CROSSBOW MAKER NURSE NOTIFIED. Jaja Wheeler, CASE MANAGEMENT DCP- Discharge Planning Updated by [id number]: Jaja Wheeler on 03/19/19 2:[address] Patient Name: DIEGO LEON Encounter No: [id number] : 1965 Primary Insurance: MEDICARE A & B Anticipated DC Date: 03-18-2019 Planned Disposition: Psych facility External Planned Provider: [facility], [place] OR [facility] DCP follow-up note: CM FAXED REFERRAL UPDATE TO [facility] AT [phone]. CM RECEIVED CALL FROM SHAMIKA OF [facility], , WHO INFORMED CM THAT [facility] AND [facility] PLANS TO INTERVIEW PT TODAY TO CONSIDER FOR ADMISSION. CM RECEIVED TELEPHONE MESSAGE FROM DO RIVERA NORMAN FROM 03-18-19 AT ABOUT 1749 HOURS ASKING IF PT HAS A PEG OR IS STILL USING WALKER. CALLED [facility], , SPOKE TO ALFREDO WHO INFORMED CM THAT DO IS NOT IN TODAY AND SHE KNOWS NOTHING OF THE REFERRAL AND ASKED FOR CM TO REFAX IT. CM INFORMED ALFREDO THAT PT DOES NOT HAVE A PEG TUBE AND IS UP INDEPENDENTLY IN ROOM WITHOUT ASSISTANCE OR DEVICE. CM RE FAXED REFERRAL WITH TODAYS UPDATE TO [facility] AT [phone]. CM WAITING ADMISSION DETERMINATION FROM [facility] INPATIENT PSYCHIATRIC UNIT, [facility] INPATIENT PS[facility]CHIATRIC UNIT AND [facility] FROM [facility]. [facility] AND [facility] PLAN TO SCREEN PT TODAY. CM CONTINUES TO WAIT ACCEPTANCE BY ANY INPATIENT PSYCHIATRIC TREATMENT CENTER [facility]. Jaja Wheeler, CASE MANAGEMENT Appended by Jaja Wheeler on 03/19/2019 12:43 WEIR FISHERMAN: CM RECEIVED CALL FROM ALFREDO OF [facility] WHO INFORMED CM THAT PT IS NOT APPROPRIATE FOR INPATIENT PSYCHIATRIC CARE HE IS NOT ACTIVELY SUICIDAL AND ANY NEEDED MEDICATION ADJUSTMENTS COULD BE DONE OUTPATIENT. CM RECEIVED CALL FROM LALI OF [facility] WHO INFORMED CM THAT DR. ARRIAZA WILL NOT ACCEPT PT PT IS "INAPPROPRIATE" FOR TRANSFER. CM ASKED FOR RECONSIDERATION, LALI WILL PROVIDE DR. DE OLIVEIRA PHONE NUMBER TO DR. DR. ARRIAZA AND ASK DR. ARRIAZA TO CALL. PT HAS BEEN DECLINED BY [facility] AND [facility]; PER SHAMIKA AT [facility], HE HAS TRIED [facility] TO GET PT INTO INPATIENT PSYCHIATRIC TREATMENT BUT HAS BEEN UNABLE DUE TO LACK OF ACTIVE SUICIDAL IDEATIONS. MIRELA WAITING ADMISSION DETERMINATION FROM [facility] WHO PLANS TO SCREEN PT TODAY. JAJA WHEELER, CASE MANAGEMENT Appended by Jaja Wheeler on 03/19/2019 14:40 WEIR FISHERMAN: CM CALLED [facility], SPOKE TO REGINO CAREY, WHO IS FAMILIAR WITH PT AND REFERRAL, DR. LOPEZ WILL NOT ACCEPT PT. MIRELA SPOKE TO SHAMIKA AT [facility], HE HAS BEEN UNABLE TO FIND ANY PSYCHIATRIC FACILITY [facility] THAT WILL ACCEPT PT AND THE ONLY ONE THAT HAS NOT DECLINED IS [facility]. SHAMIKA WILL CALL AND FIND OUT IF AND WHEN THEY WILL BE CONTACTING PT FOR ASSESSMENT. MIRELA SPOKE TO DR. VÁZQUEZ WHO MAY DISCHARGE PT WITH OUTPATIENT PSYCHIATRIC FOLLOW UP. CM PROVIDED PT WITH [facility] INFORMATION FOR WALK IN CLINIC FOLLOWUP. PT STATES UNDERSTANDING AND AGREEMENT WITH PLAN. PT PLANS TO DISCHARGE HOME TO HIS MOTHER'S HOME. CM TO CONTACT PT'S MOTHER TO ENSURE THIS PLAN IS ACCEPTABLE TO FAMILY. JAJA WHEELER,CASE MANAGEMENT Appended by Jaja Wheeler on 03/19/2019 15:06 WEIR FISHERMAN: CM SPOKE TO PT'S MOTHER WHO REPORTS THAT PT SEEMS TO BE BACK TO HIS OLD SELF AND SHE WILL TAKE HIM HOME AND CAN MANAGE HIS MEDICATIONS UNTIL PT IS ABLE TO AGAIN HIMSELF. CM DISCUSSED FOLLOW UP WITH [facility], SHE KNOWS WHERE THE CLINIC IS AT AND PT WAS A PATIENT THERE ABOUT 5 YEARS AGO. SHE CAN TRANSPORT PT TO THE CLINIC FOR OUTPATIENT APPOINTMENTS. MIRELA WAITING ADMISSION DETERMINATION FROM [facility] WHO PLANS TO SCREEN PT TODAY. JAJA WHEELER, CASE MANAGEMENT DCP- Discharge Planning Updated by [id number]: Jaja Wheeler on 03/18/19 3:[address] Patient Name: DIEGO LEON Encounter No: [id number] : 1965 Primary Insurance: MEDICARE A & B Anticipated DC Date: 03-18-2019 Planned Disposition: Psych facility External Planned Provider: [facility]PAT[facility], [place] DCP follow-up note: CM FAXED REFERRAL UPDATE TO [facility] AT [phone]. CM RECEIVED CALL FROM SHAMIKA OF [facility], , WHO INFORMED CM THAT [facility] IS RE REVIEWING PT FOR ADMISSION BUT THEY ARE NOT HOPEFUL OF ACCEPTANCE. SHAMIKA REPORTS WE NEED NEW PSYCHIATRIC EVALUATION NOTE AND THE PROBLEM NOW IS THAT PT HAS NO ACUTE NEED OF INPATIENT PSYCHIATRIC STABALIZATION AND THAT THE DOCTORS HAVE NOTED THAT PT NEEDS CORRECTION CARE, THAT PT'S MOTHER IS NOT ABLE TO CARE FOR PT AT HOME. CM EXPLAINED THAT PT IS NO LONGER USING THE WALKER FOR AMBULATION AND THAT PT'S MOTHER PLANS TO TAKE PT BACK HOME ONCE STABLIZED AND MEDICATIONS ARE FIGURED OUT. SHAMIKA REPORTS THAT [facility] PLANS TO INTERVIEW PT TOMORROW TO CONSIDER FOR ADMISSION. CM CALLED [facility], , SPOKE TO ASA WHO REPORTS PT SOUNDS FAMILAIR BUT THEY CAN RESCREEN FOR ADMISSION. CM FAXED REFERRAL TO [facility] AT [phone]. CM RECEIVED CALL FROM [facility] ASKING TO SPEAK TO DR. VÁZQUEZ THE DOCTOR AT [facility] WANTS TO SPEAK TO DR. VÁZQUEZ REGARDING PT. CM PROVIDED CELL NUMBER FOR DR. VÁZQUEZ TO [facility]SFER C[facility], NOTIFIED UBALDO GALARZA THAT [facility] IS CALLING DR. VÁZQUEZ. CM WAITING ADMISSION DETERMINATION FROM [facility] INPATIENT PSYCHIATRIC UNIT AND [facility]PAT[facility]IC UNIT. [facility] FROM [facility] PLANS TO SCREEN PT TOMORROW, 03-19-19. CM CONTINUES TO WAIT ACCEPTANCE BY ANY INPATIENT PSYCHIATRIC TREATMENT CENTER [facility]. Jaja Wheeler CASE MANAGEMENT. DCP- Discharge Planning Updated by [id number]: Jaja Wheeler on 03/18/19 10:[address] Patient Name: DIEGO LEON Encounter No: [id number] : 1965 Primary Insurance: MEDICARE A & B Anticipated DC Date: 03-18-2019 Planned Disposition: Psych facility External Planned Provider: [facility] DCP follow-up note: CM FAXED REFERRAL UPDATE TO [facility] AT [phone]. CM CALLED [facility] CALL [facility]ENTER, , SPOKE TO TY AND REQUESTED INPATIENT PSYCHIATRIC PLACEMENT. TY ASKED IF PT WAS STILL INTUBATED. MIRELA EXPLAINED PT'S SITUATION AND IS NOW OFF VENT, OUT OF ICU, EATING, UP IN ROOM INDEPENDENTLLY ON ROOM AIR. TY WILL SCREEN FOR ADMISSION. MIRELA FAXED UPDATE TO [facility] AT [phone]. CM CONTINUES TO WAIT ACCEPTANCE BY ANY INPATIENT PSYCHIATRIC TREATMENT CENTER [facility]. Jaja Wheeler CASE MANAGEMENT DCP- Discharge Planning Updated by [id number]: Jaja Wheeler on 03/17/19 8:[address] Patient Name: DIEGO LEON Encounter No: [id number] : 1965 Primary Insurance: MEDICARE A & B Anticipated DC Date: 03-17-2019 Planned Disposition: Psych facility External Planned Provider: [facility] DCP follow-up note: CM FAXED REFERRAL UPDATE TO [facility] AT [phone]. CM SPOKE TO PT IN ROOM WHO IS STILL WILLING FOR INPATIENT PSYCHIATRIC FACILITY TO CLEAR HIM TO GO HOME HE REPORTS HE IS NOT SUICIDAL. IMPORANT MESSAGE FROM MEDICARE PROVIDED AND EXPLAINED. PT'S MOTHER REPORTS THAT SHE PLANS TO TAKE PT HOME AFTER PSYCHIATRIC TREATMENT ONCE HIS MEDICATIONS ARE "RIGHT AGAIN". PT'S MOTHER STATES THE LAST TIME PT WENT TO A HOSPITAL WAS 5 YEARS AGO AND PT HAD BEEN FINE AT HER HOME UNTIL THIS INCIDENT. CM PROVIDED UPDATE ON PLACEMENT. CM CONTINUES TO WAIT ACCEPTANCE BY ANY INPATIENT PSYCHIATRIC TREATMENT CENTER [facility]. Jaja Wheeler CASE MANAGEMENT DCP- Discharge Planning Updated by [id number]: Jaja Wheeler on 03/16/19 3:[address] Patient Name: DIEGO LEON Encounter No: [id number] : 1965 Primary Insurance: MEDICARE A & B Anticipated DC Date: 03-09-2019 Planned Disposition: Psych facility External Planned Provider: [facility] DCP follow-up note: CM SPOKE TO SHAMIKA AT [facility], , PROVIDED UPDATE AND NOTIFIE PT IS NOT ON ISOLATION. MARYAN ASKED FOR ENTIRE NEW PACKET. CM FAXED UPDATED PACKET TO [facility] AT [phone]. CM CONTINUES TO WAIT ACCEPTANCE BY ANY INPATIENT PSYCHIATRIC TREATMENT CENTER [facility]. Jaja Wheeler CASE MANAGEMENT DCP- Discharge Planning Updated by [id number]: Jaja Wheeler on 03/10/19 7:[address] Patient Name: DIEGO LEON Encounter No: [id number] : 1965 Primary Insurance: MEDICARE A & B Anticipated DC Date: 03-09-2019 Planned Disposition: Psych facility External Planned Provider: [facility] DCP follow-up note: CM FAXED UPDATE WITH YESTERDAYS PSYCHIATRIC FOLLOW UP NOTE TO [facility] AT [phone]. CM CONTINUES TO WAIT ACCEPTANCE BY ANY INPATIENT PSYCHIATRIC TREATMENT CENTER [facility]. Jaja Wheeler CASE MANAGEMENT DCP- Discharge Planning Updated by [id number]: Jaja Wheeler on 03/09/19 10:[address] Patient Name: DIEGO LEON Encounter No: [id number] : 1965 Primary Insurance: MEDICARE A & B Anticipated DC Date: 03-09-2019 Planned Disposition: Psych facility External Planned Provider: [facility] DCP follow-up note: CM SPOKE TO PT IN ROOM WHO IS STILL WILLING FOR INPATIENT PSYCHIATRIC CARE. PT STILL DOES NO KNOW WHY HE TOOK OVERDOSE OF MEDICATIONS, REPORTS IT WILL NEVER HAPPEN AGAIN. PT DENIES SUIDCIDAL IDEATION AT THIS TIME. PT HAS NO PREFERENCE ON EQUIPMENT PROVIDER FOR WALKER, CHOICE SIGNED FOR NO PREFERENCE. IMPORTANT MESSAGE FROM MEDICARE PROVIDED AND EXPLAINED. CM FAXED WALKER REFERRAL TO [facility] AT [phone]. CM VERIFIED RECEIPT OF ORDER WITH ALHAJI OF [facility], , WALKER TO BE DELIVERED TO PT'S HOSPITAL ROOM TODAY. CM CALLED [facility] AT [phone], SPOKE TO DENYS AND PROVIDED UPDATE. FACILITIES ARE DENYING FOR LACK OF "SI", SUICIDAL INTENT. PT HAS BEEN DECLINED BY MOST FACILITIES [place], SHAMIKA OF [facility] STILL SEEKING PLACEMENT. CM FAXED UPDATE TO [facility] AT [phone]. CM CONTINUES TO WAIT ACCEPTANCE BY ANY INPATIENT PSYCHIATRIC TREATMENT CENTER [facility]. [facility] TO DELIVER WALKER TO PT'S ROOM FOR DISCHARGE. Jaja Wheeler CASE MANAGEMENT DCP- Discharge Planning Updated by [id number]: Jaja Wheeler on 03/06/19 1:[address] Patient Name: DIEGO LEON Encounter No: [id number] : 1965 Primary Insurance: MEDICARE A & B Anticipated DC Date: 03-06-2019 Planned Disposition: Psych facility External Planned Provider: [facility] DCP follow-up note: CM MET WITH INTERDISCIPLINARY TEAM, NOTIFIED BY UBALDO GALARZA THAT PT IS STABLE FOR TRANSFER TO INPATIENT PSYCHIATRIC FACILITY. CM MET WITH PT WHO DOES NOT KNOW WHY HE TOOK DRUG OVERDOSE. PT'S MOTHER STATES THAT SHE FOUND THE EMPTY BOTTLE AND BROUGHT PT TO THE HOSPITAL AND REPORTS PT RECENTLY QUIT TAKING ALL OF HIS NARCOTIC MEDICATION PRIOR TO THE OVERDOSE. FAMILY AND PT IN AGREEMENT WITH TRANSFER TO PSYCHIATRIC FACILITY FOR EVALUATION. IMPORTANT MESSAGE FROM [employer] PROVIDED AND EXPLAINED. CM CALLED [facility], , SPOKE TO SHAMIKA AND PROVIDED REFERRAL INFORMATION. CM FAXED REFERRAL TO [facility] AT [phone]. CM WAITING TO SEE IF PT WILL BE ACCEPTED TO ANY INPATIENT PSYCHIATRIC FACILITY IN THE STATE. [facility] TO CONTACT MED 2 NURSE IF ONE IS FOUND. Jaja Wheeler, CASE MANAGEMENT DCP- Discharge Planning Updated by [id number]: Do Lou on 02/26/19 5:[address] LATE ENTRY 02/24/19 Patient Name: DIEGO LEON Admission Status: ER Accout number: [id number] Admission Date: 02-19-2019 : 1965 Admission Diagnosis: Attending: VLADIMIR ROACH Current LOS: 7 Anticipated DC Date: Planned Disposition: Primary Insurance: MEDICARE A & B Discharge Planning Comments: CM met with patient at bedside after explaining CM role and obtaining verbal consent. Patient lives at home with his mother where he is independent with his care and plans to return there upon discharge. Patient feels this would be a safe discharge. CM discussed availability / needs of home health and medical equipment. Patient denies any discharge needs at this time. Patient states he will have his family drive him home upon discharge. CM will continue to follow and assist as needed with discharge planning / needs. Lease Purchase Driver: Do Lou DCPIA - Discharge Planning Initial Assessment Updated by [id number]: Do Lou on 02/26/19 6:50 pm * Is the patient Alert and Oriented? Yes * How many steps to enter\\exit or inside your home? * PCP JAY JAY CHAN * Pharmacy [place] * Preadmission Environment Home with Family * ADLs Independent * Equipment None * List name and contact numbers for known caregivers / representatives who currently or will assist patient after discharge: CHRIS LEON - MOTHER- [phone] * Verbal permission to speak to the caregivers and representatives has been obtained from the patient. Yes * Community resources currently utilized None * Additional services required to return to the preadmission environment? No * Can the patient safely return to the preadmission environment? Yes * Has this patient been hospitalized within the prior 30 days at any hospital? No Coverage Notice Reviewer: [id number] - Jaja Wheeler Notice Issued Date-Time: 03/09/2019 9:45 Notice Type: Patient Choice Letter Notice Delivered To: Patient Relationship to Patient: Otorhinolaryngologist Name: Delivery Method: HAND - Hand Delivered Erin Days: Prior Verbal Notification: Recipient Understood Notice: Yes Recipient Signature: Yes Med Rec Note Co-signed by Attending: Coverage Notice Comment: no preference for walker provider Reviewer: ARMAND Wheeler Notice Issued Date-Time: 03/19/2019 9:00 Notice Type: IM Discharge Notice Notice Delivered To: Patient Relationship to Patient: Otorhinolaryngologist Name: Delivery Method: HAND - Hand Delivered Erin Days: Prior Verbal Notification: Recipient Understood Notice: Yes Recipient Signature: Yes Med Rec Note Co-signed by Attending: Coverage Notice Comment: Reviewer: ARMAND Wheeler Notice Issued Date-Time: 03/17/2019 9:20 Notice Type: IM Discharge Notice Notice Delivered To: Patient Relationship to Patient: Otorhinolaryngologist Name: Delivery Method: HAND - Hand Delivered Erin Days: Prior Verbal Notification: Recipient Understood Notice: Yes Recipient Signature: Yes Med Rec Note Co-signed by Attending: Coverage Notice Comment: Reviewer: ARMAND Wheeler Notice Issued Date-Time: 03/09/2019 9:45 Notice Type: IM Discharge Notice Notice Delivered To: Patient Relationship to Patient: Otorhinolaryngologist Name: Delivery Method: EXPR - Express Mail Erin Days: Prior Verbal Notification: Recipient Understood Notice: Yes Recipient Signature: Yes Med Rec Note Co-signed by Attending: Coverage Notice Comment: Last DP export: 03/20/19 2:43 p Patient Name: DIEGO LEON Page [id number] at 1553 All edits/amendments must be made on the electronic document DICTATION DATE: 03/20/191552 PHOTOGRAPHIC EQUIPMENT ASSEMBLER: TAVIA 03/20/191552 RPT#: [id number] DC DATE: STATUS: ADM IN [facility] [address] [place] [address] END OF REPORT
--- NOTE | 2019-03-20 16:27 | NUR ---
PT DRESSED AND READY FOR DISCHARGE. DC'D RIGHT FA 20G IV WITH CATH INTACT. PT'S MOM ASKED ABOUT LEFT HEEL DRESSING CHANGED. REMOVED DRESSING CLEANSED WITH WOUND CLEANSER AND PATTED DRY WITH 4X4'S CLEANSED WITH BETADINE AND APPLIED MEPILEX. STATED TO PT AND PT'S MOM TO HAVE HIS PCP LOOK AT IT AT HIS F/U APPOINTMENT AND TO MAKE ONE FOR NEXT WEEK. I STATED THE DRESSING NEEDS TO BE CHANGED EVRY THREE DAYS AND GAVE PT IN A BELONGINGS BAG SUPPLIES FORN X2 MORE DRESSING CHANGED. PT'S MOM STATED THAT IS NOT ENOUGH BECAUSE PT WILL SHOWER. GAVE THEM FOUR MORE DRESSING CHNAGES WORTH OF SUPPLIES. DISCHARGE INSTRUCTIONS AND TEACHING DONE WITH PT AND PT'S MOM. THEY BOTH VERBALIZED UNDERSTANDING. PT'S MOM WANTED TO KNOW ABOUT ASPIRIN I STATED TO HER THE DOCTOR ONLY WANTS HIM TO TAKE WHATS ON HIS DISCHARGE LIST AND WENT OVER THE DISCHARGE MEDICATIONS AND WHAT THEY ARE FOR ANOTHER TIME. THEY THEN BOTH VERBALIZED UNDERSTANDING. CHART COPY DC PAPERS SIGNED BY PT. PT TAKEN DOWN VIA WC BY EVERT AND LEFT WITH ALL PERSONAL BELONGINGS AND ACCOMPANIED BY MOM AND OTHER FAMILY MEMBERS IN PERSONAL CAR.
--- NOTE | 2019-03-24 11:24 | CN ---
PATIENT NAME:DIEGO LEON JR MEDICAL RECORD: [id number] : [birth year] LOCATION:D.M2 D.2106 ADMIT DATE: 02/19/19 ACCOUNT: [id number] CONSULTING PHYSICIAN: CORI PHELPS MD REFERRING PHYSICIAN: VLADIMIR ROACH MD DATE OF CONSULTATION: 02/23/2019 DIAGNOSES: 1. Atrial fibrillation. 2. Tachycardia. 3. Hypertension. 4. Respiratory failure requiring intubation. 5. Overdose. HISTORY OF PRESENT ILLNESS: This is a gentleman who apparently took a tire bottle of amitriptyline tablets as an overdose is difficult to say whether intentional overdose or if he was confused. He did have very ETOH abuse history and recently quit drinking was going into DTs. When he was admitted to the hospital, he had respiratory failure requiring intubation. He had an episode of atrial fibrillation. This has since resolved. He is now with sinus tachycardia. He does have a history of hypertension. PHYSICAL EXAMINATION: CONSTITUTIONAL/GENERAL APPEARANCE: Well nourished, well developed, appears stated age. EYES: Lids and conjunctivae noninjected. No discharge. No pallor. ENT: Lips within normal limit. No cyanosis. No pallor. NECK: Carotid arteries, bilateral normal upstroke. No bruits. No thrills. No jugular venous pressure or distention. CERVICAL LYMPH NODES: Nontender. Nonenlarged. THYROID: Not enlarged. No nodules. CARDIOVASCULAR: Precordial exam, nondisplaced. No heaves or pericardial thrills. Rate and rhythm, regular. Heart sounds, normal S1, normal S2. No S3, no gallop, no rub. Systolic murmur, not heard. Diastolic murmur, not heard. RESPIRATORY: Respiratory effort, unlabored. Normal curvature. No thoracic deformity. No chest wall tenderness. Percussion, resonant. Auscultation, clear. No wheezes, no rales, no rhonchi. ABDOMEN: Soft, nondistended, nontender. No abdominal pain, no vomiting and normal appetite. MUSCULOSKELETAL: No joint tenderness, normal gait, normal tone. SKIN: Warm and dry. OVERALL IMPRESSION: Atrial fibrillation, resolved, now sinus tachycardia. We will continue beta-blockade, get an echocardiogram, other than that no other cardiac workup or treatment will be necessary. TRANSINT:[id number] Voice Confirmation ID: [id number] DOCUMENT ID: [id number] CONSULT REPORT [id number] DIEGO LEON JR, JEFFREY MD at 1124 CC: [id number] DICTATION DATE: 03/17/191653 YARN CARRIER: 03/17/19 2305 DIS IN 03/20/19 [place] [id number] [place] [id number]
[2019-03-26 11:10] LABS: FUNGUS MYCOLOGY CULTURE Final report (())
== END 2019-03-20 16:33 | disposition home or self-care (01) | DRG 917 ==
LOC: D.ER 17:12 → D.ICU 19:18 → D.M2 03-04 19:57
PROVIDERS: Family Medicine; Internal Medicine Pulmonary Disease; Psychiatry & Neurology Psychiatry; ADMIT Internal Medicine Nephrology; ATTEND Internal Medicine Nephrology
PROC: 5A1955Z Respiratory Ventilation, Greater than 96 Consecutive Hours (ICD-10-PCS; principal; 2019-02-19)
PROC: 0BH17EZ Insertion of Endotracheal Airway into Trachea, Via Natural or Artificial Opening (ICD-10-PCS; 2019-02-19)
PROC: 0B9F8ZX Drainage of Right Lower Lung Lobe, Via Natural or Artificial Opening Endoscopic, Diagnostic (ICD-10-PCS; 2019-02-22)
PROC: 05HY33Z Insertion of Infusion Device into Upper Vein, Percutaneous Approach (ICD-10-PCS; 2019-02-23)
PROC: 0B968ZZ Drainage of Right Lower Lobe Bronchus, Via Natural or Artificial Opening Endoscopic (ICD-10-PCS; 2019-02-26)
DX: T43.014A Poisoning by tricyclic antidepressants, undetermined, initial encounter (principal); J96.01 Acute respiratory failure with hypoxia; G92 Toxic encephalopathy; J69.0 Pneumonitis due to inhalation of food and vomit; K85.90 Acute pancreatitis without necrosis or infection, unspecified; F17.203 Nicotine dependence unspecified, with withdrawal; F10.231 Alcohol dependence with withdrawal delirium; E87.0 Hyperosmolality and hypernatremia; J44.1 Chronic obstructive pulmonary disease with (acute) exacerbation; T17.590A Other foreign object in bronchus causing asphyxiation, initial encounter; F41.8 Other specified anxiety disorders; I48.91 Unspecified atrial fibrillation; I25.10 Atherosclerotic heart disease of native coronary artery without angina pectoris; G89.29 Other chronic pain; A49.02 Methicillin resistant Staphylococcus aureus infection, unspecified site